=== PATIENT | female | born 1980 | race Caucasian/White ===

== ENCOUNTER 2016-05-23 19:52 | Emergency (ER) | payer OTHER ==
[2016-05-23 19:57] VITALS: BP 140/78; PULSE 73; RESP 20; TEMP 97
[2016-05-23] MEDS ORDERED: SODIUM CHLORIDE 0.9% 1,000 ML IV STA (20:25)
[2016-05-23] MEDS ORDERED: ASPIRIN 81 MG CHEW PO STA (20:25)
[2016-05-23] MEDS ORDERED: NITROGLYCERIN SL TABS 0.4 MG TAB SUBLINGUAL STA (20:29)
--- NOTE | 2016-05-23 20:29 | ED ---
Chest Pain HPI <Daniel Enciso - Last Filed: 05/23/16 22:18> - General Source: patient, family, RN notes reviewed Mode of arrival: ambulatory Limitations: no limitations <Jackie Mas - Last Filed: 05/23/16 22:20> - General Chief Complaint: Chest Pain Stated Complaint: Chest Pain Time Seen by Provider: 05/23/16 20:17 - History of Present Illness Initial Comments: 35-year-old female presents to the emergency department with a chief complaint of right sided chest tightness. Karma has had this on and off for years Patient states that this started today around 3:00. Patient states just the tightness in her chest. Patient states sometimes she does feel short of breath or pain when she takes a deep breath as well as. Patient states the pain will come and go. Patient denies any nausea or vomiting with this. Patient states this radiates into the neck and down the back. Patient states she has had this pain before. Patient states she notices she doesn't take her fish oil that she has the pain if she takes official she doesn't have the pain. Patient denies any fever or chills with this. Patient is a smoker. Patient states she does not have high blood pressure diabetes. Patient states that she was concerned due to the continued pain so she thought that she should be evaluated. Patient states she currently is in mild pain.Patient denies any recent fever, chills, back pain, abdominal pain, nausea vomiting, numbness or tingling, dysuria or hematuria, constipation or diarrhea, headaches or visual changes, or any other current symptoms. (Jackie Mas) - Related Data Home Medications Medication Instructions Recorded Confirmed Albuterol Inhaler [Ventolin 2 puff INHALATION RT-Q6H PRN 09/04/14 05/23/16 Inhaler] Omeprazole [PriLOSEC] 20 mg PO AC-BRKFST 09/04/14 05/23/16 ALPRAZolam [Xanax] 0.5 mg PO TID PRN 04/05/15 05/23/16 Loratadine [Claritin] 10 mg PO HS 05/17/15 05/23/16 Naproxen [Naprosyn] 500 mg PO Q12HR PRN 05/17/15 05/23/16 Atorvastatin Calcium [Lipitor] 40 mg PO DAILY 07/27/15 05/23/16 HYDROcodone/APAP 7.5-325MG [[place] 1 tab PO BID PRN 08/28/15 05/23/16 7.5] [place]-3 Fatty Acids/Fish Oil [Fish 1 cap PO DAILY 08/28/15 05/23/16 Oil 1,000 mg Softgel] Verapamil HCl [Verapamil ER] 120 mg PO DAILY 08/28/15 05/23/16 Butalbit/Acetamin/Caff/Codeine 1 cap PO BID PRN 11/02/15 05/23/16 [Butal/APAP/Caff/Cod 30-538-85-30MG] Gabapentin [Neurontin] 400 mg PO TID 05/02/16 05/23/16 Solifenacin Succinate [Vesicare] 10 mg PO DAILY 05/02/16 05/23/16 Allergies Allergy/AdvReac Type Severity Reaction Status Date / Time No Known Allergies Allergy Verified 05/23/16 20:12 Review of Systems ROS Other: All systems not noted in ROS Statement are negative. <Daniel Enciso - Last Filed: 05/23/16 22:18> ROS Other: All systems not noted in ROS Statement are negative. <Jackie Mas - Last Filed: 05/23/16 22:20> ROS Statement: Those systems with pertinent positive or pertinent negative responses have been documented in the HPI. EKG Findings - EKG Comments: EKG Findings:: normal sinus rhythm 75 bpm, normal axis, no atopy, no S-T depressions or elevations, <Jackie Mas - Last Filed: 05/23/16 22:20> Past Medical History Past Medical History: Asthma, Chest Pain / Angina, GERD/Reflux, Osteoarthritis ( OA), Skin Disorder Additional Past Medical History / Comment(s): migraines, IBS, rash under arms, overactive bladder History of Any Multi-Drug Resistant Organisms: None Reported Past Surgical History: Cholecystectomy Additional Past Surgical History / Comment(s): removal of mole from genital area Past Anesthesia/Blood Transfusion Reactions: Motion Sickness Past Psychological History: Anxiety, Depression Smoking Status: Current every day smoker Past Alcohol Use History: Rare Additional Past Alcohol Use History / Comment(s): started smoking age 24 Past Drug Use History: None Reported - Past Family History Mother Family Medical History: No Reported History <Jackie Mas - Last Filed: 05/23/16 22:20> General Exam <Daniel Enciso - Last Filed: 05/23/16 22:18> Limitations: no limitations <Jackie Mas - Last Filed: 05/23/16 22:20> - General Exam Comments Initial Comments: General: The patient is awake and alert, in no distress, and does not appear acutely ill. Eye: Pupils are equal, round and reactive to light, extra-ocular movements are intact; there is normal conjunctiva bilaterally. No signs of icterus. Ears, nose, mouth and throat: There are moist mucous membranes and no oral lesions. Neck: The neck is supple, there is no tenderness. Cardiovascular: There is a regular rate and rhythm. No murmur, rub or gallop is appreciated. Respiratory: Lungs are clear to auscultation, respirations are non-labored, breath sounds are equal. No wheezes, stridor, rales, or rhonchi. Gastrointestinal: Soft, non-distended, non-tender abdomen without masses or organomegaly noted. There is no rebound or guarding present. No CVA tenderness. Bowel sounds are unremarkable. Back: There is no tenderness to palpation in the midline. There is no obvious deformity. No rashes noted. Musculoskeletal: Normal ROM, no tenderness, There is no pedal edema. There is no calf tenderness or swelling. Sensation intact. Pulses equal bilaterally 2+. Neurological: CN II-XII intact, There are no obvious motor or sensory deficits. Coordination appears grossly intact. Speech is normal. Skin: Skin is warm and dry and no rashes or lesions are noted. Psychiatric: Cooperative, appropriate mood & affect, normal judgment. (Jackie Mas) Course <Daniel Enciso - Last Filed: 05/23/16 22:18> <Jackie Mas - Last Filed: 05/23/16 22:20> Vital Signs 05/23/16 19:53 Temperature 97 F L Pulse Rate 73 Respiratory 20 Rate Blood Pressure 140/78 O2 Sat by Pulse 99 Oximetry - Reevaluation(s) Reevaluation #1: 05/23/16 22:18 Patient reevaluated by myself, Dr. Enciso. Patient resting comfortably in bed and symptom-free. Patient states discomfort was more right-sided and resolved with Aleve. Patient states normally her fish oil will help resolve the discomfort. Patient has been expressing this for months. Patient states today was no worse than other times. Patient states onset was between noon and 2. Troponin negative. Troponin was more than 6 hours after the onset. Case was discussed in detail with Dr. Walker who will follow-up with this patient tomorrow. (Daniel Enciso) Chest Pain MDM <Daniel Enciso - Last Filed: 05/23/16 22:18> <Jackie Mas - Last Filed: 05/23/16 22:20> - MDM 35-year-old female presents to emergency department with a chief complaint of shortness of breath and chest pain which has been going on for years. Patient is sitting patient has mild discomfort. Patient's symptoms have been going on for a long period of time. At this time patient case was discussed with the on- call doctor by Dr. Enciso patient will be discharged home to follow the office tomorrow. Patient exhibits plan all the questions have been answered. She'll be discharged. (Jackie Mas) Disposition <Daniel Enciso - Last Filed: 05/23/16 22:18> Time of Disposition: 22:20 <Jackie Mas - Last Filed: 05/23/16 22:20> Clinical Impression: Atypical chest pain Disposition: HOME SELF-CARE Condition: Stable Instructions: Costochondritis (ED) Additional Instructions: Please use medication as discussed. Please follow up with family doctor if symptoms have not improved over the next two days. Please return to the emergency room if your symptoms increase or worsen or for any other concerns. Follow-up with your doctor tomorrow. Referrals: Diogenes Rosenbaum MD [Primary Care Provider] - 1-2 days
[2016-05-23 21:17] LABS: Basophils % (A) 0 %; CH 31.6; CHCM 33.1; Eosinophils # (A) 0.6 k/uL (0-0.7); Eosinophils % (A) 4 %; HCT 43.3 % (34.0-46.0); HDW 2.38; HGB 14.5 gm/dL (11.4-16.0); Luc # (Auto) 0.22; Luc % (Auto) 2; Lymphocytes # (A) 2.4 k/uL (1.0-4.8); Lymphocytes % (A) 16 %; MCH 32.1 pg (25.0-35.0); MCHC 33.5 g/dL (31.0-37.0); MCV 95.6 fL (80.0-100.0); Mean Platelet Volume 7.8; Monocytes # (A) 0.6 k/uL (0-1.0); Monocytes % (A) 4 %; Neutrophils # (A) 11.2 k/uL (1.3-7.7); Neutrophils % (A) 74 %; RBC 4.52 m/uL (3.80-5.40); RDW 12.7 % (11.5-15.5); WBC 15.1 k/uL (3.8-10.6); WBC (Perox) 15.36
[2016-05-23 21:18] LABS: Appearance,Urine Clear (Clear); Bacteria,Urine Rare /hpf; Bilirubin,Urine Negative (Negative); Glucose,Urine (UA) Negative (Negative); Ketones,Urine Negative (Negative); Leukocyte Esterase,Urine Negative (Negative); Mucus,Urine Rare /hpf; Nitrite,Urine Negative (Negative); Particle Count 1082; Protein,Urine Negative (Negative); RBC,Urine 6 /hpf (0-5); Specific Gravity,Urine 1.014 (1.001-1.035); Squamous Epithelial Cell,Urine 3 /hpf (0-4); UA Billing (MACRO vs. MICRO) MICRO; Urobilinogen,Urine <2.0 mg/dL (<2.0); WBC,Urine <1 /hpf (0-5)
[2016-05-23 21:26] LABS: ALT 72 U/L (9-52); AST 47 U/L (14-36); Alkaline Phosphatase 105 U/L (38-126); Amylase 35 U/L (30-110); Anion Gap 11 mmol/L; Blood Urea Nitrogen 20 mg/dL (7-17); Calcium 9.3 mg/dL (8.4-10.2); Carbon Dioxide 26 mmol/L (22-30); Chloride 105 mmol/L (98-107); Glucose 100 mg/dL (74-99); Magnesium 1.7 mg/dL (1.6-2.3); Non-African American GFR(MDRD) >60 (>60 ml/min/1.73 sqM); Potassium 4.3 mmol/L (3.5-5.1); Sodium 142 mmol/L (137-145); Total Bilirubin 0.4 mg/dL (0.2-1.3); Total Protein 7.1 g/dL (6.3-8.2)
[2016-05-23 21:30] LABS: Creatine Kinase 43 U/L (30-135)
--- NOTE | 2016-05-23 21:32 | XR ---
EXAMINATION TYPE: XR chest 2V DATE OF EXAM: 05/23/2016 9:19 PM COMPARISON: 03/28/2015 HISTORY: Right-sided chest pain TECHNIQUE: Frontal and lateral views of the chest are obtained. FINDINGS: Heart and mediastinum are normal. Lungs are clear. Diaphragm is normal. Bony thorax and so ft tissues appear normal. IMPRESSION: Normal chest. No change.
[2016-05-23 21:43] LABS: Creatine Kinase MB 0.4 ng/mL (0.0-2.4); Troponin I <0.012 ng/mL (0.000-0.034)
[2016-05-23 22:04] LABS: Prothrombin Time 10.1 sec (9.0-12.0)
== END 2016-05-23 22:26 | disposition home or self-care (01) ==
LOC: EC 19:52
DX: R07.89 Other chest pain (principal); R06.02 Shortness of breath; N32.81 Overactive bladder; K21.9 Gastro-esophageal reflux disease without esophagitis; I20.9 Angina pectoris, unspecified; M19.90 Unspecified osteoarthritis, unspecified site; F17.200 Nicotine dependence, unspecified, uncomplicated; F41.9 Anxiety disorder, unspecified; Z79.899 Other long term (current) drug therapy
CPT/HCPCS: 36415; 71020; 80053; 81001; 81025; 82150; 82550; 82553; 83690; 83735; 84484; 85025; 85379; 85610; 85730; 93005; 99285

== ENCOUNTER 2016-05-28 21:29 | Emergency (ER) | payer OTHER ==
[2016-05-28 21:36] VITALS: TEMP 98
[2016-05-28] MEDS ORDERED: SODIUM CHLORIDE 0.9% 1,000 ML IV STA (22:22)
[2016-05-28] MEDS ORDERED: MORPHINE SULFATE 4 MG/ML SYRINGE IV STA (22:22)
[2016-05-28] MEDS ORDERED: SODIUM CHLORIDE 0.9% 500 ML IV STA (22:22)
[2016-05-28] MEDS ORDERED: ONDANSETRON 4 MG/2 ML VIAL IVP STA ×2 (22:22→23:55)
[2016-05-28] MEDS ORDERED: PANTOPRAZOLE 40 MG/10 ML VIAL IVP STA (22:22)
--- NOTE | 2016-05-28 23:12 | XR ---
EXAMINATION TYPE: XR chest 2V DATE OF EXAM: 05/28/2016 11:07 PM COMPARISON: 05/23/2016 HISTORY: Abdominal pain TECHNIQUE: Frontal and lateral views of the chest are obtained. FINDINGS: Heart and mediastinum are normal. Lungs are clear. Diaphragm is normal. Bony thorax and so ft tissues appear normal. IMPRESSION: Normal chest. No change.
--- NOTE | 2016-05-28 23:13 | XR ---
EXAMINATION TYPE: XR KUB DATE OF EXAM: 05/28/2016 11:07 PM COMPARISON: 03/28/2015 HISTORY: Abdominal pain TECHNIQUE: 4 views FINDINGS: There is no sign of pneumoperitoneum. There are some intestinal air-fluid levels. Large bow el gas pattern is normal. Lung bases are clear. There are no pathologic calcifications over the kidne ys. IMPRESSION: Small bowel air-fluid levels are suggestive of ileus that appears new compared to last ex am. No free air.
[2016-05-28 23:23] LABS: ALT 84 U/L (9-52); AST 47 U/L (14-36); Alkaline Phosphatase 102 U/L (38-126); Amylase <30 U/L (30-110); Anion Gap 14 mmol/L; Blood Urea Nitrogen 14 mg/dL (7-17); C Reactive Protein 8.4 mg/L (<10.0); Calcium 10.3 mg/dL (8.4-10.2); Carbon Dioxide 23 mmol/L (22-30); Chloride 106 mmol/L (98-107); Glucose 117 mg/dL (74-99); Non-African American GFR(MDRD) >60 (>60 ml/min/1.73 sqM); Potassium 4.3 mmol/L (3.5-5.1); Sodium 143 mmol/L (137-145); Total Bilirubin 0.6 mg/dL (0.2-1.3); Total Protein 7.7 g/dL (6.3-8.2)
[2016-05-28 23:27] LABS: Basophils % (A) 0 %; CH 31.9; CHCM 33.7; Eosinophils # (A) 0.2 k/uL (0-0.7); Eosinophils % (A) 1 %; HCT 48.6 % (34.0-46.0); HDW 2.42; Luc # (Auto) 0.14; Luc % (Auto) 1; Lymphocytes # (A) 1.6 k/uL (1.0-4.8); Lymphocytes % (A) 9 %; MCH 31.2 pg (25.0-35.0); MCHC 32.9 g/dL (31.0-37.0); MCV 94.8 fL (80.0-100.0); Mean Platelet Volume 7.1; Monocytes # (A) 0.6 k/uL (0-1.0); Monocytes % (A) 4 %; Neutrophils # (A) 15.5 k/uL (1.3-7.7); Neutrophils % (A) 86 %; RBC 5.13 m/uL (3.80-5.40); RDW 12.6 % (11.5-15.5); WBC 18.1 k/uL (3.8-10.6)
[2016-05-29 00:16] LABS: Appearance,Urine Cloudy (Clear); Bacteria,Urine Occasional /hpf; Bilirubin,Urine Negative (Negative); Glucose,Urine (UA) Negative (Negative); Ketones,Urine Trace (Negative); Leukocyte Esterase,Urine Small (Negative); Mucus,Urine Few /hpf; Nitrite,Urine Negative (Negative); Protein,Urine 2+ (Negative); RBC,Urine 37 /hpf (0-5); Specific Gravity,Urine 1.021 (1.001-1.035); Squamous Epithelial Cell,Urine 29 /hpf (0-4); UA Billing (MACRO vs. MICRO) MICRO; WBC,Urine 10 /hpf (0-5)
[2016-05-29] MEDS ORDERED: RX INFO: IV CONTRAST WAS GIVEN 1 EACH MISC MISCELLANE PRN (00:58)
--- NOTE | 2016-05-29 01:51 | CT ---
EXAMINATION TYPE: CT abdomen pelvis w con DATE OF EXAM: 05/29/2016 1:32 AM COMPARISON: 07/27/2015 HISTORY: Abd pain CT DLP: 4885.30 mGycm Automated exposure control for dose reduction was used. TECHNIQUE: Helical acquisition of images was performed from the lung bases through the pelvis. CONTRAST: Performed without Oral Contrast and with IV Contrast, patient injected with 100 mL of Omnipaque 300. FINDINGS: The lung bases are clear. There is no pleural effusion. The liver spleen pancreas appear normal. Bile ducts are not dilated. There are clips from cholecystectomy. There is no adrenal mass. Kidneys show satisfactory contrast opacification. There is no hydronephrosis. There is no retroperitoneal adenopat hy. There is no ascites. There is a small umbilical hernia that contains omental fat. I see no intestinal wall thickening. There are no dilated loops. There is spondylosis at L5-S1 with v acuum disc. Uterus is anteverted. Bladder distends smoothly. There is no evidence of a pelvic mass. T here is no free fluid in the pelvis. Appendix is not seen. There is no sign of appendicitis. I see no bony destructive process. IMPRESSION: SMALL UMBILICAL HERNIA. NO SIGN OF ACUTE ABDOMEN AND PELVIS. NO CHANGE COMPARED TO OLD EXAM.
--- NOTE | 2016-05-29 03:16 | ED ---
Abdominal Pain HPI - General Chief Complaint: Abdominal Pain Stated Complaint: abd pain Time Seen by Provider: 05/28/16 22:10 Source: patient Mode of arrival: ambulatory Limitations: no limitations - History of Present Illness Initial Comments: Planing of the epigastric pain it started 8 PM today, she vomited once she was quite diaphoretic and had a headache in the morning then headache is all after she took a nap and then she had a diarrhea she status post gallbladder surgery about a year ago. She is trying some weight loss pill which is over-the- counter pill and then she said her when she threw up it had a very bad water. Denies any fever or any chills had some nausea no vomiting. No headaches no neck stiffness no chest pain no pleuritic chest pain no frequency urgency dysuria - Related Data Home Medications Medication Instructions Recorded Confirmed Albuterol Inhaler [Ventolin 2 puff INHALATION RT-Q6H PRN 09/04/14 05/28/16 Inhaler] Omeprazole [PriLOSEC] 20 mg PO AC-BRKFST 09/04/14 05/28/16 ALPRAZolam [Xanax] 0.5 mg PO TID PRN 04/05/15 05/28/16 Loratadine [Claritin] 10 mg PO HS 05/17/15 05/28/16 Naproxen [Naprosyn] 500 mg PO Q12HR PRN 05/17/15 05/28/16 Atorvastatin Calcium [Lipitor] 40 mg PO DAILY 07/27/15 05/28/16 HYDROcodone/APAP 7.5-325MG [[place] 1 tab PO BID PRN 08/28/15 05/28/16 7.5] [place]-3 Fatty Acids/Fish Oil [Fish 1 cap PO DAILY 08/28/15 05/28/16 Oil 1,000 mg Softgel] Verapamil HCl [Verapamil ER] 120 mg PO DAILY 08/28/15 05/28/16 Butalbit/Acetamin/Caff/Codeine 1 cap PO BID PRN 11/02/15 05/28/16 [Butal/APAP/Caff/Cod 19-033-69-30MG] Gabapentin [Neurontin] 400 mg PO TID 05/02/16 05/28/16 Solifenacin Succinate [Vesicare] 10 mg PO DAILY 05/02/16 05/28/16 Allergies Allergy/AdvReac Type Severity Reaction Status Date / Time No Known Allergies Allergy Verified 05/28/16 21:50 Review of Systems ROS Statement: Those systems with pertinent positive or pertinent negative responses have been documented in the HPI. ROS Other: All systems not noted in ROS Statement are negative. Past Medical History Past Medical History: Asthma, Chest Pain / Angina, GERD/Reflux, Osteoarthritis ( OA), Skin Disorder Additional Past Medical History / Comment(s): migraines, IBS, rash under arms, overactive bladder History of Any Multi-Drug Resistant Organisms: None Reported Past Surgical History: Cholecystectomy Additional Past Surgical History / Comment(s): removal of mole from genital area Past Anesthesia/Blood Transfusion Reactions: Motion Sickness Past Psychological History: Anxiety, Depression Smoking Status: Current every day smoker Past Alcohol Use History: Rare Additional Past Alcohol Use History / Comment(s): started smoking age 24 Past Drug Use History: None Reported - Past Family History Mother Family Medical History: No Reported History General Exam - General Exam Comments Initial Comments: General: The patient is awake and alert, in no distress, and does not appear acutely ill. Skin: Skin is warm and dry and no rashes or lesions are noted. Eye: Pupils are equal, round and reactive to light, extra-ocular movements are intact; there is normal conjunctiva bilaterally. Ears, nose, mouth and throat: There are moist mucous membranes and no oral lesions. Neck: The neck is supple, there is no tenderness or JVD. Cardiovascular: There is a regular rate and rhythm. No murmur, rub or gallop is appreciated. Respiratory: To auscultation bilateral, no wheezing no rhonchi no distress respiratory kiser noticed Gastrointestinal: Mild tenderness noticed in the epigastric area positive bowel sounds no guarding no rebounds Back: There is no tenderness to palpation in the midline. There is no obvious deformity. Musculoskeletal: Normal ROM, no tenderness, There is no pedal edema. There is no calf tenderness or swelling. No cords were appreciated. Neurological: CN II-XII intact, Cranial nerves III through XII are intact. There are no obvious motor or sensory deficits. Coordination appears grossly intact. Speech is normal. Psychiatric: Cooperative, appropriate mood & affect, normal judgment. Limitations: no limitations Course Vital Signs 05/28/16 21:34 Temperature 98 F Pulse Rate 89 Respiratory 20 Rate Blood Pressure 198/89 O2 Sat by Pulse 98 Oximetry Him a she was reassessed multiple times, white count is elevated at 18 chest x- ray KUB are normal, compressive metabolic panel is normal as well and the CT was unremarkable last reassessment was done at 3 AM she feels better and wants to go home also we discussed her weight loss pills which is [id number] I recommend that please do not take anything unless she discussed with the family doctor she agreed with the Medical Decision Making - Lab Data Result diagrams: 05/28/16 20:40 05/28/16 20:40 Lab Results 05/28/16 05/28/16 05/29/16 Range/Units 20:40 20:40 00:00 WBC 18.1 H (3.8-10.6) k/uL RBC 5.13 (3.80-5.40) m/uL Hgb 16.0 (11.4-16.0) gm/dL Hct 48.6 H (34.0-46.0) % MCV 94.8 (80.0-100.0) fL MCH 31.2 (25.0-35.0) pg MCHC 32.9 (31.0-37.0) g/dL RDW 12.6 (11.5-15.5) % Plt Count 398 (150-450) k/uL Neutrophils % 86 % Lymphocytes % 9 % Monocytes % 4 % Eosinophils % 1 % Basophils % 0 % Neutrophils # 15.5 H (1.3-7.7) k/uL Lymphocytes # 1.6 (1.0-4.8) k/uL Monocytes # 0.6 (0-1.0) k/uL Eosinophils # 0.2 (0-0.7) k/uL Basophils # 0.0 (0-0.2) k/uL Sodium 143 (137-145) mmol/L Potassium 4.3 (3.5-5.1) mmol/L Chloride 106 (98-107) mmol/L Carbon Dioxide 23 (22-30) mmol/L Anion Gap 14 mmol/L BUN 14 (7-17) mg/dL Creatinine 0.60 (0.52-1.04) mg/dL Est GFR (MDRD) Af Amer >60 (>60 ml/min/1.73 sqM) Est GFR (MDRD) Non-Af >60 (>60 ml/min/1.73 sqM) Glucose 117 H (74-99) mg/dL Calcium 10.3 H (8.4-10.2) mg/dL Total Bilirubin 0.6 (0.2-1.3) mg/dL AST 47 H (14-36) U/L ALT 84 H (9-52) U/L Alkaline Phosphatase 102 (38-126) U/L C-Reactive Protein 8.4 (<10.0) mg/L Total Protein 7.7 (6.3-8.2) g/dL Albumin 4.4 (3.5-5.0) g/dL Amylase <30 L (30-110) U/L Lipase 64 (23-300) U/L Urine Color Yellow Urine Appearance Cloudy H (Clear) Urine pH 6.0 (5.0-8.0) Ur Specific Daniel 1.021 (1.001-1.035) Urine Protein 2+ H (Negative) Urine Glucose (UA) Negative (Negative) Urine Ketones Trace H (Negative) Urine Blood Moderate H (Negative) Urine Nitrate Negative (Negative) Urine Bilirubin Negative (Negative) Urine Urobilinogen 2.0 (<2.0) mg/dL Ur Leukocyte Esterase Small H (Negative) Urine RBC 37 H (0-5) /hpf Urine WBC 10 H (0-5) /hpf Ur Squamous Epith Cells 29 H (0-4) /hpf Urine Bacteria Occasional H (None) /hpf Urine Mucus Few H (None) /hpf Disposition Clinical Impression: Abdominal pain Disposition: HOME SELF-CARE Instructions: Abdominal Pain (ED) Additional Instructions: Tylenol 1 g by mouth every 6 when necessary
[2016-05-29 03:23] VITALS: BP 162/87; PULSE 91; RESP 18
== END 2016-05-29 03:22 | disposition home or self-care (01) ==
LOC: EC 21:29
DX: R10.9 Unspecified abdominal pain (principal); R61 Generalized hyperhidrosis; R11.10 Vomiting, unspecified; R19.7 Diarrhea, unspecified; F17.200 Nicotine dependence, unspecified, uncomplicated; N32.81 Overactive bladder; G43.909 Migraine, unspecified, not intractable, without status migrainosus; M19.90 Unspecified osteoarthritis, unspecified site; I20.9 Angina pectoris, unspecified; K21.9 Gastro-esophageal reflux disease without esophagitis; F41.9 Anxiety disorder, unspecified; Z79.899 Other long term (current) drug therapy
CPT/HCPCS: 99284; 96374; 96375 ×2; 96376; 36415; 80053; 82150; 83690; 85025; 86140; 81001; 71020; 74000; 74177; J2270; J2405; Q9967; C9113

== ENCOUNTER 2016-10-08 13:14 | Emergency (ER) | payer OTHER ==
[2016-10-08] MEDS ORDERED: KETOROLAC 30 MG/ML 1 ML VIAL IVP STA (14:01)
--- NOTE | 2016-10-08 14:06 | ED ---
General Adult HPI - General Chief complaint: Back Pain/Injury Stated complaint: back pain Time Seen by Provider: 10/08/16 13:29 Source: patient, RN notes reviewed Mode of arrival: ambulatory Limitations: no limitations - History of Present Illness Initial comments: Patient is a pleasant 36-year-old female presenting to the emergency department complaining of lower back pain. Onset was 2 weeks ago. Symptoms have been present since that time. Discomfort does radiate towards her right hip. Discomfort is somewhat positional. No dysuria or hematuria. Patient has had similar symptoms previously associated with back problems. Patient later states she is not clear if this feels like her chronic back problems. Patient has had back x-rays previously. Patient has also had kidney infections however she had blood in her urine at that time. No fevers. No incontinence or retention of bowel or bladder. No weakness. No abdominal pain. - Related Data Home Medications Medication Instructions Recorded Confirmed Albuterol Inhaler [Ventolin 2 puff INHALATION RT-Q6H PRN 09/04/14 10/08/16 Inhaler] Omeprazole [PriLOSEC] 20 mg PO AC-BRKFST 09/04/14 10/08/16 ALPRAZolam [Xanax] 0.5 mg PO TID PRN 04/05/15 10/08/16 Loratadine [Claritin] 10 mg PO HS 05/17/15 10/08/16 Naproxen [Naprosyn] 500 mg PO Q12HR PRN 05/17/15 10/08/16 Atorvastatin Calcium [Lipitor] 40 mg PO DAILY 07/27/15 10/08/16 HYDROcodone/APAP 7.5-325MG [[place] 1 tab PO BID PRN 08/28/15 10/08/16 7.5] [place]-3 Fatty Acids/Fish Oil [Fish 1 cap PO DAILY 08/28/15 10/08/16 Oil 1,000 mg Softgel] Gabapentin [Neurontin] 400 mg PO TID 05/02/16 10/08/16 Escitalopram Oxalate [Lexapro] 20 mg PO DAILY 10/08/16 10/08/16 Hydrochlorothiazide [Hydrodiuril] 12.5 mg PO DAILY 10/08/16 10/08/16 Pregabalin [Lyrica] 75 mg PO BID 05/23/17 05/23/17 Allergies Allergy/AdvReac Type Severity Reaction Status Date / Time No Known Allergies Allergy Verified 10/08/16 14:40 Review of Systems ROS Statement: Those systems with pertinent positive or pertinent negative responses have been documented in the HPI. ROS Other: All systems not noted in ROS Statement are negative. Constitutional: Denies: fever Eyes: Denies: eye pain ENT: Denies: ear pain Respiratory: Denies: cough Cardiovascular: Denies: chest pain Endocrine: Denies: fatigue Gastrointestinal: Denies: abdominal pain, nausea, vomiting Genitourinary: Denies: dysuria Musculoskeletal: Reports: back pain Skin: Denies: rash Neurological: Denies: weakness Past Medical History Past Medical History: Asthma, Chest Pain / Angina, GERD/Reflux, Osteoarthritis ( OA), Skin Disorder Additional Past Medical History / Comment(s): migraines, IBS, rash under arms, overactive bladder History of Any Multi-Drug Resistant Organisms: None Reported Past Surgical History: Cholecystectomy Additional Past Surgical History / Comment(s): removal of mole from genital area Past Anesthesia/Blood Transfusion Reactions: Motion Sickness Past Psychological History: Anxiety, Depression Smoking Status: Current every day smoker Past Alcohol Use History: Rare Additional Past Alcohol Use History / Comment(s): started smoking age 24 Past Drug Use History: None Reported - Past Family History Mother Family Medical History: No Reported History General Exam Limitations: no limitations General appearance: alert, in no apparent distress Head exam: Present: atraumatic Eye exam: Present: normal appearance, PERRL ENT exam: Present: normal oropharynx Neck exam: Present: normal inspection Respiratory exam: Present: normal lung sounds bilaterally Cardiovascular Exam: Present: regular rate, normal rhythm Expanded Peripheral pulses: 2+: Dorsalis Pedis (R), Dorsalis Pedis (L) GI/Abdominal exam: Present: soft, normal bowel sounds. Absent: distended, tenderness, guarding, rebound, rigid, pulsatile mass Extremities exam: Present: normal inspection Back exam: Present: tenderness (Mild tenderness right lateral lower lumbar region) Neurological exam: Present: alert. Absent: motor sensory deficit Psychiatric exam: Present: normal affect, normal mood Skin exam: Absent: rash Course Vital Signs 10/08/16 13:18 Temperature 98.4 F Pulse Rate 76 Respiratory 18 Rate Blood Pressure 162/77 O2 Sat by Pulse 99 Oximetry Medical Decision Making - Medical Decision Making Patient reevaluated and resting comfortably in bed. Patient states discomfort has significantly improved. Patient updated on results. Patient offered prescription for pain medication however refuses stating that she is on a pain contract and already takes [place]. Patient states he has appointment with her doctor tomorrow and will keep this. Patient is advised to have her doctor a few results from today including liver enzymes. Patient states her white blood cell count is chronically elevated. - Lab Data Result diagrams: 10/08/16 14:30 10/08/16 14:30 Lab Results 10/08/16 10/08/16 10/08/16 Range/Units 14:30 14:30 14:30 WBC 12.2 H (3.8-10.6) k/uL RBC 4.27 (3.80-5.40) m/uL Hgb 13.8 (11.4-16.0) gm/dL Hct 41.2 (34.0-46.0) % MCV 96.5 (80.0-100.0) fL MCH 32.4 (25.0-35.0) pg MCHC 33.6 (31.0-37.0) g/dL RDW 12.8 (11.5-15.5) % Plt Count 274 (150-450) k/uL Neutrophils % 74 % Lymphocytes % 16 % Monocytes % 5 % Eosinophils % 4 % Basophils % 0 % Neutrophils # 9.0 H (1.3-7.7) k/uL Lymphocytes # 1.9 (1.0-4.8) k/uL Monocytes # 0.6 (0-1.0) k/uL Eosinophils # 0.5 (0-0.7) k/uL Basophils # 0.1 (0-0.2) k/uL Sodium 138 (137-145) mmol/L Potassium 4.8 (3.5-5.1) mmol/L Chloride 105 (98-107) mmol/L Carbon Dioxide 24 (22-30) mmol/L Anion Gap 9 mmol/L BUN 11 (7-17) mg/dL Creatinine 0.63 (0.52-1.04) mg/dL Est GFR (MDRD) Af Amer >60 (>60 ml/min/1.73 sqM) Est GFR (MDRD) Non-Af >60 (>60 ml/min/1.73 sqM) Glucose 126 H (74-99) mg/dL Calcium 9.3 (8.4-10.2) mg/dL Total Bilirubin 0.8 (0.2-1.3) mg/dL AST 58 H (14-36) U/L ALT 56 H (9-52) U/L Alkaline Phosphatase 72 (38-126) U/L Total Protein 7.0 (6.3-8.2) g/dL Albumin 3.7 (3.5-5.0) g/dL Urine Color Urine Appearance (Clear) Urine pH (5.0-8.0) Ur Specific [place] (1.001-1.035) Urine Protein (Negative) Urine Glucose (UA) (Negative) Urine Ketones (Negative) Urine Blood (Negative) Urine Nitrite (Negative) Urine Bilirubin (Negative) Urine Urobilinogen (<2.0) mg/dL Ur Leukocyte Esterase (Negative) Urine RBC (0-5) /hpf Urine WBC (0-5) /hpf Ur Squamous Epith Cells (0-4) /hpf Amorphous Sediment (None) /hpf Hyaline Casts (0-2) /lpf Urine HCG, Qual Not Detected (Not Detectd) 10/08/16 Range/Units 14:30 WBC (3.8-10.6) k/uL RBC (3.80-5.40) m/uL Hgb (11.4-16.0) gm/dL Hct (34.0-46.0) % MCV (80.0-100.0) fL MCH (25.0-35.0) pg MCHC (31.0-37.0) g/dL RDW (11.5-15.5) % Plt Count (150-450) k/uL Neutrophils % % Lymphocytes % % Monocytes % % Eosinophils % % Basophils % % Neutrophils # (1.3-7.7) k/uL Lymphocytes # (1.0-4.8) k/uL Monocytes # (0-1.0) k/uL Eosinophils # (0-0.7) k/uL Basophils # (0-0.2) k/uL Sodium (137-145) mmol/L Potassium (3.5-5.1) mmol/L Chloride (98-107) mmol/L Carbon Dioxide (22-30) mmol/L Anion Gap mmol/L BUN (7-17) mg/dL Creatinine (0.52-1.04) mg/dL Est GFR (MDRD) Af Amer (>60 ml/min/1.73 sqM) Est GFR (MDRD) Non-Af (>60 ml/min/1.73 sqM) Glucose (74-99) mg/dL Calcium (8.4-10.2) mg/dL Total Bilirubin (0.2-1.3) mg/dL AST (14-36) U/L ALT (9-52) U/L Alkaline Phosphatase (38-126) U/L Total Protein (6.3-8.2) g/dL Albumin (3.5-5.0) g/dL Urine Color Light Yellow Urine Appearance Clear (Clear) Urine pH 6.5 (5.0-8.0) Ur Specific [place] 1.007 (1.001-1.035) Urine Protein Negative (Negative) Urine Glucose (UA) Negative (Negative) Urine Ketones Negative (Negative) Urine Blood Small H (Negative) Urine Nitrite Negative (Negative) Urine Bilirubin Negative (Negative) Urine Urobilinogen <2.0 (<2.0) mg/dL Ur Leukocyte Esterase Negative (Negative) Urine RBC 1 (0-5) /hpf Urine WBC 1 (0-5) /hpf Ur Squamous Epith Cells 6 H (0-4) /hpf Amorphous Sediment Rare H (None) /hpf Hyaline Casts 1 (0-2) /lpf Urine HCG, Qual (Not Detectd) - Radiology Data Radiology results: report reviewed (Computed tomography scan of the abdomen and pelvis reveals no acute abnormality.) Disposition Clinical Impression: Low back pain Disposition: HOME SELF-CARE Condition: Stable Instructions: Acute Low Back Pain (ED), Chronic Back Pain (ED) Additional Instructions: Please follow-up with your doctor tomorrow as scheduled. Please have your doctor review results from today including liver enzymes. You should have your liver enzymes rechecked in the future and possible further investigation. Return for increased pain, fevers, worsening or changing symptoms or other concerns. Referrals: Diogenes Rosenbaum MD [Primary Care Provider] - 1-2 days
[2016-10-08 14:51] LABS: ALT 56 U/L (9-52); AST 58 U/L (14-36); Alkaline Phosphatase 72 U/L (38-126); Anion Gap 9 mmol/L; Blood Urea Nitrogen 11 mg/dL (7-17); Calcium 9.3 mg/dL (8.4-10.2); Carbon Dioxide 24 mmol/L (22-30); Chloride 105 mmol/L (98-107); Glucose 126 mg/dL (74-99); Non-African American GFR(MDRD) >60 (>60 ml/min/1.73 sqM); Potassium 4.8 mmol/L (3.5-5.1); Sodium 138 mmol/L (137-145); Total Bilirubin 0.8 mg/dL (0.2-1.3)
[2016-10-08 15:06] LABS: Amorphous Sediment,Urine Rare /hpf; Particle Count 757; RBC,Urine 1 /hpf (0-5); Squamous Epithelial Cell,Urine 6 /hpf (0-4); WBC,Urine 1 /hpf (0-5)
[2016-10-08 15:09] LABS: Appearance,Urine Clear (Clear); Bilirubin,Urine Negative (Negative); Glucose,Urine (UA) Negative (Negative); Ketones,Urine Negative (Negative); Leukocyte Esterase,Urine Negative (Negative); Nitrite,Urine Negative (Negative); PH, Urine 6.5 (5.0-8.0); Protein,Urine Negative (Negative); Specific Gravity,Urine 1.007 (1.001-1.035); UA Billing (MACRO vs. MICRO) MICRO; Urobilinogen,Urine <2.0 mg/dL (<2.0)
--- NOTE | 2016-10-08 15:25 | CT ---
EXAMINATION TYPE: CT abdomen pelvis wo con DATE OF EXAM: 10/08/2016 3:04 PM COMPARISON: 05/29/2016 HISTORY: 36-year-old female Right sided flank pain CT DLP: 3352 mGycm. Automated exposure control for dose reduction was used. TECHNIQUE: Contiguous axial scanning of the abdomen and pelvis without IV contrast. Coronal and sagit jose manuel reconstructions performed. FINDINGS: The heart is normal size without pericardial effusion. Lung bases clear without pleural effusion. There are artifacts secondary to patient's large body habitus and contact with the sides of the gantr y. Allowing for these artifacts and noncontrast technique, no focal liver lesion. Cholecystectomy clips are present. Noncontrast appearance of the adrenal glands, kidneys, spleen, and pancreas within jimbo l limits. Specifically, no nephrolithiasis or hydronephrosis. No dilated small bowel, free fluid, or free air. No mesenteric or retroperitoneal lymphadenopathy. Normal appendix. No significant stool burden or pericolonic inflammatory change. Small fatty umbilical hernia. Bladder is underdistended. Uterus and ovaries are visualized. No abnormal fluid collection in the pel vis or pelvic lymphadenopathy seen. Bones: Degenerative changes lower lumbar spine. No osseous destructive process. IMPRESSION: 1. Redemonstrated small fatty umbilical hernia. 2. No nephrolithiasis, hydronephrosis, or acute inflammatory process identified to explain the patie nt's symptoms.
[2016-10-08 16:04] LABS: Basophils # (A) 0.1 k/uL (0-0.2); Basophils % (A) 0 %; CHCM 33.3; Eosinophils # (A) 0.5 k/uL (0-0.7); Eosinophils % (A) 4 %; HCT 41.2 % (34.0-46.0); HDW 2.33; HGB 13.8 gm/dL (11.4-16.0); Luc # (Auto) 0.12; Luc % (Auto) 1; Lymphocytes # (A) 1.9 k/uL (1.0-4.8); Lymphocytes % (A) 16 %; MCH 32.4 pg (25.0-35.0); MCHC 33.6 g/dL (31.0-37.0); MCV 96.5 fL (80.0-100.0); Mean Platelet Volume 9.1; Monocytes # (A) 0.6 k/uL (0-1.0); Monocytes % (A) 5 %; Neutrophils % (A) 74 %; RBC 4.27 m/uL (3.80-5.40); RDW 12.8 % (11.5-15.5); WBC 12.2 k/uL (3.8-10.6)
[2016-10-08 16:45] VITALS: BP 167/72; PULSE 64; RESP 16; TEMP 97.8
== END 2016-10-08 16:45 | disposition home or self-care (01) ==
LOC: EC 13:14
DX: M54.5 Low back pain (principal); K21.9 Gastro-esophageal reflux disease without esophagitis; M19.90 Unspecified osteoarthritis, unspecified site; K58.9 Irritable bowel syndrome, unspecified; F32.9 Major depressive disorder, single episode, unspecified; F41.9 Anxiety disorder, unspecified; F17.200 Nicotine dependence, unspecified, uncomplicated; Z79.899 Other long term (current) drug therapy
CPT/HCPCS: 36415; 80053; 85025; 81001; 81025; 74176; 99284; 96374; J1885

== ENCOUNTER → 2016-11-28 | Outpatient (CLI) | payer OTHER | END | disposition home or self-care (01) | LOC: RADMRIMAIN 09:33 | PROVIDERS: ATTEND Psychiatry & Neurology Pain Medicine | DX: Z53.9 Procedure and treatment not carried out, unspecified reason (principal) ==

== ENCOUNTER 2016-12-19 20:48 | Emergency (ER) | payer OTHER ==
[2016-12-19 21:01] VITALS: BP 176/95; PULSE 106; RESP 20
[2016-12-19] MEDS ORDERED: CEPHALEXIN 500MG STARTER PACK 4 CAP BTL PO STA (21:15)
--- NOTE | 2016-12-19 21:58 | ED ---
General Adult HPI - General Chief complaint: Extremity Problem,Nontraumatic Stated complaint: ingrown toenail Time Seen by Provider: 12/19/16 21:12 Source: patient, RN notes reviewed, old records reviewed Mode of arrival: ambulatory Limitations: no limitations - History of Present Illness Initial comments: This is a 36 year old femael with CC of right great ingrown toenail. She reports that her nail has been bothering her for a week. She reports she tried to remove the nail, but it seems lauri too deep. Patint denies any fever or chills. Denies swelling of the toe or redness. - Related Data Home Medications Medication Instructions Recorded Confirmed Albuterol Inhaler [Ventolin 2 puff INHALATION RT-Q6H PRN 09/04/14 12/19/16 Inhaler] Omeprazole [PriLOSEC] 20 mg PO AC-BRKFST 09/04/14 12/19/16 ALPRAZolam [Xanax] 0.5 mg PO TID PRN 04/05/15 12/19/16 Loratadine [Claritin] 10 mg PO HS 05/17/15 12/19/16 Naproxen [Naprosyn] 500 mg PO Q12HR PRN 05/17/15 12/19/16 Atorvastatin Calcium [Lipitor] 40 mg PO DAILY 07/27/15 12/19/16 HYDROcodone/APAP 7.5-325MG [[place] 1 tab PO BID PRN 08/28/15 12/19/16 7.5] [place]-3 Fatty Acids/Fish Oil [Fish 1 cap PO DAILY 08/28/15 12/19/16 Oil 1,000 mg Softgel] Gabapentin [Neurontin] 400 mg PO TID 05/02/16 12/19/16 Escitalopram Oxalate [Lexapro] 20 mg PO DAILY 10/08/16 12/19/16 Hydrochlorothiazide [Hydrodiuril] 12.5 mg PO DAILY 10/08/16 12/19/16 Pregabalin [Lyrica] 75 mg PO BID 10/08/16 12/19/16 Previous Rx's Medication Instructions Recorded Cephalexin [Keflex] 500 mg PO Q8HR #21 cap 12/19/16 Allergies Allergy/AdvReac Type Severity Reaction Status Date / Time No Known Allergies Allergy Verified 12/19/16 21:01 Review of Systems ROS Statement: Those systems with pertinent positive or pertinent negative responses have been documented in the HPI. ROS Other: All systems not noted in ROS Statement are negative. Past Medical History Past Medical History: Asthma, Chest Pain / Angina, GERD/Reflux, Osteoarthritis ( OA), Skin Disorder Additional Past Medical History / Comment(s): migraines, IBS, rash under arms, overactive bladder History of Any Multi-Drug Resistant Organisms: None Reported Past Surgical History: Cholecystectomy Additional Past Surgical History / Comment(s): removal of mole from genital area Past Anesthesia/Blood Transfusion Reactions: Motion Sickness Past Psychological History: Anxiety, Depression Smoking Status: Current every day smoker Past Alcohol Use History: Rare Past Drug Use History: None Reported - Past Family History Mother Family Medical History: No Reported History General Exam - General Exam Comments Initial Comments: Well appearing 36 year old female, she is morbidly obese. Limitations: no limitations General appearance: alert, in no apparent distress Head exam: Present: atraumatic, normocephalic, normal inspection Eye exam: Present: normal appearance, PERRL, EOMI. Absent: scleral icterus, conjunctival injection, periorbital swelling ENT exam: Present: normal exam, mucous membranes moist Neck exam: Present: normal inspection. Absent: tenderness, meningismus, lymphadenopathy Respiratory exam: Present: normal lung sounds bilaterally. Absent: respiratory distress, wheezes, rales, rhonchi, stridor Cardiovascular Exam: Present: regular rate, normal rhythm, normal heart sounds. Absent: systolic murmur, diastolic murmur, rubs, gallop, clicks GI/Abdominal exam: Present: soft, normal bowel sounds. Absent: distended, tenderness, guarding, rebound, rigid Extremities exam: Present: normal inspection, full ROM, normal capillary refill , other (patient has ingrown toenail. ). Absent: tenderness, pedal edema, joint swelling, calf tenderness Back exam: Present: normal inspection Neurological exam: Present: alert, oriented X3, CN II-XII intact Psychiatric exam: Present: normal affect, normal mood Skin exam: Present: warm, dry, intact, normal color. Absent: rash Course Vital Signs 12/19/16 12/19/16 20:58 22:12 Temperature 97.3 F L 97.9 F Pulse Rate 106 H Respiratory 20 Rate Blood Pressure 176/95 O2 Sat by Pulse 96 Oximetry Medical Decision Making - Medical Decision Making This is a 36 year old femael with CC of right great ingrown toenail. She reports that her nail has been bothering her for a week. She reports she tried to remove the nail, but it seems lauri too deep. Patint denies any fever or chills. Denies swelling of the toe or redness. Patient has right ingrown toenail over the medial aspect of toe. Nail was parially removed, nail bed was not ablated. Patient started on keflex. Patient will be discharged with referral to podiatry. Return parameters discussed. Disposition Clinical Impression: Ingrown right big toenail Disposition: HOME SELF-CARE Condition: Good Instructions: Ingrown Nail (ED) Additional Instructions: Patient advised to take antibiotics as directed. Follow-up with support services coordinator. Return to emergency department if any alarming signs or symptoms occur. Prescriptions: Cephalexin [Keflex] 500 mg PO Q8HR #21 cap Referrals: Lucien Vela MD [Primary Care Provider] - 1-2 days Kalyan Paz DPM [STAFF PHYSICIAN] - 1-2 days Time of Disposition: 21:56
[2016-12-19 22:14] VITALS: TEMP 97.9
--- NOTE | 2016-12-23 07:52 | CDI ---
Documentation Clarification OP Dear NAHID Cherry: Please do addendum to ED report for HPI and physical exam. Thank you, Anne Sanchez Waistline Joiner If you have any question, Please contact manager procurement at [phone] [facility]
== END 2016-12-19 22:10 | disposition home or self-care (01) ==
LOC: EC 20:48
DX: L60.0 Ingrowing nail (principal); K21.9 Gastro-esophageal reflux disease without esophagitis; M19.90 Unspecified osteoarthritis, unspecified site; K58.9 Irritable bowel syndrome, unspecified; F32.9 Major depressive disorder, single episode, unspecified; F41.9 Anxiety disorder, unspecified; Z68.44 Body mass index [BMI] 60.0-69.9, adult; E66.01 Morbid (severe) obesity due to excess calories; F17.200 Nicotine dependence, unspecified, uncomplicated; Z79.899 Other long term (current) drug therapy
CPT/HCPCS: 99283

== ENCOUNTER 2017-01-13 20:44 | Emergency (ER) | payer OTHER ==
[2017-01-13 20:51] VITALS: RESP 20
[2017-01-13] MEDS ORDERED: MORPHINE SULFATE 4 MG/ML SYRINGE IV STA (21:17)
--- NOTE | 2017-01-13 21:22 | ED ---
Abdominal Pain HPI - General Chief Complaint: Abdominal Pain Stated Complaint: Lower Back/Abd Pain Time Seen by Provider: 01/13/17 21:05 Source: patient Mode of arrival: ambulatory Limitations: no limitations - History of Present Illness Initial Comments: This patient is a 36-year-old woman who presents to be evaluated for right flank and right upper quadrant pain. She states that her symptoms began 5 days ago with pain to the right flank area. The pain is aching, constant, and over the past few days it seems to have migrated such that her right upper quadrant is involved as well. She states the pain is become more severe as well and she is severe. She has not noted anything that relieves the pain. She states it does seem to get worse after she eats. She has had some accompanying nausea but no vomiting. She denies changes in bowel movements. She has not noted any change in urination. She has not had fever or chills. There are no symptoms up into the chest, including no cough, dyspnea. She has not had some radiation of the pain to the legs. MD Complaint: abdominal pain, flank pain Onset/Timin -: days(s) Location: R flank Radiation: none Migration to: RUQ Severity: severe Quality: aching Consistency: constant Improves With: nothing Worsens With: eating Associated Symptoms: nausea - Related Data Home Medications Medication Instructions Recorded Confirmed Albuterol Inhaler [Ventolin 2 puff INHALATION RT-Q6H PRN 09/04/14 01/13/17 Inhaler] Omeprazole [PriLOSEC] 20 mg PO AC-BRKFST 09/04/14 01/13/17 ALPRAZolam [Xanax] 0.5 mg PO TID PRN 04/05/15 01/13/17 Naproxen [Naprosyn] 500 mg PO Q12HR PRN 05/17/15 01/13/17 HYDROcodone/APAP 7.5-325MG [[place] 1 tab PO BID PRN 08/28/15 01/13/17 7.5] [place]-3 Fatty Acids/Fish Oil [Fish 1 cap PO DAILY 08/28/15 01/13/17 Oil 1,000 mg Softgel] Gabapentin [Neurontin] 400 mg PO TID 05/02/16 01/13/17 Escitalopram Oxalate [Lexapro] 20 mg PO HS 10/08/16 01/13/17 Hydrochlorothiazide [Hydrodiuril] 12.5 mg PO DAILY 10/08/16 01/13/17 Pregabalin [Lyrica] 75 mg PO BID 10/08/16 01/13/17 Amitriptyline HCl [Elavil] 50 mg PO BID 01/13/17 01/13/17 Cetirizine HCl [Zyrtec] 10 mg PO HS 01/13/17 01/13/17 Previous Rx's Medication Instructions Recorded Famotidine [Pepcid] 20 mg PO BID #14 tablet 01/13/17 Allergies Allergy/AdvReac Type Severity Reaction Status Date / Time No Known Allergies Allergy Verified 01/13/17 21:18 Review of Systems ROS Statement: Those systems with pertinent positive or pertinent negative responses have been documented in the HPI. ROS Other: All systems not noted in ROS Statement are negative. Constitutional: Denies: fever, chills, weakness Respiratory: Denies: cough, dyspnea Cardiovascular: Denies: chest pain, palpitations, edema, syncope Gastrointestinal: Reports: as per HPI, abdominal pain, nausea. Denies: vomiting , diarrhea, constipation, melena, hematochezia Genitourinary: Denies: dysuria, frequency, hematuria Musculoskeletal: Reports: as per HPI, back pain Skin: Denies: rash Neurological: Denies: headache, weakness, numbness Past Medical History Past Medical History: Asthma, Chest Pain / Angina, GERD/Reflux, Osteoarthritis ( OA), Skin Disorder Additional Past Medical History / Comment(s): migraines, IBS, rash under arms, overactive bladder History of Any Multi-Drug Resistant Organisms: None Reported Past Surgical History: Cholecystectomy Additional Past Surgical History / Comment(s): removal of mole from genital area Past Anesthesia/Blood Transfusion Reactions: Motion Sickness Past Psychological History: Anxiety, Depression Smoking Status: Current every day smoker Past Alcohol Use History: Rare Past Drug Use History: None Reported - Past Family History Mother Family Medical History: No Reported History General Exam Limitations: no limitations General appearance: alert, in no apparent distress, obese Head exam: Present: atraumatic, normocephalic Eye exam: Present: normal appearance. Absent: scleral icterus, conjunctival injection ENT exam: Present: normal oropharynx Neck exam: Present: normal inspection Respiratory exam: Present: normal lung sounds bilaterally. Absent: respiratory distress, wheezes, rales, rhonchi, stridor Cardiovascular Exam: Present: regular rate, normal rhythm, normal heart sounds. Absent: systolic murmur, diastolic murmur, rubs, gallop GI/Abdominal exam: Present: soft, tenderness ([place]). Absent: distended, guarding, rebound, rigid, mass, pulsatile mass, hernia Extremities exam: Present: normal inspection, normal capillary refill. Absent: pedal edema, calf tenderness Back exam: Present: normal inspection. Absent: CVA tenderness (R), CVA tenderness (L) Neurological exam: Present: alert Skin exam: Present: warm, dry, intact, normal color. Absent: rash, cyanosis, diaphoretic, erythema, petechiae, pallor, mottled Course Vital Signs 01/13/17 01/13/17 20:49 21:43 Temperature 97.7 F Pulse Rate 90 80 Respiratory 20 20 Rate Blood Pressure 117/59 132/84 O2 Sat by Pulse 96 99 Oximetry Medical Decision Making - Medical Decision Making Discussed urinary findings with the patient to definitely denies urinary tract symptoms, including no frequency, urgency, dysuria, hematuria or other symptoms. We'll send a culture by suspect that this represents a contaminated specimen. - Lab Data Result diagrams: 01/13/17 22:10 01/13/17 22:10 Lab Results 01/13/17 01/13/17 01/13/17 Range/Units 21:45 21:45 22:10 WBC (3.8-10.6) k/uL RBC (3.80-5.40) m/uL Hgb (11.4-16.0) gm/dL Hct (34.0-46.0) % MCV (80.0-100.0) fL MCH (25.0-35.0) pg MCHC (31.0-37.0) g/dL RDW (11.5-15.5) % Plt Count (150-450) k/uL Neutrophils % % Lymphocytes % % Monocytes % % Eosinophils % % Basophils % % Neutrophils # (1.3-7.7) k/uL Lymphocytes # (1.0-4.8) k/uL Monocytes # (0-1.0) k/uL Eosinophils # (0-0.7) k/uL Basophils # (0-0.2) k/uL Sodium 139 (137-145) mmol/L Potassium 4.1 (3.5-5.1) mmol/L Chloride 105 (98-107) mmol/L Carbon Dioxide 23 (22-30) mmol/L Anion Gap 11 mmol/L BUN 12 (7-17) mg/dL Creatinine 0.80 (0.52-1.04) mg/dL Est GFR (MDRD) Af Amer >60 (>60 ml/min/1.73 sqM) Est GFR (MDRD) Non-Af >60 (>60 ml/min/1.73 sqM) Glucose 132 H (74-99) mg/dL Calcium 8.9 (8.4-10.2) mg/dL Total Bilirubin 0.3 (0.2-1.3) mg/dL AST 92 H (14-36) U/L ALT 118 H (9-52) U/L Alkaline Phosphatase 116 (38-126) U/L Total Protein 6.6 (6.3-8.2) g/dL Albumin 3.7 (3.5-5.0) g/dL Amylase <30 L (30-110) U/L Lipase 128 (23-300) U/L Urine Color Yellow Urine Appearance Cloudy H (Clear) Urine pH 6.0 (5.0-8.0) Ur Specific [place] 1.028 (1.001-1.035) Urine Protein 1+ H (Negative) Urine Glucose (UA) Negative (Negative) Urine Ketones Trace H (Negative) Urine Blood Small H (Negative) Urine Nitrite Negative (Negative) Urine Bilirubin Negative (Negative) Urine Urobilinogen 3.0 (<2.0) mg/dL Ur Leukocyte Esterase Moderate H (Negative) Urine RBC 35 H (0-5) /hpf Urine WBC 4 (0-5) /hpf Ur Squamous Epith Cells 19 H (0-4) /hpf Urine Bacteria Rare H (None) /hpf Urine Mucus Occasional H (None) /hpf Urine Yeast (Budding) Rare H (None) /hpf Urine HCG, Qual Not Detected (Not Detectd) 01/13/17 Range/Units 22:10 WBC 13.2 H (3.8-10.6) k/uL RBC 4.31 (3.80-5.40) m/uL Hgb 13.8 (11.4-16.0) gm/dL Hct 41.7 (34.0-46.0) % MCV 96.6 (80.0-100.0) fL MCH 32.0 (25.0-35.0) pg MCHC 33.1 (31.0-37.0) g/dL RDW 13.5 (11.5-15.5) % Plt Count 311 (150-450) k/uL Neutrophils % 72 % Lymphocytes % 17 % Monocytes % 4 % Eosinophils % 5 % Basophils % 0 % Neutrophils # 9.4 H (1.3-7.7) k/uL Lymphocytes # 2.2 (1.0-4.8) k/uL Monocytes # 0.5 (0-1.0) k/uL Eosinophils # 0.7 (0-0.7) k/uL Basophils # 0.1 (0-0.2) k/uL Sodium (137-145) mmol/L Potassium (3.5-5.1) mmol/L Chloride (98-107) mmol/L Carbon Dioxide (22-30) mmol/L Anion Gap mmol/L BUN (7-17) mg/dL Creatinine (0.52-1.04) mg/dL Est GFR (MDRD) Af Amer (>60 ml/min/1.73 sqM) Est GFR (MDRD) Non-Af (>60 ml/min/1.73 sqM) Glucose (74-99) mg/dL Calcium (8.4-10.2) mg/dL Total Bilirubin (0.2-1.3) mg/dL AST (14-36) U/L ALT (9-52) U/L Alkaline Phosphatase (38-126) U/L Total Protein (6.3-8.2) g/dL Albumin (3.5-5.0) g/dL Amylase (30-110) U/L Lipase (23-300) U/L Urine Color Urine Appearance (Clear) Urine pH (5.0-8.0) Ur Specific [place] (1.001-1.035) Urine Protein (Negative) Urine Glucose (UA) (Negative) Urine Ketones (Negative) Urine Blood (Negative) Urine Nitrite (Negative) Urine Bilirubin (Negative) Urine Urobilinogen (<2.0) mg/dL Ur Leukocyte Esterase (Negative) Urine RBC (0-5) /hpf Urine WBC (0-5) /hpf Ur Squamous Epith Cells (0-4) /hpf Urine Bacteria (None) /hpf Urine Mucus (None) /hpf Urine Yeast (Budding) (None) /hpf Urine HCG, Qual (Not Detectd) Disposition Clinical Impression: Abdominal pain Disposition: HOME SELF-CARE Condition: Fair Instructions: Abdominal Pain (ED) Prescriptions: Famotidine [Pepcid] 20 mg PO BID #14 tablet Referrals: Lucien Vela MD [Primary Care Provider] - 1-2 days
[2017-01-13 21:53] LABS: Appearance,Urine Cloudy (Clear); Bacteria,Urine Rare /hpf; Bilirubin,Urine Negative (Negative); Glucose,Urine (UA) Negative (Negative); Ketones,Urine Trace (Negative); Leukocyte Esterase,Urine Moderate (Negative); Mucus,Urine Occasional /hpf; Nitrite,Urine Negative (Negative); Particle Count 5599; Protein,Urine 1+ (Negative); RBC,Urine 35 /hpf (0-5); Specific Gravity,Urine 1.028 (1.001-1.035); Squamous Epithelial Cell,Urine 19 /hpf (0-4); UA Billing (MACRO vs. MICRO) MICRO; WBC,Urine 4 /hpf (0-5)
[2017-01-13 22:32] LABS: Basophils # (A) 0.1 k/uL (0-0.2); Basophils % (A) 0 %; CH 32.4; CHCM 33.7; Eosinophils # (A) 0.7 k/uL (0-0.7); Eosinophils % (A) 5 %; HCT 41.7 % (34.0-46.0); HDW 2.46; HGB 13.8 gm/dL (11.4-16.0); Luc # (Auto) 0.25; Luc % (Auto) 2; Lymphocytes # (A) 2.2 k/uL (1.0-4.8); Lymphocytes % (A) 17 %; MCHC 33.1 g/dL (31.0-37.0); MCV 96.6 fL (80.0-100.0); Mean Platelet Volume 7.8; Monocytes # (A) 0.5 k/uL (0-1.0); Monocytes % (A) 4 %; Neutrophils # (A) 9.4 k/uL (1.3-7.7); Neutrophils % (A) 72 %; RBC 4.31 m/uL (3.80-5.40); RDW 13.5 % (11.5-15.5); WBC 13.2 k/uL (3.8-10.6); WBC (Perox) 13.57
[2017-01-13 22:47] LABS: ALT 118 U/L (9-52); AST 92 U/L (14-36); Alkaline Phosphatase 116 U/L (38-126); Amylase <30 U/L (30-110); Anion Gap 11 mmol/L; Blood Urea Nitrogen 12 mg/dL (7-17); Calcium 8.9 mg/dL (8.4-10.2); Carbon Dioxide 23 mmol/L (22-30); Chloride 105 mmol/L (98-107); Glucose 132 mg/dL (74-99); Non-African American GFR(MDRD) >60 (>60 ml/min/1.73 sqM); Potassium 4.1 mmol/L (3.5-5.1); Sodium 139 mmol/L (137-145); Total Bilirubin 0.3 mg/dL (0.2-1.3); Total Protein 6.6 g/dL (6.3-8.2)
--- NOTE | 2017-01-13 23:27 | CT ---
INDICATION: Lower abdominal pain radiating posteriorly TECHNIQUE: CT acquisition is performed through the abdomen and pelvis. Sagittal and coronal reformatted images are provided. No IV contrast is administered. DOSE INFORMATION: CTDIvol 57.90 mGy; DLP 3187.50 mGy-cm. One or more of the following dose reduction techniques were used: automated exposure control, adjustment of the mA and/or kV according to patient size, use of iterative reconstruction technique. COMPARISON: CT abdomen and pelvis 10/08/16 FINDINGS: The lung bases are clear. Evaluation of the abdominal organs is limited without intravenous contrast. Gallbladder surgically absent. The liver remains enlarged and decreased in attenuation compatible with steatosis. The spleen, pancreas, adrenal glands, and kidneys are within normal limits. There is no evidence of hydronephrosis or perinephric stranding. Aorta and IVC are normal. There is no adenopathy. There is no evidence of small or large bowel obstruction. The visualized appendix is normal. There is a small fat-containing umbilical hernia. Urinary bladder, uterus, and adnexa are unremarkable. There are no acute osseous findings. Discogenic degenerative disease at L5-S1 remained stable from prior exam. IMPRESSION: 1. No CT evidence of acute or inflammatory intra-abdominal process. No significant change from previous exam.
[2017-01-14 00:05] VITALS: BP 136/72; PULSE 76; TEMP 98.9
== END 2017-01-14 00:05 | disposition home or self-care (01) ==
LOC: EC 20:44
DX: R10.11 Right upper quadrant pain (principal); R11.0 Nausea; R82.99 Other abnormal findings in urine; K21.9 Gastro-esophageal reflux disease without esophagitis; F32.9 Major depressive disorder, single episode, unspecified; F41.9 Anxiety disorder, unspecified; E66.9 Obesity, unspecified; F17.200 Nicotine dependence, unspecified, uncomplicated; Z79.899 Other long term (current) drug therapy; Z90.49 Acquired absence of other specified parts of digestive tract; Z68.44 Body mass index [BMI] 60.0-69.9, adult
CPT/HCPCS: 36415; 80053; 82150; 83690; 85025; 81001; 81025; 74176; 99284; 96374; J2270

== ENCOUNTER 2017-02-24 14:18 | Emergency (ER) | payer OTHER ==
[2017-02-24] MEDS ORDERED: SODIUM CHLORIDE 0.9% 1,000 ML IV STA (15:22)
--- NOTE | 2017-02-24 15:37 | ED ---
Abdominal Pain HPI - General Chief Complaint: Abdominal Pain Stated Complaint: Abd Pain Time Seen by Provider: 02/24/17 15:03 Source: patient Mode of arrival: ambulatory Limitations: no limitations - History of Present Illness Initial Comments: patient presents with abdominal pain. Patient states this is an ongoing chronic problem for the past 2 months. Patient states she's been at this ER on previous time, and 2 other ERs for the exact same thing. Patient states she experiences right lower quadrant and right flank pain intermittently throughout the day 5 days a week. No known triggers. Patient states she is eating and drinking normally. Denies any constipation diarrhea, changes in bowel movements. Patient states she was diagnosed with a urinary tract infection at a different hospital, completed a course of Bactrim yesterday. Patient states she does not get regular periods, however she did have some vaginal bleeding a few days ago that has since resolved. Denies vaginal discharge. Patient states she has a follow-up appointment with a relief worker whom she seen in the past in 3 days. TSH is also referred to a urologist, who saw her and does not know what is causing her abdominal pain. Patient had a computed tomography scan of the abdomen without contrast done on her previous visit to this ER, showed no kidney stones, no appendicitis, no acute intra-abdominal process, patient states her symptoms are the exact same as they were at that time today. Pt has h/o cholecystectomy, denies any other abd surgeries. States her liver function tests are always elevated, and "they don't know why". Complaint: abdominal pain Onset/Timin -: month(s) Location: RLQ, R flank Migration to: no migration Severity: moderate Quality: aching Consistency: intermittent - Related Data Patient : No (Denies ) Home Medications Medication Instructions Recorded Confirmed Albuterol Inhaler [Ventolin 2 puff INHALATION RT-Q6H PRN 09/04/14 02/24/17 Inhaler] Omeprazole [PriLOSEC] 20 mg PO AC-BRKFST 09/04/14 02/24/17 Naproxen [Naprosyn] 500 mg PO Q12HR PRN 05/17/15 02/24/17 HYDROcodone/APAP 7.5-325MG [[place] 1 tab PO TID PRN 08/28/15 02/24/17 7.5] [place]-3 Fatty Acids/Fish Oil [Fish 1 cap PO DAILY 08/28/15 02/24/17 Oil 1,000 mg Softgel] Gabapentin [Neurontin] 400 mg PO TID 05/02/16 02/24/17 Hydrochlorothiazide [Hydrodiuril] 12.5 mg PO DAILY 10/08/16 02/24/17 Amitriptyline HCl [Elavil] 50 mg PO BID 01/13/17 02/24/17 Cetirizine HCl [Zyrtec] 10 mg PO HS 01/13/17 02/24/17 Ergocalciferol [Vitamin D2] 50,000 unit PO BOYER 02/24/17 02/24/17 Escitalopram [Lexapro] 10 mg PO HS 02/24/17 02/24/17 Allergies Allergy/AdvReac Type Severity Reaction Status Date / Time morphine Allergy Rash/Hives Verified 02/24/17 15:47 Review of Systems ROS Statement: Those systems with pertinent positive or pertinent negative responses have been documented in the HPI. ROS Other: All systems not noted in ROS Statement are negative. Constitutional: Denies: fever, chills, weakness Eyes: Denies: vision change ENT: Denies: congestion Respiratory: Denies: cough, dyspnea Cardiovascular: Denies: chest pain, palpitations Endocrine: Denies: fatigue Gastrointestinal: Reports: abdominal pain. Denies: nausea, vomiting, diarrhea, constipation, hematemesis, melena, hematochezia Genitourinary: Reports: abnormal menses. Denies: urgency, dysuria, frequency, hematuria, discharge Musculoskeletal: Denies: arthralgia, myalgia Skin: Denies: rash Neurological: Denies: headache, weakness, confusion Past Medical History Past Medical History: Asthma, Chest Pain / Angina, GERD/Reflux, Osteoarthritis ( OA), Skin Disorder Additional Past Medical History / Comment(s): migraines, IBS, rash under arms, overactive bladder History of Any Multi-Drug Resistant Organisms: None Reported Past Surgical History: Cholecystectomy Additional Past Surgical History / Comment(s): removal of mole from genital area Past Anesthesia/Blood Transfusion Reactions: Motion Sickness Past Psychological History: Anxiety, Depression Smoking Status: Current every day smoker Past Alcohol Use History: Rare Past Drug Use History: None Reported - Past Family History Mother Family Medical History: No Reported History General Exam - General Exam Comments Initial Comments: sitting up in bed. No acute distress. Conversing normally. Well-appearing. Calm. Not appear in pain. Obese. Limitations: no limitations General appearance: alert, in no apparent distress Head exam: Present: atraumatic, normocephalic Eye exam: Present: normal appearance, PERRL, EOMI ENT exam: Present: normal oropharynx, mucous membranes moist, normal external ear exam Neck exam: Present: normal inspection Respiratory exam: Present: normal lung sounds bilaterally. Absent: respiratory distress, wheezes, rales Cardiovascular Exam: Present: regular rate, normal rhythm GI/Abdominal exam: Present: soft, tenderness. Absent: distended, guarding, rebound, rigid (mild right-sided tenderness. No CVA tenderness. limited 2/2 obesity) Neurological exam: Present: alert, oriented X3 Psychiatric exam: Present: normal affect, normal mood Skin exam: Present: warm, dry, intact, normal color. Absent: rash Course Vital Signs 02/24/17 14:22 Temperature 98.2 F Pulse Rate 86 Respiratory 17 Rate Blood Pressure 162/85 O2 Sat by Pulse 97 Oximetry Medical Decision Making - Medical Decision Making computed tomography scan of the abdomen for the same symptoms already, do not feel repeat is warranted at this time. Patient states she has had her gallbladder removed. He has had ultrasound of the abdomen in the past. Patient states she has never had ultrasound of her ovaries. AST/ALT mildly elevated, patient states this is a chronic issue for her, is followed by relief worker. UA shows hematuria, [place] related to possible recent mementos given recent vaginal bleeding, or chronic hematuria. Patient does states she's had hematuria in the past and has seen a urologist for it. Patient agrees to follow up with her urologist regarding the hematuria. Patient appears comfortable, has had intermittent pain over the past 2 months, had a computed tomography scan showing no renal stones. At this time patient presentation does not appear to sit with renal stone, do not feel CT for renal stone warranted at this time. ultrasound shows thickened endometrium, given patient's recent vaginal bleeding which has since resolved, may be related to menses. Patient agrees to follow- up with her paper mill superintendent who she states she's in the past regarding pelvic pain and thickened endometrium. Unable to visualize ovaries on ultrasound, patient will discuss with paper mill superintendent further imaging if pain continues. Patient appears comfortable at this time, do not feel patient has ovarian torsion at this time, however the patient was explained to that significant ovarian pathology unable to be ruled out as area of visualized, patient states she understands and feels comfortable going home at this time. Patient requests Toradol prior to discharge, ordered. patient instructed to take Motrin and Tylenol for pain as needed at home. Patient states she has a pain doctor she can see for chronic pain control. Patient agrees to follow-up with her primary care physician, relief worker , urologist, paper mill superintendent for further outpatient workup of her abdominal pain of unknown etiology at this time. This time he do not feel he patient has signs of acute pathology requiring further workup or admission to the hospital. Patient understands and agrees. Feels comfortable going home at this time. Abd nontender at time of discharge. - Lab Data Result diagrams: 02/24/17 15:43 02/24/17 15:43 Lab Results 02/24/17 02/24/17 02/24/17 Range/Units 15:43 15:43 15:44 WBC 10.6 (3.8-10.6) k/uL RBC 4.25 (3.80-5.40) m/uL Hgb 13.5 (11.4-16.0) gm/dL Hct 41.1 (34.0-46.0) % MCV 96.7 (80.0-100.0) fL MCH 31.8 (25.0-35.0) pg MCHC 32.9 (31.0-37.0) g/dL RDW 13.7 (11.5-15.5) % Plt Count 327 (150-450) k/uL Neutrophils % 69 % Lymphocytes % 20 % Monocytes % 5 % Eosinophils % 5 % Basophils % 0 % Neutrophils # 7.3 (1.3-7.7) k/uL Lymphocytes # 2.1 (1.0-4.8) k/uL Monocytes # 0.5 (0-1.0) k/uL Eosinophils # 0.6 (0-0.7) k/uL Basophils # 0.0 (0-0.2) k/uL Sodium 138 (137-145) mmol/L Potassium 4.2 (3.5-5.1) mmol/L Chloride 105 (98-107) mmol/L Carbon Dioxide 25 (22-30) mmol/L Anion Gap 8 mmol/L BUN 13 (7-17) mg/dL Creatinine 0.74 (0.52-1.04) mg/dL Est GFR (MDRD) Af Amer >60 (>60 ml/min/1.73 sqM) Est GFR (MDRD) Non-Af >60 (>60 ml/min/1.73 sqM) Glucose 121 H (74-99) mg/dL Calcium 9.0 (8.4-10.2) mg/dL Total Bilirubin 0.2 (0.2-1.3) mg/dL AST 93 H (14-36) U/L ALT 110 H (9-52) U/L Alkaline Phosphatase 96 (38-126) U/L Total Protein 6.8 (6.3-8.2) g/dL Albumin 3.7 (3.5-5.0) g/dL Lipase 151 (23-300) U/L Urine Color Urine Appearance (Clear) Urine pH (5.0-8.0) Ur Specific [place] (1.001-1.035) Urine Protein (Negative) Urine Glucose (UA) (Negative) Urine Ketones (Negative) Urine Blood (Negative) Urine Nitrite (Negative) Urine Bilirubin (Negative) Urine Urobilinogen (<2.0) mg/dL Ur Leukocyte Esterase (Negative) Urine RBC (0-5) /hpf Urine WBC (0-5) /hpf Ur Squamous Epith Cells (0-4) /hpf Urine Bacteria (None) /hpf Urine Mucus (None) /hpf Urine HCG, Qual Not Detected (Not Detectd) 02/24/17 Range/Units 15:44 WBC (3.8-10.6) k/uL RBC (3.80-5.40) m/uL Hgb (11.4-16.0) gm/dL Hct (34.0-46.0) % MCV (80.0-100.0) fL MCH (25.0-35.0) pg MCHC (31.0-37.0) g/dL RDW (11.5-15.5) % Plt Count (150-450) k/uL Neutrophils % % Lymphocytes % % Monocytes % % Eosinophils % % Basophils % % Neutrophils # (1.3-7.7) k/uL Lymphocytes # (1.0-4.8) k/uL Monocytes # (0-1.0) k/uL Eosinophils # (0-0.7) k/uL Basophils # (0-0.2) k/uL Sodium (137-145) mmol/L Potassium (3.5-5.1) mmol/L Chloride (98-107) mmol/L Carbon Dioxide (22-30) mmol/L Anion Gap mmol/L BUN (7-17) mg/dL Creatinine (0.52-1.04) mg/dL Est GFR (MDRD) Af Amer (>60 ml/min/1.73 sqM) Est GFR (MDRD) Non-Af (>60 ml/min/1.73 sqM) Glucose (74-99) mg/dL Calcium (8.4-10.2) mg/dL Total Bilirubin (0.2-1.3) mg/dL AST (14-36) U/L ALT (9-52) U/L Alkaline Phosphatase (38-126) U/L Total Protein (6.3-8.2) g/dL Albumin (3.5-5.0) g/dL Lipase (23-300) U/L Urine Color Yellow Urine Appearance Clear (Clear) Urine pH 6.0 (5.0-8.0) Ur Specific [place] 1.017 (1.001-1.035) Urine Protein Negative (Negative) Urine Glucose (UA) Negative (Negative) Urine Ketones Negative (Negative) Urine Blood Small H (Negative) Urine Nitrite Negative (Negative) Urine Bilirubin Negative (Negative) Urine Urobilinogen <2.0 (<2.0) mg/dL Ur Leukocyte Esterase Negative (Negative) Urine RBC 9 H (0-5) /hpf Urine WBC <1 (0-5) /hpf Ur Squamous Epith Cells 8 H (0-4) /hpf Urine Bacteria Rare H (None) /hpf Urine Mucus Rare H (None) /hpf Urine HCG, Qual (Not Detectd) Disposition Clinical Impression: Abdominal pain Disposition: HOME SELF-CARE Condition: Good Instructions: Hematuria (ED), Pelvic Pain in Women (ED), Abdominal Pain (ED) Additional Instructions: appointment with your urologist regarding hematuria, leg appointment with your paper mill superintendent regarding pelvic pain. Follow-up with your primary care physician to coordinate pain. If chronic pain continues, make appointment to follow here pain management physician for outpatient pain control. Referrals: Lucien Vela MD [Primary Care Provider] - 1-2 days
[2017-02-24 15:51] LABS: Basophils % (A) 0 %; CH 32.3; CHCM 33.6; Eosinophils # (A) 0.6 k/uL (0-0.7); Eosinophils % (A) 5 %; HCT 41.1 % (34.0-46.0); HDW 2.35; HGB 13.5 gm/dL (11.4-16.0); Luc # (Auto) 0.12; Luc % (Auto) 1; Lymphocytes # (A) 2.1 k/uL (1.0-4.8); Lymphocytes % (A) 20 %; MCH 31.8 pg (25.0-35.0); MCHC 32.9 g/dL (31.0-37.0); MCV 96.7 fL (80.0-100.0); Mean Platelet Volume 7.6; Monocytes # (A) 0.5 k/uL (0-1.0); Monocytes % (A) 5 %; Neutrophils # (A) 7.3 k/uL (1.3-7.7); Neutrophils % (A) 69 %; RBC 4.25 m/uL (3.80-5.40); RDW 13.7 % (11.5-15.5); WBC 10.6 k/uL (3.8-10.6); WBC (Perox) 10.54
[2017-02-24 15:58] LABS: Appearance,Urine Clear (Clear); Bacteria,Urine Rare /hpf; Bilirubin,Urine Negative (Negative); Glucose,Urine (UA) Negative (Negative); Ketones,Urine Negative (Negative); Leukocyte Esterase,Urine Negative (Negative); Mucus,Urine Rare /hpf; Nitrite,Urine Negative (Negative); Particle Count 975; Protein,Urine Negative (Negative); RBC,Urine 9 /hpf (0-5); Specific Gravity,Urine 1.017 (1.001-1.035); Squamous Epithelial Cell,Urine 8 /hpf (0-4); UA Billing (MACRO vs. MICRO) MICRO; Urobilinogen,Urine <2.0 mg/dL (<2.0); WBC,Urine <1 /hpf (0-5)
[2017-02-24 16:10] LABS: ALT 110 U/L (9-52); AST 93 U/L (14-36); Alkaline Phosphatase 96 U/L (38-126); Anion Gap 8 mmol/L; Blood Urea Nitrogen 13 mg/dL (7-17); Carbon Dioxide 25 mmol/L (22-30); Chloride 105 mmol/L (98-107); Glucose 121 mg/dL (74-99); Non-African American GFR(MDRD) >60 (>60 ml/min/1.73 sqM); Potassium 4.2 mmol/L (3.5-5.1); Sodium 138 mmol/L (137-145); Total Bilirubin 0.2 mg/dL (0.2-1.3); Total Protein 6.8 g/dL (6.3-8.2)
--- NOTE | 2017-02-24 16:35 | US ---
EXAMINATION TYPE: US transvaginal DATE OF EXAM: 02/24/2017 COMPARISON: NONE CLINICAL HISTORY: R sided pelvic pain. Intermittent right pelvic pain x 2 months, irregular cycles, g ravida 0, morbidly obese patient TECHNIQUE: Transvaginal (TV) Date of LMP: 02/18/2017 EXAM MEASUREMENTS: Uterus: 7.9 x 3.6 x 4.4 cm Endometrial Stripe: 0.9 cm Right Ovary: not seen Left Ovary: not seen Technically difficult and limited study due to patient body habitus. 1. Uterus: anteverted 2. Endometrium: appears thickened for patient's LMP 3. Right Ovary: not seen due to patient body habitus and overlying bowel gas 4. Left Ovary: not seen due to patient body habitus and overlying bowel gas 5. Bilateral Adnexa: wnl 6. Posterior cul-de-sac: wnl IMPRESSION: No adnexal mass or free fluid. Normal uterus.
[2017-02-24] MEDS ORDERED: KETOROLAC 30 MG/ML 1 ML VIAL IVP STA (16:45)
[2017-02-24 16:56] VITALS: BP 153/69; PULSE 87; RESP 18; TEMP 97.5
== END 2017-02-24 16:57 | disposition home or self-care (01) ==
LOC: EC 14:18
DX: R10.31 Right lower quadrant pain (principal); R74.8 Abnormal levels of other serum enzymes; R31.9 Hematuria, unspecified; R93.8 Abnormal findings on diagnostic imaging of other specified body structures; K21.9 Gastro-esophageal reflux disease without esophagitis; F41.9 Anxiety disorder, unspecified; F32.9 Major depressive disorder, single episode, unspecified; E66.9 Obesity, unspecified; F17.200 Nicotine dependence, unspecified, uncomplicated; Z79.899 Other long term (current) drug therapy; Z88.5 Allergy status to narcotic agent; Z90.49 Acquired absence of other specified parts of digestive tract; Z68.44 Body mass index [BMI] 60.0-69.9, adult
CPT/HCPCS: 36415; 76830; 80053; 81001; 81025; 83690; 85025; 96360; 99284

== ENCOUNTER 2017-08-18 17:14 | Emergency (ER) | payer OTHER ==
[2017-08-18 17:50] VITALS: RESP 18
--- NOTE | 2017-08-18 19:19 | ED ---
General Adult HPI - General Chief complaint: Recheck/Abnormal Lab/Rx Stated complaint: infection in foot/ surgical site Time Seen by Provider: 08/18/17 18:53 Source: patient, RN notes reviewed Mode of arrival: wheelchair Limitations: no limitations - History of Present Illness Initial comments: 37 yo female presents to the ER with cc of of redness around the incision site. She had her Achilles repaired by Dr. melendez of [facility]. She now some redness around the area and small drainage so she thought that she should be seen. She denies any fevers chills or streaking up the leg. She states she is not currently having any other symptoms. She thought that she should be checked. Denies any history of MRSA in the past. Patient denies any recent fever, chills, shortness of breath, chest pain, back pain, abdominal pain, nausea vomiting, numbness or tingling, dysuria or hematuria, constipation or diarrhea, headaches or visual changes, or any other current symptoms. - Related Data Home Medications Medication Instructions Recorded Confirmed Albuterol Inhaler [Ventolin 2 puff INHALATION RT-Q6H PRN 09/04/14 02/24/17 Inhaler] Omeprazole [PriLOSEC] 20 mg PO AC-[id number] 09/04/14 02/24/17 Naproxen [Naprosyn] 500 mg PO Q12HR PRN 05/17/15 02/24/17 HYDROcodone/APAP 7.5-325MG [[place] 1 tab PO TID PRN 08/28/15 02/24/17 7.5] [place]-3 Fatty Acids/Fish Oil [Fish 1 cap PO DAILY 08/28/15 02/24/17 Oil 1,000 mg Softgel] Gabapentin [Neurontin] 400 mg PO TID 05/02/16 02/24/17 Hydrochlorothiazide [Hydrodiuril] 12.5 mg PO DAILY 10/08/16 02/24/17 Amitriptyline HCl [Elavil] 50 mg PO BID 01/13/17 02/24/17 Cetirizine HCl [Zyrtec] 10 mg PO HS 01/13/17 02/24/17 Ergocalciferol [Vitamin D2] 50,000 unit PO BOYER 02/24/17 02/24/17 Escitalopram [Lexapro] 10 mg PO HS 02/24/17 02/24/17 Previous Rx's Medication Instructions Recorded Cephalexin [Keflex] 500 mg PO Q6HR #40 cap 08/18/17 Sulfamethox-Tmp 800-160Mg [Bactrim 2 each PO Q12HR #56 tab 08/18/17 DS 800-160 mg] Allergies Allergy/AdvReac Type Severity Reaction Status Date / Time morphine Allergy Rash/Hives Verified 08/18/17 19:17 tramadol Allergy Rash/Hives Verified 08/18/17 19:17 Review of Systems ROS Statement: Those systems with pertinent positive or pertinent negative responses have been documented in the HPI. ROS Other: All systems not noted in ROS Statement are negative. Past Medical History Past Medical History: Asthma, Chest Pain / Angina, GERD/Reflux, Osteoarthritis ( OA), Skin Disorder Additional Past Medical History / Comment(s): migraines, IBS, rash under arms, overactive bladder History of Any Multi-Drug Resistant Organisms: None Reported Past Surgical History: Cholecystectomy, Orthopedic Surgery Additional Past Surgical History / Comment(s): removal of mole from genital area Past Anesthesia/Blood Transfusion Reactions: Motion Sickness Past Psychological History: Anxiety, Depression Smoking Status: Current every day smoker Past Alcohol Use History: Rare Past Drug Use History: None Reported - Past Family History Mother Family Medical History: No Reported History General Exam - General Exam Comments Initial Comments: General: The patient is awake and alert, in no distress, and does not appear acutely ill. Neck: The neck is supple, there is no tenderness. Cardiovascular: There is a regular rate and rhythm. No murmur, rub or gallop is appreciated. Respiratory: Lungs are clear to auscultation, respirations are non-labored, breath sounds are equal. No wheezes, stridor, rales, or rhonchi. Musculoskeletal: Sensation intact with 2+ pulses throughout the left lower x- ray. Patient does appear to have an incision with minimal erythema around the area. Minimal drainage excised from the wound with a pressure. No associated induration. Tender to touch. Neurological: CN II-XII intact, There are no obvious motor or sensory deficits. Coordination appears grossly intact. Speech is normal. Skin: Skin is warm and dry and no rashes or lesions are noted. Psychiatric: Normal mood and affect. Limitations: no limitations Course Vital Signs 04/02/18 17:46 Temperature 98.1 F Pulse Rate 89 Respiratory 18 Rate Blood Pressure 151/70 O2 Sat by Pulse 96 Oximetry Medical Decision Making - Medical Decision Making 29-year-old female presents with appears to be superficial surgical site incision. This and we will start her on Keflex and Bactrim. We discussed follow-up with her surgeon and she has appointment on Friday. We did discuss return parameters all patient's questions. She stated that she understood and she is agreement this plan. All questions have been answered. She will be discharged. Disposition Clinical Impression: Superficial incisional surgical site infection Disposition: HOME SELF-CARE Condition: Stable Instructions: Wound Infection (ED) Additional Instructions: Please use medication as discussed. Please follow up with family doctor if symptoms have not improved over the next two days. Please return to the emergency room if your symptoms increase or worsen or for any other concerns. Prescriptions: Cephalexin [Keflex] 500 mg PO Q6HR #40 cap Sulfamethox-Tmp 800-160Mg [Bactrim DS 800-160 mg] 2 each PO Q12HR #56 tab Referrals: Lucien Vela MD [Primary Care Provider] - 1-2 days Time of Disposition: 19:25
[2017-08-18 19:35] VITALS: BP 126/60; PULSE 94; TEMP 98.3
== END 2017-08-18 19:39 | disposition home or self-care (01) ==
LOC: EC 17:14
DX: T81.4XXA Infection following a procedure, initial encounter (principal); K21.9 Gastro-esophageal reflux disease without esophagitis; K58.9 Irritable bowel syndrome, unspecified; F41.9 Anxiety disorder, unspecified; F32.9 Major depressive disorder, single episode, unspecified; F17.200 Nicotine dependence, unspecified, uncomplicated; Z98.890 Other specified postprocedural states; Z79.899 Other long term (current) drug therapy; Z88.5 Allergy status to narcotic agent
CPT/HCPCS: 87070; 87077; 87186; 87205; 99284

== ENCOUNTER 2017-12-24 22:51 | Emergency (ER) | payer OTHER ==
[2017-12-25 00:34] LABS: Appearance,Urine Cloudy (Clear); Bacteria,Urine Occasional /hpf; Bilirubin,Urine Negative (Negative); Blood,Urine Negative (Negative); Color,Urine Yellow; Glucose,Urine (UA) Negative (Negative); Ketones,Urine Trace (Negative); Leukocyte Esterase,Urine Trace (Negative); Mucus,Urine Many /hpf; Nitrite,Urine Negative (Negative); Protein,Urine 1+ (Negative); RBC,Urine 9 /hpf (0-5); Specific Gravity,Urine 1.036 (1.001-1.035); Squamous Epithelial Cell,Urine 24 /hpf (0-4); WBC,Urine 2 /hpf (0-5)
--- NOTE | 2017-12-25 00:44 | ED ---
General Adult HPI - General Chief complaint: Back Pain/Injury Stated complaint: back pain,nausea Time Seen by Provider: 12/24/17 23:39 Source: patient, RN notes reviewed Mode of arrival: ambulatory Limitations: no limitations - History of Present Illness Initial comments: 29-year-old female presents to the emergency department for a chief complaint of right sided low back pain times one day. Patient states she was walking earlier when she felt a sudden sharp pain in her right side low back. Patient denies any pain in the midline of her back. Patient denies any urinary symptoms or pain with urination. Patient denies any shooting pain down the leg. Patient denies saddle anesthesia. She is urinating and having bowel movements normally. Patient denies any abdominal pain. Patient is slightly nauseous. Patient denies any history of IV drug abuse, steroid use or cancer. Patient has no other complaints at this time including shortness of breath, chest pain, abdominal pain, nausea or vomiting, headache, or visual changes. - Related Data Home Medications Medication Instructions Recorded Confirmed Albuterol Inhaler [Ventolin 2 puff INHALATION RT-Q6H PRN 09/04/14 12/24/17 Inhaler] Omeprazole [PriLOSEC] 20 mg PO DAILY 09/04/14 12/24/17 Naproxen [Naprosyn] 500 mg PO Q12HR PRN 05/17/15 12/24/17 HYDROcodone/APAP 7.5-325MG [[place] 1 tab PO TID PRN 08/28/15 12/24/17 7.5] [place]-3 Fatty Acids/Fish Oil [Fish 1 cap PO DAILY 08/28/15 12/24/17 Oil 1,000 mg Softgel] Gabapentin [Neurontin] 400 mg PO TID 05/02/16 12/24/17 Hydrochlorothiazide [Hydrodiuril] 12.5 mg PO DAILY 10/08/16 12/24/17 Amitriptyline HCl [Elavil] 50 mg PO TID 01/13/17 12/24/17 Cetirizine HCl [Zyrtec] 10 mg PO HS 01/13/17 12/24/17 Escitalopram [Lexapro] 10 mg PO HS 02/24/17 12/24/17 Allergies Allergy/AdvReac Type Severity Reaction Status Date / Time morphine Allergy Rash/Hives Verified 12/24/17 23:45 tramadol Allergy Rash/Hives Verified 12/24/17 23:45 Review of Systems ROS Statement: Those systems with pertinent positive or pertinent negative responses have been documented in the HPI. ROS Other: All systems not noted in ROS Statement are negative. Past Medical History Past Medical History: Asthma, Chest Pain / Angina, GERD/Reflux, Osteoarthritis ( OA), Skin Disorder Additional Past Medical History / Comment(s): migraines, IBS, rash under arms, overactive bladder History of Any Multi-Drug Resistant Organisms: None Reported Past Surgical History: Cholecystectomy, Orthopedic Surgery Additional Past Surgical History / Comment(s): removal of mole from genital area Past Anesthesia/Blood Transfusion Reactions: Motion Sickness Past Psychological History: Anxiety, Depression Smoking Status: Current every day smoker Past Alcohol Use History: Rare Past Drug Use History: None Reported - Past Family History Mother Family Medical History: No Reported History General Exam Limitations: no limitations General appearance: alert, in no apparent distress Head exam: Present: atraumatic, normocephalic, normal inspection Eye exam: Present: normal appearance. Absent: scleral icterus, conjunctival injection ENT exam: Present: normal exam, mucous membranes moist Neck exam: Present: normal inspection, full ROM. Absent: tenderness, meningismus, lymphadenopathy Respiratory exam: Present: normal lung sounds bilaterally. Absent: respiratory distress, wheezes, rales, rhonchi, stridor Cardiovascular Exam: Present: regular rate, normal rhythm, normal heart sounds. Absent: systolic murmur, diastolic murmur, rubs, gallop, clicks GI/Abdominal exam: Present: soft, normal bowel sounds. Absent: distended, tenderness, guarding, rebound, rigid Extremities exam: Present: full ROM, normal capillary refill (Capillary refill less than 2 seconds in lower extremities bilaterally, pedal pulse 2+), other ( Sensation intact in lower extremities bilaterally). Absent: pedal edema, joint swelling Back exam: Present: paraspinal tenderness (Patient does have tenderness to the muscles of the right lower back). Absent: full ROM (Patient has about 45 flexion of the lumbar spine.), CVA tenderness (R), CVA tenderness (L), vertebral tenderness (No cervicothoracic or lumbar vertebral tenderness) Neurological exam: Present: alert, oriented X3, CN II-XII intact Psychiatric exam: Present: normal affect, normal mood Course Vital Signs 12/24/17 23:01 Temperature 97.7 F Pulse Rate 74 Respiratory 18 Rate Blood Pressure 164/80 O2 Sat by Pulse 98 Oximetry Medical Decision Making - Medical Decision Making 37-year-old female presents to the emergency department for a chief complaint of right-sided low back pain starting today walking. Patient denies any trauma. Patient denies any shooting pain down the lower extremities. Patient denies any weakness in lower extremities. No saddle anesthesia. Patient urinating normally and having normal bowel movements. Neurovascular intact in the lower extremities bilaterally. Patient has tenderness to palpation of the right low back muscles. Patient's gait is normal. Urine shows no sign of blood. It will be cultured. At this time patient likely has a strain of the right lower back muscles. She will follow up with primary care in 1-2 days. She will continue to take Sloan at home and take Motrin. She will return to the emergency Department if she has any worsening symptoms. - Lab Data Lab Results 12/25/17 12/25/17 Range/Units 00:19 00:19 Urine Color Yellow Urine Appearance Cloudy H (Clear) Urine pH 6.0 (5.0-8.0) Ur Specific [place] 1.036 H (1.001-1.035) Urine Protein 1+ H (Negative) Urine Glucose (UA) Negative (Negative) Urine Ketones Trace H (Negative) Urine Blood Negative (Negative) Urine Nitrite Negative (Negative) Urine Bilirubin Negative (Negative) Urine Urobilinogen 4.0 (<2.0) mg/dL Ur Leukocyte Esterase Trace H (Negative) Urine RBC 9 H (0-5) /hpf Urine WBC 2 (0-5) /hpf Ur Squamous Epith Cells 24 H (0-4) /hpf Urine Bacteria Occasional H (None) /hpf Urine Mucus Many H (None) /hpf Urine HCG, Qual Not Detected (Not Detectd) Disposition Clinical Impression: Right-sided low back pain without sciatica Disposition: HOME SELF-CARE Condition: Good Instructions: Acute Low Back Pain (ED) Additional Instructions: Please continue to take your Sloan for pain at home. Take motrin as well. Please follow-up with primary care in 1-2 days. Return to the emergency department if you have any worsening symptoms. Is patient prescribed a controlled substance at d/c from ED?: No Referrals: Lucien Vela MD [Primary Care Provider] - 1-2 days Time of Disposition: 00:44
[2017-12-25 01:24] VITALS: BP 151/77; PULSE 71; RESP 16; TEMP 97.5
== END 2017-12-25 01:24 | disposition home or self-care (01) ==
LOC: EC 22:51
DX: M54.5 Low back pain (principal); R11.0 Nausea; J45.909 Unspecified asthma, uncomplicated; K21.9 Gastro-esophageal reflux disease without esophagitis; M19.90 Unspecified osteoarthritis, unspecified site; F41.9 Anxiety disorder, unspecified; F32.9 Major depressive disorder, single episode, unspecified; F17.200 Nicotine dependence, unspecified, uncomplicated; Z90.49 Acquired absence of other specified parts of digestive tract; Z98.890 Other specified postprocedural states; Z88.5 Allergy status to narcotic agent
CPT/HCPCS: 81001; 81025; 87086; 99283

== ENCOUNTER 2018-01-16 12:05 | Emergency (ER) | payer OTHER ==
[2018-01-16 12:13] VITALS: TEMP 98
[2018-01-16] MEDS ORDERED: SODIUM CHLORIDE 0.9% 1,000 ML IV STA (12:19)
[2018-01-16] MEDS ORDERED: ONDANSETRON 4 MG/2 ML VIAL IVP STA (12:19)
[2018-01-16] MEDS ORDERED: HYDROmorphone 0.5 MG/0.5 ML SYRINGE IVP STA ×2 (12:19→14:13)
--- NOTE | 2018-01-16 12:23 | ED ---
General Adult HPI - General Chief complaint: Extremity Injury, Lower Stated complaint: fall, ankle injury Time Seen by Provider: 01/16/18 12:09 Source: patient, EMS, RN notes reviewed Mode of arrival: EMS Limitations: no limitations - History of Present Illness Initial comments: The patient is a 37-year-old female presented to the emergency room today by EMS , the chief complaint of a injury to the left ankle. Patient does not that she was outside earlier today. She states she was walking back into her house and she came lightheaded and dizzy. She states she went to brace herself up against the wall. She states next thing that she knew she was waking up on the ground. He admits to pain to the left ankle. She denies any other complaints or symptoms. States she's had had syncopal episodes as a child but nothing as an adult. Admits pain to the left ankle worse with any movement. Denies any other complaints. Patient denies any recent fever, chills, shortness of breath, chest pain, back pain, abdominal pain, nausea or vomiting, numbness or tingling , headaches or visual changes, or any other complaints. - Related Data Home Medications Medication Instructions Recorded Confirmed Albuterol Inhaler [Ventolin 2 puff INHALATION RT-Q6H PRN 09/04/14 01/16/18 Inhaler] Omeprazole [PriLOSEC] 20 mg PO DAILY 09/04/14 01/16/18 Naproxen [Naprosyn] 500 mg PO Q12HR PRN 05/17/15 01/16/18 HYDROcodone/APAP 7.5-325MG [[place] 1 tab PO TID PRN 08/28/15 01/16/18 7.5] [place]-3 Fatty Acids/Fish Oil [Fish 1 cap PO DAILY 08/28/15 01/16/18 Oil 1,000 mg Softgel] Gabapentin [Neurontin] 400 mg PO TID 05/02/16 01/16/18 Amitriptyline HCl [Elavil] 50 mg PO BID 01/13/17 01/16/18 Cetirizine HCl [Zyrtec] 10 mg PO HS 01/13/17 01/16/18 Escitalopram [Lexapro] 10 mg PO DAILY 02/24/17 01/16/18 Previous Rx's Medication Instructions Recorded Hydrocodone/Acetaminophen [[place] 1 each PO Q6HR PRN #12 tab 01/16/18 5-325] Allergies Allergy/AdvReac Type Severity Reaction Status Date / Time morphine Allergy Rash/Hives Verified 01/16/18 12:39 tramadol Allergy Rash/Hives Verified 01/16/18 12:39 Review of Systems ROS Statement: Those systems with pertinent positive or pertinent negative responses have been documented in the HPI. ROS Other: All systems not noted in ROS Statement are negative. Past Medical History Past Medical History: Asthma, Chest Pain / Angina, GERD/Reflux, Osteoarthritis ( OA), Skin Disorder Additional Past Medical History / Comment(s): migraines, IBS, rash under arms, overactive bladder History of Any Multi-Drug Resistant Organisms: None Reported Past Surgical History: Cholecystectomy, Orthopedic Surgery Additional Past Surgical History / Comment(s): removal of mole from genital area Past Anesthesia/Blood Transfusion Reactions: Motion Sickness Past Psychological History: Anxiety, Depression Smoking Status: Current every day smoker Past Alcohol Use History: Rare Past Drug Use History: None Reported - Past Family History Mother Family Medical History: No Reported History General Exam - General Exam Comments Initial Comments: General: The patient is awake and alert, in no distress, and does not appear acutely ill. Eye: Pupils are equal, round and reactive to light, extra-ocular movements are intact. No nystagmus. There is normal conjunctiva bilaterally. No signs of icterus. Ears, nose, mouth and throat: There are moist mucous membranes and no oral lesions. Neck: The neck is supple, there is no tenderness or JVD. Cardiovascular: There is a regular rate and rhythm. No murmur, rub or gallop is appreciated. Respiratory: Lungs are clear to auscultation, respirations are non-labored, breath sounds are equal. No wheezes, stridor, rales, or rhonchi. Gastrointestinal: Abdomen soft on palpation. Musculoskeletal: Swelling to the left ankle. Tender greater on the medial malleolus over the lateral. Mild tenderness to the fibular head on the left. Pedal pulse 2+. Sensations intact. Neurological: A&O x 3. CN II-XII intact, There are no obvious motor or sensory deficits. Coordination appears grossly intact. Speech is normal. Skin: Skin is warm and dry and no rashes or lesions are noted. Psychiatric: Cooperative, appropriate mood & affect, normal judgment. Limitations: no limitations Course Vital Signs 01/16/18 01/16/18 12:06 14:41 Temperature 98 F Pulse Rate 70 65 Respiratory 18 20 Rate Blood Pressure 141/68 145/68 O2 Sat by Pulse 95 100 Oximetry Medical Decision Making - Medical Decision Making Patient's a 37-year-old female presenting for injury to the left ankle after a syncopal episode. Patient EKG shows normal sinus rhythm. Patient's labs have been reviewed. Patient's x-rays reviewed and does show a bimalleolar fracture with disruption of the ankle mortise. Patient was placed in a posterior and stirrup short leg OCL splint. During splint traction was applied with medial pressure. A postreduction film was obtained showing good alignment. Patient does admit to improvement after reduction. Neurovascular and checked patient will be discharged home given a prescription for crutches and advised nonweightbearing. Patient is advised following up with orthopedics over the next 2 days. Advised continued ice elevate the affected area. - Lab Data Result diagrams: 01/16/18 13:06 01/16/18 13:06 Lab Results 01/16/18 01/16/18 01/16/18 Range/Units 13:06 13:06 13:06 WBC 12.4 H (3.8-10.6) k/uL RBC 4.58 (3.80-5.40) m/uL Hgb 14.0 (11.4-16.0) gm/dL Hct 45.1 (34.0-46.0) % MCV 98.5 (80.0-100.0) fL MCH 30.6 (25.0-35.0) pg MCHC 31.1 (31.0-37.0) g/dL RDW 13.1 (11.5-15.5) % Plt Count 362 (150-450) k/uL Neutrophils % 81 % Lymphocytes % 11 % Monocytes % 4 % Eosinophils % 3 % Basophils % 0 % Neutrophils # 10.0 H (1.3-7.7) k/uL Lymphocytes # 1.4 (1.0-4.8) k/uL Monocytes # 0.5 (0-1.0) k/uL Eosinophils # 0.3 (0-0.7) k/uL Basophils # 0.0 (0-0.2) k/uL Sodium 140 (137-145) mmol/L Potassium 4.5 (3.5-5.1) mmol/L Chloride 106 (98-107) mmol/L Carbon Dioxide 28 (22-30) mmol/L Anion Gap 6 mmol/L BUN 16 (7-17) mg/dL Creatinine 0.90 (0.52-1.04) mg/dL Est GFR (CKD-EPI)AfAm >90 (>60 ml/min/1.73 sqM) Est GFR (CKD-EPI)NonAf 82 (>60 ml/min/1.73 sqM) Glucose 92 (74-99) mg/dL Calcium 9.4 (8.4-10.2) mg/dL Total Bilirubin 0.3 (0.2-1.3) mg/dL AST 41 H (14-36) U/L ALT 69 H (9-52) U/L Alkaline Phosphatase 83 (38-126) U/L Total Creatine Kinase 50 (30-135) U/L CK-MB (CK-2) 0.4 (0.0-2.4) ng/mL CK-MB (CK-2) Rel Index 0.8 Troponin I <0.012 (0.000-0.034) ng/mL Total Protein 7.2 (6.3-8.2) g/dL Albumin 3.9 (3.5-5.0) g/dL Urine Color Urine Appearance (Clear) Urine pH (5.0-8.0) Ur Specific [place] (1.001-1.035) Urine Protein (Negative) Urine Glucose (UA) (Negative) Urine Ketones (Negative) Urine Blood (Negative) Urine Nitrite (Negative) Urine Bilirubin (Negative) Urine Urobilinogen (<2.0) mg/dL Ur Leukocyte Esterase (Negative) Urine RBC (0-5) /hpf Urine WBC (0-5) /hpf Urine Mucus (None) /hpf Urine HCG, Qual (Not Detectd) 01/16/18 01/16/18 Range/Units 14:07 14:07 WBC (3.8-10.6) k/uL RBC (3.80-5.40) m/uL Hgb (11.4-16.0) gm/dL Hct (34.0-46.0) % MCV (80.0-100.0) fL MCH (25.0-35.0) pg MCHC (31.0-37.0) g/dL RDW (11.5-15.5) % Plt Count (150-450) k/uL Neutrophils % % Lymphocytes % % Monocytes % % Eosinophils % % Basophils % % Neutrophils # (1.3-7.7) k/uL Lymphocytes # (1.0-4.8) k/uL Monocytes # (0-1.0) k/uL Eosinophils # (0-0.7) k/uL Basophils # (0-0.2) k/uL Sodium (137-145) mmol/L Potassium (3.5-5.1) mmol/L Chloride (98-107) mmol/L Carbon Dioxide (22-30) mmol/L Anion Gap mmol/L BUN (7-17) mg/dL Creatinine (0.52-1.04) mg/dL Est GFR (CKD-EPI)AfAm (>60 ml/min/1.73 sqM) Est GFR (CKD-EPI)NonAf (>60 ml/min/1.73 sqM) Glucose (74-99) mg/dL Calcium (8.4-10.2) mg/dL Total Bilirubin (0.2-1.3) mg/dL AST (14-36) U/L ALT (9-52) U/L Alkaline Phosphatase (38-126) U/L Total Creatine Kinase (30-135) U/L CK-MB (CK-2) (0.0-2.4) ng/mL CK-MB (CK-2) Rel Index Troponin I (0.000-0.034) ng/mL Total Protein (6.3-8.2) g/dL Albumin (3.5-5.0) g/dL Urine Color Light Yellow Urine Appearance Clear (Clear) Urine pH 6.0 (5.0-8.0) Ur Specific [place] 1.007 (1.001-1.035) Urine Protein Negative (Negative) Urine Glucose (UA) 1+ H (Negative) Urine Ketones Negative (Negative) Urine Blood Large H (Negative) Urine Nitrite Negative (Negative) Urine Bilirubin Negative (Negative) Urine Urobilinogen <2.0 (<2.0) mg/dL Ur Leukocyte Esterase Negative (Negative) Urine RBC >182 H (0-5) /hpf Urine WBC 18 H (0-5) /hpf Urine Mucus Rare H (None) /hpf Urine HCG, Qual Not Detected (Not Detectd) Disposition Clinical Impression: Ankle fracture, Syncope Disposition: HOME SELF-CARE Condition: Good Instructions: Ankle Fracture (ED) Additional Instructions: Please use crutches with nonweightbearing. We splinted in place until follow- up with orthopedics over the next 2 days. Please continue ice elevate the affected area. Please return to emergency room for any other concerns. Prescriptions: Hydrocodone/Acetaminophen [[place] 5-325] 1 each PO Q6HR PRN #12 tab PRN Reason: Pain Is patient prescribed a controlled substance at d/c from ED?: Yes When asked, does pt state using other controlled substances?: Yes If prescribed controlled substance>3 days was MAPS reviewed?: Prescribed <3 Days Referrals: Lucien Vela MD [Primary Care Provider] - 1-2 days Celso Rosas MD [STAFF PHYSICIAN] - 1-2 days Time of Disposition: 15:48
--- NOTE | 2018-01-16 13:12 | XR ---
EXAMINATION TYPE: XR tibia fibula 2 views LT, XR ankle complete 3 views LT DATE OF EXAM: 01/16/2018 COMPARISON: NONE HISTORY: 37-year-old female swelling and pain, contusion after injury FINDINGS: Tibia/fibula: Degenerative spurring in the medial and lateral compartments of the knee. Nondisplaced oblique fractu re of the proximal fibular shaft Ankle: Additional mildly displaced oblique fracture of the distal fibula. There is widening of the distal fi bula. Fibular overlap. Widening of the medial clear space. [id number] sized plantar calcaneal spur. IMPRESSION: 1. Unstable bimalleolar equivalent ankle fracture. 2. However, there is an additional proximal fibular fracture with widening of the distal tibiofibular overlap suggesting a concurrent syndesmotic disruption.
[2018-01-16 13:24] LABS: Basophils % (A) 0 %; Eosinophils # (A) 0.3 k/uL (0-0.7); Eosinophils % (A) 3 %; HCT 45.1 % (34.0-46.0); Lymphocytes # (A) 1.4 k/uL (1.0-4.8); Lymphocytes % (A) 11 %; MCH 30.6 pg (25.0-35.0); MCHC 31.1 g/dL (31.0-37.0); MCV 98.5 fL (80.0-100.0); Mean Platelet Volume 6.9; Monocytes # (A) 0.5 k/uL (0-1.0); Monocytes % (A) 4 %; Neutrophils % (A) 81 %; Platelet Count 362 k/uL (150-450); RBC 4.58 m/uL (3.80-5.40); RDW 13.1 % (11.5-15.5); WBC 12.4 k/uL (3.8-10.6)
[2018-01-16 13:34] LABS: ALT 69 U/L (9-52); AST 41 U/L (14-36); Albumin 3.9 g/dL (3.5-5.0); Alkaline Phosphatase 83 U/L (38-126); Anion Gap 6 mmol/L; Blood Urea Nitrogen 16 mg/dL (7-17); Calcium 9.4 mg/dL (8.4-10.2); Carbon Dioxide 28 mmol/L (22-30); Chloride 106 mmol/L (98-107); Glucose 92 mg/dL (74-99); Potassium 4.5 mmol/L (3.5-5.1); Sodium 140 mmol/L (137-145); Total Bilirubin 0.3 mg/dL (0.2-1.3); Total Protein 7.2 g/dL (6.3-8.2)
[2018-01-16 13:53] LABS: Creatine Kinase 50 U/L (30-135)
[2018-01-16 14:07] LABS: Creatine Kinase MB 0.4 ng/mL (0.0-2.4); Troponin I <0.012 ng/mL (0.000-0.034)
[2018-01-16] MEDS ORDERED: LORazepam 2 MG/ML INJ IM STA (14:13)
[2018-01-16 14:23] LABS: Appearance,Urine Clear (Clear); Bilirubin,Urine Negative (Negative); Blood,Urine Large (Negative); Color,Urine Light Yellow; Glucose,Urine (UA) 1+ (Negative); Ketones,Urine Negative (Negative); Leukocyte Esterase,Urine Negative (Negative); Mucus,Urine Rare /hpf; Nitrite,Urine Negative (Negative); Protein,Urine Negative (Negative); RBC,Urine >182 /hpf (0-5); Specific Gravity,Urine 1.007 (1.001-1.035); Urobilinogen,Urine <2.0 mg/dL (<2.0); WBC,Urine 18 /hpf (0-5)
[2018-01-16] MEDS ORDERED: LORazepam 2 MG/ML INJ IV STA (14:37)
--- NOTE | 2018-01-16 15:43 | XR ---
EXAMINATION TYPE: XR ankle limited LT DATE OF EXAM: 01/16/2018 COMPARISON: 01/16/2018 HISTORY: 37-year-old female postreduction, pain TECHNIQUE: 2 views FINDINGS: Interval reduction. Minimal residual posterior displacement of the oblique fracture distal fibular sh aft. Improved congruence of the ankle mortise. Moderate-sized plantar calcaneal spur. Overlying fiber glass cast. IMPRESSION: Interval reduction of the bimalleolar equivalent. Of note, there is suspected syndesmotic disruption given the proximal fibular fracture seen on exam performed earlier today.
--- NOTE | 2018-01-16 15:53 | ED ---
Medical Decision Making - Medical Decision Making EKG performed at 1304: Shows normal sinus rhythm at 68 beats per minute. TN interval 140. QRS 90. QT/QTC 394/418. No acute ST changes. - Lab Data Result diagrams: 01/16/18 13:06 01/16/18 13:06 Lab Results 01/16/18 01/16/18 01/16/18 Range/Units 13:06 13:06 13:06 WBC 12.4 H (3.8-10.6) k/uL RBC 4.58 (3.80-5.40) m/uL Hgb 14.0 (11.4-16.0) gm/dL Hct 45.1 (34.0-46.0) % MCV 98.5 (80.0-100.0) fL MCH 30.6 (25.0-35.0) pg MCHC 31.1 (31.0-37.0) g/dL RDW 13.1 (11.5-15.5) % Plt Count 362 (150-450) k/uL Neutrophils % 81 % Lymphocytes % 11 % Monocytes % 4 % Eosinophils % 3 % Basophils % 0 % Neutrophils # 10.0 H (1.3-7.7) k/uL Lymphocytes # 1.4 (1.0-4.8) k/uL Monocytes # 0.5 (0-1.0) k/uL Eosinophils # 0.3 (0-0.7) k/uL Basophils # 0.0 (0-0.2) k/uL Sodium 140 (137-145) mmol/L Potassium 4.5 (3.5-5.1) mmol/L Chloride 106 (98-107) mmol/L Carbon Dioxide 28 (22-30) mmol/L Anion Gap 6 mmol/L BUN 16 (7-17) mg/dL Creatinine 0.90 (0.52-1.04) mg/dL Est GFR (CKD-EPI)AfAm >90 (>60 ml/min/1.73 sqM) Est GFR (CKD-EPI)NonAf 82 (>60 ml/min/1.73 sqM) Glucose 92 (74-99) mg/dL Calcium 9.4 (8.4-10.2) mg/dL Total Bilirubin 0.3 (0.2-1.3) mg/dL AST 41 H (14-36) U/L ALT 69 H (9-52) U/L Alkaline Phosphatase 83 (38-126) U/L Total Creatine Kinase 50 (30-135) U/L CK-MB (CK-2) 0.4 (0.0-2.4) ng/mL CK-MB (CK-2) Rel Index 0.8 Troponin I <0.012 (0.000-0.034) ng/mL Total Protein 7.2 (6.3-8.2) g/dL Albumin 3.9 (3.5-5.0) g/dL Urine Color Urine Appearance (Clear) Urine pH (5.0-8.0) Ur Specific [place] (1.001-1.035) Urine Protein (Negative) Urine Glucose (UA) (Negative) Urine Ketones (Negative) Urine Blood (Negative) Urine Nitrite (Negative) Urine Bilirubin (Negative) Urine Urobilinogen (<2.0) mg/dL Ur Leukocyte Esterase (Negative) Urine RBC (0-5) /hpf Urine WBC (0-5) /hpf Urine Mucus (None) /hpf Urine HCG, Qual (Not Detectd) 01/16/18 01/16/18 Range/Units 14:07 14:07 WBC (3.8-10.6) k/uL RBC (3.80-5.40) m/uL Hgb (11.4-16.0) gm/dL Hct (34.0-46.0) % MCV (80.0-100.0) fL MCH (25.0-35.0) pg MCHC (31.0-37.0) g/dL RDW (11.5-15.5) % Plt Count (150-450) k/uL Neutrophils % % Lymphocytes % % Monocytes % % Eosinophils % % Basophils % % Neutrophils # (1.3-7.7) k/uL Lymphocytes # (1.0-4.8) k/uL Monocytes # (0-1.0) k/uL Eosinophils # (0-0.7) k/uL Basophils # (0-0.2) k/uL Sodium (137-145) mmol/L Potassium (3.5-5.1) mmol/L Chloride (98-107) mmol/L Carbon Dioxide (22-30) mmol/L Anion Gap mmol/L BUN (7-17) mg/dL Creatinine (0.52-1.04) mg/dL Est GFR (CKD-EPI)AfAm (>60 ml/min/1.73 sqM) Est GFR (CKD-EPI)NonAf (>60 ml/min/1.73 sqM) Glucose (74-99) mg/dL Calcium (8.4-10.2) mg/dL Total Bilirubin (0.2-1.3) mg/dL AST (14-36) U/L ALT (9-52) U/L Alkaline Phosphatase (38-126) U/L Total Creatine Kinase (30-135) U/L CK-MB (CK-2) (0.0-2.4) ng/mL CK-MB (CK-2) Rel Index Troponin I (0.000-0.034) ng/mL Total Protein (6.3-8.2) g/dL Albumin (3.5-5.0) g/dL Urine Color Light Yellow Urine Appearance Clear (Clear) Urine pH 6.0 (5.0-8.0) Ur Specific [place] 1.007 (1.001-1.035) Urine Protein Negative (Negative) Urine Glucose (UA) 1+ H (Negative) Urine Ketones Negative (Negative) Urine Blood Large H (Negative) Urine Nitrite Negative (Negative) Urine Bilirubin Negative (Negative) Urine Urobilinogen <2.0 (<2.0) mg/dL Ur Leukocyte Esterase Negative (Negative) Urine RBC >182 H (0-5) /hpf Urine WBC 18 H (0-5) /hpf Urine Mucus Rare H (None) /hpf Urine HCG, Qual Not Detected (Not Detectd) Disposition Clinical Impression: Ankle fracture, Syncope Disposition: HOME SELF-CARE Condition: Good Instructions: Ankle Fracture (ED) Additional Instructions: Please use crutches with nonweightbearing. We splinted in place until follow- up with orthopedics over the next 2 days. Please continue ice elevate the affected area. Please return to emergency room for any other concerns. Prescriptions: Hydrocodone/Acetaminophen [[place] 5-325] 1 each PO Q6HR PRN #12 tab PRN Reason: Pain Is patient prescribed a controlled substance at d/c from ED?: Yes Referrals: Lucien Vela MD [Primary Care Provider] - 1-2 days Celso Rosas MD [STAFF PHYSICIAN] - 1-2 days
[2018-01-16 16:12] VITALS: BP 122/72; PULSE 77; RESP 18
== END 2018-01-16 16:13 | disposition home or self-care (01) ==
LOC: EC 12:05
DX: S82.842A Displaced bimalleolar fracture of left lower leg, initial encounter for closed fracture (principal); R55 Syncope and collapse; J45.909 Unspecified asthma, uncomplicated; K21.9 Gastro-esophageal reflux disease without esophagitis; F41.9 Anxiety disorder, unspecified; F32.9 Major depressive disorder, single episode, unspecified; F17.200 Nicotine dependence, unspecified, uncomplicated; Z79.899 Other long term (current) drug therapy; Z88.5 Allergy status to narcotic agent; W19.XXXA Unspecified fall, initial encounter; Y93.01 Activity, walking, marching and hiking; Y92.009 Unspecified place in unspecified non-institutional (private) residence as the place of occurrence of the external cause
CPT/HCPCS: 36415; 93005; 80053; 82550; 82553; 84484; 85025; 81001; 81025; 73590; 73600; 73610; 99284; 29515; 96374; 96375 ×2; 96376; 96361 ×3; J2060; J2405; J1170

== ENCOUNTER 2018-04-21 12:44 | Emergency (ER) | payer OTHER ==
[2018-04-21 12:54] VITALS: RESP 18; TEMP 97.8
[2018-04-21] MEDS ORDERED: HYDROcodone/APAP 5-325MG 1 EACH TAB PO STA (13:28)
--- NOTE | 2018-04-21 14:53 | CT ---
EXAMINATION TYPE: CT brain kiersten stanley DATE OF EXAM: 04/21/2018 COMPARISON: HISTORY: Fall down [address] DLP: [address] Brain: Unenhanced CT of the brain was performed. The ventricles, basal cisterns and sulci overlying the cerebral convexities demonstrate a normal appe arance. There is no evidence for intracranial hemorrhage or sulcal effacement. No mass effects are seen. If symptoms persist consider MRI. Osseous calvarium is intact. IMPRESSION: No acute intracranial process CT Cervical Spine: Unenhanced CT of the cervical spine was performed with bone and soft tissue window settings submitted . Coronal and sagittal reconstruction is obtained. Artifact limits evaluation. There is normal alignment and prevertebral soft tissues. I do not see evidence for fracture or sublu xation. Moderate degenerative disc space narrowing and spondylosis at C4-5 and C5-6. The lung apices are clear. IMPRESSION: No evidence for acute fracture or subluxation of the cervical spine.
--- NOTE | 2018-04-21 15:01 | XR ---
Left shoulder HISTORY: Trauma and pain 3 views of the left shoulder Left lung apex as visualized is normal. Bone mineralization, joint spaces and alignment are unremarka ble. IMPRESSION: No fracture or dislocation.
--- NOTE | 2018-04-21 15:14 | ED ---
General Adult HPI - General Chief complaint: Fall Stated complaint: fell down stairs Time Seen by Provider: 04/21/18 13:01 Source: patient, RN notes reviewed Mode of arrival: wheelchair Limitations: no limitations - History of Present Illness Initial comments: 37-year-old female presents to the emergency department for a chief complaint of fall occurring about one hour prior to arrival. Patient states she fell down about 7 stairs. Patient states that she hit her head on her forehead during this fall. She states she has left-sided neck pain radiating into the left shoulder. She denies any midline neck pain. She denies any back pain. No abdominal pain. She denies loss of consciousness or blood thinners. She denies severe headache at this time. Patient has no other complaints at this time including shortness of breath, chest pain, abdominal pain, nausea or vomiting, headache, or visual changes. - Related Data Home Medications Medication Instructions Recorded Confirmed Albuterol Inhaler [Ventolin 2 puff INHALATION RT-Q6H PRN 09/04/14 01/16/18 Inhaler] Omeprazole [PriLOSEC] 20 mg PO DAILY 09/04/14 01/16/18 Naproxen [Naprosyn] 500 mg PO Q12HR PRN 05/17/15 01/16/18 HYDROcodone/APAP 7.5-325MG [[place] 1 tab PO TID PRN 08/28/15 01/16/18 7.5] [place]-3 Fatty Acids/Fish Oil [Fish 1 cap PO DAILY 08/28/15 01/16/18 Oil 1,000 mg Softgel] Gabapentin [Neurontin] 400 mg PO TID 05/02/16 01/16/18 Amitriptyline HCl [Elavil] 50 mg PO BID 01/13/17 01/16/18 Cetirizine HCl [Zyrtec] 10 mg PO HS 01/13/17 01/16/18 Escitalopram [Lexapro] 10 mg PO DAILY 02/24/17 01/16/18 Previous Rx's Medication Instructions Recorded Hydrocodone/Acetaminophen [[place] 1 each PO Q6HR PRN #12 tab 01/16/18 5-325] Allergies Allergy/AdvReac Type Severity Reaction Status Date / Time morphine Allergy Rash/Hives Verified 04/01/18 21:22 tramadol Allergy Rash/Hives Verified 04/01/18 21:22 Review of Systems ROS Statement: Those systems with pertinent positive or pertinent negative responses have been documented in the HPI. ROS Other: All systems not noted in ROS Statement are negative. Past Medical History Past Medical History: Asthma, Chest Pain / Angina, GERD/Reflux, Osteoarthritis ( OA), Skin Disorder Additional Past Medical History / Comment(s): migraines, IBS, rash under arms, overactive bladder History of Any Multi-Drug Resistant Organisms: None Reported Past Surgical History: Cholecystectomy, Orthopedic Surgery Additional Past Surgical History / Comment(s): removal of mole from genital area Past Anesthesia/Blood Transfusion Reactions: Motion Sickness Past Psychological History: Anxiety, Depression Smoking Status: Current every day smoker Past Alcohol Use History: None Reported Past Drug Use History: None Reported - Past Family History Mother Family Medical History: No Reported History General Exam Limitations: no limitations General appearance: alert, in no apparent distress Head exam: Present: normocephalic, normal inspection. Absent: atraumatic ( Patient has a very small 1 cm abrasion noted to the right forehead) Eye exam: Present: normal appearance, PERRL, EOMI. Absent: scleral icterus, conjunctival injection, periorbital swelling ENT exam: Present: normal exam, normal oropharynx, mucous membranes moist, TM's normal bilaterally (Negative hemotympanums), normal external ear exam Neck exam: Present: normal inspection, tenderness (Minimal tenderness noted to the left lateral cervical trapezius as well as the left shoulder), full ROM. Absent: meningismus, lymphadenopathy Respiratory exam: Present: normal lung sounds bilaterally. Absent: respiratory distress, wheezes, rales, rhonchi, stridor Cardiovascular Exam: Present: regular rate, normal rhythm, normal heart sounds. Absent: systolic murmur, diastolic murmur, rubs, gallop, clicks GI/Abdominal exam: Present: soft, normal bowel sounds. 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 Absent: joint swelling (No swelling or ecchymosis noted of the left shoulder) Back exam: Absent: vertebral tenderness (No cervical, thoracic, or lumbar spine tenderness) Neurological exam: Present: alert, oriented X3, CN II-XII intact Psychiatric exam: Present: normal affect, normal mood Course Vital Signs 04/21/18 04/21/18 12:50 15:54 Temperature 97.8 F Pulse Rate 86 85 Respiratory 18 18 Rate Blood Pressure 171/95 145/80 O2 Sat by Pulse 98 96 Oximetry Medical Decision Making - Medical Decision Making 37-year-old obese female presents to the emergency department for a chief complaint of fall down 7 stairs about one hour prior to arrival. Patient is a small abrasion noted to the right forehead and does admit to hitting her head. She admits to lateral left-sided neck pain and shoulder pain. No tenderness of the cervical spine. No focal neuro deficits. CT brain shows no acute intracranial process. CT C-spine shows no acute fracture or subluxation. Certainly of the left shoulder shows no fracture or dislocation. At this time patient was given concussion precautions. SHe was educated on range of motion exercises for the left shoulder as well as possibility of repeat x-rays in 7-10 days if symptoms do not resolve She will follow up with primary care in 1-2 days and return to the emergency Department if she has any worsening symptoms. Disposition Clinical Impression: Shoulder pain, left, Head injury Disposition: HOME SELF-CARE Condition: Good Instructions: Concussion (ED), Shoulder Pain (ED) Additional Instructions: Please see range of motion exercises with the left shoulder every hour. These take Motrin or Tylenol for pain. Follow-up with primary care in 1-2 days. If shoulder symptoms do not resolve follow up with orthopedics. Return to the emergency department if you have any worsening symptoms. Is patient prescribed a controlled substance at d/c from ED?: No Referrals: Keyon Walker Jr, DO [Primary Care Provider] - 1-2 days Clive Whitehead DO [Doctor of Osteopathic Medicine] - 1-2 days Time of Disposition: 15:31
[2018-04-21] MEDS ORDERED: KETOROLAC 30 MG/ML 1 ML VIAL IM STA (15:53)
[2018-04-21 15:54] VITALS: BP 145/80; PULSE 85
== END 2018-04-21 16:24 | disposition home or self-care (01) ==
LOC: EC 12:44
DX: S00.81XA Abrasion of other part of head, initial encounter (principal); M25.512 Pain in left shoulder; M54.2 Cervicalgia; K21.9 Gastro-esophageal reflux disease without esophagitis; K58.9 Irritable bowel syndrome, unspecified; J45.909 Unspecified asthma, uncomplicated; M19.90 Unspecified osteoarthritis, unspecified site; F32.9 Major depressive disorder, single episode, unspecified; F41.9 Anxiety disorder, unspecified; F17.200 Nicotine dependence, unspecified, uncomplicated; Z79.899 Other long term (current) drug therapy; Z88.5 Allergy status to narcotic agent; W10.9XXA Fall (on) (from) unspecified stairs and steps, initial encounter; Y92.009 Unspecified place in unspecified non-institutional (private) residence as the place of occurrence of the external cause
CPT/HCPCS: 73030; 72125; 70450; 99284; 96372; J1885

== ENCOUNTER 2018-06-20 20:38 | Emergency (ER) | payer OTHER ==
[2018-06-20 21:13] VITALS: BP 152/92; PULSE 91; RESP 18; TEMP 98.3
--- NOTE | 2018-06-20 21:40 | XR ---
EXAMINATION TYPE: XR ankle complete LT, XR foot complete LT DATE OF EXAM: 06/20/2018 CLINICAL HISTORY: Left ankle and foot pain with recent surgery. TECHNIQUE: Frontal, lateral and oblique images of the left ankle and foot are obtained. COMPARISON: Left ankle x-ray January 16, 2018. FINDINGS: There is lateral fixating plate through healed fracture of the lateral malleolus. There is lucency from prior fixating screw distal tibiofibular level with medial remnant metallic washer iden tified. Ankle mortise shows persistent asymmetric medial widening and lateral tilting. Mild to modera te diffuse subcutaneous edema is present.Small to moderate size inferior calcaneal spur is redemonstr ated. There is no acute fracture or dislocation evident in the left foot. Moderate to severe narrowing at b ase of first metatarsal is identified. Flexion in toes is seen. Overlying soft tissue shows mild dif fuse subcutaneous edema. IMPRESSION: There is no acute fracture or dislocation in the left ankle or foot. Ankle mortise disru ption redemonstrated suggesting remote ligamentous injury, correlate clinically.
--- NOTE | 2018-06-20 22:56 | ED ---
General Adult HPI - General Chief complaint: Extremity Injury, Lower Stated complaint: Foot pain Time Seen by Provider: 06/20/18 21:19 Source: patient, RN notes reviewed, old records reviewed Mode of arrival: ambulatory Limitations: no limitations - History of Present Illness Initial comments: 37-year-old female patient with past history of ankle surgery left ankle press ED after mechanical left ankle injury. Patient reports that she was walking when she slipped on ice suffering a left ankle inversion injury. Patient fell to the ground had no trauma to head or neck. Patient denies any other injury. Patient not on blood thinners. Patient ambulatory with pain in left ankle. Patient denies all other complaints. Systemic: Pt denies fatigue, fever/chills, rash. Pt denies weakness, night sweats, weight loss. Neuro: Pt denies headache, visual disturbances, syncope or pre-syncope. HEENT: Pt denies ocular discharge or irritation, otalgia, rhinorrhea, pharyngitis or notable lymphadenopathy. Cardiopulmonary: Pt denies chest pain, SOB, heart palpitations, dyspnea on exertion. Abdominal/GI: Pt denies abdominal pain, n/v/d. : Pt denies dysuria, burning w/ urination, frequency/urgency. Denies new onset urinary or bowel incontinence. MSK: Pt deniesloss of strength or function in extremities. Neuro: Pt denies new onset weakness, paresthesias. - Related Data Home Medications Medication Instructions Recorded Confirmed Albuterol Inhaler [Ventolin 2 puff INHALATION RT-Q6H PRN 09/04/14 01/16/18 Inhaler] Omeprazole [PriLOSEC] 20 mg PO DAILY 09/04/14 01/16/18 Naproxen [Naprosyn] 500 mg PO Q12HR PRN 05/17/15 01/16/18 HYDROcodone/APAP 7.5-325MG [[place] 1 tab PO TID PRN 08/28/15 01/16/18 7.5] [place]-3 Fatty Acids/Fish Oil [Fish 1 cap PO DAILY 08/28/15 01/16/18 Oil 1,000 mg Softgel] Gabapentin [Neurontin] 400 mg PO TID 05/02/16 01/16/18 Amitriptyline HCl [Elavil] 50 mg PO BID 01/13/17 01/16/18 Cetirizine HCl [Zyrtec] 10 mg PO HS 01/13/17 01/16/18 Escitalopram [Lexapro] 10 mg PO DAILY 02/24/17 01/16/18 Previous Rx's Medication Instructions Recorded Hydrocodone/Acetaminophen [[place] 1 each PO Q6HR PRN #12 tab 01/16/18 5-325] Allergies Allergy/AdvReac Type Severity Reaction Status Date / Time morphine Allergy Rash/Hives Verified 06/20/18 21:13 tramadol Allergy Rash/Hives Verified 06/20/18 21:13 Review of Systems ROS Statement: Those systems with pertinent positive or pertinent negative responses have been documented in the HPI. ROS Other: All systems not noted in ROS Statement are negative. Past Medical History Past Medical History: Asthma, Chest Pain / Angina, GERD/Reflux, Osteoarthritis ( OA), Skin Disorder Additional Past Medical History / Comment(s): migraines, IBS, rash under arms, overactive bladder History of Any Multi-Drug Resistant Organisms: None Reported Past Surgical History: Cholecystectomy, Orthopedic Surgery Additional Past Surgical History / Comment(s): removal of mole from genital area Past Anesthesia/Blood Transfusion Reactions: Motion Sickness Past Psychological History: Anxiety, Depression Smoking Status: Current every day smoker Past Alcohol Use History: Rare Past Drug Use History: None Reported - Past Family History Mother Family Medical History: No Reported History General Exam - General Exam Comments Initial Comments: Constitutional: NAD, AOX3, Pt has pleasant affect. HEENT: NC/AT, trachea midline, neck supple, no lymphadenopathy. Posterior pharynx non erythematous, without exudates. External ears appear normal, without discharge. Mucous membranes moist. Eyes PERRLA, EOM intact. There is no scleral icterus. No pallor noted. Cardiopulmonary: RRR, no murmurs, rubs or gallops, no JVD noted. Lungs CTAB in anterior and posterior silva. No peripheral edema. Abdominal exam: Abdomen soft and non-distended. Abdomen non-tender to palpation in all 4 quadrants. Bowel sounds active in LLQ. No hepatosplenomegaly. No ecchymosis Neuro: CN II-XII grossly intact. No nuchal rigidity. MSK: Left ankle moderately edematous, moderate tenderness to palpation at lateral malleolus, full active range of motion dorsiflexion and plantarflexion intact. Patient able wiggle toes. Patient sensation intact. Dorsalis pedis and posterior tibialis pulse +2 bilaterally. No ecchymoses. Patient ambulatory. No posterior calf tenderness bilaterally, homans sign negative bilaterally. adial pulse +2 bilaterally. Sensation intact in upper and lower extremities. Full active ROM in upper and lower extremities, 5/5 stregnth. Limitations: no limitations Course Vital Signs 06/20/18 21:08 Temperature 98.3 F Pulse Rate 91 Respiratory 18 Rate Blood Pressure 152/92 O2 Sat by Pulse 98 Oximetry Medical Decision Making - Medical Decision Making 37-year-old female patient past medical history of left ankle surgeries presents ED after suffering a left ankle inversion injury. Patient suffered no other injury. Patient is ambulatory. Physical exam displayed a very mild amount of left ankle edema, neurovascularly intact, no ecchymoses, sensation intact. Plain film of left ankle displayed no acute fracture dislocation left ankle or foot. Ankle mortise disruption redemonstrated is suggesting a ligamentous injury correlate clinically. Chair decision making, patient rather use walking post op walking boot and bear weight as tolerated. Patient was placed in Andrew wrap and postop walking boot. Patient to follow-up with private orthopedic surgeon tomorrow. Patient to return to ED if new signs or symptoms develop or if condition worsens. Disposition Clinical Impression: Ankle sprain Disposition: HOME SELF-CARE Condition: Stable Instructions (If sedation given, give patient instructions): Ankle Sprain (ED) Additional Instructions: Patient to adhere to previously discussed treatment plan and will take medication(s) as directed. Patient to follow up with PCP in 1-2 days. Patient to return to ED if symptoms do not improve. Is patient prescribed a controlled substance at d/c from ED?: No Referrals: Keyon Walker Jr, DO [Primary Care Provider] - 1-2 days Estuardo Levin MD [Medical Doctor] - 1-2 days Ulysses Vasquez DO [Medical Doctor] - 1-2 days Time of Disposition: 22:55
== END 2018-06-20 23:03 | disposition home or self-care (01) ==
LOC: EC 20:38
DX: S93.402A Sprain of unspecified ligament of left ankle, initial encounter (principal); J45.909 Unspecified asthma, uncomplicated; K21.9 Gastro-esophageal reflux disease without esophagitis; F41.9 Anxiety disorder, unspecified; F32.9 Major depressive disorder, single episode, unspecified; F17.200 Nicotine dependence, unspecified, uncomplicated; Z98.890 Other specified postprocedural states; Z87.39 Personal history of other diseases of the musculoskeletal system and connective tissue; Z79.899 Other long term (current) drug therapy; Z88.5 Allergy status to narcotic agent; W00.0XXA Fall on same level due to ice and snow, initial encounter; Y93.01 Activity, walking, marching and hiking; Y92.89 Other specified places as the place of occurrence of the external cause
CPT/HCPCS: 99284

== ENCOUNTER → 2018-07-16 | Outpatient (CLI) | payer OTHER ==
--- NOTE | 2018-07-16 13:22 | CONS ---
CONSULTATION DATE OF SERVICE: 07/16/2018 A 38-year-old lady who has been evaluated in the [facility] for possible obstructive sleep apnea-hypopnea syndrome. HISTORY OF PRESENT ILLNESS/SLEEP-WAKE EVALUATION: Patient usual sleep schedule from around 1 to 2 am until 7 to 10 am. Sometimes she has problems with falling asleep, although no TV in bedroom. He sleeps in different position. New small with snoring and to a sink into opening during the night and wake up from sleep and is this area. She wakes up from sleep some of the night every hour, some nocturia. No history of hypnagogic hallucinations, sleep paralysis or cataplexy. The patient sleeps by himself herself. No information about her breathing during the sleep during the day. She feels sleepy. [place] Sleepiness Scale significantly increased to 15. She may take a while she may fall asleep during the day. Sometimes to facilitate just change the center she often falling asleep during the day. PAST MEDICAL HISTORY: Positive for anxiety, depression, acid reflux, left more back problems, hip problems. PAST SURGICAL HISTORY: Cholecystectomy, surgery on left fold for the bone fracture. MEDICATIONS: Gabapentin S, citalopram, amitriptyline, omeprazole, Zantac snuffbox nor cough albuterol inhale inhaler. SOCIAL HISTORY: Positive for smoking less than a pack a day for about 15 years. Alcohol consumption rarely. FAMILY HISTORY: Hypertension, hyperlipidemia, arthritis, sleep apnea, snoring, headaches. REVIEW OF SYSTEMS: Awakenings from sleep, feeling sleepy during the day. PHYSICAL EXAM: Morbidly obese 38-year-old lady without distress. BP 166/69, HR 82, RR 16, height 5 foot 9 inches weight o5 9 inches, weight 449 pounds body mass index 63 6.3, temperature 98.0, oxygen saturation at room air 99% oropharynx low position of soft palate, Mallampati 3-4, white neck 18 inches in circumference. ABDOMEN: Obese. EXTREMITIES: Very minimal up to 1+ ankle edema. IMPRESSION: 1. Snoring, awakenings from sleep, low position of soft palate, wide neck obesity, sleepiness, obstructive sleep apnea-hypopnea syndrome. 2. Morbid obesity. Body mass index 66.3. 3. Possibility of a obesity hyperventilation syndrome. 4. Hypertension in the office. Blood pressure today is 166/69. 5. History of anxiety. 6. History of depression. 7. Acid reflux. 8. Asthma. 9. Back problems. 10.Hip problems. 11.Status post cholecystectomy. 12.Status post left foot surgery in January of 2018. PLAN: 1. Polysomnography for evaluation of patient's breathing during sleep. 2. CPAP/BiPAP titration if sleep study confirms obstructive sleep apnea-hypopnea syndrome. 3. Preferable position during sleep on the side. 4. No driving if patient feels any sleepiness. 5. I will see patient for follow up visit to explain results of testing and following plan. Thank you very much for referring this patient for evaluation. Sincerely, Billy Carolina MD, PhD, FAASM Diplomat of [employer] [facility] MMREENA / KERRYN: [id number] /
== END | disposition home or self-care (01) ==
LOC: SLEEP 11:42
PROVIDERS: ATTEND Internal Medicine
DX: G47.33 Obstructive sleep apnea (adult) (pediatric) (principal); E66.01 Morbid (severe) obesity due to excess calories; I10 Essential (primary) hypertension; F41.9 Anxiety disorder, unspecified; F32.9 Major depressive disorder, single episode, unspecified; K21.9 Gastro-esophageal reflux disease without esophagitis; J45.909 Unspecified asthma, uncomplicated; R29.898 Other symptoms and signs involving the musculoskeletal system; Z90.49 Acquired absence of other specified parts of digestive tract; Z98.890 Other specified postprocedural states; Z99.89 Dependence on other enabling machines and devices; Z68.44 Body mass index [BMI] 60.0-69.9, adult; F17.210 Nicotine dependence, cigarettes, uncomplicated; Z79.899 Other long term (current) drug therapy
CPT/HCPCS: 99211

== ENCOUNTER → 2018-08-04 | Outpatient (CLI) | payer OTHER ==
--- NOTE | 2018-08-04 09:50 | US ---
EXAMINATION TYPE: US liver DATE OF EXAM: 08/04/2018 COMPARISON: NONE CLINICAL HISTORY: K76.0 Fatty liver. Morbidly obese patient, abd pain, cholecystectomy, known fatty l iver EXAM MEASUREMENTS: Liver Length: 21.6 cm Gallbladder Wall: Surgically absent CBD: 0.7 cm Right Kidney: 10.3 x 5.0 x 5.7 cm *limited exam due to habitus and bowel gas Pancreas: wnl Liver: The liver is enlarged. Mild coarsened heterogenous echotexture of the hepatic parenchyma, whi ch most commonly corresponds to hepatic steatosis and limits evaluation for underlying hepatic masses . At the sarthak hepatis there is a geographic area of hypoattenuation measuring 6.7 cm, previously tomasa suring 5.3 cm in 2015. This is avascular with peripheral vascular flow. The other hypoattenuated area s on the prior of 2014 are not reidentified. Overall there is limited evaluation of the liver given t he diffuse heterogeneity and hyperechoic appearance. Gallbladder: Surgically absent Evidence for sonographic Rosas's sign: no CBD: wnl Right Kidney: limited views IMPRESSION: The liver appears diffusely heterogenous with focal areas of hypoattenuation that may represent focal fatty sparing, particularly surrounding the sarthak hepatis (increase in size from 2015). Correlation with liver function tests is recommended to evaluate for hepatic steatosis although hepatic steatosis is not clearly demonstrated on the CT of 01/13/2017 and other hepatocellular diseases could give this sonographic appearance. If there is further concern liver MRI could be performed.
== END | disposition home or self-care (01) ==
LOC: RADUSWWP 06:57
PROVIDERS: ATTEND Internal Medicine Gastroenterology
DX: K76.0 Fatty (change of) liver, not elsewhere classified (principal)
CPT/HCPCS: 76705

== ENCOUNTER 2018-08-14 21:12 | Emergency (ER) | payer OTHER ==
--- NOTE | 2018-08-14 21:46 | ED ---
General Adult HPI - General Chief complaint: Chest Pain Stated complaint: Chest pain Time Seen by Provider: 08/14/18 21:21 Source: patient, RN notes reviewed, old records reviewed Mode of arrival: ambulatory Limitations: no limitations - History of Present Illness Initial comments: 38-year-old female presenting with 24-hour history of left-sided chest pain. Patient initially did have some dyspnea over this resolved with treatment with rescue inhaler. Patient has known history of asthma. Chest pain has been constant pain in the right upper chest area this is worse with deep inspiration. Patient denies any lower extremity pain or swelling. She states she recently had bilateral lower extremity ultrasound which was negative for DVT. She denies central chest pain. No history of CAD. Denies abdominal pain nausea vomiting. Denies diaphoresis. - Related Data Home Medications Medication Instructions Recorded Confirmed Albuterol Inhaler [Ventolin 2 puff INHALATION RT-Q6H PRN 09/04/14 08/14/18 Inhaler] Omeprazole [PriLOSEC] 20 mg PO DAILY 09/04/14 08/14/18 Naproxen [Naprosyn] 500 mg PO Q12HR PRN 05/17/15 08/14/18 HYDROcodone/APAP 7.5-325MG [[place] 1 tab PO TID PRN 08/28/15 08/14/18 7.5] [place]-3 Fatty Acids/Fish Oil [Fish 1 cap PO DAILY 08/28/15 08/14/18 Oil 1,000 mg Softgel] Gabapentin [Neurontin] 400 mg PO TID 05/02/16 08/14/18 Amitriptyline HCl [Elavil] 50 mg PO TID 01/13/17 08/14/18 Cetirizine HCl [Zyrtec] 10 mg PO HS 01/13/17 08/14/18 Escitalopram [Lexapro] 10 mg PO DAILY 02/24/17 08/14/18 Ketorolac [Toradol] 10 mg PO TID 08/14/18 08/14/18 Topiramate [Trokendi Xr] 50 mg PO DAILY 08/14/18 08/14/18 Allergies Allergy/AdvReac Type Severity Reaction Status Date / Time morphine Allergy Rash/Hives Verified 08/14/18 21:36 tramadol Allergy Rash/Hives Verified 08/14/18 21:36 Review of Systems ROS Statement: Those systems with pertinent positive or pertinent negative responses have been documented in the HPI. ROS Other: All systems not noted in ROS Statement are negative. Past Medical History Past Medical History: Asthma, Chest Pain / Angina, GERD/Reflux, Osteoarthritis (OA), Skin Disorder Additional Past Medical History / Comment(s): migraines, IBS, rash under arms, overactive bladder History of Any Multi-Drug Resistant Organisms: None Reported Past Surgical History: Cholecystectomy, Orthopedic Surgery Additional Past Surgical History / Comment(s): removal of mole from genital area Past Anesthesia/Blood Transfusion Reactions: Motion Sickness Past Psychological History: Anxiety, Depression Smoking Status: Current every day smoker Past Alcohol Use History: Rare Past Drug Use History: None Reported - Past Family History Mother Family Medical History: No Reported History General Exam Limitations: no limitations General appearance: alert, in no apparent distress Head exam: Present: atraumatic, normocephalic Eye exam: Present: normal appearance, PERRL ENT exam: Present: normal exam Neck exam: Present: normal inspection. Absent: tenderness, meningismus Respiratory exam: Present: normal lung sounds bilaterally, decreased breath sounds. Absent: respiratory distress, wheezes, rhonchi Cardiovascular Exam: Present: regular rate, normal rhythm GI/Abdominal exam: Present: soft. Absent: distended, tenderness, guarding Extremities exam: Present: normal inspection, normal capillary refill. Absent: pedal edema Neurological exam: Present: alert, oriented X3, CN II-XII intact. Absent: motor sensory deficit Psychiatric exam: Present: normal affect, normal mood Skin exam: Present: warm, dry, intact. Absent: cyanosis, diaphoretic Course Vital Signs 08/14/18 08/14/18 21:15 22:04 Temperature 98.3 F Pulse Rate 79 78 Respiratory 16 18 Rate Blood Pressure 159/86 168/105 O2 Sat by Pulse 100 98 Oximetry EKG Findings - EKG Comments: EKG Findings:: EKG: Normal sinus rhythm rate of 76, AL interval 132, QRS duration 86, QTC 423, no ST segment elevation Medical Decision Making - Medical Decision Making 38-year-old female presenting with right upper chest pain for the past 24 hours. Patient well-appearing with stable vitals. Workup in the emergency department reveals nonischemic EKG, chest x-ray negative for focal pneumonia, patient has leukocytosis with white blood cell count 14 however she does appear to have chronic leukocytosis. Troponin is negative which is reassuring given the d uration of constant chest pain over the past 24 hours. D-dimer negative. Patient stable for discharge at this time, will follow-up with her primary care physician. Please return with worsening or changing symptoms. - Lab Data Result diagrams: 08/14/18 22:03 08/14/18 22:03 Lab Results 08/14/18 08/14/18 08/14/18 Range/Units 22:03 22:03 22:03 WBC 14.2 H (3.8-10.6) k/uL RBC 4.64 (3.80-5.40) m/uL Hgb 13.6 (11.4-16.0) gm/dL Hct 42.1 (34.0-46.0) % MCV 90.6 (80.0-100.0) fL MCH 29.2 (25.0-35.0) pg MCHC 32.3 (31.0-37.0) g/dL RDW 13.9 (11.5-15.5) % Plt Count 392 (150-450) k/uL Neutrophils % 73 % Lymphocytes % 17 % Monocytes % 4 % Eosinophils % 5 % Basophils % 0 % Neutrophils # 10.4 H (1.3-7.7) k/uL Lymphocytes # 2.4 (1.0-4.8) k/uL Monocytes # 0.5 (0-1.0) k/uL Eosinophils # 0.7 (0-0.7) k/uL Basophils # 0.1 (0-0.2) k/uL PT 10.3 (9.0-12.0) sec INR 1.0 (<1.2) APTT 25.9 (22.0-30.0) sec D-Dimer 0.34 (<0.60) mg/L FEU Sodium 138 (137-145) mmol/L Potassium 4.3 (3.5-5.1) mmol/L Chloride 106 (98-107) mmol/L Carbon Dioxide 25 (22-30) mmol/L Anion Gap 7 mmol/L BUN 12 (7-17) mg/dL Creatinine 0.72 (0.52-1.04) mg/dL Est GFR (CKD-EPI)AfAm >90 (>60 ml/min/1.73 sqM) Est GFR (CKD-EPI)NonAf >90 (>60 ml/min/1.73 sqM) Glucose 89 (74-99) mg/dL Calcium 9.3 (8.4-10.2) mg/dL Magnesium 1.9 (1.6-2.3) mg/dL Total Bilirubin 0.3 (0.2-1.3) mg/dL AST 35 (14-36) U/L ALT 68 H (9-52) U/L Alkaline Phosphatase 94 (38-126) U/L Troponin I (0.000-0.034) ng/mL Total Protein 7.0 (6.3-8.2) g/dL Albumin 3.8 (3.5-5.0) g/dL 08/14/18 Range/Units 22:03 WBC (3.8-10.6) k/uL RBC (3.80-5.40) m/uL Hgb (11.4-16.0) gm/dL Hct (34.0-46.0) % MCV (80.0-100.0) fL MCH (25.0-35.0) pg MCHC (31.0-37.0) g/dL RDW (11.5-15.5) % Plt Count (150-450) k/uL Neutrophils % % Lymphocytes % % Monocytes % % Eosinophils % % Basophils % % Neutrophils # (1.3-7.7) k/uL Lymphocytes # (1.0-4.8) k/uL Monocytes # (0-1.0) k/uL Eosinophils # (0-0.7) k/uL Basophils # (0-0.2) k/uL PT (9.0-12.0) sec INR (<1.2) APTT (22.0-30.0) sec D-Dimer (<0.60) mg/L FEU Sodium (137-145) mmol/L Potassium (3.5-5.1) mmol/L Chloride (98-107) mmol/L Carbon Dioxide (22-30) mmol/L Anion Gap mmol/L BUN (7-17) mg/dL Creatinine (0.52-1.04) mg/dL Est GFR (CKD-EPI)AfAm (>60 ml/min/1.73 sqM) Est GFR (CKD-EPI)NonAf (>60 ml/min/1.73 sqM) Glucose (74-99) mg/dL Calcium (8.4-10.2) mg/dL Magnesium (1.6-2.3) mg/dL Total Bilirubin (0.2-1.3) mg/dL AST (14-36) U/L ALT (9-52) U/L Alkaline Phosphatase (38-126) U/L Troponin I <0.012 (0.000-0.034) ng/mL Total Protein (6.3-8.2) g/dL Albumin (3.5-5.0) g/dL Disposition Clinical Impression: Chest pain Disposition: HOME SELF-CARE Condition: Good Instructions (If sedation given, give patient instructions): Chest Pain (ED) Is patient prescribed a controlled substance at d/c from ED?: No Referrals: Keyon Walker Jr, [Primary Care Provider] - 1-2 days Time of Disposition: 23:22
[2018-08-14 22:06] VITALS: RESP 18
[2018-08-14 22:14] LABS: Basophils # (A) 0.1 k/uL (0-0.2); Basophils % (A) 0 %; Eosinophils # (A) 0.7 k/uL (0-0.7); Eosinophils % (A) 5 %; HCT 42.1 % (34.0-46.0); HGB 13.6 gm/dL (11.4-16.0); Lymphocytes # (A) 2.4 k/uL (1.0-4.8); Lymphocytes % (A) 17 %; MCH 29.2 pg (25.0-35.0); MCHC 32.3 g/dL (31.0-37.0); MCV 90.6 fL (80.0-100.0); Mean Platelet Volume 6.8; Monocytes # (A) 0.5 k/uL (0-1.0); Monocytes % (A) 4 %; Neutrophils # (A) 10.4 k/uL (1.3-7.7); Neutrophils % (A) 73 %; Platelet Count 392 k/uL (150-450); RBC 4.64 m/uL (3.80-5.40); RDW 13.9 % (11.5-15.5); WBC 14.2 k/uL (3.8-10.6)
[2018-08-14 22:23] LABS: Albumin 3.8 g/dL (3.5-5.0); Anion Gap 7 mmol/L; Blood Urea Nitrogen 12 mg/dL (7-17); Calcium 9.3 mg/dL (8.4-10.2); Carbon Dioxide 25 mmol/L (22-30); Chloride 106 mmol/L (98-107); Glucose 89 mg/dL (74-99); Potassium 4.3 mmol/L (3.5-5.1); Sodium 138 mmol/L (137-145)
[2018-08-14 22:24] LABS: ALT 68 U/L (9-52); AST 35 U/L (14-36); Alkaline Phosphatase 94 U/L (38-126); Magnesium 1.9 mg/dL (1.6-2.3); Total Bilirubin 0.3 mg/dL (0.2-1.3)
[2018-08-14 22:30] LABS: D-Dimer 0.34 mg/L FEU (<0.60); Partial Thromboplastin Time 25.9 sec (22.0-30.0); Prothrombin Time 10.3 sec (9.0-12.0)
--- NOTE | 2018-08-14 22:33 | XR ---
EXAM: XR Chest, 2 Views CLINICAL HISTORY: ITS.REASON XR Reason: Chest Pain TECHNIQUE: Frontal and lateral views of the chest. COMPARISON: No relevant prior studies available. FINDINGS: Lungs: Unremarkable. No consolidation. Pleural space: Unremarkable. No pneumothorax. Heart: Unremarkable. No cardiomegaly. Mediastinum: Unremarkable. Bones/joints: Mild degenerative changes with osteophytosis along the thoracic spine. IMPRESSION: No acute radiographic findings.
[2018-08-14 23:55] VITALS: BP 149/89; PULSE 77; TEMP 97.9
== END 2018-08-14 23:53 | disposition home or self-care (01) ==
LOC: EC 21:12
DX: R07.89 Other chest pain (principal); D72.829 Elevated white blood cell count, unspecified; J45.909 Unspecified asthma, uncomplicated; K21.9 Gastro-esophageal reflux disease without esophagitis; K58.9 Irritable bowel syndrome, unspecified; G43.909 Migraine, unspecified, not intractable, without status migrainosus; M19.90 Unspecified osteoarthritis, unspecified site; F32.9 Major depressive disorder, single episode, unspecified; F41.9 Anxiety disorder, unspecified; F17.200 Nicotine dependence, unspecified, uncomplicated; Z79.891 Long term (current) use of opiate analgesic; Z79.899 Other long term (current) drug therapy; Z88.5 Allergy status to narcotic agent
CPT/HCPCS: 36415; 71046; 80053; 83735; 84484; 85025; 85379; 85610; 85730; 93005; 99285

== ENCOUNTER → 2018-09-24 | Outpatient (CLI) | payer OTHER ==
--- NOTE | 2018-09-24 17:51 | PN ---
PROGRESS NOTE DATE OF SERVICE: 09/24/2018 This patient is a 38-year-old lady who has been [facility] for treatment of obstructive sleep apnea-hypopnea syndrome. Recently the patient had a diagnostic sleep study and CPAP titration. I discussed results of sleep studies with the patient in detail and subsequently she was started on treatment with CPAP. Today is her first visit while she is on treatment with CPAP. The patient is able to use her CPAP equipment every night but feels that at the beginning of the night pressure is not enough for her. I checked her CPAP unit. CPAP pressure is 11 cm of water, RAMP starting from 5 cm of water. Patient demonstrated good compliance. She is using it 29/30 nights, and 22/30 nights for more than 4 hours. Average usage 4.5 hours. Leak is 38 L/minute, which is okay for full-face mask. Apnea-hypopnea index is 0.9, which is absolutely perfect. [place] Sleepiness Scale today is 15. MEDICATIONS: 1. Gabapentin. 2. Escitalopram. 3. Omeprazole. 4. Amitriptyline. 5. Naproxen. 6. [place]. 7. Albuterol inhaler. PHYSICAL EXAMINATION: GENERAL: A pleasant patient in no distress. VITAL SIGNS: BP 164/75, HR 80, RR 17, weight 458.0, temperature 99.5. HEENT: PERRLA, EOMI. Evaluation of oropharynx showed tongue protrudes midline. Low position of soft palate. Mallampati IV. NECK: Supple. No JVD. Thyroid is not palpable. LUNGS: Clear to percussion and to auscultation. Good air exchange. No wheezing or rhonchi. HEART: S1, S2 regular. No murmurs, gallops or rubs. ABDOMEN: Obese. EXTREMITIES: No clubbing or cyanosis. ROCKET MOTOR MECHANIC: Awake, alert, and oriented X3. Cranial nerves 2 to 7 intact. There is no fasciculation or atrophy. noted. No focal deficits observed. IMPRESSION: 1. Moderate obstructive sleep apnea-hypopnea syndrome; apnea-hypopnea index 21.6 with oxygen desaturation to 78.1%, under full control with CPAP at a pressure of 11 cm of water. Patient demonstrated good compliance with treatment, benefitting from treatment. 2. Obesity. 3. Hypertension. 4. History of anxiety. 5. History of depression. 6. Acid reflux. 7. Asthma. 8. Back problems. 9. Hip problems. 10.Status post cholecystectomy. 11.Status post left foot surgery in January 2018. PLAN: 1. I increased RAMP pressure from 5 cm of water to 8 cm of water. 2. I explained to the patient how to adjust RAMP time and humidity. 3. Patient will continue to use her CPAP equipment every night for the whole night. 4. Losing weight. 5. Sleep hygiene with regular time in bed for at least 8 hours. 6. No driving if feeling any sleepiness. Thank you very much for allowing me to participate in the management of your patient. Sincerely, Billy Carolina MD, PhD, FAASM Diplomat of [employer] Brush Loader And Handle Attacher of [facility] [place] MMODL / IJN: [id number] /
== END | disposition home or self-care (01) ==
LOC: SLEEP 16:14
PROVIDERS: ATTEND Internal Medicine
DX: G47.33 Obstructive sleep apnea (adult) (pediatric) (principal); E66.9 Obesity, unspecified; I10 Essential (primary) hypertension; K21.9 Gastro-esophageal reflux disease without esophagitis; J45.909 Unspecified asthma, uncomplicated; M53.9 Dorsopathy, unspecified; Z86.59 Personal history of other mental and behavioral disorders; Z99.89 Dependence on other enabling machines and devices; Z90.49 Acquired absence of other specified parts of digestive tract; Z98.890 Other specified postprocedural states; Z79.899 Other long term (current) drug therapy

== ENCOUNTER 2018-12-21 18:52 | Emergency (ER) | payer OTHER ==
[2018-12-21 19:01] VITALS: BP 175/82; PULSE 73; RESP 18; TEMP 98.2
--- NOTE | 2018-12-21 20:22 | XR ---
PROCEDURE: XR ankle complete LT - 3V DATE AND TIME: 12/21/2018 8:03 PM CLINICAL INDICATION: PHH; Pain TECHNIQUE: Department protocol COMPARISON: 06/20/2018 FINDINGS: The orthopedic hardware is intact without periprosthesis lucencies. There is no acute fracture or malalignment. Widened lateral malleolus redemonstrated. There is prominent soft tissue swelling circumferentially at the ankle. IMPRESSION: Negative for acute fracture or malalignment.
--- NOTE | 2018-12-21 21:11 | US ---
EXAMINATION TYPE: US venous doppler duplex LE LT DATE OF EXAM: 12/21/2018 8:49 PM COMPARISON: NONE CLINICAL HISTORY: Pain. Pain and swelling left leg since injury 1 year ago. No hx of DVT. PT not on b lood thinners. SIDE PERFORMED: Left TECHNIQUE: The lower extremity deep venous system is examined utilizing real time linear array sonog sander with graded compression, doppler sonography and color-flow sonography. VESSELS IMAGED: Common Femoral Vein Deep Femoral Vein Greater Saphenous Vein * Femoral Vein Popliteal Vein Proximal Calf Veins (* superficial vessels) FINDINGS: Exam very limited due to body habitus. Curved probe used. No evidence of DVT in veins image d from CFV through left popliteal vein, although limited examination. Unable to visualize clear compr ession of CFV, GSV, prox FV, distal FV, and DFV. Prox calf veins unable to visualize. LEFT LOWER EXTREMITY VENOUS DOPPLER IMPRESSION: Limited sensitivity examination as above. However, the study which could be obtained was negative for direct or indirect evidence of DVT.
--- NOTE | 2018-12-21 21:19 | ED ---
Extremity Problem HPI - General Chief complaint: Extremity Problem,Nontraumatic Stated complaint: Foot swollen Time Seen by Provider: 12/21/18 19:25 Source: patient Mode of arrival: ambulatory Limitations: no limitations - History of Present Illness Initial comments: 38-year-old female history of previous left ankle fracture and tendon injury present today for chief complaint of left ankle pain and swelling. Patient states a few days ago she slightly inverted her left ankle. Denies any significant trauma falls or injury. Patient states that since has been swollen. Painful to ambulate. Patient states it does swell on and off since her previous left ankle injury. Patient states she is attempting to get disability. She states she wanted documented that she continues to have pain and swelling. Patient denies numbness tingling or loss sensation. Patient is able to write she appears well. She denies any redness or flulike symptoms. Denies any decrease in range of motion at the left ankle. Remaining review of systems negative upon arrival patient appears well she is morbidly obese. She is pleasant. - Related Data Home Medications Medication Instructions Recorded Confirmed Albuterol Inhaler [Ventolin 2 puff INHALATION RT-Q6H PRN 09/04/14 12/21/18 Inhaler] Omeprazole [PriLOSEC] 20 mg PO DAILY 09/04/14 12/21/18 Naproxen [Naprosyn] 500 mg PO Q12HR PRN 05/17/15 12/21/18 HYDROcodone/APAP 7.5-325MG [[place] 1 tab PO TID PRN 08/28/15 12/21/18 7.5] [place]-3 Fatty Acids/Fish Oil [Fish 1 cap PO DAILY 08/28/15 12/21/18 Oil 1,000 mg Softgel] Gabapentin [Neurontin] 400 mg PO TID 05/02/16 12/21/18 Amitriptyline HCl [Elavil] 50 mg PO TID 01/13/17 12/21/18 Cetirizine HCl [Zyrtec] 10 mg PO HS 01/13/17 12/21/18 Escitalopram [Lexapro] 10 mg PO DAILY 02/24/17 12/21/18 Ketorolac [Toradol] 10 mg PO TID 08/14/18 12/21/18 Topiramate [Trokendi Xr] 50 mg PO DAILY 08/14/18 12/21/18 Allergies Allergy/AdvReac Type Severity Reaction Status Date / Time morphine Allergy Rash/Hives Verified 12/21/18 19:01 tramadol Allergy Rash/Hives Verified 12/21/18 19:01 Review of Systems ROS Statement: Those systems with pertinent positive or pertinent negative responses have been documented in the HPI. ROS Other: All systems not noted in ROS Statement are negative. Past Medical History Past Medical History: Asthma, Chest Pain / Angina, GERD/Reflux, Osteoarthritis (OA), Skin Disorder Additional Past Medical History / Comment(s): migraines, IBS, rash under arms, overactive bladder History of Any Multi-Drug Resistant Organisms: None Reported Past Surgical History: Cholecystectomy, Orthopedic Surgery Additional Past Surgical History / Comment(s): removal of mole from genital area Past Anesthesia/Blood Transfusion Reactions: Motion Sickness Past Psychological History: Anxiety, Depression Smoking Status: Current every day smoker Past Alcohol Use History: Rare Past Drug Use History: None Reported - Past Family History Mother Family Medical History: No Reported History General Exam - General Exam Comments Initial Comments: General: The patient is awake and alert, in no distress, and does not appear acutely ill. Eye: Pupils are equal, round and reactive to light, extra-ocular movements are intact. No nystagmus. There is normal conjunctiva bilaterally. No signs of icterus. Cardiovascular: There is a regular rate and rhythm. No murmur, rub or gallop is appreciated. Respiratory: Lungs are clear to auscultation, respirations are non-labored, breath sounds are equal. No wheezes, stridor, rales, or rhonchi. Gastrointestinal: Soft, non-distended, non-tender abdomen without masses or organomegaly noted. There is no rebound or guarding present. No CVA tenderness. Bowel sounds are unremarkable. Musculoskeletal: Soft tissue swelling noted of left ankle. No redness, bruising. No laxity noted. Normal ROM, no tenderness. Strength 5/5. Sensation intact. DP pulses equal bilaterally 2+. Neurological: A&O x 3. CN II-XII intact, There are no obvious motor or sensory deficits. Coordination appears grossly intact. Speech is normal. Skin: Skin is warm and dry and no rashes or lesions are noted. Psychiatric: Cooperative, appropriate mood & affect, normal judgment. Limitations: no limitations Course Vital Signs 12/21/18 18:59 Temperature 98.2 F Pulse Rate 73 Respiratory 18 Rate Blood Pressure 175/82 O2 Sat by Pulse 99 Oximetry Medical Decision Making - Medical Decision Making US (-) for DVT. XR (-) for osseious process. Patient neurovascularly intact. Ambulatory. No foot pain. Dishcarge with podiatry f/u (has been monitoring patient chronic ankle pain/swelling) Disposition Clinical Impression: Left ankle swelling, Left ankle pain Disposition: HOME SELF-CARE Condition: Good Instructions (If sedation given, give patient instructions): Swollen Ankle Joint (ED) Additional Instructions: Please use medication as discussed. Please follow-up with your energy trading analyst as discussed. Please return to emergency room if the symptoms increase or worsen or for any other concerns. Is patient prescribed a controlled substance at d/c from ED?: No Referrals: Diogenes Rosenbaum MD [Primary Care Provider] - 1-2 days Time of Disposition: 21:18
== END 2018-12-21 21:26 | disposition home or self-care (01) ==
LOC: EC 18:52
DX: M25.572 Pain in left ankle and joints of left foot (principal); M79.89 Other specified soft tissue disorders; J45.909 Unspecified asthma, uncomplicated; K21.9 Gastro-esophageal reflux disease without esophagitis; M19.90 Unspecified osteoarthritis, unspecified site; F32.9 Major depressive disorder, single episode, unspecified; F41.9 Anxiety disorder, unspecified; F17.200 Nicotine dependence, unspecified, uncomplicated; Z88.5 Allergy status to narcotic agent; Z79.1 Long term (current) use of non-steroidal anti-inflammatories (NSAID); Z79.899 Other long term (current) drug therapy; Z86.69 Personal history of other diseases of the nervous system and sense organs; Z87.81 Personal history of (healed) traumatic fracture; Z87.828 Personal history of other (healed) physical injury and trauma
CPT/HCPCS: 99284

== ENCOUNTER 2019-03-16 19:35 | Emergency (ER) | payer OTHER ==
[2019-03-16] MEDS ORDERED: IPRATROPIUM-ALBUTEROL 3 ML NEB INHALATION STA (20:02)
[2019-03-16] MEDS ORDERED: HYDROmorphone 0.5 MG/0.5 ML SYRINGE IVP STA (20:02)
[2019-03-16] MEDS ORDERED: SODIUM CHLORIDE 0.9% 1,000 ML IV STA (20:02)
[2019-03-16 20:40] LABS: Basophils # (A) 0.2 k/uL (0-0.2); Basophils % (A) 1 %; Eosinophils # (A) 0.8 k/uL (0-0.7); Eosinophils % (A) 5 %; HCT 38.7 % (34.0-46.0); HGB 12.8 gm/dL (11.4-16.0); Lymphocytes # (A) 2.4 k/uL (1.0-4.8); Lymphocytes % (A) 15 %; MCHC 33.1 g/dL (31.0-37.0); MCV 93.8 fL (80.0-100.0); Monocytes # (A) 0.5 k/uL (0-1.0); Monocytes % (A) 3 %; Neutrophils % (A) 74 %; Platelet Count 402 k/uL (150-450); RBC 4.13 m/uL (3.80-5.40); RDW 13.3 % (11.5-15.5); WBC 16.1 k/uL (3.8-10.6)
--- NOTE | 2019-03-16 20:41 | ED ---
Chest Pain HPI - General Chief Complaint: Chest Pain Stated Complaint: Upper Resp,Chest Pain, R Hand numbness Time Seen by Provider: 03/16/19 19:58 Source: patient, RN notes reviewed, old records reviewed Mode of arrival: wheelchair Limitations: no limitations - History of Present Illness Initial Comments: This is a 38-year-old female the ER for evaluation she presents today for evaluation regards to this pain cough congestion sore throat right arm numbness and tingling and some abdominal pain. Patient has complicated medical history. She also states she will cough and bronchitis for a few weeks now MD Complaint: chest pain, other (Cough and congestion) -: days(s) Onset: during rest, during exertion Pain Location: substernal Pain Radiation: none Severity: mild Severity scale (1-10): 2 Quality: tightness Consistency: intermittent Improves With: nothing Worsens With: inspiration Context: recent illness Anginal Symptoms: dyspnea (With exertion) Other Symptoms: cough - Related Data On Oral Contraceptives: No Home Medications Medication Instructions Recorded Confirmed Albuterol Inhaler [Ventolin 2 puff INHALATION RT-Q6H PRN 09/04/14 03/16/19 Inhaler] Omeprazole [PriLOSEC] 20 mg PO DAILY 09/04/14 03/16/19 Naproxen [Naprosyn] 500 mg PO Q12HR PRN 05/17/15 03/16/19 Gabapentin [Neurontin] 400 mg PO TID 05/02/16 03/16/19 Escitalopram [Lexapro] 10 mg PO DAILY 02/24/17 03/16/19 Ketorolac [Toradol] 15 mg PO TID PRN 08/14/18 03/16/19 Fluticasone/Vilanterol [Breo 1 puff INHALATION RT-DAILY 03/16/19 03/16/19 Ellipta 100-25 Mcg Inhaler] Gabapentin [Neurontin] 100 mg PO TID 03/16/19 03/16/19 Hydrocodone/Acetaminophen [[place] 1 tab PO TID PRN 03/16/19 03/16/19 10-325] Lisinopril [Zestril] 10 mg PO HS 03/16/19 03/16/19 Allergies Allergy/AdvReac Type Severity Reaction Status Date / Time morphine Allergy Rash/Hives Verified 03/16/19 20:15 tramadol Allergy Rash/Hives Verified 03/16/19 20:15 Review of Systems ROS Statement: Those systems with pertinent positive or pertinent negative responses have been documented in the HPI. ROS Other: All systems not noted in ROS Statement are negative. EKG Findings - EKG Comments: EKG Findings:: EKG shows normal sinus rhythm rate of 71, SD 134, QRS 80, QTC 410 Past Medical History Past Medical History: Asthma, Chest Pain / Angina, GERD/Reflux, Hypertension, Os teoarthritis (OA), Skin Disorder Additional Past Medical History / Comment(s): migraines, IBS, rash under arms, overactive bladder, "tingling arms" for a month, History of Any Multi-Drug Resistant Organisms: None Reported Past Surgical History: Cholecystectomy, Orthopedic Surgery Additional Past Surgical History / Comment(s): removal of mole from genital area, Past Anesthesia/Blood Transfusion Reactions: Motion Sickness Past Psychological History: Anxiety, Depression Smoking Status: Current every day smoker Past Alcohol Use History: Rare Past Drug Use History: None Reported - Past Family History Mother Family Medical History: No Reported History General Exam Limitations: no limitations General appearance: alert, in no apparent distress Head exam: Present: atraumatic, normocephalic, normal inspection Eye exam: Present: normal appearance, PERRL, EOMI. Absent: scleral icterus, conjunctival injection, periorbital swelling ENT exam: Present: normal exam, mucous membranes moist Neck exam: Present: normal inspection. Absent: tenderness, meningismus, lymphadenopathy Respiratory exam: Present: normal lung sounds bilaterally. Absent: respiratory distress, wheezes, rales, rhonchi, stridor Cardiovascular Exam: Present: regular rate, normal rhythm, normal heart sounds. Absent: systolic murmur, diastolic murmur, rubs, gallop, clicks GI/Abdominal exam: Present: soft, normal bowel sounds. Absent: distended, tenderness, guarding, rebound, rigid Extremities exam: Present: normal inspection, full ROM, normal capillary refill. Absent: tenderness, pedal edema, joint swelling, calf tenderness Back exam: Present: normal inspection Neurological exam: Present: alert, oriented X3, CN II-XII intact Psychiatric exam: Present: normal affect, normal mood Skin exam: Present: warm, dry, intact, normal color. Absent: rash Course Vital Signs 03/16/19 03/16/19 03/16/19 19:43 20:21 20:28 Temperature 97.9 F Pulse Rate 72 78 81 Respiratory 18 16 16 Rate Blood Pressure 136/65 O2 Sat by Pulse 98 Oximetry - Reevaluation(s) Reevaluation #1: 03/16/19 21:26 Medical record is reviewed Reevaluation #2: 03/16/19 21:26 Patient symptoms are mildly improved with breathing treatment Reevaluation #3: 03/16/19 22:19 Patient states she does feel better after breathing treatment. Reevaluation #4: 03/16/19 22:19 She is able to ambulate in no distress, ok for discharge Chest Pain MDM - MDM 38 female the ER for evaluation resents today for evaluation of upper respiratory type infection symptoms runny nose and congestion she also complains of cough, x-rays negativeand significant symptoms. Patient can be discharged Disposition Clinical Impression: Upper respiratory disease Disposition: HOME SELF-CARE Condition: Good Instructions (If sedation given, give patient instructions): Upper Respiratory Infection (ED) Is patient prescribed a controlled substance at d/c from ED?: No Referrals: Diogenes Rosenbaum MD [Primary Care Provider] - 1-2 days
[2019-03-16 20:49] LABS: ALT 51 U/L (9-52); AST 39 U/L (14-36); African American GFR (CKD) >90 (>60 ml/min/1.73 sqM); Albumin 3.9 g/dL (3.5-5.0); Alkaline Phosphatase 109 U/L (38-126); Anion Gap 7 mmol/L; Blood Urea Nitrogen 11 mg/dL (7-17); Calcium 9.5 mg/dL (8.4-10.2); Carbon Dioxide 24 mmol/L (22-30); Chloride 107 mmol/L (98-107); Glucose 111 mg/dL (74-99); Magnesium 1.6 mg/dL (1.6-2.3); Potassium 4.5 mmol/L (3.5-5.1); Sodium 138 mmol/L (137-145); Total Bilirubin 0.3 mg/dL (0.2-1.3); Total Protein 7.1 g/dL (6.3-8.2)
[2019-03-16 21:07] LABS: D-Dimer 0.37 mg/L FEU (<0.60); INR 0.9 (<1.2); Prothrombin Time 9.8 sec (9.0-12.0)
[2019-03-16 21:10] LABS: Partial Thromboplastin Time 21.3 sec (22.0-30.0)
--- NOTE | 2019-03-16 22:06 | XR ---
EXAMINATION TYPE: XR chest 2V DATE OF EXAM: 03/16/2019 COMPARISON: Chest x-ray August 14, 2018. HISTORY: Chest pain, cough, and congestion. TECHNIQUE: Frontal and lateral views of the chest are obtained. FINDINGS: Lateral view slightly suboptimal due to patient's large body habitus. Eventration of right hemidiaphragm is present. There is no suspicious new focal air space opacity, pleural effusion, or p neumothorax seen. The cardiac silhouette size remains within normal limits. The osseous structures are intact. IMPRESSION: No suspicious acute pulmonary process.
[2019-03-16] MEDS ORDERED: AZITHROMYCIN 500 MG TAB PO STA (22:20)
[2019-03-16 22:43] VITALS: BP 120/74; PULSE 72; RESP 18; TEMP 98.7
== END 2019-03-16 22:43 | disposition home or self-care (01) ==
LOC: EC 19:35
DX: J39.9 Disease of upper respiratory tract, unspecified (principal); K21.9 Gastro-esophageal reflux disease without esophagitis; I10 Essential (primary) hypertension; J45.909 Unspecified asthma, uncomplicated; F41.9 Anxiety disorder, unspecified; F32.9 Major depressive disorder, single episode, unspecified; F17.200 Nicotine dependence, unspecified, uncomplicated; Z79.51 Long term (current) use of inhaled steroids; Z79.899 Other long term (current) drug therapy; Z88.5 Allergy status to narcotic agent
CPT/HCPCS: 36415; 94640; 93005; 85379; 83880; 80053; 83735; 84484; 85025; 85610; 85730; 71046; 99285; 96374; 96361 ×2; J1170

== ENCOUNTER → 2019-04-22 | Outpatient (CLI) | payer OTHER ==
[2019-04-22 10:13] LABS: HCT 40.6 % (34.0-46.0); MCH 30.5 pg (25.0-35.0); MCHC 32.2 g/dL (31.0-37.0); MCV 94.7 fL (80.0-100.0); Mean Platelet Volume 6.4; Platelet Count 359 k/uL (150-450); RBC 4.28 m/uL (3.80-5.40); RDW 13.3 % (11.5-15.5); WBC 14.3 k/uL (3.8-10.6)
[2019-04-22 16:39] LABS: African American GFR (CKD) 107.6 (60.0-200.0); Albumin 4.1 g/dL (3.80-4.90); Albumin/Globulin Ratio 1.86 (1.60-3.17); Anion Gap 8.5 mmol/L (4.00-12.00); Calcium 9.2 mg/dL (8.7-10.3); Carbon Dioxide 20.5 mmol/L (21.6-31.8); Globulin 2.2 g/dL (1.6-3.3); Non-African American GFR(CKD) 92.9 (60.0-200.0); Potassium 4.2 mmol/L (3.5-5.5); Total Bilirubin 0.3 mg/dL (0.3-1.2); Total Protein 6.3 g/dL (6.2-8.2)
[2019-04-22 17:02] LABS: T4, Free (Free Thyroxine) 0.8 ng/dL (0.80-1.80)
== END | disposition home or self-care (01) ==
LOC: LABWHC1 09:17
PROVIDERS: ATTEND Family Medicine
DX: R55 Syncope and collapse (principal); I49.9 Cardiac arrhythmia, unspecified
CPT/HCPCS: 36415; 80053; 84439; 84443; 85027; 93005

== ENCOUNTER 2019-06-14 16:27 | Emergency (ER) | payer OTHER ==
[2019-06-14 17:04] VITALS: BP 137/76; PULSE 94; RESP 20; TEMP 98.3
[2019-06-14] MEDS ORDERED: HYDROmorphone 0.5 MG/0.5 ML SYRINGE IM STA (18:04)
--- NOTE | 2019-06-14 19:01 | ED ---
Headache HPI - General Chief Complaint: Headache Stated Complaint: headache, neck pain Time Seen by Provider: 06/14/19 17:38 Mode of arrival: ambulatory Limitations: no limitations - History of Present Illness Initial Comments: 38-year-old female presenting today for chief complaint of headaches. Sensation is had a headache since last night. Patient states that she get chronic migraines which after evaluation from her PCP and neurology which included MRI/MRA that she was told it was tension coming from her neck> Patient states she has frequent exacerbations of her HOANG and usually 1 dose of dilaudid work. She states when she has these headaches she has slightly blurred vision. Otherwise no other associated symptoms. Described as ice pick behind right eye. Denies radiation of pain. Denies neck stiffness. Denies fevers. Denies speech, gait or muscel strength/sensation changes. Patient denies vision loss, nausea or vomiting. Patient denies sudden onset of HOANG or this being the worst HOANG of her life. Upon arrival [facility] ambulatory she appears well no acute distress. - Related Data Home Medications Medication Instructions Recorded Confirmed Albuterol Inhaler [Ventolin 2 puff INHALATION RT-Q6H PRN 09/04/14 03/16/19 Inhaler] Omeprazole [PriLOSEC] 20 mg PO DAILY 09/04/14 03/16/19 Naproxen [Naprosyn] 500 mg PO Q12HR PRN 05/17/15 03/16/19 Gabapentin [Neurontin] 400 mg PO TID 05/02/16 03/16/19 Escitalopram [Lexapro] 10 mg PO DAILY 02/24/17 03/16/19 Ketorolac [Toradol] 15 mg PO TID PRN 08/14/18 03/16/19 Fluticasone/Vilanterol [Breo 1 puff INHALATION RT-DAILY 03/16/19 03/16/19 Ellipta 100-25 Mcg Inhaler] Gabapentin [Neurontin] 100 mg PO TID 03/16/19 03/16/19 Hydrocodone/Acetaminophen [[place] 1 tab PO TID PRN 03/16/19 03/16/19 10-325] Lisinopril [Zestril] 10 mg PO HS 03/16/19 03/16/19 Previous Rx's Medication Instructions Recorded Azithromycin [Zithromax Z-pack] 0 mg PO DIRECTED #1 pack 03/16/19 Allergies Allergy/AdvReac Type Severity Reaction Status Date / Time morphine Allergy Rash/Hives Verified 03/16/19 20:15 tramadol Allergy Rash/Hives Verified 03/16/19 20:15 Review of Systems ROS Statement: Those systems with pertinent positive or pertinent negative responses have been documented in the HPI. ROS Other: All systems not noted in ROS Statement are negative. Past Medical History Past Medical History: Asthma, Chest Pain / Angina, GERD/Reflux, Hypertension, Osteoarthritis (OA), Skin Disorder Additional Past Medical History / Comment(s): migraines, IBS, rash under arms, overactive bladder, "tingling arms" for a month, History of Any Multi-Drug Resistant Organisms: None Reported Past Surgical History: Cholecystectomy, Orthopedic Surgery Additional Past Surgical History / Comment(s): removal of mole from genital area, Past Anesthesia/Blood Transfusion Reactions: Motion Sickness Past Psychological History: Anxiety, Depression Smoking Status: Current every day smoker Past Alcohol Use History: Rare Past Drug Use History: None Reported - Past Family History Mother Family Medical History: No Reported History General Exam - General Exam Comments Initial Comments: General: The patient is awake and alert, in no distress, and does not appear acutely ill. Eye: +3 mm pupils are equal, round and reactive to light, extra-ocular movements are intact. No nystagmus. There is normal conjunctiva bilaterally. No signs of icterus. Ears, nose, mouth and throat: There are moist mucous membranes and no oral lesions. Neck: The neck is supple, there is no tenderness or JVD. Cardiovascular: There is a regular rate and rhythm. No murmur, rub or gallop is appreciated. Respiratory: Lungs are clear to auscultation, respirations are non-labored, breath sounds are equal. No wheezes, stridor, rales, or rhonchi. Musculoskeletal: Normal ROM, no tenderness. Strength 5/5. Sensation intact. Pulses equal bilaterally 2+. Neurological: A&O x 3. CN II-XII intact, There are no obvious motor or sensory deficits. Coordination appears grossly intact. Speech is normal. Skin: Skin is warm and dry and no rashes or lesions are noted. Psychiatric: Cooperative, appropriate mood & affect, normal judgment. Limitations: no limitations Course Vital Signs 06/14/19 06/14/19 17:01 19:02 Temperature 98.3 F 98.3 F Pulse Rate 94 94 Respiratory 20 20 Rate Blood Pressure 137/76 137/76 O2 Sat by Pulse 98 98 Oximetry Medical Decision Making - Medical Decision Making 38yo with chronic HOANG presenting for HOANG. No alarming history findings. Patient states mild blurred vision is typical. No focal neurological deficits. VF intact. Patient given 1 IM dose of dilaudid. Symptoms resolved on reevaluation. Patient requesting d/c. Patient discharged with neurology f/u as well as PCP. States she has an appointment next week. Disposition Clinical Impression: Headache Disposition: HOME SELF-CARE Condition: Good Instructions (If sedation given, give patient instructions): Acute Headache (ED) Additional Instructions: Please use medication as discussed. Please follow-up with neurology as scheduled next week. Please return to emergency room if the symptoms increase or worsen or for any other concerns. Is patient prescribed a controlled substance at d/c from ED?: No Referrals: Diogenes Rosenbaum MD [Primary Care Provider] - 1-2 days Time of Disposition: 19:01
== END 2019-06-14 19:04 | disposition home or self-care (01) ==
LOC: EC 16:27
DX: R51 Headache (principal); H53.8 Other visual disturbances; J45.909 Unspecified asthma, uncomplicated; K21.9 Gastro-esophageal reflux disease without esophagitis; I10 Essential (primary) hypertension; M19.90 Unspecified osteoarthritis, unspecified site; F32.9 Major depressive disorder, single episode, unspecified; F41.9 Anxiety disorder, unspecified; F17.200 Nicotine dependence, unspecified, uncomplicated; Z88.5 Allergy status to narcotic agent; Z79.51 Long term (current) use of inhaled steroids; Z79.1 Long term (current) use of non-steroidal anti-inflammatories (NSAID); Z79.899 Other long term (current) drug therapy; Z86.69 Personal history of other diseases of the nervous system and sense organs
CPT/HCPCS: 99283; 96372; J1170

== ENCOUNTER 2019-07-07 15:58 | Emergency (ER) | payer OTHER ==
[2019-07-07 16:07] VITALS: TEMP 97.9
--- NOTE | 2019-07-07 16:58 | ED ---
Fall HPI - General Chief Complaint: Fall Stated Complaint: Fall down stairs Time Seen by Provider: 07/07/19 16:24 Source: patient, RN notes reviewed, old records reviewed Mode of arrival: ambulatory - History of Present Illness Initial Comments: This is a 39-year-old female DF status post a trip and fall following going downstairs about 4-5 stairs patient doesn't back pain knee pain and left knee pain foot pain history of foot surgery. Patient's complaining of also pain in her back upper back and lower back. No loss of consciousness. Patient aside from pain was able to ambulate has presents to ER under her own power. Patient denying any headache MD Complaint: fall -: hour(s) Fall From: standing, down stairs (#) (4) When Fall Occurred: 1 hour [employer] Fall Witnessed: yes, by bystander Place Fall Occurred: home Loss of Consciousness: none Prolonged Down Time?: no Symptoms Prior to Fall: none Location: back, pelvis Location - Extremities: Left: Knee, Ankle, Foot, Right: Knee Severity: moderate Severity scale (1-10): 5 Quality: dull, aching Context: tripped/slipped Associated Symptoms: denies - Related Data Home Medications Medication Instructions Recorded Confirmed Albuterol Inhaler [Ventolin 2 puff INHALATION RT-Q6H PRN 09/04/14 03/16/19 Inhaler] Omeprazole [PriLOSEC] 20 mg PO DAILY 09/04/14 03/16/19 Naproxen [Naprosyn] 500 mg PO Q12HR PRN 05/17/15 03/16/19 Gabapentin [Neurontin] 400 mg PO TID 05/02/16 03/16/19 Escitalopram [Lexapro] 10 mg PO DAILY 02/24/17 03/16/19 Ketorolac [Toradol] 15 mg PO TID PRN 08/14/18 03/16/19 Fluticasone/Vilanterol [Breo 1 puff INHALATION RT-DAILY 03/16/19 03/16/19 Ellipta 100-25 Mcg Inhaler] Gabapentin [Neurontin] 100 mg PO TID 03/16/19 03/16/19 Hydrocodone/Acetaminophen [[place] 1 tab PO TID PRN 03/16/19 03/16/19 10-325] Lisinopril [Zestril] 10 mg PO HS 03/16/19 03/16/19 Previous Rx's Medication Instructions Recorded Azithromycin [Zithromax Z-pack] 0 mg PO DIRECTED #1 pack 03/16/19 Allergies Allergy/AdvReac Type Severity Reaction Status Date / Time morphine Allergy Rash/Hives Verified 07/07/19 16:07 tramadol Allergy Rash/Hives Verified 07/07/19 16:07 Review of Systems ROS Statement: Those systems with pertinent positive or pertinent negative responses have been documented in the HPI. ROS Other: All systems not noted in ROS Statement are negative. Past Medical History Past Medical History: Asthma, Chest Pain / Angina, GERD/Reflux, Hypertension, Osteoarthritis (OA), Skin Disorder Additional Past Medical History / Comment(s): migraines, IBS, rash under arms, overactive bladder, "tingling arms" for a month, History of Any Multi-Drug Resistant Organisms: None Reported Past Surgical History: Cholecystectomy, Orthopedic Surgery Additional Past Surgical History / Comment(s): removal of mole from genital area, Past Anesthesia/Blood Transfusion Reactions: Motion Sickness Past Psychological History: Anxiety, Depression Smoking Status: Current every day smoker Past Alcohol Use History: Rare Past Drug Use History: None Reported - Past Family History Mother Family Medical History: No Reported History General Exam Limitations: no limitations General appearance: alert, in no apparent distress, obese Head exam: Present: atraumatic, normocephalic, normal inspection Eye exam: Present: normal appearance, PERRL, EOMI. Absent: scleral icterus, conjunctival injection, periorbital swelling ENT exam: Present: normal exam, mucous membranes moist Neck exam: Present: normal inspection. Absent: tenderness, meningismus, lymphadenopathy Respiratory exam: Present: normal lung sounds bilaterally. Absent: respiratory distress, wheezes, rales, rhonchi, stridor Cardiovascular Exam: Present: regular rate, normal rhythm, normal heart sounds. Absent: systolic murmur, diastolic murmur, rubs, gallop, clicks GI/Abdominal exam: Present: soft, normal bowel sounds. Absent: distended, tenderness, guarding, rebound, rigid Extremities exam: Present: normal inspection, full ROM, normal capillary refill. Absent: tenderness, pedal edema, joint swelling, calf tenderness Back exam: Present: normal inspection Neurological exam: Present: alert, oriented X3, CN II-XII intact Psychiatric exam: Present: normal affect, normal mood Skin exam: Present: warm, dry, intact, normal color. Absent: rash Course Vital Signs 07/07/19 16:04 Temperature 97.9 F Pulse Rate 80 Respiratory 18 Rate Blood Pressure 169/89 O2 Sat by Pulse 99 Oximetry - Reevaluation(s) Reevaluation #1: 07/07/19 18:28 medical records reviewed Reevaluation #2: 07/07/19 18:28 Pain resolved Medical Decision Making - Medical Decision Making Auty female status post slip and fall mechanical slip and fall no traumatic injury patient's pain is controlled and patient can be discharged home - Radiology Data Radiology results: report reviewed (X-ray chest x-ray lumbosacral spine x-ray pelvis x-ray bilateral knee and left ankle and foot are negative for traumatic injury), image reviewed Disposition Clinical Impression: Fall, Left foot pain, Contusion Disposition: HOME SELF-CARE Condition: Good Instructions (If sedation given, give patient instructions): Fall Prevention for Older Adults (ED), Contusion in Adults (ED) Is patient prescribed a controlled substance at d/c from ED?: No Referrals: Diogenes Rosenbaum MD [Primary Care Provider] - 1-2 days
[2019-07-07] MEDS ORDERED: IBUPROFEN 800 MG TAB PO STA (16:59)
[2019-07-07] MEDS ORDERED: HYDROmorphone 1 MG/ML 1 ML SYRINGE IM STA (16:59)
--- NOTE | 2019-07-07 17:53 | XR ---
EXAMINATION TYPE: XR lumbar spine 2 or 3V DATE OF EXAM: 07/07/2019 COMPARISON: NONE HISTORY: Pain TECHNIQUE: 3 views FINDINGS: Lumbar vertebra have normal alignment. There is slight loss of height of L5 vertebra that a ppears old. There is vacuum disc and narrowing at L5-S1. The other disc spaces are normal. Sacroiliac joints appear normal. IMPRESSION: There is mild compression deformity of L5 that is appears developmental. No acute fractur e seen. L5-S1 spondylolisthesis.
--- NOTE | 2019-07-07 17:54 | XR ---
EXAMINATION TYPE: XR foot complete LT DATE OF EXAM: 07/07/2019 COMPARISON: June 20, 2018 HISTORY: Pain TECHNIQUE: 3 views FINDINGS: There is moderate plantar calcaneal spurring. There is a plate fixing the distal fibula. Me tatarsals are intact. I see no fracture nor dislocation. IMPRESSION: No acute abnormality of the left foot. No change.
--- NOTE | 2019-07-07 17:55 | XR ---
EXAMINATION TYPE: XR chest 1V DATE OF EXAM: 07/07/2019 COMPARISON: 03/16/2019 HISTORY: Fall. Chest pain. TECHNIQUE: FINDINGS: Heart and mediastinum are normal. Lungs are clear. Diaphragm is normal. Bony thorax appears normal. IMPRESSION: Normal chest. No change.
--- NOTE | 2019-07-07 18:02 | XR ---
EXAMINATION TYPE: XR pelvis AP view DATE OF EXAM: 07/07/2019 COMPARISON: NONE HISTORY: Pain TECHNIQUE: 2 views FINDINGS: Pelvic ring is intact. Proximal femurs and hip joints are intact. Sacroiliac joints appear normal. IMPRESSION: Negative pelvis exam. No fracture seen. There is noted vacuum disc at L5-S1.
--- NOTE | 2019-07-07 18:04 | XR ---
EXAMINATION TYPE: XR knee complete bilateral DATE OF EXAM: 07/07/2019 COMPARISON: NONE HISTORY: Pain TECHNIQUE: 6 views FINDINGS: There is narrowing of the medial joint space of the left knee. There is normal alignment of the knee joints. Right knee joint spaces are fairly normal. Patellofemoral joints are intact. IMPRESSION: No fracture seen. There is mild to moderate osteoarthritis medial joint space of the left knee. Right knee appears normal. There is progression of the medial joint space narrowing of the lef t knee compared to 08/24/2015 exam.
--- NOTE | 2019-07-07 18:05 | XR ---
EXAMINATION TYPE: XR ankle complete LT DATE OF EXAM: 07/07/2019 COMPARISON: NONE HISTORY: Pain TECHNIQUE: 3 views FINDINGS: There is a plate with screws fixing the distal fibula. There is anchored band across the di stal tibia and fibula. Ankle mortise is anatomic. There is some spurring of the distal tibia and fibu la. There is moderate spurring of the calcaneus. There is spurring of the anterior malleolus. There i s spurring at the talonavicular joint. IMPRESSION: Posttraumatic osteoarthritis. Calcaneal spurring. No acute fracture seen.
[2019-07-07 18:35] VITALS: RESP 20
[2019-07-07 18:36] VITALS: BP 155/72; PULSE 75
== END 2019-07-07 18:48 | disposition home or self-care (01) ==
LOC: EC 15:58
DX: S80.02XA Contusion of left knee, initial encounter (principal); S90.02XA Contusion of left ankle, initial encounter; S90.32XA Contusion of left foot, initial encounter; S80.01XA Contusion of right knee, initial encounter; S30.0XXA Contusion of lower back and pelvis, initial encounter; S20.229A Contusion of unspecified back wall of thorax, initial encounter; J45.909 Unspecified asthma, uncomplicated; K21.9 Gastro-esophageal reflux disease without esophagitis; I10 Essential (primary) hypertension; M19.90 Unspecified osteoarthritis, unspecified site; F32.9 Major depressive disorder, single episode, unspecified; F41.9 Anxiety disorder, unspecified; F17.200 Nicotine dependence, unspecified, uncomplicated; Z88.5 Allergy status to narcotic agent; Z79.1 Long term (current) use of non-steroidal anti-inflammatories (NSAID); Z79.899 Other long term (current) drug therapy; Z86.69 Personal history of other diseases of the nervous system and sense organs; W10.9XXA Fall (on) (from) unspecified stairs and steps, initial encounter; Y93.01 Activity, walking, marching and hiking; Y92.009 Unspecified place in unspecified non-institutional (private) residence as the place of occurrence of the external cause
CPT/HCPCS: 73562; 72100; 72170; 73610; 73630; 71045; 99284; 96372; J1170

== ENCOUNTER 2019-09-08 14:07 | Emergency (ER) | payer OTHER ==
[2019-09-08 14:32] VITALS: BP 133/69; PULSE 64; RESP 18; TEMP 98.1
[2019-09-08] MEDS ORDERED: MECLIZINE 12.5 MG TAB PO STA (15:08)
[2019-09-08] MEDS ORDERED: DIAZEPAM 5 MG/ML 2 ML INJ IM ONE (15:08)
--- NOTE | 2019-09-08 15:12 | ED ---
General Adult HPI - General Chief complaint: Neck Pain/Injury Stated complaint: DIZZY Time Seen by Provider: 09/08/19 14:25 Source: patient, RN notes reviewed, old records reviewed Mode of arrival: ambulatory Limitations: no limitations - History of Present Illness Initial comments: This is a 39-year-old female who presents emergency Department complaining that she has some pain going up her back into the base of her skull on the right. Patient states it hurts sometimes depressed and only last for 30 seconds at a time and it happened twice today. Patient also states she has a little pressure in her head but that's something she gets regularly. Patient denies any fever chills or cough. Patient denies any trauma or injury. Patient denies any chest pain difficult breathing first breath. Patient denies any abdominal pain patient denies nausea vomiting or diarrhea. - Related Data Home Medications Medication Instructions Recorded Confirmed Albuterol Inhaler (Bulk) [Ventolin 2 puff INHALATION RT-Q6H PRN 09/04/14 03/16/19 Inhaler] Omeprazole [PriLOSEC] 20 mg PO DAILY 09/04/14 03/16/19 Naproxen [Naprosyn] 500 mg PO Q12HR PRN 05/17/15 03/16/19 Gabapentin [Neurontin] 400 mg PO TID 05/02/16 03/16/19 Escitalopram [Lexapro] 10 mg PO DAILY 02/24/17 03/16/19 Ketorolac [Toradol] 15 mg PO TID PRN 08/14/18 03/16/19 Fluticasone/Vilanterol [Breo 1 puff INHALATION RT-DAILY 03/16/19 03/16/19 Ellipta 100-25 Mcg Inhaler] Gabapentin [Neurontin] 100 mg PO TID 03/16/19 03/16/19 Hydrocodone/Acetaminophen [[place] 1 tab PO TID PRN 03/16/19 03/16/19 10-325] Lisinopril [Zestril] 10 mg PO HS 03/16/19 03/16/19 Previous Rx's Medication Instructions Recorded Azithromycin [Zithromax Z-pack] 0 mg PO DIRECTED #1 pack 03/16/19 Meclizine [Antivert] 25 mg PO TID #20 tab 09/08/19 Allergies Allergy/AdvReac Type Severity Reaction Status Date / Time morphine Allergy Rash/Hives Verified 07/07/19 16:07 tramadol Allergy Rash/Hives Verified 07/07/19 16:07 Review of Systems ROS Statement: Those systems with pertinent positive or pertinent negative responses have been documented in the HPI. ROS Other: All systems not noted in ROS Statement are negative. Past Medical History Past Medical History: Asthma, Chest Pain / Angina, Diabetes Mellitus, GERD/Reflux, Hypertension, Osteoarthritis (OA), Skin Disorder Additional Past Medical History / Comment(s): migraines, IBS, rash under arms, overactive bladder, "tingling arms" for a month, newly diagnosed diabetic History of Any Multi-Drug Resistant Organisms: None Reported Past Surgical History: Cholecystectomy, Orthopedic Surgery Additional Past Surgical History / Comment(s): removal of mole from genital area, Past Anesthesia/Blood Transfusion Reactions: Motion Sickness Past Psychological History: Anxiety, Depression Smoking Status: Current every day smoker Past Alcohol Use History: Rare Past Drug Use History: None Reported - Past Family History Mother Family Medical History: No Reported History General Exam - General Exam Comments Initial Comments: GENERAL: Patient is well-developed and well-nourished. Patient is nontoxic and well- hydrated and is in mild distress. ENT: Neck is soft and supple. No significant lymphadenopathy is noted. Oropharynx is clear. Moist mucous membranes. Neck has full range of motion without eliciting any pain. Pain has some mild tenderness on the right trapezius side. EYES: The sclera were anicteric and conjunctiva were pink and moist. Extraocular movements were intact and pupils were equal round and reactive to light. Eyelids were unremarkable. PULMONARY: Unlabored respirations. Good breath sounds bilaterally. No audible rales rhonchi or wheezing was noted. CARDIOVASCULAR: There is a regular rate and rhythm without any murmurs gallops or rubs. ABDOMEN: Soft and nontender with normal bowel sounds. SKIN: Skin is clear with no lesions or rashes and otherwise unremarkable. NEUROLOGIC: Patient is alert and oriented x3. Cranial nerves II through XII are grossly intact. Motor and sensory are also intact. Normal speech, volume and content. Symmetrical smile. Cerebellar testing is normal MUSCULOSKELETAL: Normal extremities with adequate strength and full range of motion. No lower extremity swelling or edema. No calf tenderness. LYMPHATICS: No significant lymphadenopathy is noted PSYCHIATRIC: Normal psychiatric evaluation. Limitations: no limitations Course Vital Signs 09/08/19 14:25 Temperature 98.1 F Pulse Rate 64 Respiratory 18 Rate Blood Pressure 133/69 O2 Sat by Pulse 97 Oximetry Disposition Clinical Impression: Vertigo Disposition: HOME SELF-CARE Condition: Good Instructions (If sedation given, give patient instructions): Vertigo (ED) Prescriptions: Meclizine [Antivert] 25 mg PO TID #20 tab Is patient prescribed a controlled substance at d/c from ED?: No Referrals: Keyon Walker Jr, [Primary Care Provider] - 1-2 days Time of Disposition: 15:12
== END 2019-09-08 15:34 | disposition home or self-care (01) ==
LOC: EC 14:07
DX: R42 Dizziness and giddiness (principal); G43.909 Migraine, unspecified, not intractable, without status migrainosus; M19.90 Unspecified osteoarthritis, unspecified site; K58.9 Irritable bowel syndrome, unspecified; F41.9 Anxiety disorder, unspecified; F32.9 Major depressive disorder, single episode, unspecified; J45.909 Unspecified asthma, uncomplicated; I25.2 Old myocardial infarction; K21.9 Gastro-esophageal reflux disease without esophagitis; I10 Essential (primary) hypertension; F17.200 Nicotine dependence, unspecified, uncomplicated; Z79.51 Long term (current) use of inhaled steroids; Z79.899 Other long term (current) drug therapy; Z79.1 Long term (current) use of non-steroidal anti-inflammatories (NSAID); Z88.6 Allergy status to analgesic agent; Z88.5 Allergy status to narcotic agent
CPT/HCPCS: 96372; 99284; J3360

== ENCOUNTER 2019-10-11 21:25 | Emergency (ER) | payer OTHER ==
[2019-10-11 21:37] VITALS: BP 121/70; PULSE 88; RESP 20; TEMP 98.4
--- NOTE | 2019-10-11 21:57 | ED ---
General Adult HPI - General Chief complaint: Skin/Abscess/Foreign Body Stated complaint: tick in rt foot Time Seen by Provider: 10/11/19 21:53 Source: patient, RN notes reviewed Mode of arrival: ambulatory Limitations: no limitations - History of Present Illness Initial comments: 39-year-old female presents for tach and right foot. Patient was outside today barefoot. Patient states she couldn't bend over to look at the for a well but took a picture and it looked like there is a tick.Patient has no other complaints at this time including shortness of breath, chest pain, abdominal pain, nausea or vomiting, headache, or visual changes. - Related Data Home Medications Medication Instructions Recorded Confirmed Albuterol Inhaler ([place]) [Ventolin 2 puff INHALATION RT-Q6H PRN 09/04/14 03/16/19 Inhaler] Omeprazole [PriLOSEC] 20 mg PO DAILY 09/04/14 03/16/19 Naproxen [Naprosyn] 500 mg PO Q12HR PRN 05/17/15 03/16/19 Gabapentin [Neurontin] 400 mg PO TID 05/02/16 03/16/19 Escitalopram [Lexapro] 10 mg PO DAILY 02/24/17 03/16/19 Ketorolac [Toradol] 15 mg PO TID PRN 08/14/18 03/16/19 Fluticasone/Vilanterol [Breo 1 puff INHALATION RT-DAILY 03/16/19 03/16/19 Ellipta 100-25 Mcg Inhaler] Gabapentin [Neurontin] 100 mg PO TID 03/16/19 03/16/19 Hydrocodone/Acetaminophen [[place] 1 tab PO TID PRN 03/16/19 03/16/19 10-325] Lisinopril [Zestril] 10 mg PO HS 03/16/19 03/16/19 Previous Rx's Medication Instructions Recorded Azithromycin [Zithromax Z-pack] 0 mg PO DIRECTED #1 pack 03/16/19 Meclizine [Antivert] 25 mg PO TID #20 tab 09/08/19 Allergies Allergy/AdvReac Type Severity Reaction Status Date / Time morphine Allergy Rash/Hives Verified 10/11/19 21:37 tramadol Allergy Rash/Hives Verified 10/11/19 21:37 Review of Systems ROS Statement: Those systems with pertinent positive or pertinent negative responses have been documented in the HPI. ROS Other: All systems not noted in ROS Statement are negative. Past Medical History Past Medical History: Asthma, Chest Pain / Angina, Diabetes Mellitus, GERD/Reflux, Hypertension, Osteoarthritis (OA), Skin Disorder Additional Past Medical History / Comment(s): migraines, IBS, rash under arms, overactive bladder, "tingling arms" for a month, newly diagnosed diabetic History of Any Multi-Drug Resistant Organisms: None Reported Past Surgical History: Cholecystectomy, Orthopedic Surgery Additional Past Surgical History / Comment(s): removal of mole from genital area, Past Anesthesia/Blood Transfusion Reactions: Motion Sickness Past Psychological History: Anxiety, Depression Smoking Status: Current every day smoker Past Alcohol Use History: Rare Past Drug Use History: None Reported - Past Family History Mother Family Medical History: No Reported History General Exam Limitations: no limitations Head exam: Present: atraumatic, normocephalic, normal inspection Eye exam: Present: normal appearance, PERRL, EOMI. Absent: scleral icterus, conjunctival injection, periorbital swelling ENT exam: Present: normal exam, mucous membranes moist Neck exam: Present: normal inspection, full ROM. Absent: tenderness, meningismus, lymphadenopathy Respiratory exam: Present: normal lung sounds bilaterally. Absent: respiratory distress, wheezes, rales, rhonchi, stridor Cardiovascular Exam: Present: regular rate, normal rhythm, normal heart sounds. Absent: systolic murmur, diastolic murmur, rubs, gallop, clicks Skin exam: Present: other (She has a small abrasion on the dorsum of the right foot with dried blood over it. This is what patient was a tick. There is no tick in the right foot. This was removed easily with wet gauze.) Course Vital Signs 10/11/19 21:34 Temperature 98.4 F Pulse Rate 88 Respiratory 20 Rate Blood Pressure 121/70 O2 Sat by Pulse 98 Oximetry Medical Decision Making - Medical Decision Making Patient presents for taken right foot however on evaluation of the right foot there is only an abrasion with some dried blood. Patient mistook this for a tick. Discharged home. Disposition Clinical Impression: Abrasion Disposition: HOME SELF-CARE Condition: Good Instructions (If sedation given, give patient instructions): Abrasion (ED) Additional Instructions: Please return for any worsening symptoms. Is patient prescribed a controlled substance at d/c from ED?: No Referrals: Keyon Walker Jr, DO [Primary Care Provider] - 1-2 days Time of Disposition: 21:57
== END 2019-10-11 22:14 | disposition home or self-care (01) ==
LOC: EC 21:25
DX: S90.811A Abrasion, right foot, initial encounter (principal); J45.909 Unspecified asthma, uncomplicated; K21.9 Gastro-esophageal reflux disease without esophagitis; I10 Essential (primary) hypertension; M19.90 Unspecified osteoarthritis, unspecified site; G43.909 Migraine, unspecified, not intractable, without status migrainosus; F41.9 Anxiety disorder, unspecified; F32.9 Major depressive disorder, single episode, unspecified; F17.200 Nicotine dependence, unspecified, uncomplicated; Z79.51 Long term (current) use of inhaled steroids; Z79.1 Long term (current) use of non-steroidal anti-inflammatories (NSAID); Z79.891 Long term (current) use of opiate analgesic; Z79.899 Other long term (current) drug therapy; Z88.5 Allergy status to narcotic agent
CPT/HCPCS: 99283

== ENCOUNTER 2020-04-19 17:17 | Emergency (ER) | payer OTHER ==
[2020-04-19 17:47] VITALS: PULSE 71
[2020-04-19] MEDS ORDERED: HYDROmorphone 1 MG/ML 1 ML SYRINGE IVP STA (18:34)
[2020-04-19] MEDS ORDERED: CAFFEINE-SODIUM BENZOATE 1,000 MG in SODIUM CHLORIDE 0.9% 1,000 ML IVPB ONE (19:00)
[2020-04-19 19:50] LABS: Basophils % (A) 0 %; Eosinophils # (A) 0.6 k/uL (0-0.7); Eosinophils % (A) 5 %; HCT 42.2 % (34.0-46.0); HGB 13.4 gm/dL (11.4-16.0); Lymphocytes # (A) 2.4 k/uL (1.0-4.8); Lymphocytes % (A) 20 %; MCH 30.5 pg (25.0-35.0); MCHC 31.8 g/dL (31.0-37.0); Monocytes # (A) 0.5 k/uL (0-1.0); Monocytes % (A) 4 %; Neutrophils # (A) 8.5 k/uL (1.3-7.7); Neutrophils % (A) 70 %; Platelet Count 330 k/uL (150-450); RBC 4.39 m/uL (3.80-5.40); RDW 13.5 % (11.5-15.5); WBC 12.2 k/uL (3.8-10.6)
[2020-04-19 20:06] LABS: ALT 80 U/L (4-34); AST 72 U/L (14-36); African American GFR (CKD) >90 (>60 ml/min/1.73 sqM); Albumin 3.8 g/dL (3.5-5.0); Alkaline Phosphatase 70 U/L (38-126); Anion Gap 3 mmol/L; Blood Urea Nitrogen 13 mg/dL (7-17); Calcium 9.1 mg/dL (8.4-10.2); Carbon Dioxide 22 mmol/L (22-30); Chloride 112 mmol/L (98-107); Glucose 96 mg/dL (74-99); Non-African American GFR(CKD) 90 (>60 ml/min/1.73 sqM); Sodium 137 mmol/L (137-145); Total Bilirubin 0.6 mg/dL (0.2-1.3); Total Protein 7.4 g/dL (6.3-8.2)
--- NOTE | 2020-04-19 20:20 | ED ---
Headache HPI - General Chief Complaint: Headache Stated Complaint: Headache/Spinal tap friday Mode of arrival: ambulatory Limitations: no limitations - History of Present Illness Initial Comments: 39-year-old female presenting to the emergency department with a chief complaint of headache. Patient does have history of headaches and states that this feels like her other typical headaches. Gradual onset and not the worst headache of her life. Patient states the only concern is because 2 days ago she had a lumbar puncture performed secondary to pseudotumor cerebri and chiari disease. Patient states after procedure, she developed a headache that goes from the frontal region and radiates back to the neck. She denies any visual disturbances or gait instability. Denies chest pain and shortness of breath. Does report mild photophobia but no nausea vomiting. Patient states the headache does feel slightly better when laying flat and and worse in a standing position. - Related Data Home Medications Medication Instructions Recorded Confirmed Omeprazole [PriLOSEC] 20 mg PO DAILY 09/04/14 04/19/20 Gabapentin [Neurontin] 400 mg PO TID 05/02/16 04/19/20 Escitalopram [Lexapro] 10 mg PO DAILY 02/24/17 04/19/20 Gabapentin [Neurontin] 100 mg PO TID 03/16/19 04/19/20 Hydrocodone/Acetaminophen [[place] 1 tab PO TID PRN 03/16/19 04/19/20 10-325] lisinopriL [Zestril] 10 mg PO HS 03/16/19 04/19/20 Albuterol Sulfate [Proair Hfa] 2 puff INHALATION RT-Q4H PRN 04/19/20 04/19/20 Diclofenac Sodium [Voltaren] 75 mg PO BID 04/19/20 04/19/20 Doxepin HCl 100 mg PO HS 04/19/20 04/19/20 Rimegepant Sulfate [Nurtec Odt] 75 mg PO DAILY PRN 04/19/20 04/19/20 Topiramate 100 mg PO HS 04/19/20 04/19/20 acetaZOLAMIDE [acetaZOLAMIDE ER] 1 dose PO DIRECTED 04/19/20 04/19/20 metFORMIN HCL 500 mg PO DAILY 04/19/20 04/19/20 Allergies Allergy/AdvReac Type Severity Reaction Status Date / Time morphine Allergy Rash/Hives Verified 04/19/20 20:23 tramadol Allergy Rash/Hives Verified 04/19/20 20:23 Review of Systems ROS Statement: Those systems with pertinent positive or pertinent negative responses have been documented in the HPI. ROS Other: All systems not noted in ROS Statement are negative. Past Medical History Past Medical History: Asthma, Chest Pain / Angina, Diabetes Mellitus, GERD/Reflux, Hypertension, Osteoarthritis (OA), Skin Disorder Additional Past Medical History / Comment(s): migraines, IBS, rash under arms, overactive bladder, "tingling arms" for a month, newly diagnosed diabetic,brian malformation, pseudotumor cerebri History of Any Multi-Drug Resistant Organisms: None Reported Past Surgical History: Cholecystectomy, Orthopedic Surgery Additional Past Surgical History / Comment(s): removal of mole from genital area, Past Anesthesia/Blood Transfusion Reactions: Motion Sickness Past Psychological History: Anxiety, Depression Smoking Status: Current every day smoker Past Alcohol Use History: Rare Past Drug Use History: None Reported - Past Family History Mother Family Medical History: No Reported History General Exam Limitations: no limitations General appearance: alert, in no apparent distress, obese (Morbidly obese) Head exam: Present: atraumatic, normocephalic, normal inspection Eye exam: Present: normal appearance, PERRL, EOMI Pupils: Present: normal accommodation ENT exam: Present: normal exam, normal oropharynx, mucous membranes moist, TM's normal bilaterally, normal external ear exam Neck exam: Present: normal inspection, full ROM. Absent: tenderness, meningismus Respiratory exam: Present: normal lung sounds bilaterally. Absent: respiratory distress, wheezes, rales Cardiovascular Exam: Present: regular rate, normal rhythm, normal heart sounds. Absent: systolic murmur, diastolic murmur Extremities exam: Present: normal inspection, full ROM, normal capillary refill. Absent: tenderness Back exam: Present: normal inspection, full ROM. Absent: tenderness, CVA tenderness (R), CVA tenderness (L) Neurological exam: Present: alert, oriented X3, CN II-XII intact, normal gait Psychiatric exam: Present: normal affect, normal mood Skin exam: Present: warm, dry, intact, normal color Course Vital Signs 04/19/20 17:40 Temperature 98.6 F Pulse Rate 71 Respiratory 20 Rate Blood Pressure 146/78 O2 Sat by Pulse 99 Oximetry Medical Decision Making - Medical Decision Making 39-year-old female with history of headaches presenting to the emergency department with a chief complaint of a headache. I do suspect the patient has a spinal headache secondary to a lumbar puncture was performed on Friday. Patient was given caffeine and Dilaudid. On reevaluation, patient does report improvement in symptoms. No focal neural deficits. Patient states she feels comfortable going home and she will contact the neurologist tomorrow. Strict return problems were thoroughly discussed with patient was understanding and agreeable. Case discussed with physician. - Lab Data Result diagrams: 04/19/20 19:15 04/19/20 19:15 Lab Results 04/19/20 04/19/20 Range/Units 19:15 19:15 WBC 12.2 H (3.8-10.6) k/uL RBC 4.39 (3.80-5.40) m/uL Hgb 13.4 (11.4-16.0) gm/dL Hct 42.2 (34.0-46.0) % MCV 96.0 (80.0-100.0) fL MCH 30.5 (25.0-35.0) pg MCHC 31.8 (31.0-37.0) g/dL RDW 13.5 (11.5-15.5) % Plt Count 330 (150-450) k/uL MPV 8.0 Neutrophils % 70 % Lymphocytes % 20 % Monocytes % 4 % Eosinophils % 5 % Basophils % 0 % Neutrophils # 8.5 H (1.3-7.7) k/uL Lymphocytes # 2.4 (1.0-4.8) k/uL Monocytes # 0.5 (0-1.0) k/uL Eosinophils # 0.6 (0-0.7) k/uL Basophils # 0.0 (0-0.2) k/uL Sodium 137 (137-145) mmol/L Potassium 5.0 (3.5-5.1) mmol/L Chloride 112 H (98-107) mmol/L Carbon Dioxide 22 (22-30) mmol/L Anion Gap 3 mmol/L BUN 13 (7-17) mg/dL Creatinine 0.82 (0.52-1.04) mg/dL Est GFR (CKD-EPI)AfAm >90 (>60 ml/min/1.73 sqM) Est GFR (CKD-EPI)NonAf 90 (>60 ml/min/1.73 sqM) Glucose 96 (74-99) mg/dL Calcium 9.1 (8.4-10.2) mg/dL Total Bilirubin 0.6 (0.2-1.3) mg/dL AST 72 H (14-36) U/L ALT 80 H (4-34) U/L Alkaline Phosphatase 70 (38-126) U/L Total Protein 7.4 (6.3-8.2) g/dL Albumin 3.8 (3.5-5.0) g/dL Disposition Clinical Impression: Spinal headache Disposition: HOME SELF-CARE Condition: Stable Instructions (If sedation given, give patient instructions): Acute Headache (ED) Additional Instructions: Follow-up with your neurologist. Return to emergency department if symptoms worsen. Is patient prescribed a controlled substance at d/c from ED?: No Referrals: Keyon Walker Jr, [Primary Care Provider] - 1-2 days Time of Disposition: 21:48
[2020-04-19 22:09] VITALS: BP 132/72; RESP 17; TEMP 98.3
== END 2020-04-19 22:10 | disposition home or self-care (01) ==
LOC: EC 17:17
DX: G97.1 Other reaction to spinal and lumbar puncture (principal); E11.9 Type 2 diabetes mellitus without complications; I10 Essential (primary) hypertension; K21.9 Gastro-esophageal reflux disease without esophagitis; F41.9 Anxiety disorder, unspecified; F32.9 Major depressive disorder, single episode, unspecified; J45.909 Unspecified asthma, uncomplicated; F17.200 Nicotine dependence, unspecified, uncomplicated; Z79.899 Other long term (current) drug therapy; Z79.84 Long term (current) use of oral hypoglycemic drugs; Z88.5 Allergy status to narcotic agent
CPT/HCPCS: 36415; 80155; 80053; 85025; 99284; 96365; 96375; J1170

== ENCOUNTER 2020-05-25 19:18 | Emergency (ER) | payer OTHER ==
[2020-05-25 19:36] VITALS: TEMP 98.8
[2020-05-25] MEDS ORDERED: HYDROmorphone 0.5 MG/0.5 ML SYRINGE IVP STA (19:43)
[2020-05-25] MEDS ORDERED: LIDOCAINE 5% PATCH TOPICAL STA (19:48)
--- NOTE | 2020-05-25 19:48 | ED ---
General Adult HPI - General Chief complaint: Abdominal Pain Stated complaint: abd pain Time Seen by Provider: 05/25/20 19:28 Source: patient Mode of arrival: wheelchair - History of Present Illness Initial comments: Dictation was produced using [employer] dictation software. please excuse any grammatical, word or spelling errors. This patient was cared for during a federal and state declared state of emergency secondary to Covid 19 Chief Complaint: 39-year-old female presents with abdominal pain History of Present Illness: 39-year-old morbidly obese female presents today with abdominal pain. Patient states that having these symptoms for couple days now. She was seen by another professional who is concerned about urinary tract infection because of some blood in the urine. She is given prescription for Bactrim. She states that symptoms are not improved. Patient states pain is to her right lower pannus. States it hurts with any sort of palpation. Patient denies any vomiting, diarrhea. No nausea. Denies any fever or constitutional symptoms. The ROS documented in this emergency department record has been reviewed and confirmed by me. Those systems with pertinent positive or negative responses have been documented in the HPI. All other systems are other negative and/or noncontributory. PHYSICAL EXAM: General Impression: Alert and oriented x3, not in acute distress, morbidly obese HEENT: Normocephalic atraumatic, extra-ocular movements intact, pupils equal and reactive to light bilaterally, mucous membranes moist. Cardiovascular: Heart regular rate and rhythm Chest: Able to complete full sentences, no retractions, no tachypnea Abdomen: Limited due to body habitus, abdomen soft, tenderness with light touch to the right lower pannus, non-distended, no organomegaly, no skin changes to the abdomen Musculoskeletal: Pulses present and equal in all extremities, no peripheral edema Motor: no focal deficits noted Neurological: CN II-XII grossly intact, no focal motor or sensory deficits noted Skin: Intact with no visualized rashes Psych: Normal affect and mood ED course: 39-year-old female presents today with abdominal pain. As upon arrival are within acceptable limits. Patient has pain with light touch. She does not have any abdominal pain with pressing on the left side of the abdomen. No rebound tenderness. Patient is morbidly obese however appears well. Laboratory evaluation obtained. CBC, metabolic panel is unremarkable. Urinalysis is negative. Patient reevaluated bedside after IV analgesics with improvement of symptoms. Patient be discharged. She is advised follow-up with primary care physician. Patient has skin tenderness. Given her body habitus she will suddenly would not fit through the CT scanner. Labs and clinical presentation did not suggest intra-abdominal infection. Appendicitis is very unlikely. - Related Data Home Medications Medication Instructions Recorded Confirmed Omeprazole [PriLOSEC] 20 mg PO DAILY 09/04/14 05/25/20 Gabapentin [Neurontin] 400 mg PO TID 05/02/16 05/25/20 Escitalopram [Lexapro] 10 mg PO DAILY 02/24/17 05/25/20 Gabapentin [Neurontin] 100 mg PO TID 03/16/19 05/25/20 Hydrocodone/Acetaminophen [[place] 1 tab PO TID PRN 03/16/19 05/25/20 10-325] lisinopriL [Zestril] 10 mg PO HS 03/16/19 05/25/20 Albuterol Sulfate [Proair Hfa] 2 puff INHALATION RT-Q4H PRN 04/19/20 05/25/20 Diclofenac Sodium [Voltaren] 75 mg PO BID 04/19/20 05/25/20 Doxepin HCl 100 mg PO HS 04/19/20 05/25/20 Rimegepant Sulfate [Nurtec Odt] 75 mg PO DAILY PRN 04/19/20 05/25/20 Topiramate 100 mg PO HS 04/19/20 05/25/20 acetaZOLAMIDE [acetaZOLAMIDE ER] 1,000 mg PO TID 04/19/20 05/25/20 metFORMIN HCL 500 mg PO DAILY 04/19/20 05/25/20 Butalb/APAP/Caff 50-325-40Mg 1 tab PO Q8H PRN 05/25/20 05/25/20 [Fioricet 50-325-40] Allergies Allergy/AdvReac Type Severity Reaction Status Date / Time morphine Allergy Rash/Hives Verified 05/25/20 21:31 tramadol Allergy Rash/Hives Verified 05/25/20 21:31 Review of Systems ROS Statement: Those systems with pertinent positive or pertinent negative responses have been documented in the HPI. ROS Other: All systems not noted in ROS Statement are negative. Past Medical History Past Medical History: Asthma, Chest Pain / Angina, Diabetes Mellitus, GERD/Reflux, Hypertension, Osteoarthritis (OA), Skin Disorder Additional Past Medical History / Comment(s): migraines, IBS, rash under arms, overactive bladder, "tingling arms" for a month, newly diagnosed diabetic,brian malformation, pseudotumor cerebri History of Any Multi-Drug Resistant Organisms: None Reported Past Surgical History: Cholecystectomy, Orthopedic Surgery Additional Past Surgical History / Comment(s): removal of mole from genital area, Past Anesthesia/Blood Transfusion Reactions: Motion Sickness Past Psychological History: Anxiety, Depression Smoking Status: Current every day smoker Past Alcohol Use History: Rare Past Drug Use History: None Reported - Past Family History Mother Family Medical History: No Reported History Course Vital Signs 05/25/20 05/25/20 19:34 20:54 Temperature 98.8 F Pulse Rate 75 78 Respiratory 18 17 Rate Blood Pressure 135/82 135/70 O2 Sat by Pulse 98 98 Oximetry Medical Decision Making - Lab Data Result diagrams: 05/25/20 19:52 05/25/20 19:52 Lab Results 05/25/20 05/25/20 05/25/20 Range/Units 19:42 19:52 19:52 WBC 12.1 H (3.8-10.6) k/uL RBC 4.52 (3.80-5.40) m/uL Hgb 14.5 (11.4-16.0) gm/dL Hct 43.4 (34.0-46.0) % MCV 96.1 (80.0-100.0) fL MCH 32.0 (25.0-35.0) pg MCHC 33.3 (31.0-37.0) g/dL RDW 13.3 (11.5-15.5) % Plt Count 362 (150-450) k/uL MPV 7.5 Neutrophils % 68 % Lymphocytes % 21 % Monocytes % 4 % Eosinophils % 6 % Basophils % 1 % Neutrophils # 8.2 H (1.3-7.7) k/uL Lymphocytes # 2.5 (1.0-4.8) k/uL Monocytes # 0.5 (0-1.0) k/uL Eosinophils # 0.7 (0-0.7) k/uL Basophils # 0.1 (0-0.2) k/uL Sodium (137-145) mmol/L Potassium (3.5-5.1) mmol/L Chloride (98-107) mmol/L Carbon Dioxide (22-30) mmol/L Anion Gap mmol/L BUN (7-17) mg/dL Creatinine (0.52-1.04) mg/dL Est GFR (CKD-EPI)AfAm (>60 ml/min/1.73 sqM) Est GFR (CKD-EPI)NonAf (>60 ml/min/1.73 sqM) Glucose (74-99) mg/dL Calcium (8.4-10.2) mg/dL Total Bilirubin (0.2-1.3) mg/dL AST (14-36) U/L ALT (4-34) U/L Alkaline Phosphatase (38-126) U/L Total Protein (6.3-8.2) g/dL Albumin (3.5-5.0) g/dL Urine Color Yellow Urine Appearance Cloudy H (Clear) Urine pH 6.5 (5.0-8.0) Ur Specific [place] 1.022 (1.001-1.035) Urine Protein Negative (Negative) Urine Glucose (UA) Negative (Negative) Urine Ketones Negative (Negative) Urine Blood Negative (Negative) Urine Nitrite Negative (Negative) Urine Bilirubin Negative (Negative) Urine Urobilinogen <2.0 (<2.0) mg/dL Ur Leukocyte Esterase Negative (Negative) Urine RBC 2 (0-5) /hpf Urine WBC 1 (0-5) /hpf Ur Squamous Epith Cells 15 H (0-4) /hpf Urine Bacteria Rare H (None) /hpf Urine Mucus Rare H (None) /hpf Urine HCG, Qual Not Detected (Not Detectd) 05/25/20 Range/Units 19:52 WBC (3.8-10.6) k/uL RBC (3.80-5.40) m/uL Hgb (11.4-16.0) gm/dL Hct (34.0-46.0) % MCV (80.0-100.0) fL MCH (25.0-35.0) pg MCHC (31.0-37.0) g/dL RDW (11.5-15.5) % Plt Count (150-450) k/uL MPV Neutrophils % % Lymphocytes % % Monocytes % % Eosinophils % % Basophils % % Neutrophils # (1.3-7.7) k/uL Lymphocytes # (1.0-4.8) k/uL Monocytes # (0-1.0) k/uL Eosinophils # (0-0.7) k/uL Basophils # (0-0.2) k/uL Sodium 140 (137-145) mmol/L Potassium 4.1 (3.5-5.1) mmol/L Chloride 113 H (98-107) mmol/L Carbon Dioxide 18 L (22-30) mmol/L Anion Gap 9 mmol/L BUN 13 (7-17) mg/dL Creatinine 0.77 (0.52-1.04) mg/dL Est GFR (CKD-EPI)AfAm >90 (>60 ml/min/1.73 sqM) Est GFR (CKD-EPI)NonAf >90 (>60 ml/min/1.73 sqM) Glucose 113 H (74-99) mg/dL Calcium 9.1 (8.4-10.2) mg/dL Total Bilirubin 0.4 (0.2-1.3) mg/dL AST 70 H (14-36) U/L ALT 74 H (4-34) U/L Alkaline Phosphatase 86 (38-126) U/L Total Protein 7.6 (6.3-8.2) g/dL Albumin 4.1 (3.5-5.0) g/dL Urine Color Urine Appearance (Clear) Urine pH (5.0-8.0) Ur Specific [place] (1.001-1.035) Urine Protein (Negative) Urine Glucose (UA) (Negative) Urine Ketones (Negative) Urine Blood (Negative) Urine Nitrite (Negative) Urine Bilirubin (Negative) Urine Urobilinogen (<2.0) mg/dL Ur Leukocyte Esterase (Negative) Urine RBC (0-5) /hpf Urine WBC (0-5) /hpf Ur Squamous Epith Cells (0-4) /hpf Urine Bacteria (None) /hpf Urine Mucus (None) /hpf Urine HCG, Qual (Not Detectd) Disposition Clinical Impression: Abdominal pain Disposition: HOME SELF-CARE Condition: Good Instructions (If sedation given, give patient instructions): Abdominal Pain (ED) Is patient prescribed a controlled substance at d/c from ED?: No Referrals: Keyon Walker Jr, [Primary Care Provider] - 1-2 days Time of Disposition: 22:01
[2020-05-25 20:01] LABS: Basophils # (A) 0.1 k/uL (0-0.2); Basophils % (A) 1 %; Eosinophils # (A) 0.7 k/uL (0-0.7); Eosinophils % (A) 6 %; HCT 43.4 % (34.0-46.0); HGB 14.5 gm/dL (11.4-16.0); Lymphocytes # (A) 2.5 k/uL (1.0-4.8); Lymphocytes % (A) 21 %; MCHC 33.3 g/dL (31.0-37.0); MCV 96.1 fL (80.0-100.0); Mean Platelet Volume 7.5; Monocytes # (A) 0.5 k/uL (0-1.0); Monocytes % (A) 4 %; Neutrophils # (A) 8.2 k/uL (1.3-7.7); Neutrophils % (A) 68 %; Platelet Count 362 k/uL (150-450); RBC 4.52 m/uL (3.80-5.40); RDW 13.3 % (11.5-15.5); WBC 12.1 k/uL (3.8-10.6)
[2020-05-25 20:13] LABS: ALT 74 U/L (4-34); AST 70 U/L (14-36); African American GFR (CKD) >90 (>60 ml/min/1.73 sqM); Albumin 4.1 g/dL (3.5-5.0); Alkaline Phosphatase 86 U/L (38-126); Anion Gap 9 mmol/L; Blood Urea Nitrogen 13 mg/dL (7-17); Calcium 9.1 mg/dL (8.4-10.2); Carbon Dioxide 18 mmol/L (22-30); Chloride 113 mmol/L (98-107); Glucose 113 mg/dL (74-99); Non-African American GFR(CKD) >90 (>60 ml/min/1.73 sqM); Potassium 4.1 mmol/L (3.5-5.1); Sodium 140 mmol/L (137-145); Total Bilirubin 0.4 mg/dL (0.2-1.3); Total Protein 7.6 g/dL (6.3-8.2)
[2020-05-25] MEDS ORDERED: HYDROmorphone 1 MG/ML 1 ML SYRINGE IVP STA (20:49)
[2020-05-25 20:52] LABS: Appearance,Urine Cloudy (Clear); Bacteria,Urine Rare /hpf; Bilirubin,Urine Negative (Negative); Blood,Urine Negative (Negative); Color,Urine Yellow; Glucose,Urine (UA) Negative (Negative); Ketones,Urine Negative (Negative); Leukocyte Esterase,Urine Negative (Negative); Mucus,Urine Rare /hpf; Nitrite,Urine Negative (Negative); PH, Urine 6.5 (5.0-8.0); Protein,Urine Negative (Negative); RBC,Urine 2 /hpf (0-5); Specific Gravity,Urine 1.022 (1.001-1.035); Squamous Epithelial Cell,Urine 15 /hpf (0-4); Urobilinogen,Urine <2.0 mg/dL (<2.0); WBC,Urine 1 /hpf (0-5)
[2020-05-25 20:55] VITALS: BP 135/70; PULSE 78; RESP 17
== END 2020-05-25 22:23 | disposition home or self-care (01) ==
LOC: EC 19:18
DX: R10.9 Unspecified abdominal pain (principal); R31.9 Hematuria, unspecified; E11.9 Type 2 diabetes mellitus without complications; I10 Essential (primary) hypertension; K21.9 Gastro-esophageal reflux disease without esophagitis; F41.9 Anxiety disorder, unspecified; J45.909 Unspecified asthma, uncomplicated; F32.9 Major depressive disorder, single episode, unspecified; E66.01 Morbid (severe) obesity due to excess calories; Z68.44 Body mass index [BMI] 60.0-69.9, adult; F17.200 Nicotine dependence, unspecified, uncomplicated; Z79.899 Other long term (current) drug therapy; Z79.84 Long term (current) use of oral hypoglycemic drugs; Z88.5 Allergy status to narcotic agent
CPT/HCPCS: 36415; 80053; 85025; 81001; 81025; 99284; 96374; 96376; J1170 ×2

== ENCOUNTER → 2020-05-26 | Outpatient (CLI) | payer OTHER | END | disposition home or self-care (01) | LOC: LABWHC1 15:31 | PROVIDERS: ATTEND Psychiatry & Neurology Pain Medicine | DX: Z53.9 Procedure and treatment not carried out, unspecified reason (principal) ==

== ENCOUNTER → 2020-05-26 | Outpatient (CLI) | payer OTHER ==
--- NOTE | 2020-05-26 18:55 | XR ---
EXAMINATION TYPE: XR KUB DATE OF EXAM: 05/26/2020 COMPARISON: NONE HISTORY: Pain TECHNIQUE: One view abdominal series FINDINGS: The osseous structures are intact. The bowel gas pattern is nonspecific. Severe degenerative disc di sease L5-S1. SI joints symmetric. Surgical clips in the right upper quadrant. Upper abdomen is not in cluded on the film. Assessment for free air nondiagnostic. Arthropathy of the hips.. IMPRESSION: 1. Nonspecific abdomen.
== END | disposition home or self-care (01) ==
LOC: RADXRWHC 15:33
PROVIDERS: ATTEND Family Medicine
DX: R10.9 Unspecified abdominal pain (principal)
CPT/HCPCS: 74018

== ENCOUNTER → 2020-05-31 | Outpatient (CLI) | payer OTHER ==
--- NOTE | 2020-05-31 16:22 | US ---
EXAMINATION TYPE: US transvaginal DATE OF EXAM: 05/31/2020 COMPARISON: NONE CLINICAL HISTORY: R10.31 RLQ pain. Pain exam limitations due to gross morbid obesty. TECHNIQUE: Transvaginal (TV). EXAM MEASUREMENTS: Uterus: 7.7 x 3.6 x 3.0 cm Endometrial Stripe: .8 cm Right Ovary: 3.7 x 2.4 x 3.2 cm 1. Uterus: Anteverted Nabothian cysts seen. 2. Endometrium: wnl 3. Right Ovary: Cystic area 2.4 x 2.0 x 3.1 cm 4. Left Ovary: Obscured by overlying bowel gas 5. Bilateral Adnexa: wnl 6. Posterior cul-de-sac: wnl Suboptimal study due to body habitus. IMPRESSION: Suboptimal study with incidental benign 3.1 cm thin-walled cyst right ovary noted otherwi se unremarkable study.
== END | disposition home or self-care (01) ==
LOC: RADUSWWP 15:41
PROVIDERS: ATTEND Family Medicine
DX: R10.31 Right lower quadrant pain (principal); Z88.5 Allergy status to narcotic agent
CPT/HCPCS: 76830

== ENCOUNTER → 2020-07-07 | Outpatient (CLI) | payer OTHER ==
[2020-07-07 15:01] LABS: African American GFR (CKD) >90 (>60 ml/min/1.73 sqM); Blood Urea Nitrogen 14 mg/dL (7-17); Non-African American GFR(CKD) 83 (>60 ml/min/1.73 sqM)
--- NOTE | 2020-07-08 07:03 | CT ---
EXAMINATION TYPE: CT abdomen pelvis w con DATE OF EXAM: 07/07/2020 COMPARISON: January 13, 2017 HISTORY: RLQ pain CT DLP: [id number] mGycm CONTRAST: CT scan of the abdomen and pelvis is performed with Oral Contrast and with IV Contrast, patient injec horacio with 100 mL of Isovue 300. Examination is limited by streak artifact from patient body habitus FINDINGS: LUNG BASES-: No visible nodule. No infiltrate. LIVER/GB: No calcified gallstones. No space occupying hepatic lesion. Biliary tree is of normal ca liber. PANCREAS: No inflammation. No distinct mass. SPLEEN: No splenic enlargement. No lesion seen. ADRENALS: No nodule. No thickening. KIDNEYS/BLADDER: No hydronephrosis. No nephrolithiasis. No distinct renal mass. Urinary bladder g rossly unremarkable. BOWEL: The appendix is not clearly visualized. Normal bowel caliber. No inflammation. GENITAL ORGANS: No gross abnormality. LYMPH NODES: No greater than 1cm abdominal or pelvic lymph nodes are appreciated. AORTA: No significant abnormality. OSSEOUS STRUCTURES: No significant abnormality is seen. OTHER: There is a fat-containing umbilical hernia. IMPRESSION: 1. Limited examination. 2. Nonvisualization of the appendix. 3. Fat-containing umbilical hernia.
== END | disposition home or self-care (01) ==
LOC: RADCTMAIN 14:00
PROVIDERS: ATTEND Family Medicine
DX: K42.9 Umbilical hernia without obstruction or gangrene (principal); Z88.5 Allergy status to narcotic agent
CPT/HCPCS: 82565; 84520; 74177; 36415; Q9967

== ENCOUNTER → 2020-11-02 | Outpatient (CLI) | payer OTHER ==
--- NOTE | 2020-11-03 07:03 | SFUN ---
SLEEP CENTER FOLLOW UP NOTE DATE OF SERVICE: 11/02/2020 INTERVAL HISTORY: A 40-year-old lady who has been followed in Sleep Center for treatment of obstructive sleep apnea-hypopnea syndrome. I did not see the patient for 2 years. She continued to use her equipment every night. No snoring with the machine. Wirt Sleepiness Scale today is 7, which is normal. She needs to replace her supplies. I checked CPAP unit pressure is 13 cm of water, usage 30/30 nights for more than 4 hours. Average 8.3 hours per night. Leak is 37 L/minutes which is high, but apnea- hypopnea index is only 0.3, which is absolutely perfect. The patient is using full- face Simplus medium size mask. MEDICATIONS: Acetazolamide 500 mg 3 times a day, omeprazole 20 mg once a day, escitalopram 10 mg once a day, Diclofenac 75 mg twice a day, gabapentin 400 mg 3 times a day, metformin 500 mg once a day, Lisinopril 10 mg once a day, topiramate 50 mg twice a day, doxepin 50 mg twice a day, Fioricet 1 tablet as needed, albuterol inhaler as needed. PHYSICAL EXAMINATION: GENERAL: A lady without distress. VITAL SIGNS: BP 128/76, HR 69, RR 18, height 5 feet 9-1/4 inches, weight 469.4 pounds, body mass index 68.8, temperature 97.3, oxygen saturation at room air 98%. HEENT: PERRLA, EOMI, evaluation of oropharynx showed tongue protrudes midline. Extremely low position of soft palate, Mallampati 4. NECK: Supple, no JVD. Thyroid is not palpable. LUNGS: Clear to percussion and to auscultation. Good air exchange. No wheezing or rhonchi. HEART: S1, S2 regular. No murmurs, gallops, or rubs. ABDOMEN: Obese, soft and nontender. Bowel sounds are present. No organomegaly appreciated. EXTREMITIES: No clubbing or cyanosis. OPERATING SYSTEMS PROGRAMMER: Awake, alert, and oriented X3. Cranial nerves 2 to 7 intact. There is no fasciculation or atrophy. noted. No focal deficits observed. IMPRESSION: 1. Obstructive sleep apnea-hypopnea syndrome. Patient demonstrated 100% compliance with treatment benefitting from treatment. 2. Obesity. 3. Hypertension. 4. History of anxiety. 5. History of depression. 6. Acid reflux. 7. Asthma. 8. Back problems. 9. Hip problems. 10.Status post cholecystectomy. 11.Status post left foot surgery. PLAN: 1. Patient will continue to use PAP equipment every night for the whole night. 2. Sleep hygiene with regular time in bed for at least 7-1/2 to 8 hours. 3. Precautions related to driving. No driving if feeling sleepiness. 4. I will maintain all necessary prescription for PAP supplies including mask, tube, filters. 5. Watching weight. 6. Follow-up visit in 6 months or earlier if patient has any problems. Thank you very much for allowing me to participate in the management of your patient. Sincerely, Billy Carolina MD, PhD, FAASM Diplomat of [place] [employer] [place] [employer] [facility] [place] MMODL / KERRYN: [id number] /
== END ==
LOC: SLEEP 14:23
PROVIDERS: ATTEND Internal Medicine
DX: G47.33 Obstructive sleep apnea (adult) (pediatric) (principal); E66.9 Obesity, unspecified; I10 Essential (primary) hypertension; F32.9 Major depressive disorder, single episode, unspecified; F41.9 Anxiety disorder, unspecified; K21.9 Gastro-esophageal reflux disease without esophagitis; M53.80 Other specified dorsopathies, site unspecified; M25.859 Other specified joint disorders, unspecified hip; F17.200 Nicotine dependence, unspecified, uncomplicated; J45.909 Unspecified asthma, uncomplicated; Z90.49 Acquired absence of other specified parts of digestive tract; Z98.890 Other specified postprocedural states; Z68.44 Body mass index [BMI] 60.0-69.9, adult; Z79.899 Other long term (current) drug therapy; Z99.89 Dependence on other enabling machines and devices; Z88.5 Allergy status to narcotic agent

== ENCOUNTER 2020-12-03 16:32 | Emergency (ER) | payer OTHER ==
[2020-12-03 16:41] VITALS: BP 132/74; PULSE 67; RESP 16; TEMP 97.9
[2020-12-03] MEDS ORDERED: LIDOCAINE 5% PATCH TOPICAL STA (17:07)
[2020-12-03] MEDS ORDERED: ORPHENADRINE 30 MG/ML 2 ML VIAL IM STA (17:07)
[2020-12-03] MEDS ORDERED: HYDROmorphone 1 MG/ML 1 ML SYRINGE IM STA (17:07)
--- NOTE | 2020-12-03 17:13 | ED ---
Back Pain HPI - General Chief Complaint: Back Pain/Injury Stated Complaint: Lower Back Pain Source: patient, family, RN notes reviewed, old records reviewed Limitations: no limitations - History of Present Illness Initial Comments: 40-year-old pleasant morbidly obese white female presents to the emergency room with complaints of low back pain since Friday. Patient states that she does have a history of chronic back pain. She's been taking Morrill and Motrin and using heat with no relief. She states that it's worse with walking or sitting and she cannot get comfortable. She denies any incontinence of bowel or bladder. No fevers, nausea vomiting or diarrhea. She states that she has been out of her gabapentin and has been trying to get her doctor to prescribe it and has not been called in. She does have an appointment with him tomorrow. MD Complaint: back pain -: days(s) (3) Similar Symptoms Previously: Yes Place: home Radiation: none Severity: severe Severity scale (1-10): 8 Quality: sharp Consistency: constant Improves With: none Worsens With: movement, sitting upright, walking Context: other (Was swimming ) Associated Symptoms: other (Increased urination) Treatments Prior to Arrival: heat therapy, NSAIDS, prescription analgesics (Morrill) - Related Data Home Medications Medication Instructions Recorded Confirmed Omeprazole [PriLOSEC] 20 mg PO DAILY 09/04/14 05/25/20 Gabapentin [Neurontin] 400 mg PO TID 05/02/16 05/25/20 Escitalopram [Lexapro] 10 mg PO DAILY 02/24/17 05/25/20 Gabapentin [Neurontin] 100 mg PO TID 03/16/19 05/25/20 Hydrocodone/Acetaminophen [Morrill 1 tab PO TID PRN 03/16/19 05/25/20 10-325] lisinopriL [Zestril] 10 mg PO HS 03/16/19 05/25/20 Albuterol Sulfate [Proair Hfa] 2 puff INHALATION RT-Q4H PRN 04/19/20 05/25/20 Diclofenac Sodium [Voltaren] 75 mg PO BID 04/19/20 05/25/20 Doxepin HCl 100 mg PO HS 04/19/20 05/25/20 Rimegepant Sulfate [Nurtec Odt] 75 mg PO DAILY PRN 04/19/20 05/25/20 Topiramate 100 mg PO HS 04/19/20 05/25/20 acetaZOLAMIDE [acetaZOLAMIDE ER] 1,000 mg PO TID 04/19/20 05/25/20 metFORMIN HCL 500 mg PO DAILY 04/19/20 05/25/20 Butalb/APAP/Caff 50-325-40Mg 1 tab PO Q8H PRN 05/25/20 05/25/20 [Fioricet 50-325-40] Previous Rx's Medication Instructions Recorded Lidocaine [Lidoderm 5% Patch] 1 patch TRANSDERM DAILY 10 Days 12/03/20 #10 patch Allergies Allergy/AdvReac Type Severity Reaction Status Date / Time morphine Allergy Rash/Hives Verified 05/25/20 21:31 tramadol Allergy Rash/Hives Verified 05/25/20 21:31 Review of Systems ROS Statement: Those systems with pertinent positive or pertinent negative responses have been documented in the HPI. ROS Other: All systems not noted in ROS Statement are negative. Past Medical History Past Medical History: Asthma, Chest Pain / Angina, Diabetes Mellitus, GERD/Reflux, Hypertension, Osteoarthritis (OA), Skin Disorder Additional Past Medical History / Comment(s): migraines, IBS, rash under arms, overactive bladder, "tingling arms" for a month, newly diagnosed diabetic,brian malformation, pseudotumor cerebri History of Any Multi-Drug Resistant Organisms: None Reported Past Surgical History: Cholecystectomy, Orthopedic Surgery Additional Past Surgical History / Comment(s): removal of mole from genital area, Past Anesthesia/Blood Transfusion Reactions: Motion Sickness Past Psychological History: Anxiety, Depression Smoking Status: Current every day smoker Past Alcohol Use History: Rare Past Drug Use History: None Reported - Past Family History Mother Family Medical History: No Reported History General Exam Limitations: no limitations General appearance: alert, in no apparent distress Head exam: Present: atraumatic, normocephalic, normal inspection Eye exam: Present: normal appearance, PERRL, EOMI. Absent: scleral icterus, conjunctival injection, periorbital swelling Pupils: Present: normal accommodation ENT exam: Present: normal exam, normal oropharynx, mucous membranes moist Neck exam: Present: normal inspection, full ROM. Absent: tenderness, meningismus, lymphadenopathy Respiratory exam: Present: normal lung sounds bilaterally. Absent: respiratory distress, wheezes, rales, rhonchi, stridor, chest wall tenderness, accessory muscle use, decreased breath sounds, prolonged expiratory Cardiovascular Exam: Present: regular rate, normal rhythm, normal heart sounds. Absent: systolic murmur, diastolic murmur, rubs, gallop, clicks GI/Abdominal exam: Present: soft, distended. Absent: tenderness, guarding, r ebound, rigid Extremities exam: Present: normal inspection, full ROM, normal capillary refill. Absent: tenderness, pedal edema, joint swelling, calf tenderness Back exam: Present: normal inspection, full ROM, tenderness (Low back pain), paraspinal tenderness. Absent: CVA tenderness (R), CVA tenderness (L), muscle spasm, vertebral tenderness, rash noted Expanded Back exam: Absent: saddle anesthesia Neurological exam: Present: alert, oriented X3, CN II-XII intact Psychiatric exam: Present: normal affect, normal mood Skin exam: Present: warm, dry, intact, normal color. Absent: rash, cyanosis, diaphoretic, erythema, petechiae, pallor, mottled Course Vital Signs 12/03/20 16:36 Temperature 97.9 F Pulse Rate 67 Respiratory 16 Rate Blood Pressure 132/74 O2 Sat by Pulse 98 Oximetry Medical Decision Making - Medical Decision Making UA shows negative glucose, trace ketones negative leukocyte esterase. Patient is able to ambulate in the room, no focal neurological deficits. She states she has an appointment tomorrow with her primary care doctor to discuss refilling her gabapentin. Patient will also be directed to take Tylenol as needed for pain and use Lidoderm patches. Directed to return to the emergency room with worsening pain, fever, numbness tingling or incontinence of bowel or bladder. Patient is agreeable to this plan of care. Case discussed with Dr. Norwood - Lab Data Lab Results 12/03/20 Range/Units 18:16 Urine Color Yellow Urine Appearance Cloudy H (Clear) Urine pH 6.5 (5.0-8.0) Ur Specific [place] 1.034 (1.001-1.035) Urine Protein Trace H (Negative) Urine Glucose (UA) Negative (Negative) Urine Ketones Trace H (Negative) Urine Blood Negative (Negative) Urine Nitrite Negative (Negative) Urine Bilirubin Negative (Negative) Urine Urobilinogen 2.0 (<2.0) mg/dL Ur Leukocyte Esterase Negative (Negative) Urine RBC 4 (0-5) /hpf Urine WBC 2 (0-5) /hpf Ur Squamous Epith Cells 16 H (0-4) /hpf Urine Mucus Rare H (None) /hpf Disposition Clinical Impression: Chronic back pain Disposition: HOME SELF-CARE Condition: Good Instructions (If sedation given, give patient instructions): Back Pain (ED) Additional Instructions: Return to the emergency room with increasing pain, incontinence of bowel or bladder, or fevers. Use Lidoderm patches as prescribed and follow-up with your doctor as scheduled tomorrow. Prescriptions: Lidocaine [Lidoderm 5% Patch] 1 patch TRANSDERM DAILY 10 Days #10 patch Is patient prescribed a controlled substance at d/c from ED?: No Referrals: Keyon Walker Jr, [Primary Care Provider] - 1-2 days Time of Disposition: 18:38
[2020-12-03 18:26] LABS: Appearance,Urine Cloudy (Clear); Bilirubin,Urine Negative (Negative); Blood,Urine Negative (Negative); Color,Urine Yellow; Glucose,Urine (UA) Negative (Negative); Ketones,Urine Trace (Negative); Leukocyte Esterase,Urine Negative (Negative); Mucus,Urine Rare /hpf; Nitrite,Urine Negative (Negative); PH, Urine 6.5 (5.0-8.0); Protein,Urine Trace (Negative); RBC,Urine 4 /hpf (0-5); Specific Gravity,Urine 1.034 (1.001-1.035); Squamous Epithelial Cell,Urine 16 /hpf (0-4); WBC,Urine 2 /hpf (0-5)
== END 2020-12-03 18:55 | disposition home or self-care (01) ==
LOC: EC 16:32
DX: M54.5 Low back pain (principal); J45.909 Unspecified asthma, uncomplicated; E11.9 Type 2 diabetes mellitus without complications; K21.9 Gastro-esophageal reflux disease without esophagitis; I10 Essential (primary) hypertension; M19.90 Unspecified osteoarthritis, unspecified site; F17.200 Nicotine dependence, unspecified, uncomplicated
CPT/HCPCS: 81001; 99283; 96372 ×2; J2360; J1170

== ENCOUNTER 2020-12-07 13:03 | Emergency (ER) | payer OTHER ==
[2020-12-07 13:17] VITALS: BP 149/76; PULSE 72; RESP 18; TEMP 98.1
[2020-12-07] MEDS ORDERED: HYDROmorphone 1 MG/ML 1 ML SYRINGE IM STA (13:30)
--- NOTE | 2020-12-07 13:37 | ED ---
Back Pain HPI - General Chief Complaint: Back Pain/Injury Stated Complaint: Revisit/Lower Back Pain Time Seen by Provider: 12/07/20 13:18 Source: patient, RN notes reviewed Limitations: no limitations - History of Present Illness Initial Comments: 40-year-old female presents emergency Department with chief complaint back pain. Patient states started on Friday. She was seen in emergency department and which her urinalysis is negative. Patient follow-up with a neurologist on Friday and received a steroid injection. She was restarted on her gabapentin and takes Winder. She states is not helping is better at rest worse with movement denies any bowel bladder incontinence or retention, no saddle anesthesias no lower extremity paresthesias no pain that radiates into her lower extremities. She denies any abdominal pain - Related Data Home Medications Medication Instructions Recorded Confirmed Omeprazole [PriLOSEC] 20 mg PO DAILY 09/04/14 05/25/20 Gabapentin [Neurontin] 400 mg PO TID 05/02/16 05/25/20 Escitalopram [Lexapro] 10 mg PO DAILY 02/24/17 05/25/20 Gabapentin [Neurontin] 100 mg PO TID 03/16/19 05/25/20 Hydrocodone/Acetaminophen [[place] 1 tab PO TID PRN 03/16/19 05/25/20 10-325] lisinopriL [Zestril] 10 mg PO HS 03/16/19 05/25/20 Albuterol Sulfate [Proair Hfa] 2 puff INHALATION RT-Q4H PRN 04/19/20 05/25/20 Diclofenac Sodium [Voltaren] 75 mg PO BID 04/19/20 05/25/20 Doxepin HCl 100 mg PO HS 04/19/20 05/25/20 Rimegepant Sulfate [Nurtec Odt] 75 mg PO DAILY PRN 04/19/20 05/25/20 Topiramate 100 mg PO HS 04/19/20 05/25/20 acetaZOLAMIDE [acetaZOLAMIDE ER] 1,000 mg PO TID 04/19/20 05/25/20 metFORMIN HCL 500 mg PO DAILY 04/19/20 05/25/20 Butalb/APAP/Caff 50-325-40Mg 1 tab PO Q8H PRN 05/25/20 05/25/20 [Fioricet 50-325-40] Previous Rx's Medication Instructions Recorded Lidocaine [Lidoderm 5% Patch] 1 patch TRANSDERM DAILY 10 Days 12/03/20 #10 patch Orphenadrine [Norflex] 100 mg PO Q12H #14 tablet.er 12/07/20 predniSONE 50 mg PO DAILY #5 tab 12/07/20 Allergies Allergy/AdvReac Type Severity Reaction Status Date / Time morphine Allergy Rash/Hives Verified 12/07/20 13:15 tramadol Allergy Rash/Hives Verified 12/07/20 13:15 Review of Systems ROS Statement: Those systems with pertinent positive or pertinent negative responses have been documented in the HPI. ROS Other: All systems not noted in ROS Statement are negative. Past Medical History Past Medical History: Asthma, Chest Pain / Angina, Diabetes Mellitus, GERD/Reflux, Hypertension, Osteoarthritis (OA), Skin Disorder Additional Past Medical History / Comment(s): migraines, IBS, rash under arms, overactive bladder, "tingling arms" for a month, newly diagnosed diabetic,brian malformation, pseudotumor cerebri History of Any Multi-Drug Resistant Organisms: None Reported Past Surgical History: Cholecystectomy, Orthopedic Surgery Additional Past Surgical History / Comment(s): removal of mole from genital area, Past Anesthesia/Blood Transfusion Reactions: Motion Sickness Past Psychological History: Anxiety, Depression Smoking Status: Current every day smoker Past Alcohol Use History: Rare Past Drug Use History: None Reported - Past Family History Mother Family Medical History: No Reported History General Exam Limitations: no limitations General appearance: alert, in no apparent distress, obese Neck exam: Present: normal inspection, full ROM. Absent: tenderness, meningismus, lymphadenopathy Respiratory exam: Present: normal lung sounds bilaterally. Absent: respiratory distress, wheezes, rales, rhonchi, stridor Cardiovascular Exam: Present: regular rate, normal rhythm, normal heart sounds. Absent: systolic murmur, diastolic murmur, rubs, gallop, clicks GI/Abdominal exam: Present: soft, normal bowel sounds. Absent: distended, tenderness, guarding, rebound, rigid Extremities exam: Present: normal inspection, full ROM, normal capillary refill. Absent: tenderness, pedal edema, joint swelling, calf tenderness Back exam: Present: full ROM, tenderness, muscle spasm, paraspinal tenderness. Absent: CVA tenderness (R), CVA tenderness (L), vertebral tenderness Course Vital Signs 12/07/20 13:15 Temperature 98.1 F Pulse Rate 72 Respiratory 18 Rate Blood Pressure 149/76 O2 Sat by Pulse 97 Oximetry Medical Decision Making - Medical Decision Making X-rays reveal no acute changes, chronic changes noted . Patient has acute exacerbation of her chronic back pain she has seen her neurologist. Patient will given a course steroids that she status is his helped in the past. Patient has no red flag symptoms she is able to ambulate Disposition Clinical Impression: Acute exacerbation of chronic low back pain Disposition: HOME SELF-CARE Condition: Stable Instructions (If sedation given, give patient instructions): Acute Low Back Pain (ED) Additional Instructions: Please return to the Emergency Department if symptoms worsen or any other concerns. Prescriptions: Orphenadrine [Norflex] 100 mg PO Q12H #14 tablet.er predniSONE 50 mg PO DAILY #5 tab Is patient prescribed a controlled substance at d/c from ED?: No Referrals: Keyon Walker Jr, [Primary Care Provider] - 1-2 days Time of Disposition: 14:24
--- NOTE | 2020-12-07 14:18 | XR ---
EXAMINATION TYPE: XR lumbosacral spine min 4V DATE OF EXAM: 12/07/2020 CLINICAL HISTORY: Pain TECHNIQUE: 3 viewsimages of the lumbar spine are obtained. COMPARISON: 07/07/2019 FINDINGS: There are 5 lumbar type vertebral bodies identified. L5 loss of vertebral body height L5-S 1 degenerative disc disease changes and facet arthropathy appears similar to the prior exam. IMPRESSION: No significant change since the prior exam.
== END 2020-12-07 14:30 | disposition home or self-care (01) ==
LOC: EC 13:03
DX: G89.29 Other chronic pain (principal); M54.5 Low back pain; E66.9 Obesity, unspecified; E11.9 Type 2 diabetes mellitus without complications; I10 Essential (primary) hypertension; F32.9 Major depressive disorder, single episode, unspecified; F41.9 Anxiety disorder, unspecified; J45.909 Unspecified asthma, uncomplicated; K21.9 Gastro-esophageal reflux disease without esophagitis; M19.90 Unspecified osteoarthritis, unspecified site; F17.200 Nicotine dependence, unspecified, uncomplicated; Z79.1 Long term (current) use of non-steroidal anti-inflammatories (NSAID); Z79.52 Long term (current) use of systemic steroids; Z79.84 Long term (current) use of oral hypoglycemic drugs; Z79.899 Other long term (current) drug therapy; Z88.5 Allergy status to narcotic agent; Z88.8 Allergy status to other drugs, medicaments and biological substances; Z68.44 Body mass index [BMI] 60.0-69.9, adult
CPT/HCPCS: 72110; 96372; 99283; J1170

== ENCOUNTER → 2021-03-28 | Outpatient (CLI) | payer OTHER ==
[2021-03-28 14:08] LABS: Prothrombin Time 10.7 sec (9.0-12.0)
[2021-03-28 14:09] LABS: Partial Thromboplastin Time 27.3 sec (22.0-30.0)
[2021-03-28 20:08] LABS: HCT 42.2 % (37.2-46.3); HGB 13.1 g/dL (12.0-15.0); MCV 99.8 fL (80.0-97.0); Mean Platelet Volume 11.5 fL (9.5-12.2); Platelet Count 302 X 10*3/uL (140-440); RBC 4.23 X 10*6/uL (4.10-5.20); RDW 12.8 % (11.5-14.5); WBC 10.63 X 10*3/uL (4.50-10.00)
[2021-03-29 01:12] LABS: % Iron Saturation 16.03 (12.00-45.00); Chol/HDL Ratio 6.31 Ratio; Iron 54 ug/dL (50-170); LDL Cholesterol,Calculated 106.9 mg/dL (0.0-131.0); Magnesium 1.9 mg/dL (1.5-2.4); Phosphorus 3.2 mg/dL (2.4-5.1); Prealbumin 23.4 mg/dL (18.0-42.0); Total Iron Binding Capacity 337 ug/dL (228-460)
[2021-03-29 01:53] LABS: ALT 50 U/L (8-44); AST 47 U/L (13-35); African American GFR (CKD) 124.1 (60.0-200.0); Albumin 3.9 g/dL (3.8-4.9); Albumin/Globulin Ratio 1.44 (1.60-3.17); Alkaline Phosphatase 86 U/L (41-126); BUN/Creat Ratio 17.07 Ratio (12.00-20.00); Calcium 9.3 mg/dL (8.7-10.3); Carbon Dioxide 20.7 mmol/L (21.6-31.8); Chloride 108 mmol/L (96-109); Globulin 2.7 g/dL (1.6-3.3); Glucose 111 mg/dL (70-110); Non-African American GFR(CKD) 107.1 (60.0-200.0); Potassium 4.4 mmol/L (3.5-5.5); Sodium 141 mmol/L (135-145); Total Protein 6.6 g/dL (6.2-8.2)
[2021-03-29 12:54] LABS: Zinc, Serum 74 ug/dL (60-130)
[2021-03-30 06:22] LABS: Vit B1(Thiamine) 74 ug/L (38-122)
[2021-03-30 06:23] LABS: Vitamin A 40 ug/dL (38-106)
[2021-03-30 15:03] LABS: Anabasine Urine 3.7 ng/mL (<2.0)
== END | disposition home or self-care (01) ==
LOC: LABWHC1 12:50
PROVIDERS: ATTEND Surgery Plastic and Reconstructive Surgery
DX: E66.01 Morbid (severe) obesity due to excess calories (principal); E89.1 Postprocedural hypoinsulinemia; D50.8 Other iron deficiency anemias; K90.89 Other intestinal malabsorption; K74.1 Hepatic sclerosis; E55.9 Vitamin D deficiency, unspecified; N19 Unspecified kidney failure; K50.90 Crohn's disease, unspecified, without complications; R00.1 Bradycardia, unspecified; Z71.51 Drug abuse counseling and surveillance of drug abuser; Z98.84 Bariatric surgery status
CPT/HCPCS: 84255; 84134; 84425; 80061; 80053; 82607; 82728; 82525; 82746; 83540; 83550; 83735; 84100; 84443; 84590; 84630; 85027; 85610; 85730; 82306; 83970; 83036; 80307; 93005; 36415; G0480; G0482; 80323

== ENCOUNTER 2021-04-18 20:57 | Observation (INO) | payer OTHER ==
--- NOTE | 2021-04-18 22:29 | XR ---
EXAMINATION TYPE: XR chest 2V DATE OF EXAM: 04/18/2021 COMPARISON: 07/07/2019 HISTORY: Chest pain TECHNIQUE: FINDINGS: Heart and mediastinum are normal. Lungs are clear. Diaphragm is normal. Bony thorax is inta ct. IMPRESSION: Normal chest. No adverse change.
[2021-04-18 23:04] LABS: Basophils # (A) 0.1 k/uL (0-0.2); Basophils % (A) 1 %; Eosinophils # (A) 0.6 k/uL (0-0.7); Eosinophils % (A) 4 %; HCT 44.1 % (34.0-46.0); HGB 14.5 gm/dL (11.4-16.0); Lymphocytes # (A) 2.7 k/uL (1.0-4.8); Lymphocytes % (A) 18 %; MCH 31.5 pg (25.0-35.0); MCV 95.7 fL (80.0-100.0); Mean Platelet Volume 8.1; Monocytes # (A) 0.4 k/uL (0-1.0); Monocytes % (A) 3 %; Neutrophils # (A) 10.8 k/uL (1.3-7.7); Neutrophils % (A) 74 %; Platelet Count 330 k/uL (150-450); RBC 4.61 m/uL (3.80-5.40); RDW 12.8 % (11.5-15.5); WBC 14.7 k/uL (3.8-10.6)
[2021-04-18 23:15] LABS: Albumin 4.2 g/dL (3.5-5.0); Calcium 9.1 mg/dL (8.4-10.2); Magnesium 1.7 mg/dL (1.6-2.3); Potassium 3.8 mmol/L (3.5-5.1); Prothrombin Time 10.7 sec (9.0-12.0); Total Bilirubin 0.3 mg/dL (0.2-1.3); Total Protein 7.4 g/dL (6.3-8.2)
[2021-04-19] MEDS ORDERED: NITROGLYCERIN SL TABS 0.4 MG TAB SUBLINGUAL PRN (02:07)
--- NOTE | 2021-04-19 02:15 | ED ---
Chest Pain HPI - General Chief Complaint: Chest Pain Stated Complaint: Chest Pain Time Seen by Provider: 04/19/21 00:24 Source: patient, family Mode of arrival: wheelchair Limitations: no limitations - History of Present Illness Initial Comments: This patient is a 40-year-old woman who presents to be evaluated for chest pain. The patient states she had an episode of it yesterday in the evening which resolved, and then pain recurred tonight. She indicates the substernal area and states that it is pressure or heavy feeling. Tonight's episode radiated towards her left shoulder and arm. Patient denies associated symptoms. She does have history of smoking a pack of cigarettes per day for many years although within the past few weeks has cut down to one third pack per day. MD Complaint: chest pain -: hour(s) Onset: during rest Pain Location: substernal Pain Radiation: LUE Severity: moderate Quality: heaviness Consistency: intermittent Improves With: nothing Worsens With: nothing Treatments Prior to Arrival: none - Related Data Home Medications Medication Instructions Recorded Confirmed Omeprazole [PriLOSEC] 20 mg PO DAILY 09/04/14 01/17/21 Gabapentin [Neurontin] 400 mg PO TID 05/02/16 01/17/21 Escitalopram [Lexapro] 10 mg PO DAILY 02/24/17 01/17/21 Gabapentin [Neurontin] 100 mg PO TID 03/16/19 01/17/21 Hydrocodone/Acetaminophen [[place] 1 tab PO TID PRN 03/16/19 01/17/21 10-325] lisinopriL [Zestril] 10 mg PO HS 03/16/19 01/17/21 Albuterol Sulfate [Proair Hfa] 2 puff INHALATION RT-Q4H PRN 04/19/20 01/17/21 Diclofenac Sodium [Voltaren] 75 mg PO BID 04/19/20 01/17/21 Doxepin HCl 100 mg PO HS 04/19/20 01/17/21 Topiramate 100 mg PO HS 04/19/20 01/17/21 acetaZOLAMIDE [acetaZOLAMIDE ER] 4,000 mg PO TID 04/19/20 01/17/21 metFORMIN HCL 500 mg PO DAILY 04/19/20 01/17/21 Butalb/APAP/Caff 50-325-40Mg 1 tab PO Q8H PRN 05/25/20 01/17/21 [Fioricet 50-325-40] Atorvastatin [Lipitor] 20 mg PO DAILY 01/17/21 01/17/21 Ergocalciferol [Vitamin D2 (1250 1,250 mcg PO WEEKLY 01/17/21 01/17/21 Mcg = [id number] Iu)] Levothyroxine Sodium [Synthroid] 50 mcg PO DAILY 01/17/21 01/17/21 Previous Rx's Medication Instructions Recorded Lidocaine [Lidoderm 5% Patch] 1 patch TRANSDERM DAILY 10 Days 12/03/20 #10 patch Allergies Allergy/AdvReac Type Severity Reaction Status Date / Time morphine Allergy Rash/Hives Verified 04/18/21 21:16 tramadol Allergy Rash/Hives Verified 04/18/21 21:16 Review of Systems ROS Statement: Those systems with pertinent positive or pertinent negative responses have been documented in the HPI. ROS Other: All systems not noted in ROS Statement are negative. Constitutional: Denies: fever, chills Respiratory: Denies: cough, dyspnea Cardiovascular: Reports: chest pain. Denies: palpitations, orthopnea, edema, syncope Gastrointestinal: Reports: abdominal pain. Denies: nausea, vomiting, diarrhea, constipation Genitourinary: Denies: dysuria, hematuria Musculoskeletal: Denies: back pain Skin: Denies: rash Neurological: Denies: headache, weakness, numbness Past Medical History Past Medical History: Asthma, Chest Pain / Angina, Diabetes Mellitus, GERD/Reflux, Hypertension, Osteoarthritis (OA), Skin Disorder Additional Past Medical History / Comment(s): migraines, IBS, rash under arms, overactive bladder, "tingling arms" for a month, newly diagnosed diabetic,brian malformation, pseudotumor cerebri History of Any Multi-Drug Resistant Organisms: None Reported Past Surgical History: Cholecystectomy, Orthopedic Surgery Additional Past Surgical History / Comment(s): removal of mole from genital area. 12/2020 - teeth removed. Past Anesthesia/Blood Transfusion Reactions: No Reported Reaction Past Psychological History: Anxiety, Depression Smoking Status: Current every day smoker Past Alcohol Use History: Rare Past Drug Use History: None Reported - Past Family History Mother Family Medical History: No Reported History General Exam Limitations: no limitations General appearance: alert, in no apparent distress, obese Head exam: Present: atraumatic Eye exam: Present: normal appearance Respiratory exam: Present: normal lung sounds bilaterally. Absent: respiratory distress, wheezes, rales, rhonchi, stridor Cardiovascular Exam: Present: regular rate, normal rhythm, normal heart sounds. Absent: systolic murmur, diastolic murmur, rubs, gallop GI/Abdominal exam: Present: soft, tenderness (Periumbilical and right lower quadrant). Absent: distended, guarding, rebound, rigid, mass Extremities exam: Present: normal inspection, normal capillary refill. Absent: pedal edema, calf tenderness Back exam: Present: normal inspection Neurological exam: Present: alert Skin exam: Present: warm, dry, intact, normal color. Absent: rash Course Vital Signs 04/18/21 21:12 Temperature 98.4 F Pulse Rate 72 Respiratory 22 Rate Blood Pressure 147/78 O2 Sat by Pulse 100 Oximetry Disposition Referrals: Diogenes Rosenbaum MD [Primary Care Provider] - 1-2 days
--- NOTE | 2021-04-19 02:36 | CT ---
EXAMINATION TYPE: CT abdomen pelvis w con DATE OF EXAM: 04/19/2021 COMPARISON: 07/07/2020 HISTORY: RUQ pain CT DLP: mGycm Automated exposure control for dose reduction was used. CONTRAST: Performed with IV Contrast, patient injected with 100 mL of Isovue 300. Lung bases are clear. There is no pleural effusion. Heart size is normal. There is no pericardial eff usion. Liver spleen pancreas stomach appear intact. The bile ducts are not dilated. There are clips from cho lecystectomy. There is no adrenal mass. Kidneys show satisfactory contrast opacification. There is no hydronephrosi s. Ureters are not dilated. There is no retroperitoneal adenopathy. Appendix appears normal. The blad hernandez distends smoothly. There is no inguinal hernia. There is no mesenteric edema. There is no ascites or free air. There is no bowel obstruction. The lum bar vertebra have normal alignment. There is vacuum disc at L5-S1. The bony pelvis is intact. Hip mari nts are intact. IMPRESSION: Normal appendix. No acute abnormality of the abdomen pelvis.
[2021-04-19 05:38] VITALS: PULSE 69; RESP 16
[2021-04-19 09:14] VITALS: BP 100/52; TEMP 98.1
--- NOTE | 2021-04-19 09:40 | P.CRDCN ---
History of Present Illness History of present illness: HISTORY OF PRESENTING ILLNESS This is a pleasant 40-year-old female past medical history significant for hypertension, obesity, chronic nicotine dependence, obstructive sleep apnea, dyslipidemia, type 2 diabetes. She followed up with Dr. Salazar in 05/2019. We have been asked to see in consultation for chest pain. Patient is seen and examined in the emergency department. Patient presents to emergency department, with an episode of chest pain yesterday evening. She states that the chest pain was brief. States it is located across her anterior chest. It was nonradiating, nonexertional. She describes it as a pressure heavy feeling. She denies any associated palpitations, shortness of breath, lightheadedness, dizziness, nausea, diaphoresis, vomiting. She denies any symptoms of syncope or near syncope. She denies any symptoms of orthopnea or PND. She states she continues to smoke cigarettes but is working on quitting and has decreased her daily intake. She denies alcohol or illicit drug use. She states she is compliant with her medication. She denies history of coronary artery disease, RI, stroke. She denies any family history of coronary artery disease. DIAGNOSTICS EKG this morning sinus rhythm, poor R wave progression, T wave inversion in leads III, no significant ST-T wave abnormalities. Prior EKG in 2019 with T wave inversion in leads III. EKG on admission revealed sinus rhythm T wave inversions in lead III and V5, appears to be lead placement, repeat EKG with no T wave inversion in leads V5. Most recent stress test in the office stress echo 05/20/2019 Negative for reversible ischemia. Echocardiogram in 2019 in the office revealed normal ejection fraction, mild tricuspid regurgitation, mild LVH, RVSP of 56 mmHg. Telemetry tracings indicate sinus mechanism, heart rate in the 60s Chest xray no acute cardiopulmonary process Laboratory reviewed, WBC 14.7, hemoglobin 14.5, platelets 3:30, troponin negative 3, sodium 139, potassium 3.8, BUN 14, serum creatinine 1.0, magnesium 1.7, [place] 19 PCR negative Current home medications include lisinopril 10 mg daily, atorvastatin 20 mg daily, metformin, Toprol room 8, omeprazole, [place], gabapentin, Lexapro, doxepin, diclofenac, PRN xanax. REVIEW OF SYSTEMS At the time of my exam: CONSTITUTIONAL: Denies fever or chills. CARDIOVASCULAR: +chest pain, Denies shortness of breath, orthopnea, PND or palp itations. RESPIRATORY: Denies cough. GASTROINTESTINAL: Denies abdominal pain, diarrhea, constipation, nausea or vomiting. MUSCULOSKELETAL: Denies myalgias. NEUROLOGIC: Denies numbness, tingling, headache or weakness. ENDOCRINE: Denies fatigue, weight change, polydipsia or polyurina. GENITOURINARY: Denies burning, hematuria or urgency with micturation. HEMATOLOGIC: Denies history of anemia or bleeding. PHYSICAL EXAMINATION Blood pressure 100/52, heart rate 69, afebrile, saturations greater than 92% on room air CONSTITUTIONAL: No apparent distress. HEENT: Head is normocephalic. Pupils are equal, round. Sclerae anicteric. Mucous membranes of the mouth are moist. No JVD. No carotid bruit. CHEST EXAMINATION: Lungs are clear to auscultation. No chest wall tenderness is noted on palpation or with deep breathing. HEART EXAMINATION: Regular rate and rhythm. S1, S2 heard. No murmurs, gallops or rub. ABDOMEN: Soft, nontender. Positive bowel sounds. EXTREMITIES: 2+ peripheral pulses, no lower extremity edema and no calf tenderness. SKIN: warm, dry, NEUROLOGIC EXAMINATION: Patient is awake, alert and oriented x3. ASSESSMENT Chest pain, atypical, acute coronary syndrome has been ruled out History of hypertension Obesity BMI 61 Chronic nicotine dependence Obstructive sleep apnea Dyslipidemia Type 2 Diabetes PLAN An acute coronary event has been ruled out with no EKG evidence of ischemia and negative cardiac enzymes. Smoking cessation discussed and highly recommended. From a cardiology perspective, patient is stable to be discharged home today. Recommend follow up with Dr. Salazar in 1 week and stress test can be performed as an outpatient. Continue home cardiac medications. Thank you kindly for this consultation. Nurse Practitioner note has been reviewed, I agree with a documented findings and plan of care. Patient was seen and examined. Past Medical History Past Medical History: Asthma, Chest Pain / Angina, Diabetes Mellitus, GERD/Reflux, Hypertension, Osteoarthritis (OA), Skin Disorder Additional Past Medical History / Comment(s): migraines, IBS, rash under arms, overactive bladder, "tingling arms" for a month, newly diagnosed diabetic,brian malformation, pseudotumor cerebri History of Any Multi-Drug Resistant Organisms: None Reported Past Surgical History: Cholecystectomy, Orthopedic Surgery Additional Past Surgical History / Comment(s): removal of mole from genital area. 12/2020 - teeth removed. Past Anesthesia/Blood Transfusion Reactions: No Reported Reaction Past Psychological History: Anxiety, Depression Smoking Status: Current every day smoker Past Alcohol Use History: Rare Past Drug Use History: None Reported - Past Family History Mother Family Medical History: No Reported History Medications and Allergies Home Medications Medication Instructions Recorded Confirmed Type Omeprazole [PriLOSEC] 20 mg PO DAILY 09/04/14 04/19/21 History Gabapentin [Neurontin] 400 mg PO TID 05/02/16 04/19/21 History Escitalopram [Lexapro] 10 mg PO DAILY 02/24/17 04/19/21 History Gabapentin [Neurontin] 100 mg PO TID 03/16/19 04/19/21 History Hydrocodone/Acetaminophen [[place] 1 tab PO Q6H PRN 03/16/19 04/19/21 History 10-325] lisinopriL [Zestril] 10 mg PO DAILY 03/16/19 04/19/21 History Albuterol Sulfate [Proair Hfa] 2 puff INHALATION RT-Q4H PRN 04/19/20 04/19/21 H istory Diclofenac Sodium [Voltaren] 75 mg PO BID 04/19/20 04/19/21 History Doxepin HCl 50 mg PO BID 04/19/20 04/19/21 History Topiramate 50 mg PO BID 04/19/20 04/19/21 History acetaZOLAMIDE [acetaZOLAMIDE ER] 1,500 mg PO BID@0900,1600 04/19/20 04/19/21 History metFORMIN HCL 500 mg PO DAILY 04/19/20 04/19/21 History Butalb/APAP/Caff 50-325-40Mg 1 tab PO Q8H PRN 05/25/20 04/19/21 History [Fioricet 50-325-40] Atorvastatin [Lipitor] 20 mg PO DAILY 01/17/21 04/19/21 History Ergocalciferol [Vitamin D2 (1250 1,250 mcg PO Q7D 01/17/21 04/19/21 History Mcg = 40818 Iu)] ALPRAZolam [Xanax] 0.5 mg PO TID PRN 04/19/21 04/19/21 History Fish Oil/Dha/Epa [Fish Oil 1,200 1 cap PO DAILY 04/19/21 04/19/21 History mg Fish Oil] Nicotine Polacrilex [Nicotine 2 - 4 mg BUCCAL Q2H PRN 04/19/21 04/19/21 History Lozenge] acetaZOLAMIDE [acetaZOLAMIDE ER] 1,000 mg PO HS 04/19/21 04/19/21 History Allergies Allergy/AdvReac Type Severity Reaction Status Date / Time morphine Allergy Rash/Hives Verified 04/19/21 07:49 tramadol Allergy Rash/Hives Verified 04/19/21 07:49 Physical Exam Vitals: Vital Signs Temp Pulse Resp BP Pulse Ox 04/19/21 04:00 69 16 109/69 98 04/18/21 21:12 98.4 F 72 22 147/78 100 Intake and Output 04/18/21 04/19/21 04/19/21 22:59 06:59 14:59 Other: Weight 192.777 kg Results 04/18/21 22:48 04/18/21 22:48 Cardiac Enzymes 04/18/21 04/18/21 04/19/21 Range/Units 22:48 22:48 02:33 AST 46 H (14-36) U/L Troponin I <0.012 <0.012 (0.000-0.034) ng/mL 04/19/21 Range/Units 05:25 AST (14-36) U/L Troponin I 0.012 (0.000-0.034) ng/mL Coagulation 04/18/21 Range/Units 22:48 PT 10.7 (9.0-12.0) sec APTT 26.0 (22.0-30.0) sec CBC 04/18/21 Range/Units 22:48 WBC 14.7 H (3.8-10.6) k/uL RBC 4.61 (3.80-5.40) m/uL Hgb 14.5 (11.4-16.0) gm/dL Hct 44.1 (34.0-46.0) % Plt Count 330 (150-450) k/uL Comprehensive Metabolic Panel 04/18/21 Range/Units 22:48 Sodium 139 (137-145) mmol/L Potassium 3.8 (3.5-5.1) mmol/L Chloride 111 H (98-107) mmol/L Carbon Dioxide 19 L (22-30) mmol/L BUN 14 (7-17) mg/dL Creatinine 1.02 (0.52-1.04) mg/dL Glucose 107 H (74-99) mg/dL Calcium 9.1 (8.4-10.2) mg/dL AST 46 H (14-36) U/L ALT 60 H (4-34) U/L Alkaline Phosphatase 99 (38-126) U/L Total Protein 7.4 (6.3-8.2) g/dL Albumin 4.2 (3.5-5.0) g/dL Current Medications Generic Name Dose Route Start Last Admin Trade Name Freq PRN Reason Stop Dose Admin Aspirin 325 mg 04/20/21 09:00 Aspirin 325 Mg Tab PO DAILY ARIE Nitroglycerin 0.4 mg 04/19/21 02:07 Nitroglycerin Sl Tabs 0.4 Mg Tab SUBLINGUAL Q5M PRN Chest Pain Intake and Output 04/18/21 04/19/21 04/19/21 22:59 06:59 14:59 Other: Weight 192.777 kg 04/18/21 22:48 04/18/21 22:48
[2021-04-19] MEDS ORDERED: ASPIRIN 81 MG PO SCH (09:45)
[2021-04-19] MEDS ORDERED: HYDROcodone/APAP 10-325MG 1 EACH TAB PO PRN (10:55)
[2021-04-19] MEDS ORDERED: BUTALB/APAP/CAFF 50-325-40MG TAB PO PRN (10:55)
[2021-04-19] MEDS ORDERED: ALPRAZolam 0.5 MG TAB PO PRN (10:55)
[2021-04-19] MEDS ORDERED: ALBUTEROL NEBULIZED 2.5 MG/3 ML INHALATION PRN (10:55)
[2021-04-19] MEDS ORDERED: TOPIRAMATE 25 MG TAB PO SCH (11:00)
[2021-04-19] MEDS ORDERED: GABAPENTIN 100 MG CAP PO SCH (16:00)
[2021-04-19] MEDS ORDERED: PATIENT'S OWN (Acetazolamide [Acetazolamide Er] 500 MG Capsule.Er) PO SCH (16:00)
[2021-04-19] MEDS ORDERED: GABAPENTIN 400 MG CAP PO SCH (16:00)
--- NOTE | 2021-04-19 16:46 | P.HPIM ---
History of Present Illness H&P Date: 04/19/21 Chief Complaint: Chest pain History and Physical and Discharge Summary This is a 40-year-old female with history of chest pain, angina, diabetes mellitus, asthma, gastroesophageal reflux disease, hypertension, osteoarthritis, IBS, anxiety, depression, obesity, obstructive sleep apnea nicotine dependence and multiple other medical issues presented to the ER with midsternal chest pressure yesterday evening , nonradiating, lasting for less than 5 minutes, at rest. Denies diaphoresis. Reports nausea, no emesis. Glucose 107. Reports diarrhea , up to 2 times per day -none today ; recently completed antibiotic and steroid treatment for upper respiratory infection last week.Denies lightheadedness, dizziness or focal deficits. Denies syncope Reports she has been under a lot of stress. Troponins negative 3, telemetry sinus rhythm. EKG currently not available. Chest x-ray negative, abdomen/pelvis CT negative. Reports multiple vague symptoms. Disclosed to nurse verifying her home medications that she had not had a period since January. Reports she has a history of IBS and follows with Dr. Regine Felipe-reports right lateral lower abdominal pain that fluctuates over the last few months. Renal function stable, mildly elevated AST and ALT. Coronavirus not detected. Afebrile, WBC 14.7. Blood pressures ranging from the low 100s to the 140s. Evaluated by cardiology, inpatient stress test offered, patient declined. Review of Systems ROS Statement: Those systems with pertinent positive or pertinent negative responses have been documented in the HPI. ROS Other: All systems not noted in ROS Statement are negative. C Past Medical History Past Medical History: Asthma, Chest Pain / Angina, Diabetes Mellitus, GERD/Reflux, Hypertension, Osteoarthritis (OA), Skin Disorder Additional Past Medical History / Comment(s): migraines, IBS, rash under arms, overactive bladder, "tingling arms" for a month, newly diagnosed diabetic,brian malformation, pseudotumor cerebri History of Any Multi-Drug Resistant Organisms: None Reported Past Surgical History: Cholecystectomy, Orthopedic Surgery Additional Past Surgical History / Comment(s): removal of mole from genital area. 12/2020 - teeth removed. Past Anesthesia/Blood Transfusion Reactions: No Reported Reaction Additional Past Anesthesia/Blood Transfusion Reaction / Comment(s): Pt has slight clausterphobia. Smoking Status: Current every day smoker - Past Family History Father Family Medical History: Diabetes Mellitus, Hyperlipidemia, Hypertension Additional Family Medical History / Comment(s): Father is . Mother Family Medical History: No Reported History Medications and Allergies Home Medications Medication Instructions Recorded Confirmed Type Gabapentin [Neurontin] 400 mg PO TID 05/02/16 04/19/21 History Escitalopram [Lexapro] 10 mg PO DAILY 02/24/17 04/19/21 History Gabapentin [Neurontin] 100 mg PO TID 03/16/19 04/19/21 History Hydrocodone/Acetaminophen [[place] 1 tab PO Q6H PRN 03/16/19 04/19/21 History 10-325] lisinopriL [Zestril] 10 mg PO DAILY 03/16/19 04/19/21 History Albuterol Sulfate [Proair Hfa] 2 puff INHALATION RT-Q4H PRN 04/19/20 04/19/21 History Diclofenac Sodium [Voltaren] 75 mg PO BID 04/19/20 04/19/21 History Doxepin HCl 50 mg PO BID 04/19/20 04/19/21 History Topiramate 50 mg PO BID 04/19/20 04/19/21 History acetaZOLAMIDE [acetaZOLAMIDE ER] 1,500 mg PO BID@0900,1600 04/19/20 04/19/21 History metFORMIN HCL 500 mg PO DAILY 04/19/20 04/19/21 History Butalb/APAP/Caff 50-325-40Mg 1 tab PO Q8H PRN 05/25/20 04/19/21 History [Fioricet 50-325-40] Atorvastatin [Lipitor] 20 mg PO DAILY 01/17/21 04/19/21 History Ergocalciferol [Vitamin D2 (1250 1,250 mcg PO Q7D 01/17/21 04/19/21 History Mcg = 78536 Iu)] ALPRAZolam [Xanax] 0.5 mg PO TID PRN 04/19/21 04/19/21 History Fish Oil/Dha/Epa [Fish Oil 1,200 1 cap PO DAILY 04/19/21 04/19/21 History mg Fish Oil] Nicotine Polacrilex [Nicotine 2 - 4 mg BUCCAL Q2H PRN 04/19/21 04/19/21 History Lozenge] Omeprazole [PriLOSEC] 20 mg PO BID #60 cap 04/19/21 Rx acetaZOLAMIDE [acetaZOLAMIDE ER] 1,000 mg PO HS 04/19/21 04/19/21 History Allergies Allergy/AdvReac Type Severity Reaction Status Date / Time morphine Allergy Rash/Hives Verified 04/19/21 07:49 tramadol Allergy Rash/Hives Verified 04/19/21 07:49 Physical Exam Vitals: Vital Signs Temp Pulse Resp BP BP Pulse Ox 04/19/21 08:00 16 04/19/21 07:00 98.1 F 18 100/52 95 04/19/21 04:00 69 16 109/69 98 04/18/21 21:12 98.4 F 72 22 147/78 100 Intake and Output 04/19/21 04/19/21 04/19/21 06:59 14:59 22:59 Other: Weight 192.777 kg PHYSICAL EXAM: VITAL SIGNS: [As above] GENERAL: Obese, Sitting up on stretcher, in no acute distress, smiling, HEENT: Conjunctivae normal. eyes normal. NECK: No JVD. No thyroid enlargement. No LNs CARDIOVASCULAR: S1, S2 regular..No murmur RESPIRATION: Breath sounds diminished in the bases. No rhonchi or crackles. No bronchial breathing. ABDOMEN: Soft, obese, nontender, nondistended . No guarding. no masses palpable. Bowel sounds heard. LEGS: No edema. no swelling, no clubbing, no cyanosis, no calf tenderness. PSYCHIATRY: Alert and oriented X3, mood and affect normal. NERVOUS SYSTEM: Cranial N 2-12 grossly normal.No focal deficits. Strength and sensation grossly intact. Skin: Warm and dry, no rash Results CBC & Chem 7: 04/18/21 22:48 04/18/21 22:48 Labs: Abnormal Lab Results - Last 24 Hours (Table) 04/18/21 04/18/21 Range/Units 22:48 22:48 WBC 14.7 H (3.8-10.6) k/uL Neutrophils # 10.8 H (1.3-7.7) k/uL Chloride 111 H (98-107) mmol/L Carbon Dioxide 19 L (22-30) mmol/L Glucose 107 H (74-99) mg/dL AST 46 H (14-36) U/L ALT 60 H (4-34) U/L Thrombosis Risk Factor Assmnt - Choose All That Apply Any of the Below Risk Factors Present?: Yes Each Factor Represents 1 point: Age 41-60 years, Obesity (BMI >25) Other Risk Factors: No Other congenital or acquired thrombophilia - If yes, enter type in comment: No Thrombosis Risk Factor Assessment Total Risk Factor Score: 2 Thrombosis Risk Factor Assessment Level: Low Risk Assessment and Plan Assessment: Chest pain, acute coronary syndrome ruled out as per cardiology Gastroesophageal reflux disease, PPI increased to twice a day. Nicotine abuse Morbid obesity, BMI 61 Obstructive sleep apnea History of hypertension Hyperlipidemia Diabetes mellitus Plan: Continue current medication regime ,monitoring and symptomatic treatment. Patient has been cleared by cardiology for discharge recommending outpatient stress test as patient declined inpatient stress test. Reports she has an appointment scheduled tomorrow with Alberto Palacio at Dr. Walker's office. Recommend outpatient follow-ups with [employer] regarding irregular menstrual cycle. PPI increased and patient was advised to take first dose on empty stomach in the a.m. with second dose 1 hour before evening meal. Patient will be discharged home today in a stable condition with guarded prognosis. The impression and plan of care has been dictated as directed. : I performed a history and examination of this patient, discussed the same with the dictator. I agree with the dictator's note ,documented as a scribe. Any additional findings or plans will be noted.
[2021-04-19] MEDS ORDERED: ACETAZOLAMIDE 500 MG PO SCH (21:00)
[2021-04-19] MEDS ORDERED: DOXEPIN 25 MG CAP PO SCH (21:00)
[2021-04-19] MEDS ORDERED: ETODOLAC 400 MG TAB PO SCH (21:00)
[2021-04-20] MEDS ORDERED: ATORVASTATIN 20 MG TAB PO SCH (09:00)
[2021-04-20] MEDS ORDERED: ASPIRIN 325 MG TAB PO SCH (09:00)
[2021-04-20] MEDS ORDERED: NON FORMULARY DRUG (Fish Oil/Dha/Epa [Fish Oil 1,200 Mg Fish Oil] 1 EACH Capsule) PO SCH (09:00)
[2021-04-20] MEDS ORDERED: lisinopriL 10 MG TAB PO SCH (09:00)
[2021-04-20] MEDS ORDERED: ESCITALOPRAM 10 MG TAB PO SCH (09:00)
[2021-04-20] MEDS ORDERED: metFORMIN 500 MG TAB PO SCH (09:00)
[2021-04-20] MEDS ORDERED: PANTOPRAZOLE 40 MG TABLET PO SCH (09:00)
[2021-04-22] MEDS ORDERED: ERGOCALCIFEROL 1,250 MCG (50,000 IU) CAPSULE PO SCH (09:00)
== END 2021-04-19 12:10 | disposition home or self-care (01) ==
LOC: EC 20:57 → 6NMEDSUR 04-19 02:07
PROVIDERS: ADMIT Family Medicine; ATTEND Family Medicine
DX: R07.89 Other chest pain (principal); K21.9 Gastro-esophageal reflux disease without esophagitis; I10 Essential (primary) hypertension; E11.9 Type 2 diabetes mellitus without complications; E78.5 Hyperlipidemia, unspecified; K58.0 Irritable bowel syndrome with diarrhea; R74.01 Elevation of levels of liver transaminase levels; I07.1 Rheumatic tricuspid insufficiency; J45.909 Unspecified asthma, uncomplicated; M19.90 Unspecified osteoarthritis, unspecified site; N32.81 Overactive bladder; G43.909 Migraine, unspecified, not intractable, without status migrainosus; G93.2 Benign intracranial hypertension; F32.A Depression, unspecified; F41.9 Anxiety disorder, unspecified; Q07.00 Arnold-Chiari syndrome without spina bifida or hydrocephalus; G47.33 Obstructive sleep apnea (adult) (pediatric); F17.210 Nicotine dependence, cigarettes, uncomplicated; N92.6 Irregular menstruation, unspecified; E66.01 Morbid (severe) obesity due to excess calories; Z68.44 Body mass index [BMI] 60.0-69.9, adult; Z20.822 Contact with and (suspected) exposure to COVID-19; Z79.84 Long term (current) use of oral hypoglycemic drugs; Z79.890 Hormone replacement therapy; Z79.899 Other long term (current) drug therapy; Z88.5 Allergy status to narcotic agent; Z90.49 Acquired absence of other specified parts of digestive tract; Z87.09 Personal history of other diseases of the respiratory system; Z87.2 Personal history of diseases of the skin and subcutaneous tissue; Z98.890 Other specified postprocedural states; Z71.6 Tobacco abuse counseling; Z83.3 Family history of diabetes mellitus; Z82.49 Family history of ischemic heart disease and other diseases of the circulatory system; Z83.49 Family history of other endocrine, nutritional and metabolic diseases
CPT/HCPCS: 99285; 36415 ×2; 93005; 80053; 83735; 84484 ×2; 85025; 85610; 85730; 87635; 71046; 74177; G0378; Q9967

== ENCOUNTER 2021-04-30 07:33 | Day surgery (SDC) | payer OTHER ==
[2021-04-26 11:26] VITALS: BMI 59.3
--- NOTE | 2021-04-30 07:56 | P.GSHP ---
History of Present Illness H&P Date: 04/30/21 CHIEF COMPLAINT: GERD HISTORY OF PRESENT ILLNESS: The patient is a 40-year-old female who presents reports gastroesophageal reflux disease. Upper endoscopy was offered for further evaluation and management. PAST MEDICAL HISTORY: Please see list. PAST SURGICAL HISTORY: Please see list. MEDICATIONS: Please see list. ALLERGIES: Please see list. SOCIAL HISTORY: No illicit drug use FAMILY HISTORY: No reports of Crohn disease or ulcerative colitis. REVIEW OF ORGAN SYSTEMS: CONSTITUTIONAL: No reports of fevers or chills. GI: Denies any blood in stools or constipation. PHYSICAL EXAM: VITAL SIGNS: Stable GENERAL: Well-developed and pleasant in no acute distress. HEENT: No scleral icterus. Extraocular movements grossly intact. Moist buccal mucosa. NECK: Supple without lymphadenopathy. CHEST: Unlabored respirations. Equal bilateral excursions. CARDIOVASCULAR: Regular rate and rhythm. Distal 2+ pulses. ABDOMEN: Soft, nondistended. MUSCULOSKELETAL: No clubbing, cyanosis, or edema. ASSESSMENT: 1. Gastroesophageal reflux disease PLAN: 1. Recommend proceeding with an upper endoscopy Past Medical History Past Medical History: Asthma, Chest Pain / Angina, Diabetes Mellitus, GERD/Reflux, Hyperlipidemia, Hypertension, Osteoarthritis (OA), Skin Disorder Additional Past Medical History / Comment(s): migraines, IBS, rash under arms, overactive bladder, "tingling arms" ,brian malformation, pseudotumor cerebri History of Any Multi-Drug Resistant Organisms: None Reported Past Surgical History: Cholecystectomy, Orthopedic Surgery Additional Past Surgical History / Comment(s): removal of mole from genital area. 12/2020 - teeth removed, lt foot Past Anesthesia/Blood Transfusion Reactions: No Reported Reaction, Motion Sickness Additional Past Anesthesia/Blood Transfusion Reaction / Comment(s): Pt has slight clausterphobia. Smoking Status: Current every day smoker - Past Family History Father Family Medical History: Diabetes Mellitus, Hyperlipidemia, Hypertension Additional Family Medical History / Comment(s): Father is . Mother Family Medical History: No Reported History Medications and Allergies Home Medications Medication Instructions Recorded Confirmed Type Gabapentin [Neurontin] 400 mg PO TID 05/02/16 04/26/21 History Escitalopram [Lexapro] 10 mg PO DAILY 02/24/17 04/26/21 History Gabapentin [Neurontin] 100 mg PO TID 03/16/19 04/26/21 History Hydrocodone/Acetaminophen [[place] 1 tab PO Q6H PRN 03/16/19 04/26/21 History 10-325] lisinopriL [Zestril] 10 mg PO HS 03/16/19 04/26/21 History Albuterol Sulfate [Proair Hfa] 2 puff INHALATION RT-Q4H PRN 04/19/20 04/26/21 History Diclofenac Sodium [Voltaren] 75 mg PO BID 04/19/20 04/26/21 History Doxepin HCl 50 mg PO HS 04/19/20 04/26/21 History Topiramate 100 mg PO HS 04/19/20 04/26/21 History metFORMIN HCL 500 mg PO DAILY 04/19/20 04/26/21 History Butalb/APAP/Caff 50-325-40Mg 1 tab PO Q8H PRN 05/25/20 04/26/21 History [Fioricet 50-325-40] Atorvastatin [Lipitor] 20 mg PO DAILY 01/17/21 04/26/21 History Ergocalciferol [Vitamin D2 (1250 1,250 mcg PO Q7D 01/17/21 04/26/21 History Mcg = 38887 Iu)] ALPRAZolam [Xanax] 0.5 mg PO TID PRN 04/19/21 04/26/21 History Nicotine Polacrilex [Nicotine 2 - 4 mg BUCCAL Q2H PRN 04/19/21 04/26/21 History Lozenge] Omeprazole [PriLOSEC] 20 mg PO BID #60 cap 04/19/21 04/26/21 Rx Allergies Allergy/AdvReac Type Severity Reaction Status Date / Time morphine Allergy Rash/Hives Verified 04/26/21 11:12 tramadol Allergy Rash/Hives Verified 04/26/21 11:12
[2021-04-30] MEDS ORDERED: LIDOCAINE 1% (10MG/ML) FOR IV START INTRADERMA PRN (08:02)
[2021-04-30] MEDS ORDERED: LACTATED RINGERS 1,000 ML IV SCH (08:02)
[2021-04-30 08:31] LABS: Glucose,Whole Blood 109 mg/dL (75-99)
[2021-04-30] MEDS ORDERED: KETAMINE 10 MG/ML 20 ML VIAL ONE (08:32)
[2021-04-30] MEDS ORDERED: PROPOFOL 10 MG/ML 20 ML VIAL IV ONE (08:32)
[2021-04-30] MEDS ORDERED: LIDOCAINE 1% INJ 10MG/ML (20 ML MDV) ONE (08:32)
[2021-04-30 08:36] VITALS: RESP 16; TEMP 97.1
[2021-04-30] MEDS ORDERED: IV FLUID CONTINUATION 900 ML IV ONE (08:46)
--- NOTE | 2021-04-30 08:47 | P.PCN ---
Date of Procedure: 04/30/21 Description of Procedure: PREOPERATIVE DIAGNOSIS: Gastroesophageal reflux disease. Morbid obesity. POSTOPERATIVE DIAGNOSIS: Morbid obesity. Gastritis. Gastroesophageal reflux disease. OPERATION: Esophagogastroduodenoscopy with biopsies along antrum. SURGEON: Macey Grimes MD ANESTHESIA: MAC. INDICATIONS: The patient is a 40-year-old female who presents with a history of reflux disease. Benefits and risks of the procedure were described. Informed consent was obtained. DESCRIPTION: The patient was brought into the endoscopy suite and laid in the left lateral decubitus position. An Olympus gastroscope was passed along the posterior oropharynx down to the distal esophagus where the squamocolumnar junction was encountered at 40 cm from the incisors. The stomach was entered and no bile reflux was found. Additional findings are listed below. Biopsies with cold forceps were obtained of the antrum. The first through third portion of the duodenum was examined and unremarkable. Retroflexion of the scope confirmed Hill grade 1 lower esophageal valve. The squamocolumnar junction demonstrated LA grade A erosive esophagitis. The stomach was desufflated. The patient tolerated the procedure well. FINDINGS: Squamocolumnar junction 40 cm from the incisors. Diaphragmatic hiatus at 40 cm. Hill grade 1 lower esophageal valve. LA grade A erosive esophagitis. No active duodenitis. Chronic gastritis with recent bleed RECOMMENDATIONS: Upper endoscopy as needed. Plan - Discharge Summary Discharge Rx Participant: No New Discharge Prescriptions: Continue Gabapentin [Neurontin] 400 mg PO TID Escitalopram [Lexapro] 10 mg PO DAILY lisinopriL [Zestril] 10 mg PO HS Hydrocodone/Acetaminophen [[place] 10-325] 1 tab PO Q6H PRN PRN Reason: Pain Gabapentin [Neurontin] 100 mg PO TID Doxepin HCl 50 mg PO HS metFORMIN HCL 500 mg PO DAILY Topiramate 100 mg PO HS Diclofenac Sodium [Voltaren] 75 mg PO BID Albuterol Sulfate [Proair Hfa] 2 puff INHALATION RT-Q4H PRN PRN Reason: Shortness Of Breath Butalb/APAP/Caff 50-325-40Mg [Fioricet 50-325-40] 1 tab PO Q8H PRN PRN Reason: Migraine Headache Atorvastatin [Lipitor] 20 mg PO DAILY Ergocalciferol [Vitamin D2 (1250 Mcg = 83413 Iu)] 1,250 mcg PO Q7D ALPRAZolam [Xanax] 0.5 mg PO TID PRN PRN Reason: Anxiety Omeprazole [PriLOSEC] 20 mg PO BID #60 cap Nicotine Polacrilex [Nicotine Lozenge] 2 - 4 mg BUCCAL Q2H PRN PRN Reason: CRAVINGS Discharge Medication List Gabapentin [Neurontin] 400 mg PO TID 05/02/16 [History] Escitalopram [Lexapro] 10 mg PO DAILY 02/24/17 [History] Gabapentin [Neurontin] 100 mg PO TID 03/16/19 [History] Hydrocodone/Acetaminophen [[place] 10-325] 1 tab PO Q6H PRN 03/16/19 [History] lisinopriL [Zestril] 10 mg PO HS 03/16/19 [History] Albuterol Sulfate [Proair Hfa] 2 puff INHALATION RT-Q4H PRN 04/19/20 [History] Diclofenac Sodium [Voltaren] 75 mg PO BID 04/19/20 [History] Doxepin HCl 50 mg PO HS 04/19/20 [History] Topiramate 100 mg PO HS 04/19/20 [History] metFORMIN HCL 500 mg PO DAILY 04/19/20 [History] Butalb/APAP/Caff 50-325-40Mg [Fioricet 50-325-40] 1 tab PO Q8H PRN 05/25/20 [History] Atorvastatin [Lipitor] 20 mg PO DAILY 01/17/21 [History] Ergocalciferol [Vitamin D2 (1250 Mcg = 85628 Iu)] 1,250 mcg PO Q7D 01/17/21 [History] ALPRAZolam [Xanax] 0.5 mg PO TID PRN 04/19/21 [History] Nicotine Polacrilex [Nicotine Lozenge] 2 - 4 mg BUCCAL Q2H PRN 04/19/21 [ History] Omeprazole [PriLOSEC] 20 mg PO BID #60 cap 04/19/21 [Rx] [facility] [place] [place] [facility] [place] [facility] Patient Instructions/Handouts: Diet for Stomach Ulcers and Gastritis (GEN), Gastritis (DC) Discharge Disposition: HOME SELF-CARE
[2021-04-30 09:05] VITALS: BP 112/61; PULSE 62
== END 2021-04-30 09:14 | disposition home or self-care (01) ==
LOC: ORWHC2ENDO 07:33
PROVIDERS: ATTEND Surgery Plastic and Reconstructive Surgery
DX: K29.50 Unspecified chronic gastritis without bleeding (principal); E66.01 Morbid (severe) obesity due to excess calories; Z68.44 Body mass index [BMI] 60.0-69.9, adult; J45.909 Unspecified asthma, uncomplicated; E11.9 Type 2 diabetes mellitus without complications; E78.5 Hyperlipidemia, unspecified; I10 Essential (primary) hypertension; M19.90 Unspecified osteoarthritis, unspecified site; R21 Rash and other nonspecific skin eruption; G43.909 Migraine, unspecified, not intractable, without status migrainosus; K58.9 Irritable bowel syndrome, unspecified; G93.5 Compression of brain; G93.2 Benign intracranial hypertension; Z90.49 Acquired absence of other specified parts of digestive tract; Z98.890 Other specified postprocedural states; F40.240 Claustrophobia; F17.200 Nicotine dependence, unspecified, uncomplicated; G47.33 Obstructive sleep apnea (adult) (pediatric); N32.81 Overactive bladder; F41.9 Anxiety disorder, unspecified; K76.0 Fatty (change of) liver, not elsewhere classified; Z83.3 Family history of diabetes mellitus; Z83.438 Family history of other disorder of lipoprotein metabolism and other lipidemia; Z82.49 Family history of ischemic heart disease and other diseases of the circulatory system; Z79.84 Long term (current) use of oral hypoglycemic drugs; Z79.899 Other long term (current) drug therapy; Z88.5 Allergy status to narcotic agent
CPT/HCPCS: 81025; 88305; 43239; J2001; J2704

== ENCOUNTER → 2021-05-03 | Outpatient (CLI) | payer OTHER ==
--- NOTE | 2021-05-03 22:36 | SFUN ---
SLEEP CENTER FOLLOW UP NOTE DATE OF SERVICE: 05/03/2021 This 40-year-old lady has been followed in Sleep Center for treatment of obstructive sleep apnea-hypopnea syndrome. Patient continues to use her CPAP equipment every night. She sleeps well with the machine, getting her supplies, except sometimes the patient gets the wrong size of mask. They sent her a large size and she feels better with medium size. She is using a full-face Simplus mask. [place] Sleepiness Scale today is 8, which is in normal range. I checked her CPAP unit. Pressure is 13 cm of water. Usage is 29/30 nights and 28/30 nights for more than 4 hours for last month, average 8.7 hours per night. Leak is 23 L/minute, which is acceptable. Apnea-hypopnea index is only 0.4, which is absolutely perfect. CURRENT MEDICATIONS: 1. 500 mg 3 times a day. 2. Omeprazole 20 mg once a day. 3. Escitalopram 10 mg once a day. 4. Diclofenac 75 mg twice a day. 5. Gabapentin 400 mg 3 times a day. 6. Metformin 500 mg once a day. 7. Lisinopril 10 mg once a day. 8. Topiramate 50 mg twice a day. 9. Doxepin 50 mg twice a day. 10.Fioricet as needed. 11.Albuterol inhaler as needed. 12.Xanax on p.r.n. basis. 13.[place] as needed. PHYSICAL EXAMINATION: GENERAL: Pleasant patient in no distress. VITAL SIGNS: BP 152/77, HR 64, RR 15, height 5 feet 9 inches, weight 451, body mass index 66.6, temperature 98.2, oxygen saturation at room air 97%. HEENT: PERRLA, EOMI, evaluation of oropharynx showed tongue protrudes midline. Extremely low position of soft palate; Mallampati IV. NECK: Supple, no JVD. Thyroid is not palpable. LUNGS: Clear to percussion and to auscultation. Good air exchange. No wheezing or rhonchi. HEART: S1, S2 regular. No murmurs, gallops, or rubs. ABDOMEN: Significantly obese. EXTREMITIES: No clubbing or cyanosis. RACING [employer]IVER: Awake, alert, and oriented X3. Cranial nerves 2 to 7 intact. There is no fasciculation or atrophy. noted. No focal deficits observed. IMPRESSION: 1. Obstructive sleep apnea-hypopnea syndrome. Patient demonstrated great compliance with treatment, benefitting from treatment. Normal respiration on CPAP. 2. Morbid obesity. 3. Hypertension. 4. History of anxiety. 5. History of depression. 6. Acid reflux. 7. Asthma. 8. Hip problems. 9. Back problems. 10.Status post cholecystectomy. 11.Status post left foot surgery. PLAN: 1. Prescription was written for all necessary CPAP supplies, including a medium-size Simplus full-face mask. 2. Patient will continue to use PAP equipment every night for the whole night. 3. Sleep hygiene with regular time in bed for at least 7-1/2 to 8 hours. 4. Precautions related to driving. No driving if feeling sleepiness. 5. I will maintain all necessary prescription for PAP supplies including mask, tube, filters. 6. Watching weight. 7. Follow-up visit in one year or earlier if patient has any problems. Thank you very much for allowing me to participate in the management of your patient. Sincerely, Billy Carolina MD, PhD, FAASM Diplomat of [employer] Sleep Medicine Board of [employer] of [facility] [place] MMODL / IJN: [id number] /
== END ==
LOC: SLEEP 14:12
PROVIDERS: ATTEND Internal Medicine
DX: G47.33 Obstructive sleep apnea (adult) (pediatric) (principal); E66.01 Morbid (severe) obesity due to excess calories; I10 Essential (primary) hypertension; F41.9 Anxiety disorder, unspecified; F32.A Depression, unspecified; K21.9 Gastro-esophageal reflux disease without esophagitis; J45.909 Unspecified asthma, uncomplicated; F17.200 Nicotine dependence, unspecified, uncomplicated; M53.80 Other specified dorsopathies, site unspecified; Z90.49 Acquired absence of other specified parts of digestive tract; Z98.890 Other specified postprocedural states; Z99.89 Dependence on other enabling machines and devices; Z79.84 Long term (current) use of oral hypoglycemic drugs; Z79.899 Other long term (current) drug therapy; Z88.6 Allergy status to analgesic agent

== ENCOUNTER 2021-07-29 15:39 | Emergency (ER) | payer OTHER ==
[2021-07-29 15:43] VITALS: RESP 18; TEMP 98.2
[2021-07-29] MEDS ORDERED: SODIUM CHLORIDE 0.9% 1,000 ML IV STA (16:48)
--- NOTE | 2021-07-29 16:50 | ED ---
Abdominal Pain HPI - General Chief Complaint: Abdominal Pain Stated Complaint: Abd pain Time Seen by Provider: 07/29/21 16:44 Source: patient, RN notes reviewed Mode of arrival: ambulatory Limitations: no limitations - History of Present Illness Initial Comments: Pleasant 41-year-old female presents with abdominal pain going on for about 2 weeks. Patient has history of asthma, diabetes mellitus, gastroesophageal reflux disease, hypertension, osteoarthritis, and IBS.Patient denies chest pain. She states the pain is sharp in nature, intermittent, has been lasting for up to 2 weeks. No alleviating or exacerbating factors. No radiation. Patient has previous had a cholecystectomy. Patient states she is no longer considered diabetic. She denies chance of . No known fever. History of fatty liver disease and subsequent pain secondary to this. No headache, no fever or chills, no changes in vision or hearing, no sore throat or difficulty with speech, no neck pain, no chest pain or shortness of breath, no vomiting, no changes in urination or bowel movements, no numbness or tingling, no extremity pain, no skin rashes or lesions. - Related Data Home Medications Medication Instructions Recorded Confirmed Gabapentin [Neurontin] 400 mg PO TID 05/02/16 05/09/21 Escitalopram [Lexapro] 10 mg PO DAILY 02/24/17 05/09/21 Gabapentin [Neurontin] 100 mg PO TID 03/16/19 05/09/21 Hydrocodone/Acetaminophen [[place] 1 tab PO Q6H PRN 03/16/19 05/09/21 10-325] Albuterol Sulfate [Proair Hfa] 2 puff INHALATION RT-Q4H PRN 04/19/20 05/09/21 Diclofenac Sodium [Voltaren] 75 mg PO BID 04/19/20 05/09/21 Doxepin HCl 50 mg PO HS 04/19/20 05/09/21 Topiramate 100 mg PO HS 04/19/20 05/09/21 metFORMIN HCL 500 mg PO DAILY 04/19/20 05/09/21 Atorvastatin [Lipitor] 20 mg PO DAILY 01/17/21 05/09/21 Ergocalciferol [Vitamin D2 (1250 1,250 mcg PO Q7D 01/17/21 05/09/21 Mcg = 12975 Iu)] ALPRAZolam [Xanax] 0.5 mg PO TID PRN 04/19/21 05/09/21 Levothyroxine Sodium [Synthroid] 50 mcg PO DAILY 07/29/21 07/29/21 Omeprazole [PriLOSEC] 20 mg PO DAILY 07/29/21 07/29/21 Allergies Allergy/AdvReac Type Severity Reaction Status Date / Time morphine Allergy Rash/Hives Verified 05/09/21 15:54 tramadol Allergy Rash/Hives Verified 05/09/21 15:54 Review of Systems ROS Statement: Those systems with pertinent positive or pertinent negative responses have been documented in the HPI. ROS Other: All systems not noted in ROS Statement are negative. Past Medical History Past Medical History: Asthma, Chest Pain / Angina, Diabetes Mellitus, GERD/Reflux, Hypertension, Osteoarthritis (OA), Skin Disorder Additional Past Medical History / Comment(s): migraines, IBS, rash under arms, overactive bladder, "tingling arms" for a month, newly diagnosed diabetic,brian malformation, pseudotumor cerebri History of Any Multi-Drug Resistant Organisms: None Reported Past Surgical History: Cholecystectomy, Orthopedic Surgery Additional Past Surgical History / Comment(s): removal of mole from genital area. 12/2020 - teeth removed. Past Anesthesia/Blood Transfusion Reactions: No Reported Reaction Additional Past Anesthesia/Blood Transfusion Reaction / Comment(s): Pt has slight clausterphobia. Past Psychological History: Anxiety, Depression Smoking Status: Current every day smoker Past Alcohol Use History: Rare Past Drug Use History: None Reported - Past Family History Father Family Medical History: Diabetes Mellitus, Hyperlipidemia, Hypertension Additional Family Medical History / Comment(s): Father is . Mother Family Medical History: No Reported History General Exam Limitations: no limitations General appearance: alert, in no apparent distress, obese Head exam: Present: atraumatic, normocephalic, normal inspection Eye exam: Present: normal appearance, PERRL, EOMI. Absent: scleral icterus, conjunctival injection, periorbital swelling ENT exam: Present: normal exam, mucous membranes moist Neck exam: Present: normal inspection. Absent: tenderness, meningismus, lymphadenopathy Respiratory exam: Present: normal lung sounds bilaterally. Absent: respiratory distress, wheezes, rales, rhonchi, stridor Cardiovascular Exam: Present: regular rate, normal rhythm, normal heart sounds. Absent: systolic murmur, diastolic murmur, rubs, gallop, clicks GI/Abdominal exam: Present: soft, tenderness (Right upper quadrant), guarding (Voluntary guarding), normal bowel sounds, hyperactive bowel sounds. Absent: distended, rebound, rigid Extremities exam: Present: normal inspection, full ROM, normal capillary refill. Absent: tenderness, pedal edema, joint swelling, calf tenderness Back exam: Present: normal inspection Neurological exam: Present: alert, oriented X3, CN II-XII intact Psychiatric exam: Present: normal affect, normal mood Skin exam: Present: warm, dry, intact, normal color, rash (Patient has had shingles and has resolving lesions to the right thoracic back area.) Course Vital Signs 07/29/21 15:41 Temperature 98.2 F Pulse Rate 70 Respiratory 18 Rate Blood Pressure 148/77 O2 Sat by Pulse 98 Oximetry - Reevaluation(s) Reevaluation #1: 07/29/21 18:41 Medical record is reviewed Symptoms are improved here in the emergency department Patient is informed of results and questions answered Patient in no distress 07/29/21 18:41 Medical Decision Making - Medical Decision Making Computed tomography scan with IV contrast reveals no acute pathology. However there is very little contrast seen in the renal collecting system which could suggest some degree of renal failure. This was per radiology. Normal appendix. No other acute findings. patient's renal function is completely normal. This does not correspond with any degree of renal failure. The case was discussed in detail with ED attending physician. Presentation, findings, treatment plan discussed in detail. Patient was told to return to the ER for any signs or symptoms worsen. Told to return immediately if any other problems arise. All questions answered. T reatment plan discussed. Patient in agreement Every effort has been made to ensure accuracy of this dictation. However, due to the limitations of electronic medical records and dictation devices, errors in charting still occur. Patient is finishing treatment for shingles. One day of antivirals left. I suspect the patient symptomology be may be related to this as the abdominal work up was otherwise unremarkable. Patient does take gabapentin. I told her to contact her neurologist for further treatment. We will have her take Tylenol as directed until then. - Lab Data Result diagrams: 07/29/21 17:32 07/29/21 17:32 Lab Results 07/29/21 07/29/2107/29/22 Range/Units 17:21 17:32 17:32 WBC 11.8 H (3.8-10.6) k/uL RBC 4.18 (3.80-5.40) m/uL Hgb 13.5 (11.4-16.0) gm/dL Hct 41.1 (34.0-46.0) % MCV 98.2 (80.0-100.0) fL MCH 32.3 (25.0-35.0) pg MCHC 32.9 (31.0-37.0) g/dL RDW 12.7 (11.5-15.5) % Plt Count 303 (150-450) k/uL MPV 8.0 Neutrophils % 70 % Lymphocytes % 20 % Monocytes % 4 % Eosinophils % 4 % Basophils % 1 % Neutrophils # 8.3 H (1.3-7.7) k/uL Lymphocytes # 2.4 (1.0-4.8) k/uL Monocytes # 0.5 (0-1.0) k/uL Eosinophils # 0.5 (0-0.7) k/uL Basophils # 0.1 (0-0.2) k/uL Sodium (137-145) mmol/L Potassium (3.5-5.1) mmol/L Chloride (98-107) mmol/L Carbon Dioxide (22-30) mmol/L Anion Gap mmol/L BUN (7-17) mg/dL Creatinine (0.52-1.04) mg/dL Est GFR (CKD-EPI)AfAm (>60 ml/min/1.73 sqM) Est GFR (CKD-EPI)NonAf (>60 ml/min/1.73 sqM) Glucose (74-99) mg/dL POC Glucose (mg/dL) 103 H (75-99) mg/dL POC Glu Pulley Man ID Tiffany Banuelos Plasma Lactic Acid [place] (0.7-2.0) mmol/L Calcium (8.4-10.2) mg/dL Total Bilirubin (0.2-1.3) mg/dL AST (14-36) U/L ALT (4-34) U/L Alkaline Phosphatase (38-126) U/L Troponin I (0.000-0.034) ng/mL Total Protein (6.3-8.2) g/dL Albumin (3.5-5.0) g/dL Amylase (30-110) U/L Lipase (23-300) U/L Urine Color Yellow Urine Appearance Turbid H (Clear) Urine pH 6.0 (5.0-8.0) Ur Specific [place] 1.040 H (1.001-1.035) Urine Protein 1+ H (Negative) Urine Glucose (UA) Negative (Negative) Urine Ketones Trace H (Negative) Urine Blood Negative (Negative) Urine Nitrite Negative (Negative) Urine Bilirubin Negative (Negative) Urine Urobilinogen 2.0 (<2.0) mg/dL Ur Leukocyte Esterase Small H (Negative) Urine RBC 6 H (0-5) /hpf Urine WBC 2 (0-5) /hpf Ur Squamous Epith Cells 71 H (0-4) /hpf Urine Bacteria Occasional H (None) /hpf Hyaline Casts 2 (0-2) /lpf Urine Mucus Few H (None) /hpf 07/29/21 07/29/21 07/29/21 Range/Units 17:32 17:32 17:32 WBC (3.8-10.6) k/uL RBC (3.80-5.40) m/uL Hgb (11.4-16.0) gm/dL Hct (34.0-46.0) % MCV (80.0-100.0) fL MCH (25.0-35.0) pg MCHC (31.0-37.0) g/dL RDW (11.5-15.5) % Plt Count (150-450) k/uL MPV Neutrophils % % Lymphocytes % % Monocytes % % Eosinophils % % Basophils % % Neutrophils # (1.3-7.7) k/uL Lymphocytes # (1.0-4.8) k/uL Monocytes # (0-1.0) k/uL Eosinophils # (0-0.7) k/uL Basophils # (0-0.2) k/uL Sodium 139 (137-145) mmol/L Potassium 4.2 (3.5-5.1) mmol/L Chloride 109 H (98-107) mmol/L Carbon Dioxide 23 (22-30) mmol/L Anion Gap 7 mmol/L BUN 13 (7-17) mg/dL Creatinine 0.79 (0.52-1.04) mg/dL Est GFR (CKD-EPI)AfAm >90 (>60 ml/min/1.73 sqM) Est GFR (CKD-EPI)NonAf >90 (>60 ml/min/1.73 sqM) Glucose 110 H (74-99) mg/dL POC Glucose (mg/dL) (75-99) mg/dL POC Glu Pulley Man ID Plasma Lactic Acid [place] 1.7 (0.7-2.0) mmol/L Calcium 8.9 (8.4-10.2) mg/dL Total Bilirubin 0.4 (0.2-1.3) mg/dL AST 34 (14-36) U/L ALT 35 H (4-34) U/L Alkaline Phosphatase 80 (38-126) U/L Troponin I <0.012 (0.000-0.034) ng/mL Total Protein 6.8 (6.3-8.2) g/dL Albumin 3.8 (3.5-5.0) g/dL Amylase 39 (30-110) U/L Lipase 92 (23-300) U/L Urine Color Urine Appearance (Clear) Urine pH (5.0-8.0) Ur Specific [place] (1.001-1.035) Urine Protein (Negative) Urine Glucose (UA) (Negative) Urine Ketones (Negative) Urine Blood (Negative) Urine Nitrite (Negative) Urine Bilirubin (Negative) Urine Urobilinogen (<2.0) mg/dL Ur Leukocyte Esterase (Negative) Urine RBC (0-5) /hpf Urine WBC (0-5) /hpf Ur Squamous Epith Cells (0-4) /hpf Urine Bacteria (None) /hpf Hyaline Casts (0-2) /lpf Urine Mucus (None) /hpf - EKG Data EKG Comments: EKG done at 1822 and read by the ED attending physician reveals sinus bradycardia with a rate of 54, normal intervals, normal axis, no acute ST or T- wave changes, mild poor R wave progression. Normal QRS morphology. - Radiology Data Radiology results: report reviewed, image reviewed Disposition Clinical Impression: Right upper quadrant abdominal pain, Neuralgia, post-herpetic Disposition: HOME SELF-CARE Condition: Stable Instructions (If sedation given, give patient instructions): Abdominal Pain (ED), Shingles (ED) Additional Instructions: No headache, no fever or chills, no changes in vision or hearing, no sore throat or difficulty with speech, no neck pain, no chest pain or shortness of breath, no abdominal pain, no nausea or vomiting, no changes in urination or bowel movements, no numbness or tingling, no extremity pain, no skin rashes or lesions. Is patient prescribed a controlled substance at d/c from ED?: No Referrals: Yoni Rai NPC [Family Provider] - 1-2 days Time of Disposition: 19:04
[2021-07-29] MEDS ORDERED: ONDANSETRON 4 MG/2 ML VIAL IVP STA (17:04)
[2021-07-29] MEDS ORDERED: MORPHINE SULFATE 4 MG/ML SYRINGE IV STA (17:04)
[2021-07-29 17:23] LABS: Glucose,Whole Blood 103 mg/dL (75-99)
[2021-07-29] MEDS ORDERED: HYDROmorphone 1 MG/ML 1 ML SYRINGE IVP STA (17:23)
[2021-07-29 17:41] LABS: Basophils # (A) 0.1 k/uL (0-0.2); Basophils % (A) 1 %; Eosinophils # (A) 0.5 k/uL (0-0.7); Eosinophils % (A) 4 %; HCT 41.1 % (34.0-46.0); HGB 13.5 gm/dL (11.4-16.0); Lymphocytes # (A) 2.4 k/uL (1.0-4.8); Lymphocytes % (A) 20 %; MCH 32.3 pg (25.0-35.0); MCHC 32.9 g/dL (31.0-37.0); MCV 98.2 fL (80.0-100.0); Monocytes # (A) 0.5 k/uL (0-1.0); Monocytes % (A) 4 %; Neutrophils # (A) 8.3 k/uL (1.3-7.7); Neutrophils % (A) 70 %; Platelet Count 303 k/uL (150-450); RBC 4.18 m/uL (3.80-5.40); RDW 12.7 % (11.5-15.5); WBC 11.8 k/uL (3.8-10.6)
[2021-07-29 17:50] LABS: ALT 35 U/L (4-34); AST 34 U/L (14-36); African American GFR (CKD) >90 (>60 ml/min/1.73 sqM); Albumin 3.8 g/dL (3.5-5.0); Alkaline Phosphatase 80 U/L (38-126); Amylase 39 U/L (30-110); Anion Gap 7 mmol/L; Blood Urea Nitrogen 13 mg/dL (7-17); Calcium 8.9 mg/dL (8.4-10.2); Carbon Dioxide 23 mmol/L (22-30); Chloride 109 mmol/L (98-107); Glucose 110 mg/dL (74-99); Lipase 92 U/L (23-300); Non-African American GFR(CKD) >90 (>60 ml/min/1.73 sqM); Potassium 4.2 mmol/L (3.5-5.1); Sodium 139 mmol/L (137-145); Total Bilirubin 0.4 mg/dL (0.2-1.3); Total Protein 6.8 g/dL (6.3-8.2)
[2021-07-29 18:32] LABS: Appearance,Urine Turbid (Clear); Bacteria,Urine Occasional /hpf; Bilirubin,Urine Negative (Negative); Blood,Urine Negative (Negative); Color,Urine Yellow; Glucose,Urine (UA) Negative (Negative); Hyaline Casts,Urine 2 /lpf (0-2); Ketones,Urine Trace (Negative); Leukocyte Esterase,Urine Small (Negative); Mucus,Urine Few /hpf; Nitrite,Urine Negative (Negative); Protein,Urine 1+ (Negative); RBC,Urine 6 /hpf (0-5); Squamous Epithelial Cell,Urine 71 /hpf (0-4); WBC,Urine 2 /hpf (0-5)
--- NOTE | 2021-07-29 18:34 | CT ---
EXAMINATION TYPE: CT abdomen pelvis w con DATE OF EXAM: 07/29/2021 COMPARISON: 04/19/2021 HISTORY: Right upper quadrant pain. CT DLP: 5265 mGycm Automated exposure control for dose reduction was used. CONTRAST: Performed with IV Contrast, patient injected with 100 mL of Isovue 300. Images obtained from the diaphragm to the floor the pelvis with IV contrast. Lung bases are clear. There is no pleural effusion. Heart size is normal. There is no pericardial eff usion. Liver spleen and stomach pancreas appear intact. The bile ducts are nondilated. There are clips from cholecystectomy. There is no adrenal mass. Kidneys show satisfactory contrast opacification. There is no hydronephrosi s. Ureters are not dilated. There is no retroperitoneal adenopathy. There is 3 cm fat-containing umbi lical hernia. Urinary bladder is almost empty. Uterus is anteverted. There is no evidence of pelvic m ass. No free fluid in the pelvis. Lumbar vertebrae have normal alignment. There is vacuum disc at L5- S1. There is no lumbar compression fracture. The bony pelvis is intact. The hip joints are intact. Appendix is medial and appears normal. There is very little contrast in the renal collecting systems on the delayed images that suggest some degree of renal failure. There is no mesenteric edema. There is no ascites or free air. There is no bowel obstruction. IMPRESSION: Normal appendix. Possible renal insufficiency. This is a change compared to old exam.
[2021-07-29 19:32] VITALS: BP 138/78; PULSE 72
== END 2021-07-29 19:32 | disposition home or self-care (01) ==
LOC: EC 15:39
DX: R10.11 Right upper quadrant pain (principal); B02.29 Other postherpetic nervous system involvement; F17.200 Nicotine dependence, unspecified, uncomplicated; I10 Essential (primary) hypertension; K21.9 Gastro-esophageal reflux disease without esophagitis; M19.90 Unspecified osteoarthritis, unspecified site; E11.9 Type 2 diabetes mellitus without complications; J45.909 Unspecified asthma, uncomplicated; Z90.49 Acquired absence of other specified parts of digestive tract; Z88.5 Allergy status to narcotic agent; Z79.899 Other long term (current) drug therapy; Z79.84 Long term (current) use of oral hypoglycemic drugs
CPT/HCPCS: 36415; 93005; 80053; 82150; 83605; 83690; 84484; 85025; 81001; 74177; 99284; 96374; 96375; 96361; J2405; J1170; Q9967

== ENCOUNTER 2021-10-19 19:31 | Emergency (ER) | payer OTHER ==
[2021-10-19 19:36] VITALS: RESP 18; TEMP 97.8
[2021-10-19] MEDS ORDERED: SODIUM CHLORIDE 0.9% 2,000 ML IV STA (19:56)
[2021-10-19 20:31] LABS: Basophils # (A) 0.1 k/uL (0-0.2); Basophils % (A) 1 %; Eosinophils # (A) 0.6 k/uL (0-0.7); Eosinophils % (A) 4 %; HCT 44.6 % (34.0-46.0); HGB 14.1 gm/dL (11.4-16.0); Lymphocytes # (A) 2.4 k/uL (1.0-4.8); Lymphocytes % (A) 15 %; MCH 31.1 pg (25.0-35.0); MCHC 31.7 g/dL (31.0-37.0); MCV 98.1 fL (80.0-100.0); Monocytes # (A) 0.5 k/uL (0-1.0); Monocytes % (A) 3 %; Neutrophils # (A) 11.9 k/uL (1.3-7.7); Neutrophils % (A) 76 %; Platelet Count 327 k/uL (150-450); RBC 4.54 m/uL (3.80-5.40); RDW 12.7 % (11.5-15.5); WBC 15.5 k/uL (3.8-10.6)
[2021-10-19] MEDS ORDERED: HYDROmorphone 0.5 MG/0.5 ML SYRINGE IVP STA (20:38)
--- NOTE | 2021-10-19 20:54 | ED ---
Female Urogenital HPI - General Chief complaint: Urogenital Stated complaint: abd pain Time Seen by Provider: 10/19/21 19:40 Source: patient Mode of arrival: ambulatory Limitations: no limitations - History of Present Illness Initial comments: Patient is a 41-year-old female who presents to the emergency department with concern for urinary tract infection. Patient states she urinated at about 4 PM today when she felt pain in the urethral and groin area. She noticed blood in her urine. The pain has continued throughout the day. Patient states she has had previous urinary tract infections however today the pain is worse than typical urinary tract infections and not limited to the urethra. Patient also reports right back pain. She does have history of kidney infection but denies history of kidney stone. Admits to chills. Denies shortness of breath, chest pain, abdominal pain, nausea, vomiting, and vaginal discharge. Denies concern for sexual transmitted infections. States her menstrual cycles are irregular. - Related Data Home Medications Medication Instructions Recorded Confirmed Gabapentin [Neurontin] 400 mg PO TID 05/02/16 07/29/21 Escitalopram [Lexapro] 10 mg PO DAILY 02/24/17 07/29/21 Gabapentin [Neurontin] 100 mg PO TID 03/16/19 07/29/21 Hydrocodone/Acetaminophen [[place] 1 tab PO Q6H PRN 03/16/19 07/29/21 10-325] Albuterol Sulfate [Proair Hfa] 2 puff INHALATION RT-Q4H PRN 04/19/20 07/29/21 Diclofenac Sodium [Voltaren] 75 mg PO BID-W/MEALS 04/19/20 07/29/21 Doxepin HCl 100 mg PO HS 04/19/20 07/29/21 Topiramate 50 mg PO BID 04/19/20 07/29/21 metFORMIN HCL 500 mg PO DAILY 04/19/20 07/29/21 Atorvastatin [Lipitor] 20 mg PO DAILY 01/17/21 07/29/21 Ergocalciferol [Vitamin D2 (1250 1,250 mcg PO Q7D 01/17/21 07/29/21 Mcg = 66507 Iu)] ALPRAZolam [Xanax] 0.5 mg PO TID PRN 04/19/21 07/29/21 Levothyroxine Sodium [Synthroid] 50 mcg PO DAILY 07/29/21 07/29/21 Omeprazole [PriLOSEC] 20 mg PO DAILY 07/29/21 07/29/21 Previous Rx's Medication Instructions Recorded Cephalexin [Keflex] 250 mg PO Q6HR 5 Days #20 cap 10/20/21 Allergies Allergy/AdvReac Type Severity Reaction Status Date / Time morphine Allergy Rash/Hives Verified 05/09/21 15:54 tramadol Allergy Rash/Hives Verified 05/09/21 15:54 Review of Systems ROS Statement: Those systems with pertinent positive or pertinent negative responses have been documented in the HPI. ROS Other: All systems not noted in ROS Statement are negative. Past Medical History Past Medical History: Asthma, Chest Pain / Angina, Diabetes Mellitus, GERD/Reflux, Hypertension, Osteoarthritis (OA), Skin Disorder Additional Past Medical History / Comment(s): migraines, IBS, rash under arms, overactive bladder, "tingling arms" for a month, newly diagnosed diabetic,brian malformation, pseudotumor cerebri History of Any Multi-Drug Resistant Organisms: None Reported Past Surgical History: Cholecystectomy, Orthopedic Surgery Additional Past Surgical History / Comment(s): removal of mole from genital area. 12/2020 - teeth removed. Past Anesthesia/Blood Transfusion Reactions: No Reported Reaction Additional Past Anesthesia/Blood Transfusion Reaction / Comment(s): Pt has slight clausterphobia. Past Psychological History: Anxiety, Depression Smoking Status: Current every day smoker Past Alcohol Use History: Rare Past Drug Use History: None Reported - Past Family History Father Family Medical History: Diabetes Mellitus, Hyperlipidemia, Hypertension Additional Family Medical History / Comment(s): Father is . Mother Family Medical History: No Reported History General Exam Limitations: no limitations General appearance: alert, in no apparent distress Head exam: Present: atraumatic, normocephalic, normal inspection Eye exam: Present: normal appearance, PERRL, EOMI. Absent: scleral icterus, conjunctival injection, periorbital swelling Respiratory exam: Present: normal lung sounds bilaterally. Absent: respiratory distress, wheezes, rales, rhonchi, stridor Cardiovascular Exam: Present: regular rate, normal rhythm, normal heart sounds. Absent: systolic murmur, diastolic murmur, rubs, gallop, clicks GI/Abdominal exam: Present: soft, normal bowel sounds. Absent: distended, tenderness, guarding, rebound, rigid External exam: Present: normal external exam Back exam: Present: normal inspection, full ROM, CVA tenderness (R). Absent: CVA tenderness (L) Neurological exam: Present: alert, oriented X3, CN II-XII intact Psychiatric exam: Present: normal affect, normal mood Skin exam: Present: warm, dry, intact, normal color. Absent: rash Course Vital Signs 10/19/21 10/20/21 19:34 00:28 Temperature 97.8 F Pulse Rate 75 83 Respiratory 18 18 Rate Blood Pressure 153/86 148/86 O2 Sat by Pulse 98 97 Oximetry Medical Decision Making - Medical Decision Making This is a 41-year-old female who presents with concern for urinary tract infection. Thorough history and examination were performed. Patient is well- appearing and in no apparent distress. There is quite a bit of gross blood in her urine sample. The abdomen is soft and nontender. Patient does have right- CVA tenderness. There is suspicion for kidney stone. I will obtain laboratory studies and CT of the abdomen and pelvis without contrast. White count is elevated at 15.5. Urinalysis reveals > 182 RBCs as well as 150 WBCs. Per lab the urine sample had so much blood that other aspects of the urinalysis could not be assessed. CT is negative for acute process. I then examined the external genitalia which was normal and did not reveal vaginal or urethral bleeding. At this time I will empirically treat patient with Keflex for urinary tract infection. She is instructed to follow-up with primary care provider in one to 2 days for repeat urinalysis. Return parameters discussed. Patient verbalizes understanding and is agreeable to this plan. Dr. Wade is my attending. - Lab Data Result diagrams: 10/19/21 20:18 10/19/21 20:47 Lab Results 10/19/21 10/19/21 10/19/21 Range/Units 20:18 20:18 20:18 WBC 15.5 H (3.8-10.6) k/uL RBC 4.54 (3.80-5.40) m/uL Hgb 14.1 (11.4-16.0) gm/dL Hct 44.6 (34.0-46.0) % MCV 98.1 (80.0-100.0) fL MCH 31.1 (25.0-35.0) pg MCHC 31.7 (31.0-37.0) g/dL RDW 12.7 (11.5-15.5) % Plt Count 327 (150-450) k/uL MPV 8.0 Neutrophils % 76 % Lymphocytes % 15 % Monocytes % 3 % Eosinophils % 4 % Basophils % 1 % Neutrophils # 11.9 H (1.3-7.7) k/uL Lymphocytes # 2.4 (1.0-4.8) k/uL Monocytes # 0.5 (0-1.0) k/uL Eosinophils # 0.6 (0-0.7) k/uL Basophils # 0.1 (0-0.2) k/uL Sodium (137-145) mmol/L Potassium (3.5-5.1) mmol/L Chloride (98-107) mmol/L Carbon Dioxide (22-30) mmol/L Anion Gap mmol/L BUN (7-17) mg/dL Creatinine (0.52-1.04) mg/dL Est GFR (CKD-EPI)AfAm (>60 ml/min/1.73 sqM) Est GFR (CKD-EPI)NonAf (>60 ml/min/1.73 sqM) Glucose (74-99) mg/dL Calcium (8.4-10.2) mg/dL Total Bilirubin (0.2-1.3) mg/dL AST (14-36) U/L ALT (4-34) U/L Alkaline Phosphatase (38-126) U/L Total Protein (6.3-8.2) g/dL Albumin (3.5-5.0) g/dL Lipase (23-300) U/L Urine Color Red Urine Appearance Bloody H (Clear) Urine RBC >182 H (0-5) /hpf Urine WBC 150 H (0-5) /hpf Urine HCG, Qual Not Detected (Not Detectd) 10/19/21 Range/Units 20:47 WBC (3.8-10.6) k/uL RBC (3.80-5.40) m/uL Hgb (11.4-16.0) gm/dL Hct (34.0-46.0) % MCV (80.0-100.0) fL MCH (25.0-35.0) pg MCHC (31.0-37.0) g/dL RDW (11.5-15.5) % Plt Count (150-450) k/uL MPV Neutrophils % % Lymphocytes % % Monocytes % % Eosinophils % % Basophils % % Neutrophils # (1.3-7.7) k/uL Lymphocytes # (1.0-4.8) k/uL Monocytes # (0-1.0) k/uL Eosinophils # (0-0.7) k/uL Basophils # (0-0.2) k/uL Sodium 138 (137-145) mmol/L Potassium 4.0 (3.5-5.1) mmol/L Chloride 112 H (98-107) mmol/L Carbon Dioxide 20 L (22-30) mmol/L Anion Gap 6 mmol/L BUN 12 (7-17) mg/dL Creatinine 0.86 (0.52-1.04) mg/dL Est GFR (CKD-EPI)AfAm >90 (>60 ml/min/1.73 sqM) Est GFR (CKD-EPI)NonAf 84 (>60 ml/min/1.73 sqM) Glucose 119 H (74-99) mg/dL Calcium 8.5 (8.4-10.2) mg/dL Total Bilirubin 0.2 (0.2-1.3) mg/dL AST 28 (14-36) U/L ALT 29 (4-34) U/L Alkaline Phosphatase 84 (38-126) U/L Total Protein 6.6 (6.3-8.2) g/dL Albumin 3.7 (3.5-5.0) g/dL Lipase 123 (23-300) U/L Urine Color Urine Appearance (Clear) Urine RBC (0-5) /hpf Urine WBC (0-5) /hpf Urine HCG, Qual (Not Detectd) Disposition Clinical Impression: Groin pain, Burning with urination Disposition: HOME SELF-CARE Condition: Good Instructions (If sedation given, give patient instructions): Urinary Tract Infection in Women (ED) Additional Instructions: Please take antibiotic as directed. Take Tylenol or Motrin as needed for pain. Follow-up with primary care provider for repeat urinalysis in 1-2 days. Return to the emergency department if you experience new, concerning, or worsening symptoms. Prescriptions: Cephalexin [Keflex] 250 mg PO Q6HR 5 Days #20 cap Is patient prescribed a controlled substance at d/c from ED?: No Referrals: Keyon Walker Jr, [Primary Care Provider] - 1-2 days Time of Disposition: 00:15
[2021-10-19 20:57] LABS: Appearance,Urine Bloody (Clear); Color,Urine Red; RBC,Urine >182 /hpf (0-5); WBC,Urine 150 /hpf (0-5)
[2021-10-19 22:06] LABS: ALT 29 U/L (4-34); AST 28 U/L (14-36); African American GFR (CKD) >90 (>60 ml/min/1.73 sqM); Albumin 3.7 g/dL (3.5-5.0); Alkaline Phosphatase 84 U/L (38-126); Anion Gap 6 mmol/L; Blood Urea Nitrogen 12 mg/dL (7-17); Calcium 8.5 mg/dL (8.4-10.2); Carbon Dioxide 20 mmol/L (22-30); Chloride 112 mmol/L (98-107); Glucose 119 mg/dL (74-99); Lipase 123 U/L (23-300); Non-African American GFR(CKD) 84 (>60 ml/min/1.73 sqM); Sodium 138 mmol/L (137-145); Total Bilirubin 0.2 mg/dL (0.2-1.3); Total Protein 6.6 g/dL (6.3-8.2)
--- NOTE | 2021-10-19 22:08 | CT ---
EXAMINATION TYPE: CT abdomen pelvis wo con CT DLP: 2842 mGycm, Automated exposure control for dose reduction was used. DATE OF EXAM: 10/19/2021 9:42 PM COMPARISON: CT abdomen pelvis most recent from 07/29/2021. CLINICAL INDICATION:Female, 41 years old with history of kidney stone concern; kidney stone concern TECHNIQUE: Standard CT of the abdomen and pelvis without IV or oral contrast. Lack of IV or oral co ntrast limits evaluation of solid and hollow organ viscera. Coronal and sagittal reformats were perfo rmed. FINDINGS: LOWER CHEST: Unremarkable ABDOMEN LIVER: Unremarkable GALLBLADDER AND BILE DUCTS: The gallbladder is surgically absent. PANCREAS: Unremarkable. SPLEEN: Unremarkable. ADRENAL GLANDS: Unremarkable. KIDNEYS AND URETERS: No evidence of hydronephrosis or renal calculus. There is some limitation for ev aluation of the ureters secondary to patient's body habitus. PELVIS BLADDER: Unremarkable REPRODUCTIVE: Unremarkable. ABDOMEN & PELVIS STOMACH AND BOWEL: No evidence of bowel obstruction. Appendix is normal. PERITONEUM: No evidence of pneumoperitoneum or free fluid. VASCULATURE: No evidence of aortic aneurysm. MUSCULOSKELETAL: Mild disc degeneration changes are present throughout the thoracolumbar spine.. LYMPH NODES: No gross evidence for lymphadenopathy. SOFT TISSUE/ABDOMINAL WALL: Fat filled umbilical hernia measuring 2.2 cm at the neck. IMPRESSION: 1. No evidence of hydronephrosis or obstructive uropathy. No acute intra-abdominal process. Appendix normal. 2. Fat filled umbilical hernia.
[2021-10-19] MEDS ORDERED: CEPHALEXIN 250 MG CAP PO STA (23:52)
[2021-10-20 00:29] VITALS: BP 148/86; PULSE 83
== END 2021-10-20 00:29 | disposition home or self-care (01) ==
LOC: EC 19:31
DX: R10.9 Unspecified abdominal pain (principal); R10.30 Lower abdominal pain, unspecified; R30.9 Painful micturition, unspecified; J45.909 Unspecified asthma, uncomplicated; E11.9 Type 2 diabetes mellitus without complications; I10 Essential (primary) hypertension; K21.9 Gastro-esophageal reflux disease without esophagitis; M19.90 Unspecified osteoarthritis, unspecified site; F17.200 Nicotine dependence, unspecified, uncomplicated; Z88.5 Allergy status to narcotic agent; Z79.899 Other long term (current) drug therapy; Z79.84 Long term (current) use of oral hypoglycemic drugs; Z79.1 Long term (current) use of non-steroidal anti-inflammatories (NSAID); Z87.440 Personal history of urinary (tract) infections; Z87.442 Personal history of urinary calculi; Z90.49 Acquired absence of other specified parts of digestive tract
CPT/HCPCS: 36415; 80053; 83690; 85025; 81001; 81025; 87086; 74176; 99284; 96374; 96361; J1170

== ENCOUNTER 2022-01-02 12:11 | Emergency (ER) | payer OTHER ==
[2022-01-02 12:20] VITALS: TEMP 97.8
[2022-01-02 13:37] LABS: Mucus,Urine Occasional /hpf; RBC,Urine >182 /hpf (0-5); Squamous Epithelial Cell,Urine 5 /hpf (0-4); WBC,Urine 68 /hpf (0-5)
[2022-01-02 13:45] LABS: Color,Urine Red
[2022-01-02 13:46] LABS: Appearance,Urine Bloody (Clear)
--- NOTE | 2022-01-02 13:46 | XR ---
EXAMINATION TYPE: XR KUB DATE OF EXAM: 01/02/2022 Comparison: 05/26/2020 Clinical History: 41-year-old female flank pain with hematuria Findings: No dilated small bowel, free fluid, or free air. No significant stool burden. Scattered air throughou t the colon extending distally to the rectum. No suspicious calcification seen. Cholecystectomy clips . Eventration right hemidiaphragm. Large patient body habitus. Impression: Large patient body habitus. Cholecystectomy clips. No free air or bowel obstruction. No definite susp icious calcifications are radiographically apparent.
[2022-01-02] MEDS ORDERED: HYDROmorphone 0.5 MG/0.5 ML SYRINGE IM STA (14:03)
--- NOTE | 2022-01-02 14:53 | ED ---
General Adult HPI - General Chief complaint: Urogenital Stated complaint: lower back pain, vaginal bleeding Time Seen by Provider: 01/02/22 12:55 Source: patient Mode of arrival: ambulatory Limitations: no limitations - History of Present Illness Initial comments: Patient is a 41-year-old female presents to the emergency room with complaints of right flank pain and hematuria with urinary frequency and burning. She reports symptoms began yesterday and have intensified. She also complains of worsening of her chronic headache symptoms and neck stiffness and which she follows with neurology regarding and had recent injections. She had similar symptoms of flank pain and hematuria in October of this year and was worked up for a kidney stone which was negative and ultimately she had treatment for UTI and symptoms resolved. She was not referred to urology at that time. In addition to her migraine and chronic neck pain she has a past medical history significant for diabetes, hypertension, osteoarthritis, asthma and GERD. - Related Data Home Medications Medication Instructions Recorded Confirmed Gabapentin [Neurontin] 400 mg PO TID 05/02/16 07/29/21 Escitalopram [Lexapro] 10 mg PO DAILY 02/24/17 07/29/21 Gabapentin [Neurontin] 100 mg PO TID 03/16/19 07/29/21 Hydrocodone/Acetaminophen [[place] 1 tab PO Q6H PRN 03/16/19 07/29/21 10-325] Albuterol Sulfate [Proair Hfa] 2 puff INHALATION RT-Q4H PRN 04/19/20 07/29/21 Diclofenac Sodium [Voltaren] 75 mg PO BID-W/MEALS 04/19/20 07/29/21 Doxepin HCl 100 mg PO HS 04/19/20 07/29/21 Topiramate 50 mg PO BID 04/19/20 07/29/21 metFORMIN HCL 500 mg PO DAILY 04/19/20 07/29/21 Atorvastatin [Lipitor] 20 mg PO DAILY 01/17/21 07/29/21 Ergocalciferol [Vitamin D2 (1250 1,250 mcg PO Q7D 01/17/21 07/29/21 Mcg = 19599 Iu)] ALPRAZolam [Xanax] 0.5 mg PO TID PRN 04/19/21 07/29/21 Levothyroxine Sodium [Synthroid] 50 mcg PO DAILY 07/29/21 07/29/21 Omeprazole [PriLOSEC] 20 mg PO DAILY 07/29/21 07/29/21 Previous Rx's Medication Instructions Recorded Cephalexin [Keflex] 250 mg PO Q6HR 5 Days #20 cap 10/20/21 Ciprofloxacin [Cipro Susp] 500 mg PO Q12H 7 Days #14 ml 01/02/22 Allergies Allergy/AdvReac Type Severity Reaction Status Date / Time morphine Allergy Rash/Hives Verified 01/02/22 12:20 tramadol Allergy Rash/Hives Verified 01/02/22 12:20 Review of Systems ROS Statement: Those systems with pertinent positive or pertinent negative responses have been documented in the HPI. ROS Other: All systems not noted in ROS Statement are negative. Past Medical History Past Medical History: Asthma, Chest Pain / Angina, Diabetes Mellitus, GERD/Reflux, Hypertension, Osteoarthritis (OA), Skin Disorder Additional Past Medical History / Comment(s): migraines, IBS, overactive bladder, "tingling arms," brian malformation, pseudotumor cerebri History of Any Multi-Drug Resistant Organisms: None Reported Past Surgical History: Cholecystectomy, Orthopedic Surgery Additional Past Surgical History / Comment(s): removal of mole from genital area. 12/2020 - teeth removed. Past Anesthesia/Blood Transfusion Reactions: No Reported Reaction Additional Past Anesthesia/Blood Transfusion Reaction / Comment(s): Pt has slight clausterphobia. Past Psychological History: Anxiety, Depression Smoking Status: Current every day smoker Past Alcohol Use History: Rare Past Drug Use History: None Reported - Past Family History Father Family Medical History: Diabetes Mellitus, Hyperlipidemia, Hypertension Additional Family Medical History / Comment(s): Father is . Mother Family Medical History: No Reported History General Exam Limitations: no limitations General appearance: alert, in no apparent distress, obese Head exam: Present: atraumatic, normocephalic, normal inspection Eye exam: Present: normal appearance, PERRL, EOMI. Absent: scleral icterus, conjunctival injection, periorbital swelling ENT exam: Present: normal exam, mucous membranes moist Neck exam: Present: normal inspection, full ROM Respiratory exam: Present: normal lung sounds bilaterally. Absent: respiratory distress, wheezes, rales, rhonchi, stridor Cardiovascular Exam: Present: regular rate, normal rhythm, normal heart sounds. Absent: systolic murmur, diastolic murmur, rubs, gallop, clicks GI/Abdominal exam: Present: soft, normal bowel sounds. Absent: distended, tenderness, guarding, rebound, rigid Extremities exam: Present: normal inspection, full ROM, normal capillary refill. Absent: tenderness, pedal edema, joint swelling, calf tenderness Back exam: Present: normal inspection, CVA tenderness (R). Absent: CVA tenderness (L) Neurological exam: Present: alert, oriented X3, CN II-XII intact Psychiatric exam: Present: normal affect, normal mood Skin exam: Present: warm, dry, intact, normal color. Absent: rash Course Vital Signs 01/02/22 12:18 Temperature 97.8 F Pulse Rate 68 Respiratory 20 Rate Blood Pressure 159/79 O2 Sat by Pulse 98 Oximetry Medical Decision Making - Medical Decision Making 41-year-old female presents the emergency room with complaints of gross hematuria and right flank pain with frequency and pain with urination. Will check KUB and urinalysis. No indication for further laboratory studies at this time. Due to body habitus unable to obtain computed tomography scan. Discussed pain medication options with patient. Reports recent Toradol injection 48 hours ago with neurology and ALLERGIC to morphine. Has taken [place] and Dilaudid in the past without reaction. Will give a dose of IM Dilaudid. Urinalysis with significant blood creating difficulty in chemistry analysis. White blood cells and mucus noted. Will treat for urinary tract infection KUB without any evidence of calcification however due to body habitus image quality is suboptimal. Will discharge on treatment for urinary tract infection along with possible pyelonephritis on the Cipro. Will have her follow-up with her primary care provider along with a urology referral due to recurrent urinary tract infections with hematuria. Advise follow-up with her neurologist regarding her neck pain and headaches. No indication for further workup regarding headache and neck pain as no new symptoms neurological deficits or weaknesses are noted. Will give pain medication as indicated above for both headache, neck pain and flank pain. Pain improved with IM Dilaudid. Case discussed with Dr. Murcia. - Lab Data Lab Results 01/02/22 01/02/22 Range/Units 13:09 13:09 Urine Color Red Urine Appearance Bloody H (Clear) Urine RBC >182 H (0-5) /hpf Urine WBC 68 H (0-5) /hpf Ur Squamous Epith Cells 5 H (0-4) /hpf Urine Mucus Occasional H (None) /hpf Coronavirus (PCR) Not Detected (Not Detectd) Disposition Clinical Impression: Urinary tract infection, Hematuria Disposition: HOME SELF-CARE Condition: Stable Instructions (If sedation given, give patient instructions): Urinary Tract Infection in Women (ED) Additional Instructions: Please complete course of antibiotics. Drink plenty of fluids. Recommend following up with urology for recurrent urinary tract infections and hematuria. Please follow-up with your primary care provider as well. Please continue following with neurology in regards to head and neck pain. Please return to the Emergency Department if symptoms worsen or any other concerns. Prescriptions: Ciprofloxacin [Cipro Susp] 500 mg PO Q12H 7 Days #14 ml Is patient prescribed a controlled substance at d/c from ED?: No Referrals: Keyon Walker Jr, DO [Primary Care Provider] - 1-2 days Best Espinosa MD [STAFF PHYSICIAN] - 1-2 days Time of Disposition: 14:58
[2022-01-02 15:10] VITALS: BP 142/85; PULSE 72; RESP 18
== END 2022-01-02 15:09 | disposition home or self-care (01) ==
LOC: EC 12:11
DX: N39.0 Urinary tract infection, site not specified (principal); R31.9 Hematuria, unspecified; J45.909 Unspecified asthma, uncomplicated; E11.9 Type 2 diabetes mellitus without complications; K21.9 Gastro-esophageal reflux disease without esophagitis; I10 Essential (primary) hypertension; M19.90 Unspecified osteoarthritis, unspecified site; Z88.6 Allergy status to analgesic agent; Z79.899 Other long term (current) drug therapy; Z20.822 Contact with and (suspected) exposure to COVID-19
CPT/HCPCS: 81001; 87086; 87635; 74018; 99284; 96372; J1170

== ENCOUNTER 2022-02-21 11:09 | Emergency (ER) | payer OTHER ==
[2022-02-21 13:10] LABS: Amorphous Sediment,Urine Rare /hpf; Appearance,Urine Cloudy (Clear); Bilirubin,Urine Negative (Negative); Blood,Urine Large (Negative); Color,Urine Red; Glucose,Urine (UA) Negative (Negative); Ketones,Urine Trace (Negative); Leukocyte Esterase,Urine Moderate (Negative); Mucus,Urine Occasional /hpf; Nitrite,Urine Negative (Negative); Protein,Urine 1+ (Negative); RBC,Urine >182 /hpf (0-5); Specific Gravity,Urine 1.018 (1.001-1.035); Squamous Epithelial Cell,Urine 2 /hpf (0-4); Urobilinogen,Urine <2.0 mg/dL (<2.0); WBC,Urine 7 /hpf (0-5)
[2022-02-21 15:28] LABS: Basophils % (A) 0 %; Eosinophils # (A) 0.5 k/uL (0-0.7); Eosinophils % (A) 3 %; HCT 40.6 % (34.0-46.0); HGB 13.7 gm/dL (11.4-16.0); Lymphocytes # (A) 2.4 k/uL (1.0-4.8); Lymphocytes % (A) 15 %; MCH 31.5 pg (25.0-35.0); MCHC 33.8 g/dL (31.0-37.0); MCV 93.1 fL (80.0-100.0); Mean Platelet Volume 7.9; Monocytes # (A) 0.5 k/uL (0-1.0); Monocytes % (A) 3 %; Neutrophils # (A) 11.9 k/uL (1.3-7.7); Neutrophils % (A) 77 %; Platelet Count 345 k/uL (150-450); RBC 4.36 m/uL (3.80-5.40); RDW 12.9 % (11.5-15.5); WBC 15.5 k/uL (3.8-10.6)
[2022-02-21 15:38] LABS: ALT 36 U/L (4-34); AST 27 U/L (14-36); African American GFR (CKD) >90 (>60 ml/min/1.73 sqM); Albumin 4.2 g/dL (3.5-5.0); Alkaline Phosphatase 100 U/L (38-126); Anion Gap 10 mmol/L; Blood Urea Nitrogen 14 mg/dL (7-17); Calcium 9.1 mg/dL (8.4-10.2); Carbon Dioxide 24 mmol/L (22-30); Chloride 106 mmol/L (98-107); Glucose 98 mg/dL (74-99); Non-African American GFR(CKD) 85 (>60 ml/min/1.73 sqM); Potassium 4.4 mmol/L (3.5-5.1); Sodium 140 mmol/L (137-145); Total Bilirubin 0.4 mg/dL (0.2-1.3); Total Protein 6.9 g/dL (6.3-8.2)
[2022-02-21 16:06] VITALS: BP 149/80; PULSE 70; RESP 18; TEMP 98.3
--- NOTE | 2022-02-21 17:51 | XR ---
EXAMINATION TYPE: XR KUB DATE OF EXAM: 02/21/2022 COMPARISON: NONE HISTORY: Cramping TECHNIQUE: 2 view FINDINGS: There is no sign of intestinal obstruction or pneumoperitoneum. Fecal pattern is normal. Marybeth ng bases are clear. No pathologic calcifications over the kidneys. IMPRESSION: Nonacute abdomen. No change.
[2022-02-21] MEDS ORDERED: KETOROLAC 15 MG/ML 1 ML VIAL IVP STA (19:08)
--- NOTE | 2022-02-21 19:17 | ED ---
Female Urogenital HPI - General Chief complaint: Vaginal Bleeding Stated complaint: Vaginal bleeding Time Seen by Provider: 02/21/22 17:19 Source: patient Mode of arrival: ambulatory Limitations: no limitations - History of Present Illness Initial comments: She is a 41-year-old female who presents to the emergency department with a chief complaint vaginal bleeding. Patient states she started her menstrual period on Friday. States her menstrual periods are very irregular however normally last about 2-3 days, moderate heaviness. Last menstrual period several months ago. Patient states she had a cervical biopsy done yesterday by Dr. Avery. States since the biopsy she has had consistent vaginal bleeding. Reports soaking 5 pads today. Patient concerned that her hemoglobin will be low. Reports back pain which is chronic in nature. Patient in pain contract for back pain. Patient also expresses concern that she has a kidney stone due to hi story. She denies fever, chills, abdominal pain, side pain, nausea, vomiting. Last Menstrual Period: 02/21/22 - Related Data Home Medications Medication Instructions Recorded Confirmed Gabapentin [Neurontin] 400 mg PO TID 05/02/16 02/20/22 Escitalopram [Lexapro] 10 mg PO DAILY 02/24/17 02/20/22 Gabapentin [Neurontin] 100 mg PO TID 03/16/19 02/20/22 Hydrocodone/Acetaminophen [Tuttle 1 tab PO Q6H PRN 03/16/19 02/20/22 10-325] Albuterol Sulfate [Proair Hfa] 2 puff INHALATION RT-Q4H PRN 04/19/20 02/20/22 Doxepin HCl 100 mg PO HS 04/19/20 02/20/22 Topiramate 50 mg PO BID 04/19/20 02/20/22 metFORMIN HCL 500 mg PO DAILY 04/19/20 02/20/22 Atorvastatin [Lipitor] 20 mg PO DAILY 01/17/21 02/20/22 Ergocalciferol [Vitamin D2 (1250 1,250 mcg PO Q7D 01/17/21 02/20/22 Mcg = 94901 Iu)] ALPRAZolam [Xanax] 0.5 mg PO TID PRN 04/19/21 02/20/22 Levothyroxine Sodium [Synthroid] 50 mcg PO DAILY 07/29/21 02/20/22 Omeprazole [PriLOSEC] 20 mg PO DAILY 07/29/21 02/20/22 Naproxen [Naprosyn] 500 mg PO Q12HR PRN 02/20/22 02/20/22 Allergies Allergy/AdvReac Type Severity Reaction Status Date / Time morphine Allergy Rash/Hives Verified 02/21/22 12:23 tramadol Allergy Rash/Hives Verified 02/21/22 12:23 Review of Systems ROS Statement: Those systems with pertinent positive or pertinent negative responses have been documented in the HPI. ROS Other: All systems not noted in ROS Statement are negative. Past Medical History Past Medical History: Asthma, Chest Pain / Angina, Diabetes Mellitus, GERD/Reflux, Hypertension, Osteoarthritis (OA), Skin Disorder Additional Past Medical History / Comment(s): migraines, IBS, overactive bladder, "tingling arms," brian malformation, pseudotumor cerebri History of Any Multi-Drug Resistant Organisms: None Reported Past Surgical History: Cholecystectomy, Orthopedic Surgery Additional Past Surgical History / Comment(s): removal of mole from genital area. 12/2020 - teeth removed. Past Anesthesia/Blood Transfusion Reactions: No Reported Reaction Additional Past Anesthesia/Blood Transfusion Reaction / Comment(s): Pt has slight clausterphobia. Past Psychological History: Anxiety, Depression Smoking Status: Former smoker, Vaper Past Alcohol Use History: None Reported Past Drug Use History: None Reported - Past Family History Father Family Medical History: Diabetes Mellitus, Hyperlipidemia, Hypertension Additional Family Medical History / Comment(s): Father is . Mother Family Medical History: No Reported History General Exam Limitations: no limitations General appearance: alert, in no apparent distress Head exam: Present: atraumatic, normocephalic, normal inspection Respiratory exam: Present: normal lung sounds bilaterally. Absent: respiratory distress, wheezes, rales, rhonchi, stridor Cardiovascular Exam: Present: regular rate, normal rhythm, normal heart sounds. Absent: systolic murmur, diastolic murmur, rubs, gallop, clicks GI/Abdominal exam: Present: soft, normal bowel sounds. Absent: distended, tenderness, guarding, rebound, rigid Speculum exam: Present: vaginal bleeding (minimal bleeding from cervical os). Absent: vaginal discharge Back exam: Absent: CVA tenderness (R), CVA tenderness (L), paraspinal tenderness, vertebral tenderness Neurological exam: Present: alert, oriented X3, CN II-XII intact Psychiatric exam: Present: normal affect, normal mood Skin exam: Present: warm, dry, intact, normal color. Absent: rash Course Vital Signs 02/21/22 02/21/22 12:20 16:01 Temperature 98.1 F 98.3 F Pulse Rate 71 70 Respiratory 16 18 Rate Blood Pressure 126/70 149/80 O2 Sat by Pulse 98 99 Oximetry Medical Decision Making - Medical Decision Making This is a 41-year-old female presenting with vaginal bleeding. Speculum exam reveals minimal bleeding from cervical os. Laboratory studies obtained. Hemoglobin is normal. Case discussed with patient. Patient is perimenopausal which could be causing dysfunctional uterine bleeding. Patient will be discharged with strict return parameters. She will follow-up with her colorer machine who performed biopsy as soon as possible. She verbalizes understanding. Dr. Wade is my attending. - Lab Data Result diagrams: 02/21/22 15:14 02/21/22 15:14 Lab Results 02/21/22 02/21/22 02/21/22 Range/Units 12:41 12:41 15:14 WBC 15.5 H (3.8-10.6) k/uL RBC 4.36 (3.80-5.40) m/uL Hgb 13.7 (11.4-16.0) gm/dL Hct 40.6 (34.0-46.0) % MCV 93.1 (80.0-100.0) fL MCH 31.5 (25.0-35.0) pg MCHC 33.8 (31.0-37.0) g/dL RDW 12.9 (11.5-15.5) % Plt Count 345 (150-450) k/uL MPV 7.9 Neutrophils % 77 % Lymphocytes % 15 % Monocytes % 3 % Eosinophils % 3 % Basophils % 0 % Neutrophils # 11.9 H (1.3-7.7) k/uL Lymphocytes # 2.4 (1.0-4.8) k/uL Monocytes # 0.5 (0-1.0) k/uL Eosinophils # 0.5 (0-0.7) k/uL Basophils # 0.0 (0-0.2) k/uL Sodium (137-145) mmol/L Potassium (3.5-5.1) mmol/L Chloride (98-107) mmol/L Carbon Dioxide (22-30) mmol/L Anion Gap mmol/L BUN (7-17) mg/dL Creatinine (0.52-1.04) mg/dL Est GFR (CKD-EPI)AfAm (>60 ml/min/1.73 sqM) Est GFR (CKD-EPI)NonAf (>60 ml/min/1.73 sqM) Glucose (74-99) mg/dL Calcium (8.4-10.2) mg/dL Total Bilirubin (0.2-1.3) mg/dL AST (14-36) U/L ALT (4-34) U/L Alkaline Phosphatase (38-126) U/L Total Protein (6.3-8.2) g/dL Albumin (3.5-5.0) g/dL Urine Color Red Urine Appearance Cloudy H (Clear) Urine pH 6.0 (5.0-8.0) Ur Specific [place] 1.018 (1.001-1.035) Urine Protein 1+ H (Negative) Urine Glucose (UA) Negative (Negative) Urine Ketones Trace H (Negative) Urine Blood Large H (Negative) Urine Nitrite Negative (Negative) Urine Bilirubin Negative (Negative) Urine Urobilinogen <2.0 (<2.0) mg/dL Ur Leukocyte Esterase Moderate H (Negative) Urine RBC >182 H (0-5) /hpf Urine WBC 7 H (0-5) /hpf Ur Squamous Epith Cells 2 (0-4) /hpf Amorphous Sediment Rare H (None) /hpf Urine Mucus Occasional H (None) /hpf Urine HCG, Qual Not Detected (Not Detectd) 02/21/22 Range/Units 15:14 WBC (3.8-10.6) k/uL RBC (3.80-5.40) m/uL Hgb (11.4-16.0) gm/dL Hct (34.0-46.0) % MCV (80.0-100.0) fL MCH (25.0-35.0) pg MCHC (31.0-37.0) g/dL RDW (11.5-15.5) % Plt Count (150-450) k/uL MPV Neutrophils % % Lymphocytes % % Monocytes % % Eosinophils % % Basophils % % Neutrophils # (1.3-7.7) k/uL Lymphocytes # (1.0-4.8) k/uL Monocytes # (0-1.0) k/uL Eosinophils # (0-0.7) k/uL Basophils # (0-0.2) k/uL Sodium 140 (137-145) mmol/L Potassium 4.4 (3.5-5.1) mmol/L Chloride 106 (98-107) mmol/L Carbon Dioxide 24 (22-30) mmol/L Anion Gap 10 mmol/L BUN 14 (7-17) mg/dL Creatinine 0.85 (0.52-1.04) mg/dL Est GFR (CKD-EPI)AfAm >90 (>60 ml/min/1.73 sqM) Est GFR (CKD-EPI)NonAf 85 (>60 ml/min/1.73 sqM) Glucose 98 (74-99) mg/dL Calcium 9.1 (8.4-10.2) mg/dL Total Bilirubin 0.4 (0.2-1.3) mg/dL AST 27 (14-36) U/L ALT 36 H (4-34) U/L Alkaline Phosphatase 100 (38-126) U/L Total Protein 6.9 (6.3-8.2) g/dL Albumin 4.2 (3.5-5.0) g/dL Urine Color Urine Appearance (Clear) Urine pH (5.0-8.0) Ur Specific [place] (1.001-1.035) Urine Protein (Negative) Urine Glucose (UA) (Negative) Urine Ketones (Negative) Urine Blood (Negative) Urine Nitrite (Negative) Urine Bilirubin (Negative) Urine Urobilinogen (<2.0) mg/dL Ur Leukocyte Esterase (Negative) Urine RBC (0-5) /hpf Urine WBC (0-5) /hpf Ur Squamous Epith Cells (0-4) /hpf Amorphous Sediment (None) /hpf Urine Mucus (None) /hpf Urine HCG, Qual (Not Detectd) Disposition Clinical Impression: Dysfunctional uterine bleeding, H/O cervical biopsy, Back pain Disposition: HOME SELF-CARE Condition: Good Instructions (If sedation given, give patient instructions): Abnormal (Dysfunctional) Uterine Bleeding (ED) Additional Instructions: Please follow up with colorer machine. Take home prescription of Tuttle for pain. Return to the emergency department experience new, concerning or worsening symptoms Is patient prescribed a controlled substance at d/c from ED?: No Referrals: Keyon Walker Jr, DO [Primary Care Provider] - 1-2 days Time of Disposition: 19:17
== END 2022-02-21 19:50 | disposition home or self-care (01) ==
LOC: EC 11:09
DX: N93.8 Other specified abnormal uterine and vaginal bleeding (principal); M54.9 Dorsalgia, unspecified; J45.909 Unspecified asthma, uncomplicated; E11.9 Type 2 diabetes mellitus without complications; I10 Essential (primary) hypertension; K21.9 Gastro-esophageal reflux disease without esophagitis; Z87.891 Personal history of nicotine dependence; Z88.6 Allergy status to analgesic agent; Z88.5 Allergy status to narcotic agent; Z79.84 Long term (current) use of oral hypoglycemic drugs; Z79.51 Long term (current) use of inhaled steroids; Z79.899 Other long term (current) drug therapy; Z85.41 Personal history of malignant neoplasm of cervix uteri
CPT/HCPCS: 36415; 80053; 85025; 81001; 81025; 74018; 99284; 96374; J1885

== ENCOUNTER 2022-03-02 17:45 | Emergency (ER) | payer OTHER ==
[2022-03-02 19:38] LABS: Appearance,Urine Clear (Clear); Bacteria,Urine Rare /hpf; Bilirubin,Urine Negative (Negative); Blood,Urine Large (Negative); Color,Urine Yellow; Glucose,Urine (UA) Negative (Negative); Ketones,Urine Negative (Negative); Leukocyte Esterase,Urine Negative (Negative); Mucus,Urine Rare /hpf; Nitrite,Urine Negative (Negative); PH, Urine 5.5 (5.0-8.0); Protein,Urine Trace (Negative); RBC,Urine >182 /hpf (0-5); Squamous Epithelial Cell,Urine 2 /hpf (0-4); Urobilinogen,Urine <2.0 mg/dL (<2.0); WBC,Urine 2 /hpf (0-5)
[2022-03-02] MEDS ORDERED: SODIUM CHLORIDE 0.9% 1,000 ML IV STA (21:53)
[2022-03-02] MEDS ORDERED: KETOROLAC 15 MG/ML 1 ML VIAL IVP STA (21:53)
[2022-03-02] MEDS ORDERED: ONDANSETRON 4 MG/2 ML VIAL IVP STA (21:53)
--- NOTE | 2022-03-02 21:59 | ED ---
Female Urogenital HPI - General Chief complaint: Urogenital Stated complaint: vaginal bleeding Time Seen by Provider: 03/02/22 21:49 Source: patient, family, RN notes reviewed Mode of arrival: EMS Limitations: no limitations - History of Present Illness Initial comments: This is a pleasant 41-year-old female who presents to emergency back complaining of sudden onset of right pelvic pain which started about 5:30 PM. Patient states that she was doing nothing out of the ordinary and felt sharp pain in the right pelvis which has lightened a little bit seems to be spreading over the pelvic area since the start. This pain started about 5:30 PM. Exacerbated by palpation. Alleviated by nothing. Additionally, patient has had dysfunctional uterine bleeding which started a couple weeks ago. Patient had an ultrasound of her gynecologists office and was put on therapy for vaginal bleeding. Patient states the bleeding seemed to slow down yesterday. No headache, no fever or chills, no changes in vision or hearing, no sore throat or difficulty with speech, no neck pain, no chest pain or shortness of breath, no abdominal pain, no nausea or vomiting, no changes in urination or bowel movements, no numbness or tingling, no extremity pain, no skin rashes or lesions. Past medical, surgical, social, and family history reviewed. - Related Data Home Medications Medication Instructions Recorded Confirmed Gabapentin [Neurontin] 400 mg PO TID 05/02/16 02/20/22 Escitalopram [Lexapro] 10 mg PO DAILY 02/24/17 02/20/22 Gabapentin [Neurontin] 100 mg PO TID 03/16/19 02/20/22 Hydrocodone/Acetaminophen [Stanley 1 tab PO Q6H PRN 03/16/19 02/20/22 10-325] Albuterol Sulfate [Proair Hfa] 2 puff INHALATION RT-Q4H PRN 04/19/20 02/20/22 Doxepin HCl 100 mg PO HS 04/19/20 02/20/22 Topiramate 50 mg PO BID 04/19/20 02/20/22 metFORMIN HCL 500 mg PO DAILY 04/19/20 02/20/22 Atorvastatin [Lipitor] 20 mg PO DAILY 01/17/21 02/20/22 Ergocalciferol [Vitamin D2 (1250 1,250 mcg PO Q7D 01/17/21 02/20/22 Mcg = 46650 Iu)] ALPRAZolam [Xanax] 0.5 mg PO TID PRN 04/19/21 02/20/22 Levothyroxine Sodium [Synthroid] 50 mcg PO DAILY 07/29/21 02/20/22 Omeprazole [PriLOSEC] 20 mg PO DAILY 07/29/21 02/20/22 Naproxen [Naprosyn] 500 mg PO Q12HR PRN 02/20/22 02/20/22 Allergies Allergy/AdvReac Type Severity Reaction Status Date / Time morphine Allergy Rash/Hives Verified 03/02/22 18:16 tramadol Allergy Rash/Hives Verified 03/02/22 18:16 Review of Systems ROS Statement: Those systems with pertinent positive or pertinent negative responses have been documented in the HPI. ROS Other: All systems not noted in ROS Statement are negative. Past Medical History Past Medical History: Asthma, Chest Pain / Angina, Diabetes Mellitus, GERD/Reflux, Hypertension, Osteoarthritis (OA), Skin Disorder Additional Past Medical History / Comment(s): migraines, IBS, overactive bladder, "tingling arms," brian malformation, pseudotumor cerebri History of Any Multi-Drug Resistant Organisms: None Reported Past Surgical History: Cholecystectomy, Orthopedic Surgery Additional Past Surgical History / Comment(s): removal of mole from genital area. 12/2020 - teeth removed. Past Anesthesia/Blood Transfusion Reactions: No Reported Reaction Additional Past Anesthesia/Blood Transfusion Reaction / Comment(s): Pt has slight clausterphobia. Past Psychological History: Anxiety, Depression Smoking Status: Former smoker Past Alcohol Use History: None Reported Past Drug Use History: None Reported - Past Family History Father Family Medical History: Diabetes Mellitus, Hyperlipidemia, Hypertension Additional Family Medical History / Comment(s): Father is . Mother Family Medical History: No Reported History General Exam - General Exam Comments Initial Comments: Morbidly obese 41-year-old female in minimal distress. Patient does not appear to be ill or toxic. Capillary refill less than 2 seconds. No mottling. Adequate perfusion. Limitations: no limitations General appearance: alert, obese Head exam: Present: atraumatic, normocephalic, normal inspection Eye exam: Present: normal appearance, PERRL, EOMI. Absent: scleral icterus, conjunctival injection, periorbital swelling ENT exam: Present: normal exam, normal oropharynx, mucous membranes moist, normal external ear exam. Absent: mucous membranes dry Neck exam: Present: normal inspection, full ROM Respiratory exam: Present: normal lung sounds bilaterally. Absent: respiratory distress, wheezes, rales, rhonchi, stridor Cardiovascular Exam: Present: regular rate, normal rhythm, normal heart sounds. Absent: systolic murmur, diastolic murmur, rubs, gallop, clicks GI/Abdominal exam: Present: soft, tenderness (Pelvic pelvic tenderness with voluntary guarding.), guarding, normal bowel sounds. Absent: distended, rebound, rigid Extremities exam: Present: normal inspection, full ROM, normal capillary refill. Absent: tenderness, pedal edema, joint swelling, calf tenderness Back exam: Present: normal inspection Neurological exam: Present: alert, oriented X3, CN II-XII intact Psychiatric exam: Present: normal affect, normal mood Skin exam: Present: warm, dry, intact, normal color. Absent: rash Course Vital Signs 03/02/22 03/02/22 03/02/22 18:10 22:39 23:30 Temperature 98.1 F 98.5 F Pulse Rate 86 65 76 Respiratory 20 18 18 Rate Blood Pressure 156/87 156/77 168/84 O2 Sat by Pulse 99 98 100 Oximetry 03/03/22 02:15 Temperature Pulse Rate 80 Respiratory 16 Rate Blood Pressure 125/65 O2 Sat by Pulse 98 Oximetry - Reevaluation(s) Reevaluation #1: 03/03/22 02:03 Computed tomography scan shows normal appendix, no pelvic mass, no cause or vaginal bleeding, no acute abnormality And pelvis. Fat-containing umbilical hernia increased compared to old exam. However patient's umbilical hernia does not correspond to her pain presentation.Patient reevaluated prior to discharge and his hemodynamics stable. Pain is improved. Medical Decision Making - Medical Decision Making Sudden onset of right pelvic pain does raise a suspicion of ovarian torsion or ruptured ovarian cyst. Possibility of kidney stone, however less likely. Patient's urine did show microscopic hematuria. However she had vaginal bleeding up until yesterday. Patient also stated that her nurse assistant recently found a 3 cm cyst on the right. This would make possibility of ovarian torsion more likely. Patient was told to return to the ER for any signs or symptoms worsen. Told to return immediately if any other problems arise. All questions answered. Treatment plan discussed. Patient in agreement Every effort has been made to ensure accuracy of this dictation. However, due to the limitations of electronic medical records and dictation devices, errors in charting still occur. Discussed all findings with the patient. Discussed possible etiologies to include ovarian pathologies. Patient's ovaries were not visualized. Patient states she is okay going home. States she has Stanley at home for pain. The case was discussed in detail with ED attending physician. Presentation, findings, treatment plan discussed in detail. Supervising physician Dr. Wade - Lab Data Result diagrams: 03/02/22 22:22 03/02/22 22:39 Lab Results 03/02/22 03/02/22 03/02/22 Range/Units 19:15 19:15 22:22 WBC 17.8 H (3.8-10.6) k/uL RBC 3.56 L (3.80-5.40) m/uL Hgb 11.7 (11.4-16.0) gm/dL Hct 34.3 (34.0-46.0) % MCV 96.2 (80.0-100.0) fL MCH 32.8 (25.0-35.0) pg MCHC 34.1 (31.0-37.0) g/dL RDW 13.1 (11.5-15.5) % Plt Count 324 (150-450) k/uL MPV 8.6 Neutrophils % 78 % Lymphocytes % 16 % Monocytes % 3 % Eosinophils % 3 % Basophils % 0 % Neutrophils # 13.8 H (1.3-7.7) k/uL Lymphocytes # 2.8 (1.0-4.8) k/uL Monocytes # 0.5 (0-1.0) k/uL Eosinophils # 0.5 (0-0.7) k/uL Basophils # 0.1 (0-0.2) k/uL Sodium (137-145) mmol/L Potassium (3.5-5.1) mmol/L Chloride (98-107) mmol/L Carbon Dioxide (22-30) mmol/L Anion Gap mmol/L BUN (7-17) mg/dL Creatinine (0.52-1.04) mg/dL Est GFR (CKD-EPI)AfAm (>60 ml/min/1.73 sqM) Est GFR (CKD-EPI)NonAf (>60 ml/min/1.73 sqM) Glucose (74-99) mg/dL Calcium (8.4-10.2) mg/dL Total Bilirubin (0.2-1.3) mg/dL AST (14-36) U/L ALT (4-34) U/L Alkaline Phosphatase (38-126) U/L Total Protein (6.3-8.2) g/dL Albumin (3.5-5.0) g/dL Urine Color Yellow Urine Appearance Clear (Clear) Urine pH 5.5 (5.0-8.0) Ur Specific [place] 1.020 (1.001-1.035) Urine Protein Trace H (Negative) Urine Glucose (UA) Negative (Negative) Urine Ketones Negative (Negative) Urine Blood Large H (Negative) Urine Nitrite Negative (Negative) Urine Bilirubin Negative (Negative) Urine Urobilinogen <2.0 (<2.0) mg/dL Ur Leukocyte Esterase Negative (Negative) Urine RBC >182 H (0-5) /hpf Urine WBC 2 (0-5) /hpf Ur Squamous Epith Cells 2 (0-4) /hpf Urine Bacteria Rare H (None) /hpf Urine Mucus Rare H (None) /hpf Urine HCG, Qual Not Detected (Not Detectd) 03/02/22 Range/Units 22:39 WBC (3.8-10.6) k/uL RBC (3.80-5.40) m/uL Hgb (11.4-16.0) gm/dL Hct (34.0-46.0) % MCV (80.0-100.0) fL MCH (25.0-35.0) pg MCHC (31.0-37.0) g/dL RDW (11.5-15.5) % Plt Count (150-450) k/uL MPV Neutrophils % % Lymphocytes % % Monocytes % % Eosinophils % % Basophils % % Neutrophils # (1.3-7.7) k/uL Lymphocytes # (1.0-4.8) k/uL Monocytes # (0-1.0) k/uL Eosinophils # (0-0.7) k/uL Basophils # (0-0.2) k/uL Sodium 140 (137-145) mmol/L Potassium 4.1 (3.5-5.1) mmol/L Chloride 107 (98-107) mmol/L Carbon Dioxide 22 (22-30) mmol/L Anion Gap 11 mmol/L BUN 15 (7-17) mg/dL Creatinine 0.79 (0.52-1.04) mg/dL Est GFR (CKD-EPI)AfAm >90 (>60 ml/min/1.73 sqM) Est GFR (CKD-EPI)NonAf >90 (>60 ml/min/1.73 sqM) Glucose 104 H (74-99) mg/dL Calcium 8.9 (8.4-10.2) mg/dL Total Bilirubin 0.2 (0.2-1.3) mg/dL AST 22 (14-36) U/L ALT 26 (4-34) U/L Alkaline Phosphatase 94 (38-126) U/L Total Protein 6.5 (6.3-8.2) g/dL Albumin 3.9 (3.5-5.0) g/dL Urine Color Urine Appearance (Clear) Urine pH (5.0-8.0) Ur Specific [place] (1.001-1.035) Urine Protein (Negative) Urine Glucose (UA) (Negative) Urine Ketones (Negative) Urine Blood (Negative) Urine Nitrite (Negative) Urine Bilirubin (Negative) Urine Urobilinogen (<2.0) mg/dL Ur Leukocyte Esterase (Negative) Urine RBC (0-5) /hpf Urine WBC (0-5) /hpf Ur Squamous Epith Cells (0-4) /hpf Urine Bacteria (None) /hpf Urine Mucus (None) /hpf Urine HCG, Qual (Not Detectd) - Radiology Data Radiology results: report reviewed, image reviewed Disposition Clinical Impression: Pelvic pain, History of ovarian cyst Disposition: HOME SELF-CARE Condition: Good Instructions (If sedation given, give patient instructions): Pelvic Pain in Women (ED) Additional Instructions: Follow-up with your regular physician as directed. Return to the ER immediately if any symptoms worsen, new symptoms arise, or any other problems develop. F/U with gynecology as directed. Is patient prescribed a controlled substance at d/c from ED?: No Referrals: Keyon Walker Jr, [Primary Care Provider] - 1-2 days Time of Disposition: 01:58
[2022-03-02 22:34] LABS: Basophils # (A) 0.1 k/uL (0-0.2); Basophils % (A) 0 %; Eosinophils # (A) 0.5 k/uL (0-0.7); Eosinophils % (A) 3 %; HCT 34.3 % (34.0-46.0); HGB 11.7 gm/dL (11.4-16.0); Lymphocytes # (A) 2.8 k/uL (1.0-4.8); Lymphocytes % (A) 16 %; MCH 32.8 pg (25.0-35.0); MCHC 34.1 g/dL (31.0-37.0); MCV 96.2 fL (80.0-100.0); Mean Platelet Volume 8.6; Monocytes # (A) 0.5 k/uL (0-1.0); Monocytes % (A) 3 %; Neutrophils # (A) 13.8 k/uL (1.3-7.7); Neutrophils % (A) 78 %; Platelet Count 324 k/uL (150-450); RBC 3.56 m/uL (3.80-5.40); RDW 13.1 % (11.5-15.5); WBC 17.8 k/uL (3.8-10.6)
[2022-03-02 22:39] VITALS: TEMP 98.5
[2022-03-02 22:50] LABS: ALT 26 U/L (4-34); AST 22 U/L (14-36); African American GFR (CKD) >90 (>60 ml/min/1.73 sqM); Albumin 3.9 g/dL (3.5-5.0); Alkaline Phosphatase 94 U/L (38-126); Blood Urea Nitrogen 15 mg/dL (7-17); Calcium 8.9 mg/dL (8.4-10.2); Carbon Dioxide 22 mmol/L (22-30); Chloride 107 mmol/L (98-107); Glucose 104 mg/dL (74-99); Non-African American GFR(CKD) >90 (>60 ml/min/1.73 sqM); Potassium 4.1 mmol/L (3.5-5.1); Total Bilirubin 0.2 mg/dL (0.2-1.3); Total Protein 6.5 g/dL (6.3-8.2)
[2022-03-02 22:55] LABS: Anion Gap 11 mmol/L; Sodium 140 mmol/L (137-145)
--- NOTE | 2022-03-02 23:17 | US ---
EXAMINATION TYPE: US transvaginal DATE OF EXAM: 03/02/2022 COMPARISON: US & CT Ultrasound 05/31/2020 CLINICAL HISTORY: Right pelvic pain?sudden onset. Pt states pelvic pressure, pain, and vaginal bleedi ng x 3 weeks TECHNIQUE: Transvaginal (TV). Transvaginal sonographic images of the pelvis were acquired. Date of LMP: Pt states bleeding x 3 weeks EXAM MEASUREMENTS: Uterus: 8.2 x 4.4 x 4.3 cm Endometrial Stripe: 1.3 cm Limited study due to pt morbid obesity 1. Uterus: Anteverted wnl, Nabothian cyst in cervix= 0.7 cm 2. Endometrium: ?thickened for pt's symptoms 3. Right Ovary: Obscured by overlying bowel gas, and pt morbid obesity 4. Left Ovary: Obscured by overlying bowel gas, and pt morbid obesity 5. Bilateral Adnexa: wnl 6. Posterior cul-de-sac: wnl IMPRESSION: Limited exam shows no evidence of uterine mass. No pelvic mass. Ovaries are not seen. Prominent endom etrium consistent with hyperplasia. Endometrium increased compared to old exams
[2022-03-03] MEDS ORDERED: HYDROmorphone 1 MG/ML 1 ML SYRINGE IVP STA ×2 (00:07→01:49)
--- NOTE | 2022-03-03 01:00 | CT ---
EXAMINATION TYPE: CT abdomen pelvis wo con DATE OF EXAM: 03/03/2022 COMPARISON: 10/19/2021 HISTORY: sharp stabbing pain up vagina & back w/ vaginal bleeding CT DLP: 3754.2 mGycm Automated exposure control for dose reduction was used. Images obtained from the diaphragm to the floor the pelvis with no contrast. The lung bases are clear. No pleural effusion. Heart appears normal. No pericardial effusion. Liver s pleen pancreas appear intact. There are clips from cholecystectomy. The stomach is intact. No pancrea tic mass. Exam limited by patient size. There is no adrenal mass. Kidneys of normal size. No hydronephrosis. Ureters are not dilated. No retr operitoneal adenopathy. Bladder distends smoothly. No inguinal hernia. Uterus is anteverted. No free fluid in the pelvis. No pelvic mass. There is no mesenteric edema. There is no ascites or free air. No bowel obstruction. There are a few sigmoid diverticula. No diverticulitis. There is fat-containing 4 cm umbilical hernia no evidence of a pelvic mass. The lumbar vertebrae appear intact. There is vacuum disc at L5-S1. No significant comp ression deformity. The bony pelvis is intact. The hip joints are intact. Appendix appears normal. IMPRESSION: Normal appendix. No pelvic mass. I do not see a cause for vaginal bleeding. No acute abnormality in t he abdomen and pelvis. Fat-containing umbilical hernia is increased compared to old exam.
[2022-03-03] MEDS ORDERED: MORPHINE SULFATE 4 MG/ML SYRINGE IV STA (01:33)
[2022-03-03 02:18] VITALS: BP 125/65; PULSE 80; RESP 16
== END 2022-03-03 02:18 | disposition home or self-care (01) ==
LOC: EC 17:45
DX: R10.2 Pelvic and perineal pain (principal); J45.909 Unspecified asthma, uncomplicated; E11.9 Type 2 diabetes mellitus without complications; I10 Essential (primary) hypertension; K21.9 Gastro-esophageal reflux disease without esophagitis; Z87.42 Personal history of other diseases of the female genital tract; Z87.891 Personal history of nicotine dependence; Z88.6 Allergy status to analgesic agent; Z88.5 Allergy status to narcotic agent; Z79.899 Other long term (current) drug therapy; Z79.84 Long term (current) use of oral hypoglycemic drugs
CPT/HCPCS: 96361; 96374; 96375 ×2; 36415; 80053; 85025; 81001; 81025; 76830; 99284; J2405; J1885; 74176

== ENCOUNTER → 2022-06-07 | Outpatient (CLI) | payer OTHER ==
--- NOTE | 2022-06-08 04:58 | MR ---
EXAMINATION TYPE: MR brain wo con DATE OF EXAM: 06/07/2022 COMPARISON: 08/12/2013 HISTORY: Check up on Chiari Malformation/ Hx of Hearing Loss-worse on Right Side Multiplanar multiecho imaging of the brain performed without contrast. Ventricles have fairly normal size. There is no mass effect or midline shift. No sign of intracranial hemorrhage. There is a large empty sella. The brainstem is intact. The ross and white matter structu res have fairly normal signal pattern. No evidence of cerebral edema. The cerebellar tonsils project slightly into the foramen magnum. Diffusion images show no sign of an acute infarct. Fourth ventricle is in normal position. 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 There is a large empty sella which is normal variation and unchanged.
--- NOTE | 2022-06-08 05:02 | MR ---
EXAMINATION TYPE: MR angio head wo con DATE OF EXAM: 06/07/2022 COMPARISON: None HISTORY: Check up on Chiari Malformation/ Hx of Hearing Loss-worse on Right Side MR angiographic images were obtained of the intracerebral arterial circulation. There is arterial flow in the anterior middle and posterior cerebral arteries bilaterally. Exam limit ed by patient size and motion. There is arterial flow in the vertebral basilar artery system. No mass effect. No evidence of intracranial aneurysm or neovascularity. No evidence of hemodynamic stenosis. IMPRESSION: Negative MR angiogram of the brain. Limited exam due to motion and patient size.
== END | disposition home or self-care (01) ==
LOC: RADMRIMAIN 15:04
PROVIDERS: ATTEND Psychiatry & Neurology Pain Medicine
DX: G93.5 Compression of brain (principal); H54.7 Unspecified visual loss; H53.9 Unspecified visual disturbance
CPT/HCPCS: 70544; 70551

== ENCOUNTER → 2023-04-24 | Outpatient (CLI) | payer OTHER ==
[2023-04-25 02:20] LABS: BUN/Creat Ratio 15.38 Ratio (12.00-20.00); Blood Urea Nitrogen 12.3 mg/dL (9.0-27.0); Estradiol <20.0 pg/mL; Glucose 128 mg/dL (70-110); Testosterone <10.00 ng/dL (9.01-47.94)
[2023-04-25 02:21] LABS: ALT 41 U/L (8-44); AST 41 U/L (13-35); Albumin 3.9 g/dL (3.8-4.9); Alkaline Phosphatase 86 U/L (41-126); Calcium 9.3 mg/dL (8.7-10.3); Carbon Dioxide 22.5 mmol/L (21.6-31.8); Chloride 106 mmol/L (96-109); Globulin 2.6 g/dL (1.6-3.3); Potassium 4.4 mmol/L (3.5-5.5); Sodium 140 mmol/L (135-145); Total Bilirubin 0.3 mg/dL (0.3-1.2); Total Protein 6.5 g/dL (6.2-8.2)
[2023-04-25 02:25] LABS: Follicle Stimulating Hormone 8.2 mIU/mL
[2023-04-25 02:50] LABS: DHEA Sulfate 54.6 UG/DL (39.0-800.0)
[2023-04-25 02:52] LABS: Progesterone 0.1 ng/mL
--- NOTE | 2023-04-25 09:17 | US ---
EXAMINATION TYPE: US pelvis complete transvag DATE OF EXAM: 04/24/2023 COMPARISON: NONE CLINICAL INDICATION: Female, 42 years old with history of N92.0 EXCESSIVE AND FREQUENT MENSTRUATION; pt. on BC x 1 yr, does not believe she is having periods anymore but has a few days of bleeding then but "brown discharge" TECHNIQUE: Transabdominal sonographic images of the pelvis were acquired. Transvaginal sonographic images were medically necessary to better assess the following anatomy: Ovaries Date of LMP: not sure EXAM MEASUREMENTS: Uterus: 7.4x3.3x3.8 Endometrial Stripe: 0.6 cm Right Ovary: 1.9x2.6x0.1 Left Ovary: not visualized 1. Uterus: Anteverted. Anechoic area again noted lower uterine segment: 0.6x0.5x0.6cm 2. Endometrium: wnl 3. Right Ovary: wnl 4. Left Ovary: Obscured by overlying bowel gas 5. Bilateral Adnexa: Obscured by overlying bowel gas 6. 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 Exam limitations as above. Unable to visualize the left ovary. Endometrial stripe thickness of 6 m m. 2. Stable 6 mm cervical nabothian cyst.
== END | disposition home or self-care (01) ==
LOC: RADUSWWP 15:08
PROVIDERS: ATTEND Obstetrics & Gynecology Obstetrics
DX: N88.8 Other specified noninflammatory disorders of cervix uteri (principal); N92.0 Excessive and frequent menstruation with regular cycle; E28.2 Polycystic ovarian syndrome; R10.2 Pelvic and perineal pain; N92.1 Excessive and frequent menstruation with irregular cycle
CPT/HCPCS: 76830; 76856; 80053; 82627; 82670; 83001; 83036; 84144; 84146; 84403; 84443; 85025

== ENCOUNTER → 2023-10-07 | Outpatient (CLI) | payer OTHER ==
--- NOTE | 2023-10-07 16:25 | XR ---
EXAMINATION TYPE: XR knee limited RT DATE OF EXAM: 10/07/2023 COMPARISON: 07/07/2019 HISTORY: Knee strain TECHNIQUE: 2 view right knee FINDINGS: No acute fracture or dislocation is evident. Joint spaces are preserved. No joint effusion is evident. IMPRESSION: 1. No acute osseous abnormality two-view right knee
== END | disposition home or self-care (01) ==
LOC: RADXRMAIN 11:21
PROVIDERS: ATTEND Family Medicine
DX: S86.911A Strain of unspecified muscle(s) and tendon(s) at lower leg level, right leg, initial encounter (principal)

== ENCOUNTER 2023-10-26 13:35 | Emergency (ER) | payer OTHER ==
--- NOTE | 2023-10-26 14:14 | ED ---
Lower Extremity Injury HPI - General Chief Complaint: Extremity Injury, Lower Stated Complaint: R Knee Pain Time Seen by Provider: 10/26/23 13:50 Source: patient, RN notes reviewed Mode of arrival: ambulatory Limitations: no limitations - History of Present Illness Initial Comments: 43-year-old female presents emergency department complaint of right knee pain. Patient states she had increasing right knee pain in which she has seen her primary care physician and orthopedic she is scheduled for physical therapy to start tomorrow. She had no new injuries. She did have prior imaging which they stated that she needed complete therapy prior to MRI. Patient denies any paresthesias she states she is has diffuse right knee pain no notable swelling redness no chest pain no shortness of breath no other complaints. - Related Data Home Medications Medication Instructions Recorded Confirmed Gabapentin [Neurontin] 400 mg PO TID 05/02/16 12/05/22 Escitalopram [Lexapro] 10 mg PO DAILY 02/24/17 12/05/22 Gabapentin [Neurontin] 100 mg PO TID 03/16/19 12/05/22 Hydrocodone/Acetaminophen [[place] 1 tab PO Q6H PRN 03/16/19 12/05/22 10-325] Albuterol Sulfate [Proair Hfa] 2 puff INHALATION RT-Q4H PRN 04/19/20 12/05/22 Doxepin HCl 100 mg PO HS 04/19/20 12/05/22 Topiramate 50 mg PO BID 04/19/20 12/05/22 metFORMIN HCL 500 mg PO DAILY 04/19/20 12/05/22 Atorvastatin [Lipitor] 20 mg PO DAILY 01/17/21 12/05/22 Ergocalciferol [Vitamin D2 (1250 1,250 mcg PO Q7D 01/17/21 12/05/22 Mcg = 57688 Iu)] ALPRAZolam [Xanax] 0.5 mg PO TID PRN 04/19/21 12/05/22 Levothyroxine Sodium [Synthroid] 50 mcg PO DAILY 07/29/21 12/05/22 Omeprazole [PriLOSEC] 20 mg PO DAILY 07/29/21 12/05/22 Naproxen [Naprosyn] 500 mg PO Q12HR PRN 02/20/22 12/05/22 Allergies Allergy/AdvReac Type Severity Reaction Status Date / Time acetaminophen [From Percocet] Allergy Rash/Hives Verified 10/26/23 13:50 morphine Allergy Rash/Hives Verified 12/05/22 08:34 oxycodone [From Percocet] Allergy Rash/Hives Verified 10/26/23 13:50 tramadol Allergy Rash/Hives Verified 12/05/22 08:34 Review of Systems ROS Statement: Those systems with pertinent positive or pertinent negative responses have been documented in the HPI. ROS Other: All systems not noted in ROS Statement are negative. Past Medical History Past Medical History: Asthma, Chest Pain / Angina, Diabetes Mellitus, ANGELA D/Reflux, Osteoarthritis (OA), Skin Disorder Additional Past Medical History / Comment(s): migraines, IBS, overactive bladder, "tingling arms," brian malformation, pseudotumor cerebri History of Any Multi-Drug Resistant Organisms: None Reported Past Surgical History: Cholecystectomy, Orthopedic Surgery Additional Past Surgical History / Comment(s): removal of mole from genital area. 12/2020 - teeth removed. Past Anesthesia/Blood Transfusion Reactions: No Reported Reaction Additional Past Anesthesia/Blood Transfusion Reaction / Comment(s): Pt has slight clausterphobia. Past Psychological History: Anxiety, Depression Smoking Status: Former smoker Past Alcohol Use History: None Reported Past Drug Use History: None Reported - Past Family History Father Family Medical History: Diabetes Mellitus, Hyperlipidemia, Hypertension Additional Family Medical History / Comment(s): Father is . Mother Family Medical History: No Reported History General Exam Limitations: no limitations General appearance: alert, in no apparent distress Head exam: Present: atraumatic, normocephalic, normal inspection Respiratory exam: Present: normal lung sounds bilaterally. Absent: respiratory distress, wheezes, rales, rhonchi, stridor Cardiovascular Exam: Present: regular rate, normal rhythm, normal heart sounds. Absent: systolic murmur, diastolic murmur, rubs, gallop, clicks Extremities exam: Present: other (Right knee pain with range of motion neurovascular intact no erythema no increased warmth pulses are equal bilaterally diffuse tenderness) Course Vital Signs 10/26/23 13:45 Temperature 97.5 F L Pulse Rate 67 Respiratory 18 Rate Blood Pressure 134/71 O2 Sat by Pulse 97 Oximetry Medical Decision Making - Medical Decision Making Was pt. sent in by a medical professional or institution (Dr., PA, CHEMICAL ANALYST, urgent care, hospital, or correction...) When possible be specific @ -No Did you speak to anyone other than the patient for history (EMS, parent, family, police, friend...)? What history was obtained from this source @ -No Did you review nursing and triage notes (agree or disagree)? Why? @ -I reviewed and agree with nursing and triage notes Were old charts reviewed (outside hosp., previous admission, EMS record, old EKG, old radiological studies, urgent care reports/EKG's, correction records)? Report findings @ -No old charts were reviewed Differential Diagnosis (chest pain, altered mental status, abdominal pain women, abdominal pain men, vaginal bleeding, weakness, fever, dyspnea, syncope, headache, dizziness, GI bleed, back pain, seizure, CVA, palpatations, mental health, musculoskeletal)? @ -Pain knee strain Meniscus ligamentous injury EKG interpreted by me (3pts min.). @ -None X-rays interpreted by me (1pt min.). @ -None done CT interpreted by me (1pt min.). @ -None done U/S interpreted by me (1pt. min.). @ -None done What testing was considered but not performed or refused? (CT, X-rays, U/S, labs)? Why? @ -[Consider x-ray though patient had recent x-ray with no new injuries MRI was considered will be completed outpatient What meds were considered but not given or refused? Why? @ -None Did you discuss the management of the patient with other professionals (professionals i.e. NAHID Stoddard, CHEMICAL ANALYST, lab, RT, psych nurse, social media manager, concrete swimming pool installer, teacher, global safety officer, protective services case worker)? Give summary @ -No Was smoking cessation discussed for >3mins.? @ -No Was critical care preformed (if so, how long)? @ -No Were there social determinants of health that impacted care today? How? (Homelessness, low income, unemployed, alcoholism, drug addiction, transportation, low edu. Level, literacy, decrease access to med. care, nursing home, rehab)? @ -No Was there de-escalation of care discussed even if they declined (Discuss DNR or withdrawal of care, Hospice)? DNR status @ -No What co-morbidities impacted this encounter? (DM, HTN, Smoking, COPD, CAD, Cancer, CVA, ARF, Chemo, Hep., AIDS, mental health diagnosis, sleep apnea, morbid obesity)? @ -None Was patient admitted / discharged? Hospital course, mention meds given and route, prescriptions, significant lab abnormalities, going to OR and other pertinent info. @ -Discharge patient presented for right knee pain has been prior evaluated by orthopedics patient is on current [place]. Patient provided analgesics here and discharged she is advised to follow-up tomorrow Undiagnosed new problem with uncertain prognosis? @ -No Drug Therapy requiring intensive monitoring for toxicity (Heparin, Nitro, Insulin, Cardizem)? @ -No Were any procedures done? @ -No Diagnosis/symptom? @ -Right knee pain Acute, or Chronic, or Acute on Chronic? @ -Acute Uncomplicated (without systemic symptoms) or Complicated (systemic symptoms)? @ -Uncomplicated Side effects of treatment? @ -No Exacerbation, Progression, or Severe Exacerbation? @ -No Poses a threat to life or bodily function? How? (Chest pain, [place], [place], pneumonia, PE, COPD, DKA, ARF, appy, cholecystitis, CVA, Diverticulitis, Homicidal, Suicidal, threat to staff... and all critical care pts) @ -No Disposition Clinical Impression: Right knee pain Disposition: HOME SELF-CARE Condition: Stable Instructions (If sedation given, give patient instructions): Knee Pain (ED) Additional Instructions: Please return to the Emergency Department if symptoms worsen or any other concerns. Is patient prescribed a controlled substance at d/c from ED?: No Referrals: Keyon Walker Jr, DO [Primary Care Provider] - 1-2 days Time of Disposition: 14:14
[2023-10-26] MEDS: HYDROmorphone 1 MG/ML 1 ML SYRINGE IM STA (14:20)
[2023-10-26 14:44] VITALS: BP 136/76; PULSE 76; RESP 22; TEMP 98.4
== END 2023-10-26 14:44 | disposition home or self-care (01) ==
LOC: EC 13:35
DX: M25.561 Pain in right knee (principal); Z88.5 Allergy status to narcotic agent; Z87.891 Personal history of nicotine dependence
CPT/HCPCS: 99283; 96372; J1170

== ENCOUNTER → 2023-12-17 | Outpatient (CLI) | payer OTHER ==
--- NOTE | 2023-12-17 11:35 | MR ---
EXAMINATION TYPE: MR brain wo con DATE OF EXAM: 12/17/2023 10:59 AM CLINICAL INDICATION:Female, 43 years old with history of G93.2 BENIGN INTRACRANIAL HYPERTENSION; PHH, Hypertension, chiari malformation COMPARISON: 06/07/2022. TECHNIQUE: Multi planar, multi sequence imaging was performed through the brain including: T1, T2, In version recovery, Diffusion weighted imaging, and gradient echo imaging. No gadolinium was given. FINDINGS: Cerebellar tonsils do not extend below the foramen magnum. The ross-white junctions, ventricular system, basal cisterns appear unremarkable. Midline structures show no abnormality. Diffusion-weighted imaging shows no evidence of restricted diffusion. The suscep tibility weighted images do not reveal any evidence for micro-hemorrhage. The bone marrow signal is within normal limits. Paranasal sinuses and mastoid air cells: No significant paranasal sinus disease. Visualized orbits: Orbital contents are intact. IMPRESSION: 1. No significant cerebellar tonsillar ectopia visualized. 2. No evidence of intracranial mass or acute/subacute infarct.
== END | disposition home or self-care (01) ==
LOC: RADMRIMAIN 09:55
PROVIDERS: ATTEND Neurological Surgery
DX: G93.2 Benign intracranial hypertension (principal); I10 Essential (primary) hypertension
CPT/HCPCS: 70551

== ENCOUNTER → 2024-10-05 | Outpatient (CLI) | payer OTHER ==
--- NOTE | 2024-10-06 07:42 | MM ---
Reason for Exam: Screening (asymptomatic). Last mammogram was performed 3 year(s) and 4 month(s) ago. Patient History: Menarche at age 9. Patient has no children. Hormonal Contraceptives for 2 years from age 12 until age 14. Risk Values: Giselle 5 year model risk: 1.0%. NCI Lifetime model risk: 11.6%. Prior Study Comparison: 05/21/2021 Bilateral Screening Mammogram, [facility]. Tissue Density: The breasts are almost entirely fatty. Findings: Analyzed By CAD. Right breast: Stable probable intramammary lymph node. There is no suspicious group of microcalcifications or new suspicious mass. Left breast: Stable probable intramammary lymph node. There is no suspicious group of microcalcifications or new suspicious mass. Overall Assessment: Benign, BI-RAD 2 Management: Screening Mammogram of both breasts in [address] [facility] will attempt to contact patient to return for supplemental views and ultrasound if indicated. Patient should continue monthly self-breast exams. A clinical breast exam by your physician is recommended on an annual basis. This exam should not preclude additional follow-up of suspicious palpable abnormalities. Note on Giselle scores and lifetime risk: 1. A Giselle score greater than 3% is considered moderate risk. If this is the case, consider specialist referral to assess eligibility for a risk reducing agent. 2. If overall lifetime risk for the development of breast cancer is 20% or higher, the patient may qualify for future screening with alternating mammogram and breast MRI. [facility], , 10/06/2024 7:39 AM. Electronically signed and approved by: Louie Franco DO
== END | disposition home or self-care (01) ==
LOC: RADMAMWWP 15:58
PROVIDERS: ATTEND Family Medicine
DX: Z12.31 Encounter for screening mammogram for malignant neoplasm of breast (principal); R92.313 Mammographic fatty tissue density, bilateral breasts; Z92.0 Personal history of contraception
CPT/HCPCS: 77067